=== PATIENT | male | born 1950 | race Caucasian/White ===

== ENCOUNTER 2017-08-17 08:00 | Outpatient (RCR) | payer MEDICARE, MEDICAID, SELFPAY ==
--- NOTE | 2017-07-20 07:43 | HP.PTEVAL_ITS ---
Patient's Visit Information CAREN GARCIA is a 67 year old M referred to Physical Therapy by Tyrel Arce with a diagnosis of L arm pain. Date of Evaluation: 07/13/17 Physical Therapist: Serge Block - Visit Plan Frequency: 1-2x /Week Duration: 4-6 Weeks Plan: Start with endurance training, static and dynamic balance training. BLE strengthening progressing HEP as able. Stress importance of increased walking and HEP at home to incerase carry over. Carry executive candidate developer was planing on talking to physician as she believes script should have been for balance not his L humeral issue. - Subjective Subjective: Pt. is here today for his initial diagnosis of of L arm pain s/p fall. 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 Pt. lives in residential with 2 other people. He fell in january suffering a L hmeral fx, but reports that this is doing much better. PHM: type 2 diabetes, hypertension, hypercholesterolemia and seizure disorder. Xray- non recently. Pt. reports not being conserned with his arm any more, more concerned with his imbalance and limited walking. He works at the [employer] and is supposed to be walking but frequently refuses. Pt. reports I just get tired. Caregiver reports no recently falls, but has falls a few more times this year. She reports pt. sits and watches TV for 3-4 hours a time and only gets up to go to work shop and to use bathroom. Pt. uses quad cane with all ambulation in R hand. Pt. reports having low endurance, fatigues quickly especially with walking. He is able to transer SBA/CGA and bed mobility independently, He does ambulate with a gait belt at home and community. He and lawn care technician are hopeful to increase BLE strength, endurance and improve gait to improved stability and reduce risk for future falls. - Pain L shoulder Pain Intensity (Out of 10): 0 Pain Intensity Range: 0 - Objective POSTURE: Pt. has FH posture, rounded shoulders, fwrd flexed posture, increased thoracic kyphosis. Pt. stands with quad cane and wide MORENO. PALPATION: Pt. had no pain with palpation of L shoulder. Pt. has no pain in BLEs. SLight edema in BLEs, non pitting. NEUROLOGICAL: Pt. has normal sensation to light and sharp touch of bilateral LEs. Pt. has 2+ achilles and patellar DTR bilaterally. Pt. is able to rise on heels and toes without LOB. Pt. does require balance aide to complete. ROM: Pt. has normal hip/knee ROM. Pt. has decreased over head shoulder ROM, but no pain noted. Pt. has tightnes in bilateral HS and bilatearl hip flexors. Decreased lumbar ext and flexion as well. No pain noted with all testing. MMT: RLE- ankle- DF 4/5, PF 4/5; knee- ext 4+/5, flexion 4/5 ; hip- flexion 4/5, abd 4-/5, ext 4-/5. LLE- ankle 4/5 throughout; knee- ext 4/5 , flexino 4/5; hip- flexion 4/5, abd 4-/5, ext 4/5. Core strength- poor. GAIT: Pt. ambulates with quad cane with SBA without LOB, but has decreased step length bilaterally, increased lateral sway with hips and slight knee flexion on L side. Pt. ambulated 150ft. but became very fatigued, no dyspnea noted. Pt. has increased lateral postural sway with gait if AD is removed. - Balance Scores Functional Gait Assessment Score: 7 % Disability: 76.6700 - Goals Goal 1:: Pt. to be I with HEP. Goal Time Frame: 4-6 Weeks Goal 2:: Pt. to have increased BLE strength by 1/2 grade of all effected musculature to increase stability with gait and stance. Goal Time Frame: 4-6 Weeks Goal 3:: Pt. to ambulate 300ft. with quad cane with ABDULKADIR allowing for increased ability to ambulate in community. Goal Time Frame: 4-6 Weeks Goal 4:: Pt. to ambulate 75' with quad cane SHIRA to allow for increased independence in home. Goal Time Frame: 4-6 Weeks Goal 5:: Pt. to have increased FGA to 15/30 indicating reduce risk for future falls. Goal Time Frame: 4-6 Weeks - Rehabilitation Potential Physical Therapy Diagnosis: Pt. has a history of left arm pain, but is not longer having symptoms. He does have a history of falls and his lawn care technician is concerned that he will have another one due to his general decline in BLE strength and stability with gait. He does have marked weakness in BLE, especially his hips. Pt. would benefit from PT to icnrease BLE strength, balance and endurance with walking to increase independence in home and community. Rehabilitation Potential: Fair - Anticipated Interventions Patient/Client Instruction: Educate patient on: Condition, Plan of Care, Risk Factors, Benefits of Fitness Program For the Purpose of:: To improve safety, To improve health and function, To foster healthy habits, To improve decision making, To facilitate caregiver knowledge, To improve self management, To prevent re-injury Therapeutic Exercise to Include: Strength training, Power training, Endurance training, Balance training, Body mechanics, Postural training, Flexibilty training, Gait and locomotor training, Passive ROM, Active ROM For the Purpose of:: To decrease pain, To increase ROM, To improve nutrient delivery to tissue, To increase oxygenation perfusion, To improve muscle performance and motor function, To improve ability to perform ADL's, To increase tolerance to activity/condition/position, To improve performance and independence with ADL's, To decrease level of supervision to perform tasks, To improve ability of physical actions for home/community/work/leisure, To improve gait and locomotor functions, To improve health of tissue, To increase flexibility/ROM, To improve endurance, To improve balance Thank you for the opportunity to evaluate your patient. For Medicare and Medicare HMO plans, please review the plan of care and approve it. It will need to be FAXED BACK to us at [phone] for Medicare purposes. Please let me know if there are questions or concerns regarding this plan of care. Physician Signature: Date:
--- NOTE | 2017-08-28 07:27 | HP.PTDCSUM ---
HP - PT D/C Summary It has been my pleasure to treat CAREN GARCIA under orders from Tyrel Arce, for the diagnosis of L arm pain for a total of 10 visit(s). Discharge Date: 08/17/17 Please see the following information for a summary of their discharge status. - Subjective Subjective: Pt. reports 'I am doing prett well. Pt. reports no recent fall. Pt. pleased with PT. Pt. continues to ambulate a little while at work. Pt. arrives using is quad cane. - Pain L shoulder Pain Intensity (Out of 10): 0 - Overall Improvement % Improvement: 85 - Objective Objective/Function: ROM: Pt. has normal ROM of L UE- no pain. PT. had tightness noted in B HS, but normal kne and hip ROM. MMT- Pt. had decerased strength in bilateral ankles 4-/5 throughout; R knee- ext 4+/5, flexion 4+/5; L knee ext 4/5, flexion 4/5; R hip flexion 4/5, and 4-/5, ext 4/5. L hip- flexion 4-/5, abd 3+/5, ext 4-/5. Core strength- poor. GAIT: Pt. ambulates with quad cane with ABDULKADIR upto 250ft. without LOB. Pt. continues decreased strength/stability in his left leg. Pt. has improved tempo this date. STAIRS: Pt. is able to compete with heavy use of RUE with reciprocal pattern, but has increased R lateral lean CGA to complete. - Goals Goal 1:: Pt. to be I with HEP. Goal Progress: Goal Met Goal 2:: Pt. to have increased BLE strength by 1/2 grade of all effected musculature to increase stability with gait and stance. Goal Progress: Goal Met Goal 3:: Pt. to ambulate 300ft. with quad cane with ABDULKADIR allowing for increased ability to ambulate in community. Goal Progress: Progressing Goal 4:: Pt. to ambulate 75' with quad cane SHIRA to allow for increased independence in home. Goal Progress: Progressing Goal 5:: Pt. to have increased FGA to 15/30 indicating reduce risk for future falls. Goal Progress: Progressing - Plan Plan: Pt. to will be DC to HEP at this point in time. Pt. has proper exercises and has been instructed to increase ambulation at home and work to increase/maintain mobility. Pt. consents. - D/C Information Discharge Comments: Pt. was treated for his arm pain which is gone. He was concerned about his balance as was his caregiver. Pt. did have balance issues and was addressed with strengthening, and balance activities. His balance and gait stability improved now to a point where he can continue with caregiver supervision. Pt. will be Dc to [facility] at this point in time. If there are questions or concerns regarding this patient's physical therapy, please feel free to call me at [phone]. Thank you for the referral of this patient. Sincerely, Serge Block
== END 2017-08-17 19:00 | disposition home or self-care (01) ==
LOC: PT 08:00
PROVIDERS: Family Provider Family Medicine; PCP Family Medicine; Visit Provider Orthopaedic Surgery
DX: S42.202D Unspecified fracture of upper end of left humerus, subsequent encounter for fracture with routine healing (principal)
CPT/HCPCS: 97110; 97162; 97530

== ENCOUNTER 2017-08-28 03:42 | Inpatient (IN) | payer MEDICARE, MEDICAID, SELFPAY ==
[2017-08-28] VITALS (8 sets, daily range): BP systolic 152–217; BP diastolic 82–121; PULSE 87–105; RESP 16–18; TEMP 36.6–37.5; O2SAT 94–97; BMI 32.9; BMI 31.6; BMI 31.7
--- NOTE | 2017-08-28 04:05 | RAD_ITS ---
STUDY: X-RAY - RIGHT FEMUR REASON FOR STUDY: Male, 67 years old. Status post fall. Right hip pain. TECHNIQUE: Radiological exam, femur, 5 views COMPARISON: None. FINDINGS: Normal visualized femur. There are arteriovascular calcifications. RAD/Femur Min 2 Views IMPRESSION: No demonstrated fracture, dislocation, or destructive osseous lesion. Electronically Signed: Garrett Phillips MD at 4:44 EDT , Service support ,
--- NOTE | 2017-08-28 04:05 | RAD_ITS ---
STUDY: X-RAY - PELVIS REASON FOR EXAM: Male, 67 years old. Status post fall. Right hip pain. TECHNIQUE: One view of the pelvis was obtained. COMPARISON: X-ray right femur. FINDINGS: There is a non-specific bowel gas pattern. Normal visualized soft tissue structures. There is deformity of the left iliac wing, which may be the result of remote trauma. Otherwise normal bilateral iliac wings, sacroiliac joints and visualized sacrum. Normal visualized bilateral superior and inferior pubic rami. Normal pubic symphysis. Normal ischial tuberosities. Normal visualized right femoral head. Normal right acetabulum. Normal right hip joint. Normal visualized left femoral head. Normal left acetabulum. Normal left hip joint. RAD/Pelvis 1 or 2 Views IMPRESSION: No demonstrated acute fracture, dislocation, or destructive osseous lesion. Electronically Signed: Garrett Phillips MD at 4:41 EDT , Service support ,
--- NOTE | 2017-08-28 04:08 | ED.VISSUMM ---
- ER Visit Summary Date of Service: 08/28/17 Chief Complaint: Fall with right hip pain History of Present Illness: The patient is a 67 M history of left sided cerebral palsy, [id number] diabetes, hypertension and prior left humerus fracture. Today was at home lost his balance and fell complaining of right hip pain. No LOC. He is on no blood thinners. He is a superficial abrasion the right lateral nose but denies any facial or head pain. No neck pain. He tried to ambulate at home and was unable to bear weight on his right hip. Denies other injuries. States prior to the fall he felt fine. Patient does have 2 roommates and has 24 hour a day care. 1 of his caregivers is with him. Physical Examination: Older male no acute distress. His initial blood pressure 217/121. Pulse ox 97% on room air no signs of hypoxia. He is afebrile. H EENT exam is a very superficial minor abrasion on the right side of his nose. There is no bony deformity. No bleeding. Otherwise there is no trauma to his face or scalp. C-spine nontender. Trachea midline. Lungs clear to auscultation bilaterally. Chest wall nontender. Heart regular rhythm no murmur. Abdomen soft nontender. Pelvic girdle intact. He does have mild tenderness to his right hip. There is no external rotation or shortening of the lower extremities. Dorsi and plantar flexion is intact both lower extremities. He has atrophy and decreasing strength on the left upper and lower extremity from prior cerebral palsy. His right upper extremity is nontender with normal range of motion. Neurologically is awake and alert. Answering questions and following commands. Test Results: Pelvis x-ray no acute abnormality. No fracture. X-ray multiple views no acute fracture seen. No dislocation. Read by myself. Emergency Department Course and Treatment: Patient doing well on repeat exam at 04 40. The nurses did attempt to ambulate the patient and he cannot bear weight on his right hip. In light that he has significant difficulty ambulating normally due to his left-sided cerebral palsy. He will need to be admitted and have further evaluation to rule out an occult fracture and possibly physical therapy. Treatment Plan: I will speak to the hospitalist about admission. Disposition: Admission Impression: Acute fall Acute right hip contusion Unable to bear weight rule out non-radiographic hip fracture History of left-sided cerebral palsy This note was generated with Dragon dictation software. It may contain incorrect words, spelling, and punctuation that were not noted in review of the chart prior to signing ED Disposition - Plan for ED Patient: Chief Complaint: Fall Referrals: Brayan Brown MD [Primary Care Provider] -
--- NOTE | 2017-08-28 05:16 | HP.PCM_ITS ---
Problem List (1) Fall with injury Status: Acute (2) Cerebral palsy Status: Chronic (3) Hypertension Status: Chronic History of Present Illness Date of Admission: 08/28/17 Chief Complaint: right hip pain, unable to bear weight The patient is a 67 year old male patient with a history of cerebral palsy and hypertension who has left side weakness at baseline from his CP presents to the ER after falling at home. His chief complaint is pain in the right hip area 5/ 10. He has an abnormal gait and as of late he has been weaker when he turned to go into the bathroom he fell. Xrays are negative for fracture. When they tried to get him up he was unable to bear weight on his right leg due to pain. He will be admitted for pain control and physical therapy further imaging may be warranted should he fail to progress. Past Medical History Past Medical History (Chronic Problems): Chronic Problems Cerebral palsy (Chronic) Hypertension (Chronic) Allergies mold Allergy (Verified 08/28/17 03:44) Other Home Medications: Ambulatory Orders Medication Instructions Recorded Atorvastatin Calcium [Lipitor] 10 mg PO DAILY 03/18/15 Hydrochlorothiazide [Hctz] 25 mg PO DAILY 03/18/15 Losartan Potassium [Cozaar] 100 mg PO DAILY 03/18/15 Metformin HCl [Glucophage] 1,000 mg PO BIDCM 03/18/15 Multivitamins,Therapeutic 1 tablet PO DAILY 03/18/15 [Multivitamin] Phenobarbital 64.8 mg PO BID 03/18/15 Propranolol HCl [Inderal (Beta 40 mg PO BID 03/18/15 Ahsan)] Amlodipine Besylate [Norvasc] 2.5 mg PO DAILY 08/28/17 Benzonatate [Tessalon Perle] 100 mg PO TID PRN PRN 08/28/17 Smoking Status: Never smoker - *Family History Maternal History Items: No pertinent history Review of Systems Constitutional: Denies: Chills, Fever, Weight Change HEENT: Denies: Head Aches, Sinus Congestion, Sinus Drainage Cardiovascular: Denies: Chest Pain, Palpitations Respiratory: Denies: Cough, Shortness of breath at rest, Sputum production Gastrointestinal: Denies: Abdominal Pain, Nausea, Vomiting Genitourinary: Denies: Dysuria Musculoskeletal: Reports: Joint Pain, Joint Tenderness Skin: Denies: Rash, Wounds Neurological: Denies: Numbness, Tingling, Focal weakness Psychiatric: Denies: Anxiety, Depression, Homicidal Ideations, Suicidal Ideations Hematologic/ Lymphatic: Denies: Easy Bruising, Easy Bleeding VTE Information - Inpt Only VTE Present on Admission: No VTE Mechan Device Prophylaxis: None VTE Pharm Prophylaxis ordered?: Yes Patient Problems: Active and Suspected Problems Fall with injury (Acute) - Physical Exam General: Alert, Oriented x3, Cooperative HEENT: Atraumatic, Normocephalic Neck: Supple Lungs: Clear to auscultation, Normal air movement, No rhonchi, No wheeze, No rales Cardiovascular: Regular rate, Regular Rhythm, Normal S1, Normal S2, No murmurs Abdomen: Bowel Sounds Present, Soft, Non Tender Extremities: Edema - right leg 1+, left leg trace Skin: No rashes Musculoskeletal: Tenderness - right hip Neurological: Neuro grossly intact Psych/Mental Status: Normal Affect, Appropriate Vital Signs Temp Pulse Resp BP Pulse Ox 98.1 F 87 18 217/121 H 97 08/28/17 03:44 08/28/17 03:44 08/28/17 03:44 08/28/17 03:44 08/28/17 03:44 Oxygen Delivery Method Room Air Weight: 204 lb 2.369 oz Body Mass Index (BMI) 32.9 Assessment/Plan All Active Problems Fall with injury (Acute) Chronic conditions - hypertension - cerebral palsy Plan - admit to general medical floor - consult physical therapy to evaluate and treat for right hip pain and inability to bear weight - continue routine home medications - cbc, bmp - toradol 30mg IV q 6hrs prn pain - LMWH for DVT prophylaxis consider MRI if fails to progress in PT Code Visit Inpatient E&M: 81116 Init Hosp L2
--- NOTE | 2017-08-28 05:28 | NURSING ---
Called ED math interventionist, Erica at this time to let the ED staff know that PCU is ready for the patient.
[2017-08-28 06:48] LABS: Absolute Lymphocyte Count 0.99 X10^3/ul (0.83-4.51); Basophil# 0.05 X10^3/uL; Basophil% 0.3 % (0-1); Eosinophil# 0.46 X10^3/uL; Hematocrit 32.3 % (40-54); Hemoglobin 10.7 g/dl (13.0-16.5); Lymphocyte # 0.99 X10^3/ul (4.0); Lymphocyte % 6.4 % (19-41); Mean Corp Hgb Conc 33.1 g/gl (32-36); Mean Corpuscular Hgb 29.2 pg (27.0-32.0); Mean Platelet Vol. 8.8 fl (6.2-12.0); Monocyte# 0.93 X10^3/uL; Neutrophil # 12.96 X10^3/uL (2.7-7.7); Neutrophil % 83.6 % (47-70); Platelet Count 247 K/mm3 (150-450); RBC Distribution Width CV 13.6 % (11.6-14.6); RBC Distribution Width SD 43.9 fl (35.1-43.9); Red Blood Count 3.67 M/mm3 (4.6-6.2); White Blood Count 15.5 K/mm3 (4.4-11.0)
[2017-08-28 06:52] LABS: POSITIVE COUNT NO; POSITIVE DIFFERENTIAL NO; POSITIVE MORPHOLOGY NO
[2017-08-28 07:13] LABS: Anion Gap 9 (5-15); BUN 19 mg/dL (7-18); BUN/Creat Ratio 17.6 RATIO (10-20); Calcium,Total 8.8 mg/dL (8.5-10.1); Chloride 100 mmol/L (98-107); Creatinine, Serum 1.08 mg/dL (0.70-1.30); EST Glomerular Filtration Rate 72 mL/min (>60); Est Glom Filt Rate - Afr Amer 87 mL/min (>60); Estimated Creatinine Clearance 58.25 ml/min; Glucose 221 mg/dL (74-106); Potassium 4.2 mmol/L (3.5-5.1); Sodium Level 135 mmol/L (136-145)
[2017-08-28] MEDS: Losartan Potassium 100 MG Tablet PO (08:16)
[2017-08-28] MEDS: metFORMIN HCl 1,000 MG Tablet 1000 MG PO ×2 (08:16→17:34)
[2017-08-28] MEDS: Propranolol 40 MG Tablet PO ×2 (08:16→21:48)
[2017-08-28] MEDS: hydroCHLOROthiazide 25 MG Tablet PO (08:16)
[2017-08-28] MEDS: amLODIPine 2.5 MG Tablet PO (08:16)
[2017-08-28] MEDS: Multivitamins,Therapeutic Tablet 1 TABLET PO (08:16)
[2017-08-28 08:26] LABS: Bedside Glucose 223 mg/dL (70-110)
[2017-08-28] MEDS: Phenobarbital 32.4 MG Tablet 64.8 MG PO ×2 (09:28→21:52)
[2017-08-28] MEDS: Enoxaparin 40 MG/0.4 ML Syringe SC (09:29)
--- NOTE | 2017-08-28 10:01 | PCM.PN.HOSP ---
Patient Problems: Active and Suspected Problems Fall with injury (Acute) Subjective: Patient is a 67-year-old male with a history of cerebral palsy and hypertension. He has residual left sided weakness at baseline. He was admitted via the ED on 08/28/2017 after he fell at home. Patient had gone to the bathroom and could not get up and subsequently fell. He was admitted with a complaint of 5/10 pain in the right hip. According to his caregiver he had progressively been getting weaker recently at home. X-rays were negative for fracture of the right hip. He was unable to weight-bear and so was admitted for physical therapy and pain control. Seen and examined this morning. His caregiver was present by his side. He had no complaints. However worried about the fact that he still could not weight-bear and felt weak. He denied any fever or chills, and shortness of breath, and abdominal pain, any diarrhea vomiting. According to his caregiver, patient has been progressively getting weaker at home and she thinks that he would benefit from more intense physical therapy. He had been having [facility]. Vitals/I&O's: Vital Signs Temp Pulse Resp BP Pulse Ox 97.8 F 90 16 171/106 H 97 08/28/17 06:00 08/28/17 06:00 08/28/17 06:00 08/28/17 06:00 08/28/17 06:00 Oxygen Delivery Method Room Air Weight: 196 lb 6.91 oz Body Mass Index (BMI) 31.6 General: Alert, Oriented x3, Cooperative, No apparent distress HEENT: Atraumatic, PERRLA, EOMI, Normocephalic Oral: Moist Mucosa Neck: Supple, No JVD, Negative Carotid Bruits Lungs: Clear to auscultation, Normal air movement, No rhonchi, No wheeze, No rales Cardiovascular: Regular rate, Regular Rhythm, Normal S1, Normal S2, No murmurs Abdomen: Bowel Sounds Present, Soft, Non Tender, Non-Distended, No Hepato-splenomegaly Extremities: No clubbing, No cyanosis, No edema, Capillary Refill Less than 3 Seconds Skin: No rashes, No breakdown Musculoskeletal: No Tenderness to Palpation of Joints or Extremities, - - has some contracture of RUE Lymphatic: No Cervical, Supraclavicular, or Inguinal Adenopathy Neurological: Cranial nerves II-XII grossly intact, - - has decreased power (4/5) in RUE and RLE. Cannot dorsiflex right foot. Psych/Mental Status: Normal Affect, Alert and oriented to time, place, person, mood and affect Laboratory Results 08/28/17 06:20: WBC 15.5 H, RBC 3.67 L, Hgb 10.7 L, Hct 32.3 L, MCV 88.0, MCH 29.2, MCHC 33.1, RDW 13.6, RDW Differential 43.9, Plt Count 247, MPV 8.8, Immature Gran % (Auto) 0.700, Neut % (Auto) 83.6 H, Lymph % (Auto) 6.4 L, Bay % (Auto) 6.0, Eos % (Auto) 3.0, Baso % (Auto) 0.3, Absolute Neuts (auto) 13.0 H, Absolute Lymphs (auto) 0.99, Total Counted Not Reportable 08/28/17 06:20: Sodium 135 L, Potassium 4.2, Chloride 100, Carbon Dioxide 26.0, Anion Gap 9, BUN 19 H, Creatinine 1.08, Estim Creat Clear Calc 58.25, Est GFR (MDRD) Af Amer 87, Est GFR (MDRD) Non-Af 72, BUN/Creatinine Ratio 17.6, Glucose 221 H, Calcium 8.8 08/28/17 08:08: POC Glucose 223 H Current Medications Amlodipine Besylate (Norvasc) 2.5 mg PO DAILY [facility] Last Admin: 08/28/17 08:16 Dose: 2.5 mg Atorvastatin Calcium (Lipitor) 10 mg PO DAILY@2200 [facility] Benzonatate (Tessalon Perle) 100 mg PO TID PRN PRN PRN Reason: COUGH Enoxaparin Sodium (Lovenox) 40 mg SC DAILY@1000 [facility] Last Admin: 08/28/17 09:29 Dose: 40 mg Hydrochlorothiazide (Hctz) 25 mg PO DAILY [facility] Last Admin: 08/28/17 08:16 Dose: 25 mg Ketorolac Tromethamine (Toradol) 30 mg IV Q6H PRN PRN PRN Reason: PAIN Stop: 09/02/17 05:50 Losartan Potassium (Cozaar) 100 mg PO DAILY [facility] Last Admin: 08/28/17 08:16 Dose: 100 mg Magnesium Hydroxide (Milk Of Magnesia) 30 ml PO DAILY PRN PRN PRN Reason: Constipation [facility] Last Admin: 08/28/17 08:16 Dose: 1,000 mg Multivitamins (Multivitamin) 1 tablet PO DAILYCM [facility] Last Admin: 08/28/17 08:16 Dose: 1 tablet Phenobarbital (Phenobarbital) 64.8 mg PO BID [facility] Last Admin: 08/28/17 09:28 Dose: 64.8 mg Propranolol HCl (Inderal) 40 mg PO BID [facility] Last Admin: 08/28/17 08:16 Dose: 40 mg Sodium Chloride () 5 - 30 ml IV UD PRN PRN Reason: SALINE FLUSH Medical Necessity - Tobacco Use Smoking Status: Never smoker Assessment/Plan All Active Problems Fall with injury (Acute) 67-year-old male with a history of cerebral palsy with residual right-sided weakness and hypertension admitted after he sustained a fall at home. He also has had generalized weakness present and progressively getting worse and is unable to weight-bear. 1. Acute fall due to general debility Fell at home after he got up to going to the bathroom. Has been feeling weaker. Recently had physical [facility]. Vitals are stable except blood pressure that remains elevated. PT/OT on board; will benefit from intensive physical therapy fall precautions toradol for pain 2. Hypertension poorly controlled This may also be due to pain. On losartan and propranolol as well as hydrochlorthiazide. Will monitor, and adjust as needed IV hydralazine prn 3. 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 DVT prophylaxis: lovenox This note was generated with Clipboard dictation software. It may contain incorrect words, spelling, and punctuation that were not noted in checking the note before signing. Code Visit Inpatient E&M: 07514 Subs Hosp L2
--- NOTE | 2017-08-28 10:08 | CASEMGMT ---
LEEANN spoke with patient, his sister, brother in law, and one of his caregivers. Patient lives in a 1 story home with 2 other roommates. Ashtyn Valdes is his main caregiver. Patient normally uses a cane and gait belt to get around. He gets assist with bathing and they set up his meds. SW inquired if they knew of a d/c plan. They said they do not know yet as they have not spoken to any medical appliance maker to even know what is going on and he just came in today. LEEANN told them that is fine and that LEEANN as well as GAYATRI BOOKER will be following to assist with any d/c needs. Patient's brother in law said he is patient's guardian. They said the papers should be on file. LEEANN looked in chart and there is only a copy of a healthcare power of assistant district attorney from awhile ago listing patient's mom and dad as his agents. Both of whom have likely . LEEANN will ask patient's sister to bring in papers. Plan: Undetermined Tess LAYTON MSW
--- NOTE | 2017-08-28 10:10 | PN_ITS ---
Patient Problems: Active and Suspected Problems Fall with injury (Acute) Subjective: Patient is a 67-year-old male with a history of cerebral palsy and hypertension. He has residual left sided weakness at baseline. He was admitted via the ED on 08/28/2017 after he fell at home. Patient had gone to the bathroom and could not get up and subsequently fell. He was admitted with a complaint of 5/10 pain in the right hip. According to his caregiver he had progressively been getting weaker recently at home. X-rays were negative for fracture of the right hip. He was unable to weight-bear and so was admitted for physical therapy and pain control. Seen and examined this morning. His caregiver was present by his side. He had no complaints. However worried about the fact that he still could not weight- bear and felt weak. He denied any fever or chills, and shortness of breath, and abdominal pain, any diarrhea vomiting. According to his caregiver, patient has been progressively getting weaker at home and she thinks that he would benefit from more intense physical therapy. [facility] had [facility] having [facility]. Vitals/I&O's: Vital Signs Temp Pulse Resp BP Pulse Ox 97.8 F 90 16 171/106 H 97 08/28/17 06:00 08/28/17 06:00 08/28/17 06:00 08/28/17 06:00 08/28/17 06:00 Oxygen Delivery Method Room Air Weight: 196 lb 6.91 oz Body Mass Index (BMI) 31.6 General: Alert, Oriented x3, Cooperative, No apparent distress HEENT: Atraumatic, PERRLA, EOMI, Normocephalic Oral: Moist Mucosa Neck: Supple, No JVD, Negative Carotid Bruits Lungs: Clear to auscultation, Normal air movement, No rhonchi, No wheeze, No rales Cardiovascular: Regular rate, Regular Rhythm, Normal S1, Normal S2, No murmurs Abdomen: Bowel Sounds Present, Soft, Non Tender, Non-Distended, No Hepato- splenomegaly Extremities: No clubbing, No cyanosis, No edema, Capillary Refill Less than 3 Seconds Skin: No rashes, No breakdown Musculoskeletal: No Tenderness to Palpation of Joints or Extremities, - - has some contracture of RUE Lymphatic: No Cervical, Supraclavicular, or Inguinal Adenopathy Neurological: Cranial nerves II-XII grossly intact, - - has decreased power (4/5 ) in RUE and RLE. Cannot dorsiflex right foot. Psych/Mental Status: Normal Affect, Alert and oriented to time, place, person, mood and affect Laboratory Results 08/28/17 06:20: WBC 15.5 H, RBC 3.67 L, Hgb 10.7 L, Hct 32.3 L, MCV 88.0, MCH 29.2, MCHC 33.1, RDW 13.6, RDW Differential 43.9, Plt Count 247, MPV 8.8, Immature Gran % (Auto) 0.700, Neut % (Auto) 83.6 H, Lymph % (Auto) 6.4 L, [place] % (Auto) 6.0, Eos % (Auto) 3.0, Baso % (Auto) 0.3, Absolute Neuts (auto) 13.0 H , Absolute Lymphs (auto) 0.99, Total Counted Not Reportable 08/28/17 06:20: Sodium 135 L, Potassium 4.2, Chloride 100, Carbon Dioxide 26.0, Anion Gap 9, BUN 19 H, Creatinine 1.08, Estim Creat Clear Calc 58.25, Est GFR ( MDRD) Af Amer 87, Est GFR (MDRD) Non-Af 72, BUN/Creatinine Ratio 17.6, Glucose 221 H, Calcium 8.8 08/28/17 08:08: POC Glucose 223 H Current Medications Amlodipine Besylate (Norvasc) 2.5 mg PO DAILY [facility] Last Admin: 08/28/17 08:16 Dose: 2.5 mg Atorvastatin Calcium (Lipitor) 10 mg PO DAILY@2200 [facility] Benzonatate (Tessalon Perle) 100 mg PO TID PRN PRN PRN Reason: COUGH Enoxaparin Sodium (Lovenox) 40 mg SC DAILY@1000 [facility] Last Admin: 08/28/17 09:29 Dose: 40 mg Hydrochlorothiazide (Hctz) 25 mg PO DAILY [facility] Last Admin: 08/28/17 08:16 Dose: 25 mg Ketorolac Tromethamine (Toradol) 30 mg IV Q6H PRN PRN PRN Reason: PAIN Stop: 09/02/17 05:50 Losartan Potassium (Cozaar) 100 mg PO DAILY [facility] Last Admin: 08/28/17 08:16 Dose: 100 mg Magnesium Hydroxide (Milk Of Magnesia) 30 ml PO DAILY PRN PRN PRN Reason: Constipation [facility] Last Admin: 08/28/17 08:16 Dose: 1,000 mg Multivitamins (Multivitamin) 1 tablet PO DAILYCM [facility] Last Admin: 08/28/17 08:16 Dose: 1 tablet Phenobarbital (Phenobarbital) 64.8 mg PO BID [facility] Last Admin: 08/28/17 09:28 Dose: 64.8 mg Propranolol HCl (Inderal) 40 mg PO BID [facility] Last Admin: 08/28/17 08:16 Dose: 40 mg Sodium Chloride () 5 - 30 ml IV UD PRN PRN Reason: SALINE FLUSH Medical Necessity - Tobacco Use Smoking Status: Never smoker Assessment/Plan All Active Problems Fall with injury (Acute) 67-year-old male with a history of cerebral palsy with residual right-sided weakness and hypertension admitted after he sustained a fall at home. He also has had generalized weakness present and progressively getting worse and is unable to weight-bear. 1. Acute fall due to general debility * Fell at home after he got up to going to the bathroom. Has been feeling weaker. Recently had physical [facility]. * Vitals are stable except blood pressure that remains elevated. * PT/OT on board; will benefit from intensive physical therapy * fall precautions * toradol for pain * 2. Hypertension * poorly controlled * This may also be due to pain. * On losartan and propranolol as well as hydrochlorthiazide. Will monitor, and adjust as needed * IV hydralazine prn * 3. History of cerebral palsy * on phenobarbital for seizure prophyalxis 4. DVT prophylaxis: lovenox This note was generated with [employer] dictation software. It may contain incorrect words, spelling, and punctuation that were not noted in checking the note before signing. Code Visit Inpatient E&M: 91108 Subs Hosp L2
[2017-08-28] MEDS: hydrALAZINE 20 MG/ML Vial 10 MG IV (13:00)
[2017-08-28] MEDS: 0.9% NaCl Peripheral Flush Adult/Peds IV (13:01)
--- NOTE | 2017-08-28 14:45 | CASEMGMT ---
SW spoke with patient regarding d/c plan as therapy is recommending he go somewhere. He told SW to call his sister as she is his guardian. He said he would like [facility], but he is okay with wherever she says. SW called patient's sister, Nicole and could not leave a message as her voice mailbox is full. SW to talk with patient's sister regarding placement and to request a copy of the guardianship papers. Plan: Patient will need SNF. SW to talk with family about which facility. Tess LAYTON [employer]RILL SHARPENER OPERATOR
--- NOTE | 2017-08-28 17:30 | CT_ITS ---
STUDY: CT PELVIS WITH CONTRAST REASON FOR EXAM: Male, 67 years old. Right pelvis and hip pain RADIATION DOSAGE (If Supplied By Facility): CTDIvol = ( 28.12 ) mGy, DLP = ( 995.51 ) mGycm TECHNIQUE: Transaxial imaging of the pelvis was performed without oral contrast. 100 ml of Isovue 300 contrast was administered intravenously. Individualized dose optimization techniques were used for this CT. COMPARISON: None. FINDINGS: Normal urinary bladder. The prostate is 4.0 x 5.8 cm. Left inguinal hernia containing part of the sigmoid colon. Normal visualized small intestine. Normal visualized colon. There is no pelvic fluid. There is no pelvic lymphadenopathy or mass lesion. Normal visualized pelvic arteries. Normal abdominal wall. Degenerative lower lumbar changes. There is a fracture noted through the anterior portion of the right acetabulum. Questionable fracture through the right inferior pubic ramus. CT/Pelvis WITH IV Contrast IMPRESSION: There is a fracture noted through the anterior portion of the right acetabulum. Questionable fracture through the right inferior pubic ramus. Left inguinal hernia containing part of the sigmoid colon. Electronically Signed: Sukhi Vasquez DO at 18:26 EDT Tel [phone], Service support ,
[2017-08-28] MEDS: Atorvastatin Calcium 10 MG Tablet PO (21:49)
[2017-08-28 22:01] LABS: Bedside Glucose 235 mg/dL (70-110)
[2017-08-28] MEDS: Insulin Lispro 100 UNIT/ML INSULN.PEN SC (23:11)
[2017-08-29 03:45] VITALS: BP 142/73; PULSE 84; RESP 16; TEMP 37.2; O2SAT 97
[2017-08-29 07:01] LABS: Bedside Glucose 214 mg/dL (70-110)
--- NOTE | 2017-08-29 07:22 | PCM.PN.HOSP ---
Patient Problems: Active and Suspected Problems Fall with injury (Acute) Subjective: Patient is a 67-year-old male with a history of cerebral palsy and hypertension. He has residual left sided weakness at baseline. He was admitted via the ED on 08/28/2017 after he fell at home. Patient had gone to the bathroom and could not get up and subsequently fell. He was admitted with a complaint of 5/10 pain in the right hip. According to his caregiver he had progressively been getting weaker recently at home. X-rays were negative for fracture of the right hip. He was unable to weight-bear and so was admitted for physical therapy and pain control. Due to patient's inability to tolerate physical therapy, CT with contrast of the right hip and pelvis was obtained which showed an acetabular fracture. Orthopedics consulted. Examined this morning. He feels much better and his pain is much better controlled. He denies any fever or chills, any shortness of breath, any cough or chest pain, any abdominal pain, any diarrhea vomiting. His intake has been good and patient was actually hungry at time of review. Review of systems otherwise negative. Vitals/I&O's: Vital Signs Temp Pulse Resp BP Pulse Ox 99.0 F 84 16 142/73 H 97 08/29/17 03:45 08/29/17 03:45 08/29/17 03:45 08/29/17 03:45 08/29/17 03:45 Oxygen Delivery Method Room Air Weight: 196 lb 6.91 oz Body Mass Index (BMI) 31.6 Intake and Output for Last 24 Hours 08/27/17 08/28/17 08/29/17 23:59 23:59 23:59 Intake Total 660 / 660 Output Total 825 / 825 125 / 125 Balance -165 / -165 -125 / -125 General: Alert, Oriented x3, Cooperative, No apparent distress HEENT: Atraumatic, PERRLA, EOMI, Normocephalic Oral: Moist Mucosa Neck: Supple, No JVD, Negative Carotid Bruits Lungs: Clear to auscultation, Normal air movement, No rhonchi, No wheeze, No rales Cardiovascular: Regular rate, Regular Rhythm, Normal S1, Normal S2, No murmurs Abdomen: Bowel Sounds Present, Soft, Non Tender, Non-Distended, No Hepato-splenomegaly Extremities: No cyanosis, No edema, Capillary Refill Less than 3 Seconds Skin: No rashes, No breakdown Musculoskeletal: - - Right upper extremity contractured. RLE is shortened and externally rotated. Mild tenderness on flexion of hip joint. Lymphatic: No Cervical, Supraclavicular, or Inguinal Adenopathy Neurological: Cranial nerves II-XII grossly intact Psych/Mental Status: Normal Affect, Appropriate, Alert and oriented to time, place, person, mood and affect Laboratory Results 08/28/17 08:08: POC Glucose 223 H 08/28/17 21:41: POC Glucose 235 H Impressions Femur X-Ray 08/28/17 04:05 IMPRESSION: No demonstrated fracture, dislocation, or destructive osseous lesion. Electronically Signed: Garrett Phillips MD at 4:44 EDT , Service support , Pelvis X-Ray 08/28/17 04:05 IMPRESSION: No demonstrated acute fracture, dislocation, or destructive osseous lesion. Electronically Signed: Garrett hPillips MD at 4:41 EDT , Service support , Pelvis CT 08/28/17 17:30 IMPRESSION: There is a fracture noted through the anterior portion of the right acetabulum. Questionable fracture through the right inferior pubic ramus. Left inguinal hernia containing part of the sigmoid colon. Electronically Signed: Sukhi Vasquez DO at 18:26 EDT Tel [phone], Service support , 08/28/17 17:30 CT Hip [Pelvis WITH IV Contrast] [CT] Urgent Laboratory Results 08/28/17 08/29/17 08/29/17 Range/Units 21:41 06:55 08:08 WBC 8.8 (4.4-11.0) K/mm3 RBC 3.34 L (4.6-6.2) M/mm3 Hgb 9.8 L (13.0-16.5) g/dl Hct 29.1 L (40-54) % MCV 87.1 (80-94) fL MCH 29.3 (27.0-32.0) pg MCHC 33.7 (32-36) g/gl RDW 13.5 (11.6-14.6) % RDW Differential 43.3 (35.1-43.9) fl Plt Count 228 (150-450) K/mm3 MPV 8.7 (6.2-12.0) fl Immature Gran % (Auto) 0.500 (0.0-0.9) % Neut % (Auto) 71.1 H (47-70) % Lymph % (Auto) 15.9 L (19-41) % Morrison % (Auto) 7.9 (0-10) % Eos % (Auto) 4.0 (0-5) % Baso % (Auto) 0.6 (0-1) % Absolute Neuts (auto) 6.2 (2.0-7.7) X10^3/uL Absolute Lymphs (auto) 1.39 (0.83-4.51) X10^3/ul Total Counted Not Reportable Sodium (136-145) mmol/L Potassium (3.5-5.1) mmol/L Chloride (98-107) mmol/L Carbon Dioxide (21.0-32.0) mmol/L Anion Gap (5-15) BUN (7-18) mg/dL Creatinine (0.70-1.30) mg/dL Estim Creat Clear Calc ml/min Est GFR (MDRD) Af Amer (>60) mL/min Est GFR (MDRD) Non-Af (>60) mL/min BUN/Creatinine Ratio (10-20) RATIO Glucose (74-106) mg/dL Calcium (8.5-10.1) mg/dL POC Glucose 235 H 214 H (70-110) mg/dL 08/29/17 08/29/17 Range/Units 08:08 11:13 WBC (4.4-11.0) K/mm3 RBC (4.6-6.2) M/mm3 Hgb (13.0-16.5) g/dl Hct (40-54) % MCV (80-94) fL MCH (27.0-32.0) pg MCHC (32-36) g/gl RDW (11.6-14.6) % RDW Differential (35.1-43.9) fl Plt Count (150-450) K/mm3 MPV (6.2-12.0) fl Immature Gran % (Auto) (0.0-0.9) % Neut % (Auto) (47-70) % Lymph % (Auto) (19-41) % Morrison % (Auto) (0-10) % Eos % (Auto) (0-5) % Baso % (Auto) (0-1) % Absolute Neuts (auto) (2.0-7.7) X10^3/uL Absolute Lymphs (auto) (0.83-4.51) X10^3/ul Total Counted Sodium 136 (136-145) mmol/L Potassium 4.1 (3.5-5.1) mmol/L Chloride 100 (98-107) mmol/L Carbon Dioxide 26.0 (21.0-32.0) mmol/L Anion Gap 10 (5-15) BUN 24 H (7-18) mg/dL Creatinine 1.37 H (0.70-1.30) mg/dL Estim Creat Clear Calc 45.92 ml/min Est GFR (MDRD) Af Amer 66 (>60) mL/min Est GFR (MDRD) Non-Af 55 L (>60) mL/min BUN/Creatinine Ratio 17.5 (10-20) RATIO Glucose 197 H (74-106) mg/dL Calcium 7.9 L (8.5-10.1) mg/dL POC Glucose 274 H (70-110) mg/dL 08/29/17 06:55: POC Glucose 214 H Current Medications Amlodipine Besylate (Norvasc) 2.5 mg PO DAILY [facility] Last Admin: 08/28/17 08:16 Dose: 2.5 mg Atorvastatin Calcium (Lipitor) 10 mg PO DAILY@2200 [facility] Last Admin: 08/28/17 21:49 Dose: 10 mg Benzonatate (Tessalon Perle) 100 mg PO TID PRN PRN PRN Reason: COUGH Enoxaparin Sodium (Lovenox) 40 mg SC DAILY@1000 [facility] Last Admin: 08/28/17 09:29 Dose: 40 mg Hydralazine HCl (Apresoline Iv) 10 mg IV Q6H PRN PRN PRN Reason: BLOOD PRESSURE ELEVATION Last Admin: 08/28/17 13:00 Dose: 10 mg Hydrochlorothiazide (Hctz) 25 mg PO DAILY [facility] Last Admin: 08/28/17 08:16 Dose: 25 mg Insulin Human Lispro (Humalog Kwikpen (Bkc)) 0 unit SC ACHS [facility] PRN Reason: Protocol Last Admin: 08/28/17 23:11 Dose: 3 units Ketorolac Tromethamine (Toradol) 30 mg IV Q6H PRN PRN PRN Reason: PAIN Stop: 09/02/17 05:50 Losartan Potassium (Cozaar) 100 mg PO DAILY [facility] Last Admin: 08/28/17 08:16 Dose: 100 mg Magnesium Hydroxide (Milk Of Magnesia) 30 ml PO DAILY PRN PRN PRN Reason: Constipation [facility] ([facility] Last Admin: 08/28/17 17:34 Dose: 1,000 mg Multivitamins (Multivitamin) [facility] Last Admin: 08/28/17 08:16 Dose: 1 tablet Phenobarbital (Phenobarbital) 64.8 mg PO BID [facility] Last Admin: 08/28/17 21:52 Dose: 64.8 mg Propranolol HCl (Inderal) 40 mg PO BID [facility] Last Admin: 08/28/17 21:48 Dose: 40 mg Sodium Chloride () 5 - 30 ml IV UD PRN PRN Reason: SALINE FLUSH Last Admin: 08/28/17 13:01 Dose: 10 ml Medical Necessity - Tobacco Use Smoking Status: Never smoker Assessment/Plan All Active Problems Fall with injury (Acute) 67-year-old male with a history of cerebral palsy with residual right-sided weakness and hypertension admitted after he sustained a fall at home. He also has had generalized weakness present and progressively getting worse and is unable to weight-bear. 1. Right acetabular fracture Fell at home after he got up to use the bathroom. Initial x-ray was negative for any fractures. However had persistent pain. Unable to do MRI as patient had a history of metal implants in his right lower extremity. CT of the right hip and pelvis with contrast showed acetabular fracture. Orthopedic surgeon consulted. Recommend intense physical therapy. To follow-up on outpatient basis. To likely take about 8-12 weeks to heal per orthopedic surgeon. PT/OT on board. Fall precautions. On toradol for pain 2. Hypertension control improving. Bp this morning is 147/80 On losartan and propranolol as well as hydrochlorthiazide. IV hydralazine prn 3. 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 DVT prophylaxis: lovenox This note was generated with [employer] dictation software. It may contain incorrect words, spelling, and punctuation that were not noted in checking the note before signing. Code Visit Inpatient E&M: 00295 Subs Hosp L2
[2017-08-29] MEDS: Insulin Lispro 100 UNIT/ML INSULN.PEN SC ×4 (08:14→22:18)
[2017-08-29] MEDS: Multivitamins,Therapeutic Tablet 1 TABLET PO (08:14)
[2017-08-29 08:20] VITALS: BP 150/81; PULSE 80
[2017-08-29] MEDS: amLODIPine 2.5 MG Tablet PO (08:23)
[2017-08-29] MEDS: Losartan Potassium 100 MG Tablet PO (08:23)
[2017-08-29] MEDS: hydroCHLOROthiazide 25 MG Tablet PO (08:24)
[2017-08-29] MEDS: Propranolol 40 MG Tablet PO ×2 (08:24→22:18)
[2017-08-29 08:27] LABS: Absolute Lymphocyte Count 1.39 X10^3/ul (0.83-4.51); Absolute Neutrophil Count 6.2 X10^3/uL (2.0-7.7); Basophil# 0.05 X10^3/uL; Basophil% 0.6 % (0-1); Eosinophil# 0.35 X10^3/uL; Hematocrit 29.1 % (40-54); Hemoglobin 9.8 g/dl (13.0-16.5); Lymphocyte # 1.39 X10^3/ul (4.0); Lymphocyte % 15.9 % (19-41); Mean Corp Hgb Conc 33.7 g/gl (32-36); Mean Corpuscular Hgb 29.3 pg (27.0-32.0); Mean Corpuscular Volume 87.1 fL (80-94); Mean Platelet Vol. 8.7 fl (6.2-12.0); Monocyte# 0.69 X10^3/uL; Monocyte% 7.9 % (0-10); Neutrophil # 6.24 X10^3/uL (2.7-7.7); Neutrophil % 71.1 % (47-70); Platelet Count 228 K/mm3 (150-450); RBC Distribution Width CV 13.5 % (11.6-14.6); RBC Distribution Width SD 43.3 fl (35.1-43.9); Red Blood Count 3.34 M/mm3 (4.6-6.2); White Blood Count 8.8 K/mm3 (4.4-11.0)
[2017-08-29] MEDS: Phenobarbital 32.4 MG Tablet 64.8 MG PO ×2 (08:27→22:22)
[2017-08-29 08:28] LABS: POSITIVE COUNT NO; POSITIVE DIFFERENTIAL NO; POSITIVE MORPHOLOGY NO
[2017-08-29 08:54] LABS: Anion Gap 10 (5-15); BUN 24 mg/dL (7-18); BUN/Creat Ratio 17.5 RATIO (10-20); Calcium,Total 7.9 mg/dL (8.5-10.1); Chloride 100 mmol/L (98-107); Creatinine, Serum 1.37 mg/dL (0.70-1.30); EST Glomerular Filtration Rate 55 mL/min (>60); Est Glom Filt Rate - Afr Amer 66 mL/min (>60); Estimated Creatinine Clearance 45.92 ml/min; Glucose 197 mg/dL (74-106); Potassium 4.1 mmol/L (3.5-5.1); Sodium Level 136 mmol/L (136-145)
[2017-08-29 09:45] VITALS: BP 147/80; PULSE 79; RESP 18; TEMP 37.2; O2SAT 96
[2017-08-29] MEDS: Enoxaparin 40 MG/0.4 ML Syringe SC (10:00)
--- NOTE | 2017-08-29 10:59 | PCM.PN.ORT ---
Patient Problems: Active and Suspected Problems Fall with injury (Acute) - Physical Exam Vital Signs Temp Pulse Resp BP Pulse Ox 99.0 F 84 16 142/73 H 97 08/29/17 03:45 08/29/17 03:45 08/29/17 03:45 08/29/17 03:45 08/29/17 03:45 Oxygen Delivery Method Room Air Weight: 196 lb 6.91 oz Body Mass Index (BMI) 31.6 Intake and Output for Last 24 Hours 08/27/17 08/28/17 08/29/17 23:59 23:59 23:59 Intake Total 660 / 660 Output Total 825 / 825 125 / 125 Balance -165 / -165 -125 / -125 Laboratory Tests Past 24 Hrs 08/29/17 08/29/17 08:08 08:08 WBC 8.8 RBC 3.34 L Hgb 9.8 L Hct 29.1 L MCV 87.1 MCH 29.3 MCHC 33.7 RDW 13.5 RDW Differential 43.3 Plt Count 228 MPV 8.7 Immature Gran % (Auto) 0.500 Neut % (Auto) 71.1 H Lymph % (Auto) 15.9 L [place] % (Auto) 7.9 Eos % (Auto) 4.0 Baso % (Auto) 0.6 Absolute Neuts (auto) 6.2 Absolute Lymphs (auto) 1.39 Total Counted Not Reportable Sodium 136 Potassium 4.1 Chloride 100 Carbon Dioxide 26.0 Anion Gap 10 BUN 24 H Creatinine 1.37 H Estim Creat Clear Calc 45.92 Est GFR (MDRD) Af Amer 66 Est GFR (MDRD) Non-Af 55 L BUN/Creatinine Ratio 17.5 Glucose 197 H Calcium 7.9 L POC Glucose 08/29/17 08/28/17 06:55 21:41 POC Glucose 214 H 235 H Medical Necessity - Tobacco Use Smoking Status: Never smoker Assessment/Plan All Active Problems Fall with injury (Acute)
--- NOTE | 2017-08-29 11:00 | PCM.PN.ORT ---
Patient Problems: Active and Suspected Problems Fall with injury (Acute) Subjective: ORTHOPEDIC CONSULT Patient c/o right hip pain since fall at home on Sunday. Denies N/T or P but has a hx of CP which has primarily affected his left side. PMHx, PSHx Family HX, ROS, medications and allergies reviewed per intake H&P. - Physical Exam General: Alert, Oriented x3, Cooperative, No apparent distress Musculoskeletal: Tenderness - RIGHT groin, but no pain with log roll either hip. No other areas of pain of the axial or appendicular skeleton Neurological: Cranial nerves II-XII grossly intact - Patient is baseline according to his normal neurologic fnxn with cerebral palsy Comment: All imaging studies reviewed Vital Signs Temp Pulse Resp BP Pulse Ox 99.0 F 84 16 142/73 H 97 08/29/17 03:45 08/29/17 03:45 08/29/17 03:45 08/29/17 03:45 08/29/17 03:45 Oxygen Delivery Method Room Air Weight: 196 lb 6.91 oz Body Mass Index (BMI) 31.6 Intake and Output for Last 24 Hours 08/27/17 08/28/17 08/29/17 23:59 23:59 23:59 Intake Total 660 / 660 Output Total 825 / 825 125 / 125 Balance -165 / -165 -125 / -125 Laboratory Tests Past 24 Hrs 08/29/17 08/29/17 08:08 08:08 WBC 8.8 RBC 3.34 L Hgb 9.8 L Hct 29.1 L MCV 87.1 MCH 29.3 MCHC 33.7 RDW 13.5 RDW Differential 43.3 Plt Count 228 MPV 8.7 Immature Gran % (Auto) 0.500 Neut % (Auto) 71.1 H Lymph % (Auto) 15.9 L [place] % (Auto) 7.9 Eos % (Auto) 4.0 Baso % (Auto) 0.6 Absolute Neuts (auto) 6.2 Absolute Lymphs (auto) 1.39 Total Counted Not Reportable Sodium 136 Potassium 4.1 Chloride 100 Carbon Dioxide 26.0 Anion Gap 10 BUN 24 H Creatinine 1.37 H Estim Creat Clear Calc 45.92 Est GFR (MDRD) Af Amer 66 Est GFR (MDRD) Non-Af 55 L BUN/Creatinine Ratio 17.5 Glucose 197 H Calcium 7.9 L POC Glucose 07/04/18 07/03/18 06:55 21:41 POC Glucose 214 H 235 H Medical Necessity - Tobacco Use Smoking Status: Never smoker Assessment/Plan All Active Problems Fall with injury (Acute) Right pubic ramus fracture I reccomend PT with a walker. WBAT since paient will have difficulty protecting WB on Right LE secondary to underlying CP. Will follow up in office. Will likely take 8-12 weeks to heal.
[2017-08-29 11:20] LABS: Bedside Glucose 274 mg/dL (70-110)
[2017-08-29 15:45] VITALS: BP 141/77; PULSE 82; RESP 16; TEMP 36.9; O2SAT 95
[2017-08-29 16:51] LABS: Bedside Glucose 271 mg/dL (70-110)
[2017-08-29 21:45] VITALS: BP 156/72; PULSE 98; RESP 16; TEMP 36.6; O2SAT 95
[2017-08-29] MEDS: Atorvastatin Calcium 10 MG Tablet PO (22:18)
[2017-08-29 23:31] LABS: Bedside Glucose 326 mg/dL (70-110)
[2017-08-30 03:45] VITALS: BP 146/75; PULSE 77; RESP 16; TEMP 36.7; O2SAT 95
[2017-08-30 07:00] LABS: Bedside Glucose 239 mg/dL (70-110)
[2017-08-30] MEDS: Multivitamins,Therapeutic Tablet 1 TABLET PO (07:57)
[2017-08-30] MEDS: Insulin Lispro 100 UNIT/ML INSULN.PEN SC ×4 (07:57→22:12)
[2017-08-30] MEDS: Losartan Potassium 100 MG Tablet PO (07:58)
[2017-08-30] MEDS: hydroCHLOROthiazide 25 MG Tablet PO (07:59)
[2017-08-30] MEDS: amLODIPine 2.5 MG Tablet PO ×2 (07:59→16:03)
[2017-08-30] MEDS: Propranolol 40 MG Tablet PO ×2 (07:59→20:41)
[2017-08-30 08:00] VITALS: BP 165/96; PULSE 83; RESP 16; TEMP 36.9; O2SAT 93
[2017-08-30 08:06] LABS: Absolute Lymphocyte Count 1.42 X10^3/ul (0.83-4.51); Absolute Neutrophil Count 6.7 X10^3/uL (2.0-7.7); Basophil# 0.05 X10^3/uL; Basophil% 0.5 % (0-1); Eosinophil# 0.44 X10^3/uL; Eosinophils% 4.6 % (0-5); Hematocrit 30.4 % (40-54); Hemoglobin 10.5 g/dl (13.0-16.5); Lymphocyte # 1.42 X10^3/ul (4.0); Lymphocyte % 14.9 % (19-41); Mean Corp Hgb Conc 34.5 g/gl (32-36); Mean Corpuscular Volume 86.9 fL (80-94); Mean Platelet Vol. 9.1 fl (6.2-12.0); Monocyte# 0.84 X10^3/uL; Monocyte% 8.8 % (0-10); Neutrophil # 6.68 X10^3/uL (2.7-7.7); Neutrophil % 70.3 % (47-70); Platelet Count 263 K/mm3 (150-450); RBC Distribution Width SD 40.1 fl (35.1-43.9); White Blood Count 9.5 K/mm3 (4.4-11.0)
[2017-08-30 08:08] LABS: POSITIVE COUNT NO; POSITIVE DIFFERENTIAL NO; POSITIVE MORPHOLOGY NO
[2017-08-30 08:25] LABS: Anion Gap 11 (5-15); BUN 23 mg/dL (7-18); BUN/Creat Ratio 18.1 RATIO (10-20); Calcium,Total 8.4 mg/dL (8.5-10.1); Chloride 100 mmol/L (98-107); Creatinine, Serum 1.27 mg/dL (0.70-1.30); EST Glomerular Filtration Rate 60 mL/min (>60); Est Glom Filt Rate - Afr Amer 72 mL/min (>60); Estimated Creatinine Clearance 49.54 ml/min; Glucose 221 mg/dL (74-106); Potassium 3.9 mmol/L (3.5-5.1); Sodium Level 137 mmol/L (136-145)
--- NOTE | 2017-08-30 10:12 | CASEMGMT ---
Social Work: TC to patient's sister Nicole who is patient's legal guardian. Discussed discharge disposition. Patient's sister is aware and agreeable to recommendation for retirement facility for continued therapy. Patient's sister asking referral to be faxed to [facility]. TC to Avani in [place] to fax referral to [facility]. PLAN: Patient to be discharged to SNF when medically ready. DONN Hall
[2017-08-30] MEDS: Phenobarbital 32.4 MG Tablet 64.8 MG PO ×2 (10:22→20:46)
--- NOTE | 2017-08-30 10:22 | CASEMGMT ---
Call placed to [facility], spoke with Francia. Informed Francia a referral would be faxed on pt.
[2017-08-30] MEDS: Enoxaparin 40 MG/0.4 ML Syringe SC (10:25)
[2017-08-30 10:33] VITALS: BP 163/88
[2017-08-30 12:07] LABS: Bedside Glucose 378 mg/dL (70-110)
--- NOTE | 2017-08-30 13:33 | CASEMGMT ---
Rec'd call from Francia at [facility]. Can accept patient whenever he discharges - likely tomorrow.
--- NOTE | 2017-08-30 13:51 | PCM.PN.HOSP ---
Patient Problems: Active and Suspected Problems Fall with injury (Acute) Subjective: Patient is a 67-year-old male with a history of cerebral palsy and hypertension was admitted after he fell at home. Initial imaging was negative for any fracture but due to persistent pain CT of his right hip was done which was positive for an acetabular fracture. Orthopedics is on board and currently advocates medical management with retrospective healing 8-12 weeks. He has remained stable. He is awaiting placement in acute rehab facility. Seen and examined this morning. He has no complaints and feels better. Pain is much better controlled. Denies any fever or chills, any shortness of breath, any chest pain, any belly pain, any diarrhea or vomiting. Review of systems otherwise negative. Vitals/I&O's: Vital Signs Temp Pulse Resp BP Pulse Ox 98.4 F 83 16 163/88 H 93 08/30/17 08:00 08/30/17 08:00 08/30/17 08:00 08/30/17 10:33 08/30/17 08:00 Oxygen Delivery Method Room Air Weight: 196 lb 6.91 oz Body Mass Index (BMI) 31.6 Intake and Output for Last 24 Hours 08/28/17 08/29/17 08/30/17 23:59 23:59 23:59 Intake Total 660 / 660 440 / 440 590 / 590 Output Total 825 / 825 700 / 700 825 / 825 Balance -165 / -165 -260 / -260 -235 / -235 General: Alert, Oriented x3, Cooperative, No apparent distress HEENT: Atraumatic, PERRLA, EOMI, Normocephalic Oral: Moist Mucosa Neck: Supple, No JVD, Negative Carotid Bruits Lungs: Clear to auscultation, Normal air movement, No rhonchi, No wheeze, No rales Cardiovascular: Regular rate, Regular Rhythm, Normal S1, Normal S2, No murmurs Abdomen: Bowel Sounds Present, Soft, Non Tender, Non-Distended, No Hepato-splenomegaly Extremities: No clubbing, No cyanosis, No edema, Capillary Refill Less than 3 Seconds, - - Lower extremity still mildly shortened and externally rotated. Skin: No rashes, No breakdown Musculoskeletal: No Tenderness to Palpation of Joints or Extremities Lymphatic: No Cervical, Supraclavicular, or Inguinal Adenopathy Neurological: Cranial nerves II-XII grossly intact, - - Contracture of right upper extremity Psych/Mental Status: Normal Affect, Appropriate, Alert and oriented to time, place, person, mood and affect Laboratory Results 08/29/17 16:35: POC Glucose 271 H 08/29/17 22:17: POC Glucose 326 H 08/30/17 06:48: POC Glucose 239 H 08/30/17 07:45: WBC 9.5, RBC 3.50 L, Hgb 10.5 L, Hct 30.4 L, MCV 86.9, MCH 30.0, MCHC 34.5, RDW 13.0, RDW Differential 40.1, Plt Count 263, MPV 9.1, Immature Gran % (Auto) 0.900, Neut % (Auto) 70.3 H, Lymph % (Auto) 14.9 L, [place] % (Auto) 8.8, Eos % (Auto) 4.6, Baso % (Auto) 0.5, Absolute Neuts (auto) 6.7, Absolute Lymphs (auto) 1.42, Total Counted Not Reportable 08/30/17 07:45: Sodium 137, Potassium 3.9, Chloride 100, Carbon Dioxide 26.0, Anion Gap 11, BUN 23 H, Creatinine 1.27, Estim Creat Clear Calc 49.54, Est GFR (MDRD) Af Amer 72, Est GFR (MDRD) Non-Af 60, BUN/Creatinine Ratio 18.1, Glucose 221 H, Calcium 8.4 L 08/30/17 11:55: POC Glucose 378 H Current Medications Acetaminophen (Tylenol) 650 mg PO Q6H PRN PRN PRN Reason: PAIN Amlodipine Besylate (Norvasc) 2.5 mg PO DAILY [facility] Last Admin: 08/30/17 07:59 Dose: 2.5 mg Atorvastatin Calcium (Lipitor) 10 mg PO DAILY@2200 [facility] Last Admin: 08/29/17 22:18 Dose: 10 mg Benzonatate (Tessalon Perle) 100 mg PO TID PRN PRN PRN Reason: COUGH Enoxaparin Sodium (Lovenox) 40 mg SC DAILY@1000 YEN Last Admin: 08/30/17 10:25 Dose: 40 mg Hydralazine HCl (Apresoline Iv) 10 mg IV Q6H PRN PRN PRN Reason: BLOOD PRESSURE ELEVATION Last Admin: 08/28/17 13:00 Dose: 10 mg Hydrochlorothiazide (Hctz) 25 mg PO DAILY [facility] Last Admin: 08/30/17 07:59 Dose: 25 mg Insulin Human Lispro (Humalog Kwikpen (Bkc)) 0 unit SC ACHS [facility] PRN Reason: Protocol Last Admin: 08/30/17 11:57 Dose: 6 units Ketorolac Tromethamine (Toradol) 30 mg IV Q6H PRN PRN PRN Reason: PAIN Stop: 09/02/17 05:50 Losartan Potassium (Cozaar) 100 mg PO DAILY [facility] Last Admin: 08/30/17 07:58 Dose: 100 mg Magnesium Hydroxide (Milk Of Magnesia) 30 ml PO DAILY PRN PRN PRN Reason: Constipation Metformin [facility] (Gluc[facility]) [facility] Last Admin: 08/29/17 07:49 Dose: Not Given Multivitamins (Multivitamin) 1 tablet [facility] Last Admin: 08/30/17 07:57 Dose: 1 tablet Phenobarbital (Phenobarbital) 64.8 mg PO BID [facility] Last Admin: 08/30/17 10:22 Dose: 64.8 mg Propranolol HCl (Inderal) 40 mg PO BID [facility] Last Admin: 08/30/17 07:59 Dose: 40 mg Sodium Chloride () 5 - 30 ml IV UD PRN PRN Reason: SALINE FLUSH Last Admin: 08/28/17 13:01 Dose: 10 ml Medical Necessity - Tobacco Use Smoking Status: Never smoker Assessment/Plan All Active Problems Fall with injury (Acute) 67-year-old male with a history of cerebral palsy with residual right-sided weakness and hypertension admitted after he sustained a fall at home. 1. Right acetabular fracture . Pain control is improved significantly. Undergoing intense physical therapy. PT/OT on board. Fall precautions. Toradol for pain. Will transition to an oral pain medication. Placement in acute rehab facility. 2. Hypertension control improving. Bp this morning is 147/80 On amlodipine, losartan and propranolol as well as hydrochlorthiazide. IV hydralazine prn 3. 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 Diabetes: sugars poorly controlled. On metformin and ISS. WIll adjust ISS to high dose. 5. DVT prophylaxis: lovenox This note was generated with Dragon dictation software. It may contain incorrect words, spelling, and punctuation that were not noted in checking the note before signing. Code Visit Inpatient E&M: 00643 Subs Hosp L2
--- NOTE | 2017-08-30 13:55 | PN_ITS ---
Patient Problems: Active and Suspected Problems Fall with injury (Acute) Subjective: Patient is a 67-year-old male with a history of cerebral palsy and hypertension was admitted after he fell at home. Initial imaging was negative for any fracture but due to persistent pain CT of his right hip was done which was positive for an acetabular fracture. Orthopedics is on board and currently advocates medical management with retrospective healing 8-12 weeks. He has remained stable. He is awaiting placement in acute rehab facility. Seen and examined this morning. He has no complaints and feels better. Pain is much better controlled. Denies any fever or chills, any shortness of breath , any chest pain, any belly pain, any diarrhea or vomiting. Review of systems otherwise negative. Vitals/I&O's: Vital Signs Temp Pulse Resp BP Pulse Ox 98.4 F 83 16 163/88 H 93 08/30/17 08:00 08/30/17 08:00 08/30/17 08:00 08/30/17 10:33 08/30/17 08:00 Oxygen Delivery Method Room Air Weight: 196 lb 6.91 oz Body Mass Index (BMI) 31.6 Intake and Output for Last 24 Hours 08/28/17 08/29/17 08/30/17 23:59 23:59 23:59 Intake Total 660 / 660 440 / 440 590 / 590 Output Total 825 / 825 700 / 700 825 / 825 Balance -165 / -165 -260 / -260 -235 / -235 General: Alert, Oriented x3, Cooperative, No apparent distress HEENT: Atraumatic, PERRLA, EOMI, Normocephalic Oral: Moist Mucosa Neck: Supple, No JVD, Negative Carotid Bruits Lungs: Clear to auscultation, Normal air movement, No rhonchi, No wheeze, No rales Cardiovascular: Regular rate, Regular Rhythm, Normal S1, Normal S2, No murmurs Abdomen: Bowel Sounds Present, Soft, Non Tender, Non-Distended, No Hepato- splenomegaly Extremities: No clubbing, No cyanosis, No edema, Capillary Refill Less than 3 Seconds, - - Lower extremity still mildly shortened and externally rotated. Skin: No rashes, No breakdown Musculoskeletal: No Tenderness to Palpation of Joints or Extremities Lymphatic: No Cervical, Supraclavicular, or Inguinal Adenopathy Neurological: Cranial nerves II-XII grossly intact, - - Contracture of right upper extremity Psych/Mental Status: Normal Affect, Appropriate, Alert and oriented to time, place, person, mood and affect Laboratory Results 08/29/17 16:35: POC Glucose 271 H 08/29/17 22:17: POC Glucose 326 H 08/30/17 06:48: POC Glucose 239 H 08/30/17 07:45: WBC 9.5, RBC 3.50 L, Hgb 10.5 L, Hct 30.4 L, MCV 86.9, MCH 30.0 , MCHC 34.5, RDW 13.0, RDW Differential 40.1, Plt Count 263, MPV 9.1, Immature Gran % (Auto) 0.900, Neut % (Auto) 70.3 H, Lymph % (Auto) 14.9 L, [place] % (Auto) 8.8, Eos % (Auto) 4.6, Baso % (Auto) 0.5, Absolute Neuts (auto) 6.7, Absolute Lymphs (auto) 1.42, Total Counted Not Reportable 08/30/17 07:45: Sodium 137, Potassium 3.9, Chloride 100, Carbon Dioxide 26.0, Anion Gap 11, BUN 23 H, Creatinine 1.27, Estim Creat Clear Calc 49.54, Est GFR ( MDRD) Af Amer 72, Est GFR (MDRD) Non-Af 60, BUN/Creatinine Ratio 18.1, Glucose 221 H, Calcium 8.4 L 08/30/17 11:55: POC Glucose 378 H Current Medications Acetaminophen (Tylenol) 650 mg PO Q6H PRN PRN PRN Reason: PAIN Amlodipine Besylate (Norvasc) 2.5 mg PO DAILY [facility] Last Admin: 08/30/17 07:59 Dose: 2.5 mg Atorvastatin Calcium (Lipitor) 10 mg PO DAILY@2200 [facility] Last Admin: 08/29/17 22:18 Dose: 10 mg Benzonatate (Tessalon Perle) 100 mg PO TID PRN PRN PRN Reason: COUGH Enoxaparin Sodium (Lovenox) 40 mg SC DAILY@1000 YEN Last Admin: 08/30/17 10:25 Dose: 40 mg Hydralazine HCl (Apresoline Iv) 10 mg IV Q6H PRN PRN PRN Reason: BLOOD PRESSURE ELEVATION Last Admin: 08/28/17 13:00 Dose: 10 mg Hydrochlorothiazide (Hctz) 25 mg PO DAILY [facility] Last Admin: 08/30/17 07:59 Dose: 25 mg Insulin Human Lispro (Humalog Kwikpen (Bkc)) 0 unit SC ACHS [facility] PRN Reason: Protocol Last Admin: 08/30/17 11:57 Dose: 6 units Ketorolac Tromethamine (Toradol) 30 mg IV Q6H PRN PRN PRN Reason: PAIN Stop: 09/02/17 05:50 Losartan Potassium (Cozaar) 100 mg PO DAILY [facility] Last Admin: 08/30/17 07:58 Dose: 100 mg Magnesium Hydroxide (Milk Of Magnesia) 30 ml PO DAILY PRN PRN PRN Reason: Constipation [facility] Last Admin: 08/29/17 07:49 Dose: Not Given Multivit[facility] ([facility]amin) [facility] Last Admin: 08/30/17 07:57 Dose: 1 tablet Phenobarbital (Phenobarbital) 64.8 mg PO BID [facility] Last Admin: 08/30/17 10:22 Dose: 64.8 mg Propranolol HCl (Inderal) 40 mg PO BID [facility] Last Admin: 08/30/17 07:59 Dose: 40 mg Sodium Chloride () 5 - 30 ml IV UD PRN PRN Reason: SALINE FLUSH Last Admin: 08/28/17 13:01 Dose: 10 ml Medical Necessity - Tobacco Use Smoking Status: Never smoker Assessment/Plan All Active Problems Fall with injury (Acute) 67-year-old male with a history of cerebral palsy with residual right-sided weakness and hypertension admitted after he sustained a fall at home. 1. Right acetabular fracture * . Pain control is improved significantly. * Undergoing intense physical therapy. PT/OT on board. Fall precautions. * Toradol for pain. Will transition to an oral pain medication. * Placement in acute rehab facility. * 2. Hypertension * control improving. Bp this morning is 147/80 * On amlodipine, losartan and propranolol as well as hydrochlorthiazide. * IV hydralazine prn * 3. History of cerebral palsy * on phenobarbital for seizure prophyalxis 4. Diabetes: sugars poorly controlled. On metformin and ISS. WIll adjust ISS to high dose. 5. DVT prophylaxis: lovenox This note was generated with Zazzy dictation software. It may contain incorrect words, spelling, and punctuation that were not noted in checking the note before signing. Code Visit Inpatient E&M: 67267 Subs Hosp L2
[2017-08-30 14:35] VITALS: BP 164/92; PULSE 81; RESP 16; TEMP 36.8; O2SAT 99
[2017-08-30] MEDS: HYDROcodone Bitartrate/Apap 5/325 Tablet PO (14:41)
--- NOTE | 2017-08-30 15:15 | CASEMGMT ---
Social Work: Received TC from [facility]. Avani states [facility] [place] is able to accept patient for skilled care. TC to patient's brother in law Edy who is patient's guardian along with patient's sister. Edy aware that [facility] is able to accept patient tomorrow. Edy states he will call Francia at [facility] to set up time to do paperwork. Will continue to follow to assist as needed with D/C planning. PLAN: Patient to be discharged to [facility] for skilled care. DONN Hlal
[2017-08-30 16:10] LABS: Bedside Glucose 303 mg/dL (70-110)
[2017-08-30 20:35] VITALS: BP 184/81; PULSE 100; RESP 16; TEMP 36.8; O2SAT 96
[2017-08-30] MEDS: Atorvastatin Calcium 10 MG Tablet PO (20:41)
[2017-08-30 22:20] LABS: Bedside Glucose 435 mg/dL (70-110)
[2017-08-30 23:32] VITALS: BP 155/74; PULSE 77; RESP 16; TEMP 37; O2SAT 93
[2017-08-31 05:30] VITALS: BP 169/88; PULSE 80; RESP 16; TEMP 36.6; O2SAT 96
[2017-08-31 07:01] LABS: Bedside Glucose 241 mg/dL (70-110)
[2017-08-31] MEDS: Multivitamins,Therapeutic Tablet 1 TABLET PO (07:47)
[2017-08-31] MEDS: Insulin Lispro 100 UNIT/ML INSULN.PEN SC ×2 (07:47→11:18)
[2017-08-31] MEDS: metFORMIN HCl 1,000 MG Tablet 1000 MG PO (08:04)
[2017-08-31 08:23] LABS: Absolute Lymphocyte Count 1.33 X10^3/ul (0.83-4.51); Absolute Neutrophil Count 6.9 X10^3/uL (2.0-7.7); Basophil# 0.05 X10^3/uL; Basophil% 0.5 % (0-1); Eosinophil# 0.36 X10^3/uL; Eosinophils% 3.8 % (0-5); Hematocrit 29.8 % (40-54); Hemoglobin 10.1 g/dl (13.0-16.5); Lymphocyte # 1.33 X10^3/ul (4.0); Lymphocyte % 13.9 % (19-41); Mean Corp Hgb Conc 33.9 g/gl (32-36); Mean Corpuscular Hgb 29.8 pg (27.0-32.0); Mean Corpuscular Volume 87.9 fL (80-94); Mean Platelet Vol. 9.3 fl (6.2-12.0); Monocyte# 0.86 X10^3/uL; Neutrophil # 6.91 X10^3/uL (2.7-7.7); Neutrophil % 71.9 % (47-70); Platelet Count 266 K/mm3 (150-450); RBC Distribution Width CV 13.1 % (11.6-14.6); RBC Distribution Width SD 40.1 fl (35.1-43.9); Red Blood Count 3.39 M/mm3 (4.6-6.2); White Blood Count 9.6 K/mm3 (4.4-11.0)
[2017-08-31 08:26] LABS: POSITIVE COUNT NO; POSITIVE DIFFERENTIAL NO; POSITIVE MORPHOLOGY NO
[2017-08-31 08:56] LABS: Anion Gap 11 (5-15); BUN 23 mg/dL (7-18); BUN/Creat Ratio 18.1 RATIO (10-20); Calcium,Total 8.2 mg/dL (8.5-10.1); Chloride 101 mmol/L (98-107); Creatinine, Serum 1.27 mg/dL (0.70-1.30); EST Glomerular Filtration Rate 60 mL/min (>60); Est Glom Filt Rate - Afr Amer 72 mL/min (>60); Estimated Creatinine Clearance 49.54 ml/min; Glucose 239 mg/dL (74-106); Potassium 4.2 mmol/L (3.5-5.1); Sodium Level 137 mmol/L (136-145)
--- NOTE | 2017-08-31 10:13 | PCM.EXTCARCO ---
<Avani Rodriguez - Last Filed: 08/31/17 10:19> - Diet 08/28/17 05:17 Diet: Regular Diet Food consistency:: Regular Liquid Consistency:: Regular/Thin - Routine Orders/Code Status Enema Type: Fleetz Enema Frequency: Daily PRN Suppository Type: Dulcolax 10mg Suppository Frequency: Daily PRN Routine Lab Work: CBC, BMP, - - Q Week Code Status: Full Code - Wound(s) Nose Wound Type: Abrasion - Suggestions for Active Care Change Position every (hours): 2 Times a day to sit in chair: 3 - Therapies Weight Bearing: Non weight bearing Physical Therapy: Eval and Treat Occupational Therapy: Eval and Treat - Problem/Diagnosis (1) Fall with injury Status: Acute Current Visit: Yes (2) Cerebral palsy Status: Chronic Current Visit: Yes (3) Hypertension Status: Chronic Current Visit: Yes (4) Type 2 diabetes mellitus Status: Chronic Current Visit: Yes (5) Right acetabular fracture Status: Acute Current Visit: Yes - Allergies/Procedures Done in Hospital Allergies/Adverse Reactions: Allergies mold Allergy (Verified 08/28/17 03:44) Other Procedures: None - Type of Care/Length of Stay Estimated LOS: Convalescent Care Less Than 30 days Type of Care Needed: Skilled Rehab Potential: Good Prognosis: Good - Additional Orders/Day of Discharge H&P will serve as current which was dated: 08/28/17 Day of Discharge: 08/31/17 - Dietary and Speech Recommendations Dietitian Recommendations/Changes: Rec diet change to 2000 calorie controlled, cardiac, low sodium. - Follow Up Care Primary Care Physician: Brayan Brown MD [Primary Care Provider] - Please follow up with your Primary Care Physician in: 1 Week Please Follow Up With: Lencho Toure DO When: 4-6 Weeks <Ely Sanchez - Last Filed: 08/31/17 10:52> - Diet 08/28/17 05:17 Diet: Regular Diet Food consistency:: Regular Liquid Consistency:: Regular/Thin
--- NOTE | 2017-08-31 10:19 | PCM.DC.SUM ---
<Avani Rodriguez - Last Filed: 08/31/17 10:46> Discharge Date and Diagnosis Date of Admission: 08/28/17 Date of Discharge: 08/31/17 - Primary Discharge Diagnosis Active and Suspected Problems 1. Mechanical fall prior to admission resulting in right acetabular fracture 2. Intractable pain/physical debility secondary to #1 3. Uncontrolled hypertension 4. Poorly controlled glucose with underlying type 2 diabetes mellitus - Secondary Discharge Diagnosis Chronic Problems Cerebral palsy (Chronic) Hypertension (Chronic) Type 2 diabetes mellitus (Chronic) Hyperlipidemia History of seizure disorder Hospital Course and Treatment Imaging Results: Diagnostic Data Femur X-Ray 08/28/17 04:05 IMPRESSION: No demonstrated fracture, dislocation, or destructive osseous lesion. Electronically Signed: Garrett Phillips MD at 4:44 EDT , Service support , Pelvis X-Ray 08/28/17 04:05 IMPRESSION: No demonstrated acute fracture, dislocation, or destructive osseous lesion. Electronically Signed: Garrett Phillips MD at 4:41 EDT , Service support , Pelvis CT 08/28/17 17:30 IMPRESSION: There is a fracture noted through the anterior portion of the right acetabulum. Questionable fracture through the right inferior pubic ramus. Left inguinal hernia containing part of the sigmoid colon. Electronically Signed: Sukhi Vasquez DO at 18:26 EDT Tel [phone], Service support , Dr. Toure- Orthopedic Operations: None Procedures: None Summary of Care Provided: The patient is a 67 year old M admitted 08/28/2017 due to right hip pain, unable to bear weight. He has a past medical history of cerebral palsy, hypertension, type 2 diabetes mellitus, history of seizures, hyperlipidemia. Patient has chronic left-sided weakness secondary to cerebral palsy. He presented with mechanical fall at home, prior to admission. Right femur fracture demonstrated no fracture or dislocation. Pelvis x-ray showed no acute fracture or dislocation as well. CT of pelvis showed fracture in the anterior portion of the right acetabulum. Questionable fracture through the right inferior pubic ramus. Left inguinal hernia containing part of the sigmoid colon. Dr. Toure, orthopedic surgery consulted. Recommend continued PT with walker. Weightbearing as tolerated on right lower extremity. Patient will follow up with orthopedic medicine as outpatient in 4-6 week. Will likely take 8-12 weeks to heal. Patient will be discharged to SNF for further PT/OT. Patient denies significant pain. Does have increased pain with rest. Has needed very little pain medication. Can continue as needed [place] for pain. Blood pressure elevated during admission. Home amlodipine regimen increased to 5 mg daily. Continue hydrochlorothiazide, losartan, propanolol. Patient will need [facility] of blood [facility]. Recommend increasing current regimen of amlodipine and/or hydrochlorothiazide to meet blood pressure goal of less than 120/80. Amlodipine regimen increased morning of discharge and blood pressure 146/88 at discharge. Blood glucose poorly controlled during admission. Continue home metformin regimen with the addition of Humalog before meals at bedtime. Sliding scale increased to medium high at discharge. If blood glucose remains elevated at SNF, recommend adding long-acting insulin at bedtime. Patient is stable for discharge to SNF with further follow-up with primary care physician and orthopedics. Patient seen exam prior to discharge. Alert, oriented, no acute distress. Moist mucosa. Lungs clear to auscultation, normal air movement. Heart rate regular rate and rhythm, no murmur. Abdomen soft, nontender. No edema. No skin rashes or breakdown. No tenderness to palpation of joints or extremities. Neuro grossly intact. Contracture of right upper extremity, chronic. Normal affect. Vital signs stable. This patient was seen by AMANUEL Corea under the supervision of Dr. Sanchez. Home Medications: Medications to take at Discharge Atorvastatin Calcium [Lipitor] 10 mg PO DAILY 03/18/15 Hydrochlorothiazide [Hctz] 25 mg PO DAILY 03/18/15 Losartan Potassium [Cozaar] 100 mg PO DAILY 03/18/15 Metformin HCl [Glucophage] 1,000 mg PO BIDCM 03/18/15 Multivitamins,Therapeutic [Multivitamin] 1 tablet PO DAILY 03/18/15 Propranolol HCl [Inderal (Beta Ahsan)] 40 mg PO BID 03/18/15 Benzonatate [Tessalon Perle] 200 mg PO TID PRN PRN 07/03/18 Amlodipine [Norvasc] 5 mg PO DAILY tablet 08/31/17 Hydrocodone Bitart/Apap 5-325 [[place] 5/325] 1 tab PO Q6H PRN PRN 3 Days #10 tab 08/31/17 Insulin Lispro [Humalog KwikPen] See Protocol SC ACHS insuln.pen 08/31/17 Phenobarbital 64.8 mg PO BID 10 Days #40 tab 08/31/17 Following Prescrptions Were Given to Patient: Hydrocodone Bitart/Apap 5-325 [[place] 5/325] 1 tab PO Q6H PRN PRN 3 Days #10 tab PRN Reason: Severe Pain (-12/05) Phenobarbital 64.8 mg PO BID 10 Days #40 tab Primary Care Physician: Brayan Brown MD [Primary Care Provider] - Please follow up with your Primary Care Physician in: 1 Week Please Follow Up With: Lencho Toure DO When: 4-6 Weeks [facility]position: [facility] Minutes spent on discharge:: 35 Patient Condition:: Stable Medical Necessity - Tobacco Use Smoking Status: Never smoker Meaningful Use Info Meaningful Use Diagnoses (Choose all that apply): None applicable <Ely Sanchez - Last Filed: 08/31/17 14:54> Discharge Date and Diagnosis - Secondary Discharge Diagnosis Chronic Problems Cerebral palsy (Chronic) Hypertension (Chronic) Type 2 diabetes mellitus (Chronic) Hospital Course and Treatment Summary of Care Provided: Agree with the above summary of stay. On 08/28/2017 with a complaint of right hip pain after he sustained a fall. Initial imaging done of the right femur fracture showed no dislocation and pelvis x-ray showed no dislocation as well. On account of having persistent pain in the right hip a CT of the right hip and pelvis was done which showed a fracture in the anterior portion of the acetabulum and questionable fracture through the right inferior pubic ramus. Orthopedic surgeon was consulted and recommended intensive physical therapy. No surgical intervention was recommended. Per orthopedic surgery, for which was supposed to heal in about 8-12 weeks. Patient remained stable and was [facility] on 08/31/2017. Home medications reviewed and reconciled and amlodipine was increased from 2.5 mg to 5 mg daily because of elevated blood pressure. He is to follow-up with his primary care doctor and orthopedic surgeon. REst as per AMANUEL Corea's note. [] Discharge Diet: 2000 mg Sodium Diet Weight Bearing Status: Weight bearing as tolerated Code Visit Inpatient E&M: 57612 Disch Hosp
[2017-08-31 10:20] VITALS: BP 146/88; PULSE 93; RESP 20; TEMP 36.9; O2SAT 94
[2017-08-31] MEDS: Losartan Potassium 100 MG Tablet PO (10:22)
[2017-08-31] MEDS: hydroCHLOROthiazide 25 MG Tablet PO (10:22)
[2017-08-31] MEDS: Propranolol 40 MG Tablet PO (10:22)
[2017-08-31] MEDS: amLODIPine 5 MG Tablet PO (10:23)
[2017-08-31] MEDS: Phenobarbital 32.4 MG Tablet 64.8 MG PO (10:29)
[2017-08-31] MEDS: Enoxaparin 40 MG/0.4 ML Syringe SC (10:29)
--- NOTE | 2017-08-31 10:30 | DS.PCM_ITS ---
<Avani Rodriguez - Last Filed: 08/31/17 10:46> Discharge Date and Diagnosis Date of Admission: 08/28/17 Date of Discharge: 08/31/17 - Primary Discharge Diagnosis Active and Suspected Problems 1. Mechanical fall prior to admission resulting in right acetabular fracture 2. Intractable pain/physical debility secondary to #1 3. Uncontrolled hypertension 4. Poorly controlled glucose with underlying type 2 diabetes mellitus - Secondary Discharge Diagnosis Chronic Problems Cerebral palsy (Chronic) Hypertension (Chronic) Type 2 diabetes mellitus (Chronic) Hyperlipidemia History of seizure disorder Hospital Course and Treatment Imaging Results: Diagnostic Data Femur X-Ray 08/28/17 04:05 IMPRESSION: No demonstrated fracture, dislocation, or destructive osseous lesion. Electronically Signed: Garrett Phillips MD at 4:44 EDT , Service support , Pelvis X-Ray 08/28/17 04:05 IMPRESSION: No demonstrated acute fracture, dislocation, or destructive osseous lesion. Electronically Signed: Garrett Phillips MD at 4:41 EDT , Service support , Pelvis CT 08/28/17 17:30 IMPRESSION: There is a fracture noted through the anterior portion of the right acetabulum. Questionable fracture through the right inferior pubic ramus. Left inguinal hernia containing part of the sigmoid colon. Electronically Signed: Sukhi Vasquez DO at 18:26 EDT Tel [phone], Service support , Dr. Toure- Orthopedic Operations: None Procedures: None Summary of Care Provided: The patient is a 67 year old M admitted 08/28/2017 due to right hip pain, unable to bear weight. He has a past medical history of cerebral palsy, hypertension, type 2 diabetes mellitus, history of seizures, hyperlipidemia. Patient has chronic left-sided weakness secondary to cerebral palsy. He presented with mechanical fall at home, prior to admission. Right femur fracture demonstrated no fracture or dislocation. Pelvis x-ray showed no acute fracture or dislocation as well. CT of pelvis showed fracture in the anterior portion of the right acetabulum. Questionable fracture through the right inferior pubic ramus. Left inguinal hernia containing part of the sigmoid colon. Dr. Toure, orthopedic surgery consulted. Recommend continued PT with walker. Weightbearing as tolerated on right lower extremity. Patient will follow up with orthopedic medicine as outpatient in 4-6 week. Will likely take 8-12 weeks to heal. Patient will be discharged to SNF for further PT/OT. Patient denies significant pain. Does have increased pain with rest. Has needed very little pain medication. Can continue as needed [place] for pain. Blood pressure elevated during admission. Home amlodipine regimen increased to 5 mg daily. Continue hydrochlorothiazide, losartan, propanolol. Patient will need further monitoring of blood pressure at [facility] facility. Recommend increasing current regimen of amlodipine and/or hydrochlorothiazide to meet blood pressure goal of less than 120/80. Amlodipine regimen increased morning of discharge and blood pressure 146/88 at discharge. Blood glucose poorly controlled during admission. Continue home metformin regimen with the addition of Humalog before meals at bedtime. Sliding scale increased to medium high at discharge. If blood glucose remains elevated at SNF, recommend adding long-acting insulin at bedtime. Patient is stable for discharge to SNF with further follow-up with primary care physician and orthopedics. Patient seen exam prior to discharge. Alert, oriented, no acute distress. Moist mucosa. Lungs clear to auscultation, normal air movement. Heart rate regular rate and rhythm, no murmur. Abdomen soft, nontender. No edema. No skin rashes or breakdown. No tenderness to palpation of joints or extremities. Neuro grossly intact. Contracture of right upper extremity, chronic. Normal affect. Vital signs stable. This patient was seen by AMANUEL Corea under the supervision of Dr. Sanchez. Home Medications: Medications to take at Discharge Atorvastatin Calcium [Lipitor] 10 mg PO DAILY 03/18/15 Hydrochlorothiazide [Hctz] 25 mg PO DAILY 03/18/15 Losartan Potassium [Cozaar] 100 mg PO DAILY 03/18/15 Metformin HCl [Glucophage] 1,000 mg PO BIDCM 03/18/15 Multivitamins,Therapeutic [Multivitamin] 1 tablet PO DAILY 03/18/15 Propranolol HCl [Inderal (Beta Ahsan)] 40 mg PO BID 03/18/15 Benzonatate [Tessalon Perle] 200 mg PO TID PRN PRN 07/03/18 Amlodipine [Norvasc] 5 mg PO DAILY tablet 08/31/17 Hydrocodone Bitart/Apap 5-325 [[place] 5/325] 1 tab PO Q6H PRN PRN 3 Days #10 tab 08/31/17 Insulin Lispro [Humalog KwikPen] See Protocol SC ACHS insuln.pen 08/31/17 Phenobarbital 64.8 mg PO BID 10 Days #40 tab 08/31/17 Following Prescrptions Were Given to Patient: Hydrocodone Bitart/Apap 5-325 [[place] 5/325] 1 tab PO Q6H PRN PRN 3 Days #10 tab PRN Reason: Severe Pain (-12/05) Phenobarbital 64.8 mg PO BID 10 Days #40 tab Primary Care Physician: Brayan Brown MD [Primary Care Provider] - Please follow up with your Primary Care Physician in: 1 Week Please Follow Up With: Lencho Toure DO When: 4-6 Weeks Disposition: [facility] facility Minutes spent on discharge:: 35 Patient Condition:: Stable Medical Necessity - Tobacco Use Smoking Status: Never smoker Meaningful Use Info Meaningful Use Diagnoses (Choose all that apply): None applicable <Ely Sanchez - Last Filed: 08/31/17 14:54> Discharge Date and Diagnosis - Secondary Discharge Diagnosis Chronic Problems Cerebral palsy (Chronic) Hypertension (Chronic) Type 2 diabetes mellitus (Chronic) Hospital Course and Treatment Summary of Care Provided: Agree with the above summary of stay. On 08/28/2017 with a complaint of right hip pain after he sustained a fall. Initial imaging done of the right femur fracture showed no dislocation and pelvis x-ray showed no dislocation as well. On account of having persistent pain in the right hip a CT of the right hip and pelvis was done which showed a fracture in the anterior portion of the acetabulum and questionable fracture through the right inferior pubic ramus. Orthopedic surgeon was consulted and recommended intensive physical therapy. No surgical intervention was recommended. Per orthopedic surgery, for which was supposed to heal in about 8- 12 weeks. Patient remained stable and was discharged to snf to continue physical therapy on 08/31/2017. Home medications reviewed and reconciled and amlodipine was increased from 2.5 mg to 5 mg daily because of elevated blood pressure. He is to follow-up with his primary care doctor and orthopedic surgeon. REst as per AMANUEL Corea's note. [] Discharge Diet: 2000 mg Sodium Diet Weight Bearing Status: Weight bearing as tolerated Code Visit Inpatient E&M: 49797 Disch Hosp
--- NOTE | 2017-08-31 10:43 | CASEMGMT ---
Social work: Spoke with Avani Rodriguez CNP. Avani states patient will be discharged today. Will follow to assist with D/C planning. SHELBY completed and faxed to [facility] with transfer orders. TC to [facility]. Transport scheduled by cot for 1:00pm. TC to [facility] at [place]. Message left with Yuly that patient will be picked up at 1:00pm by [facility]. TC to patient's sister, Nicole. Nicole aware that patient has been discharged and [facility] will be picking patient up at 1:00PM by cot. PLAN: Patient to be discharged to [facility] at [place] today with transport scheduled for 1:00pm. DONN Hall
[2017-08-31 11:40] LABS: Bedside Glucose 322 mg/dL (70-110)
== END 2017-08-31 12:56 | disposition skilled nursing facility (03) | DRG 536 ==
LOC: ED 05:14 → PCU 05:28
PROVIDERS: Admitting Provider Family Medicine; Emergency Provider Emergency Medicine; Family Provider Family Medicine; PCP Family Medicine; Visit Provider Student in an Organized Health Care Education/Training Program
DX: S32.401A Unspecified fracture of right acetabulum, initial encounter for closed fracture (principal); S32.591A Other specified fracture of right pubis, initial encounter for closed fracture; G80.8 Other cerebral palsy; I10 Essential (primary) hypertension; W19.XXXA Unspecified fall, initial encounter; Y92.019 Unspecified place in single-family (private) house as the place of occurrence of the external cause; R53.81 Other malaise; E11.65 Type 2 diabetes mellitus with hyperglycemia; E78.5 Hyperlipidemia, unspecified; Z79.84 Long term (current) use of oral hypoglycemic drugs
CPT/HCPCS: 36415; 72170; 72193; 73552; 80048; 82962; 85025; 97110; 97162; 97166; 97530; 97802; 99284; Q9967; A4216

== ENCOUNTER → 2017-09-25 12:58 | Outpatient (CLI) | payer MEDICARE, MEDICAID, SELFPAY ==
--- NOTE | 2017-09-25 13:03 | BD_ITS ---
STUDY: DUAL ENERGY X-RAY ABSORPTIOMETRY / DXA REASON FOR EXAM: Male, 67 years old. Right hip fracture. TECHNIQUE: Bone Mineral Density (BMD) measurements of both forearms were obtained. COMPARISON: None. FINDINGS: Right Forearm: g/cm2 (0.903) / T-score (-1.0) / Z-score (-0.2) Left Forearm: g/cm2 (0.662) / T-score (-3.4) / Z-score (-2.6) BD/Dexa Bone Density/Append Skel IMPRESSION: The patient is considered osteoporotic as outlined below according to World Fox Organization (WHO) criteria with a high fracture risk. Reference Information: The T-score is the number of standard deviations above or below the standard which is normal for young adults at their peak bone mineral density. The World Health Organization (WHO) interprets the T-scores as follows: Above -1 Normal bone density Between -1 and -2.5 Osteopenia Equal to / or below -2.5 Osteoporosis As a practical clinical guideline, osteopenia may be graded as follows: Mild -1 through -1.5 Moderate -1.6 through -2.0 Severe -2.1 through -2.4 The Z-score is the number of standard deviations above or below age-matched controls. A Z-score of less than -1.5 would be considered abnormal. References: 1. NIH Osteoporosis and Related Bone Diseases http://www.osteo.org 2. International Society for Clinical Densitometry http://www.iscd.org 3. National Osteoporosis Foundation http://www.nof.org Electronically Signed: Liam Whatley MD at 12:57 EDT Tel [phone], Service support ,
== END ==
PROVIDERS: Family Provider Family Medicine; PCP Family Medicine; Visit Provider Orthopaedic Surgery
DX: M85.89 Other specified disorders of bone density and structure, multiple sites (principal); S32.414A Nondisplaced fracture of anterior wall of right acetabulum, initial encounter for closed fracture
CPT/HCPCS: 77081

== ENCOUNTER → 2017-10-30 04:00 | Outpatient (REF) | payer MEDICARE, MEDICAID, SELFPAY ==
[2017-10-30 09:22] LABS: Hematocrit 27.8 % (40-54); Hemoglobin 9.1 g/dl (13.0-16.5); Mean Corp Hgb Conc 32.7 g/gl (32-36); Mean Corpuscular Hgb 29.7 pg (27.0-32.0); Mean Corpuscular Volume 90.8 fL (80-94); Mean Platelet Vol. 9.6 fl (6.2-12.0); Platelet Count 339 K/mm3 (150-450); RBC Distribution Width CV 13.5 % (11.6-14.6); RBC Distribution Width SD 43.6 fl (35.1-43.9); Red Blood Count 3.06 M/mm3 (4.6-6.2); White Blood Count 9.7 K/mm3 (4.4-11.0)
[2017-10-30 09:42] LABS: Scan Indicated on CBC? Y/N NO
[2017-10-30 09:43] LABS: Anion Gap 12 (5-15); BUN 28 mg/dL (7-18); BUN/Creat Ratio 16.1 RATIO (10-20); Calcium,Total 8.5 mg/dL (8.5-10.1); Chloride 97 mmol/L (98-107); Creatinine, Serum 1.74 mg/dL (0.70-1.30); EST Glomerular Filtration Rate 42 mL/min (>60); Est Glom Filt Rate - Afr Amer 50 mL/min (>60); Glucose 87 mg/dL (74-106); Potassium 4.3 mmol/L (3.5-5.1); Sodium Level 135 mmol/L (136-145)
== END ==
LOC: OLS.AVED 04:00
PROVIDERS: Visit Provider Family Medicine
DX: E11.9 Type 2 diabetes mellitus without complications (principal); I10 Essential (primary) hypertension; E78.5 Hyperlipidemia, unspecified
CPT/HCPCS: 36415; 80048; 85027

== ENCOUNTER → 2017-11-21 05:00 | Outpatient (REF) | payer MEDICARE, MEDICAID, SELFPAY ==
[2017-11-21 09:08] LABS: Hematocrit 28.4 % (40-54); Hemoglobin 9.3 g/dl (13.0-16.5); Mean Corp Hgb Conc 32.7 g/gl (32-36); Mean Corpuscular Hgb 29.3 pg (27.0-32.0); Mean Corpuscular Volume 89.6 fL (80-94); Mean Platelet Vol. 10.1 fl (6.2-12.0); Platelet Count 270 K/mm3 (150-450); RBC Distribution Width CV 13.9 % (11.6-14.6); RBC Distribution Width SD 44.4 fl (35.1-43.9); Red Blood Count 3.17 M/mm3 (4.6-6.2); White Blood Count 10.9 K/mm3 (4.4-11.0)
[2017-11-21 09:11] LABS: Scan Indicated on CBC? Y/N NO
[2017-11-21 09:24] LABS: Anion Gap 12 (5-15); BUN 19 mg/dL (7-18); BUN/Creat Ratio 15.2 RATIO (10-20); Calcium,Total 8.6 mg/dL (8.5-10.1); Chloride 102 mmol/L (98-107); Cholesterol 145 mg/dL (200); Creatinine, Serum 1.25 mg/dL (0.70-1.30); EST Glomerular Filtration Rate 61 mL/min (>60); Est Glom Filt Rate - Afr Amer 74 mL/min (>60); Glucose 144 mg/dL (74-106); High Density Lipoprotein 31 mg/dL; Potassium 4.1 mmol/L (3.5-5.1); Sodium Level 138 mmol/L (136-145); Triglycerides 182 mg/dL; Very Low Density Lipoprotein 36 mg/dL (5-40)
== END ==
LOC: OLS.AVED 05:00
PROVIDERS: Visit Provider Family Medicine
DX: E78.5 Hyperlipidemia, unspecified (principal); R53.83 Other fatigue; I10 Essential (primary) hypertension; E11.9 Type 2 diabetes mellitus without complications
CPT/HCPCS: 36415; 80048; 80061; 85027

== ENCOUNTER → 2017-11-26 04:00 | Outpatient (REF) | payer MEDICARE, MEDICAID, SELFPAY ==
[2017-11-26 07:11] LABS: Hematocrit 27.6 % (40-54); Mean Corp Hgb Conc 32.6 g/gl (32-36); Mean Corpuscular Hgb 29.2 pg (27.0-32.0); Mean Corpuscular Volume 89.6 fL (80-94); Mean Platelet Vol. 9.3 fl (6.2-12.0); Platelet Count 287 K/mm3 (150-450); RBC Distribution Width CV 14.2 % (11.6-14.6); RBC Distribution Width SD 44.9 fl (35.1-43.9); Red Blood Count 3.08 M/mm3 (4.6-6.2); White Blood Count 8.7 K/mm3 (4.4-11.0)
[2017-11-26 07:15] LABS: Scan Indicated on CBC? Y/N NO
[2017-11-26 07:24] LABS: Anion Gap 10 (5-15); BUN 19 mg/dL (7-18); BUN/Creat Ratio 14.3 RATIO (10-20); Calcium,Total 8.5 mg/dL (8.5-10.1); Chloride 103 mmol/L (98-107); Creatinine, Serum 1.33 mg/dL (0.70-1.30); EST Glomerular Filtration Rate 57 mL/min (>60); Est Glom Filt Rate - Afr Amer 68 mL/min (>60); Glucose 146 mg/dL (74-106); Potassium 4.3 mmol/L (3.5-5.1); Sodium Level 139 mmol/L (136-145)
== END ==
LOC: OLS.AVED 04:00
PROVIDERS: Visit Provider Family Medicine
DX: I10 Essential (primary) hypertension (principal); E11.9 Type 2 diabetes mellitus without complications
CPT/HCPCS: 36415; 80048; 85027

== ENCOUNTER → 2017-12-17 05:00 | Outpatient (REF) | payer MEDICARE, MEDICAID, SELFPAY ==
[2017-12-17 07:47] LABS: Hematocrit 28.4 % (40-54); Hemoglobin 9.1 g/dl (13.0-16.5); Mean Corpuscular Hgb 28.8 pg (27.0-32.0); Mean Corpuscular Volume 89.9 fL (80-94); Mean Platelet Vol. 9.7 fl (6.2-12.0); Platelet Count 332 K/mm3 (150-450); RBC Distribution Width CV 14.2 % (11.6-14.6); RBC Distribution Width SD 45.6 fl (35.1-43.9); Red Blood Count 3.16 M/mm3 (4.6-6.2); White Blood Count 9.9 K/mm3 (4.4-11.0)
[2017-12-17 07:56] LABS: Anion Gap 11 (5-15); BUN 21 mg/dL (7-18); BUN/Creat Ratio 15.6 RATIO (10-20); Calcium,Total 8.6 mg/dL (8.5-10.1); Chloride 101 mmol/L (98-107); Creatinine, Serum 1.35 mg/dL (0.70-1.30); EST Glomerular Filtration Rate 56 mL/min (>60); Est Glom Filt Rate - Afr Amer 67 mL/min (>60); Glucose 183 mg/dL (74-106); Potassium 4.4 mmol/L (3.5-5.1); Sodium Level 135 mmol/L (136-145)
[2017-12-17 08:06] LABS: Scan Indicated on CBC? Y/N NO
== END ==
LOC: OLS.AVED 05:00
PROVIDERS: Visit Provider Family Medicine
DX: E11.9 Type 2 diabetes mellitus without complications (principal); I10 Essential (primary) hypertension
CPT/HCPCS: 36415; 80048; 85027

== ENCOUNTER → 2018-01-07 04:00 | Outpatient (REF) | payer MEDICARE, MEDICAID, SELFPAY ==
[2018-01-07 08:37] LABS: Hematocrit 28.4 % (40-54); Mean Corp Hgb Conc 31.7 g/gl (32-36); Mean Corpuscular Hgb 28.4 pg (27.0-32.0); Mean Corpuscular Volume 89.6 fL (80-94); Mean Platelet Vol. 9.6 fl (6.2-12.0); Platelet Count 313 K/mm3 (150-450); RBC Distribution Width CV 14.6 % (11.6-14.6); RBC Distribution Width SD 46.3 fl (35.1-43.9); Red Blood Count 3.17 M/mm3 (4.6-6.2); White Blood Count 9.9 K/mm3 (4.4-11.0)
[2018-01-07 08:38] LABS: Scan Indicated on CBC? Y/N NO
[2018-01-07 09:01] LABS: Anion Gap 11 (5-15); BUN 28 mg/dL (7-18); BUN/Creat Ratio 18.3 RATIO (10-20); Calcium,Total 8.4 mg/dL (8.5-10.1); Chloride 101 mmol/L (98-107); Creatinine, Serum 1.53 mg/dL (0.70-1.30); EST Glomerular Filtration Rate 48 mL/min (>60); Est Glom Filt Rate - Afr Amer 58 mL/min (>60); Glucose 169 mg/dL (74-106); Potassium 4.4 mmol/L (3.5-5.1); Sodium Level 136 mmol/L (136-145)
== END ==
LOC: OLS.AVED 04:00
PROVIDERS: Visit Provider Family Medicine
DX: E11.9 Type 2 diabetes mellitus without complications (principal); I10 Essential (primary) hypertension; G80.9 Cerebral palsy, unspecified
CPT/HCPCS: 36415; 80048; 85027

== ENCOUNTER → 2018-01-28 05:00 | Outpatient (REF) | payer MEDICARE, MEDICAID, SELFPAY ==
[2018-01-28 09:13] LABS: Anion Gap 10 (5-15); BUN 27 mg/dL (7-18); BUN/Creat Ratio 18.9 RATIO (10-20); Calcium,Total 8.9 mg/dL (8.5-10.1); Chloride 102 mmol/L (98-107); Creatinine, Serum 1.43 mg/dL (0.70-1.30); EST Glomerular Filtration Rate 52 mL/min (>60); Est Glom Filt Rate - Afr Amer 63 mL/min (>60); Glucose 152 mg/dL (74-106); Potassium 4.3 mmol/L (3.5-5.1); Sodium Level 136 mmol/L (136-145)
[2018-01-28 09:14] LABS: Absolute Lymphocyte Count 1.68 X10^3/ul (0.83-4.51); Absolute Neutrophil Count 7.1 X10^3/uL (2.0-7.7); Basophil# 0.06 X10^3/uL; Basophil% 0.6 % (0-1); Eosinophil# 0.71 X10^3/uL; Eosinophils% 6.9 % (0-5); Hematocrit 28.5 % (40-54); Hemoglobin 9.3 g/dl (13.0-16.5); Lymphocyte # 1.68 X10^3/ul (4.0); Lymphocyte % 16.2 % (19-41); Mean Corp Hgb Conc 32.6 g/gl (32-36); Mean Corpuscular Hgb 28.7 pg (27.0-32.0); Monocyte# 0.76 X10^3/uL; Monocyte% 7.4 % (0-10); Neutrophil # 7.06 X10^3/uL (2.7-7.7); Neutrophil % 68.2 % (47-70); Platelet Count 299 K/mm3 (150-450); RBC Distribution Width CV 14.6 % (11.6-14.6); Red Blood Count 3.24 M/mm3 (4.6-6.2); White Blood Count 10.3 K/mm3 (4.4-11.0)
[2018-01-28 09:18] LABS: POSITIVE COUNT NO; POSITIVE DIFFERENTIAL NO; POSITIVE MORPHOLOGY NO
== END ==
LOC: OLS.AVED 05:00
PROVIDERS: Visit Provider Family Medicine
DX: R53.83 Other fatigue (principal)
CPT/HCPCS: 36415; 80048; 85025

== ENCOUNTER → 2018-02-18 04:00 | Outpatient (REF) | payer MEDICARE, MEDICAID, SELFPAY ==
[2018-02-18 07:44] LABS: Hematocrit 28.5 % (40-54); Hemoglobin 9.2 g/dl (13.0-16.5); Mean Corp Hgb Conc 32.3 g/gl (32-36); Mean Corpuscular Hgb 28.9 pg (27.0-32.0); Mean Corpuscular Volume 89.6 fL (80-94); Mean Platelet Vol. 9.5 fl (6.2-12.0); Platelet Count 305 K/mm3 (150-450); RBC Distribution Width SD 44.5 fl (35.1-43.9); Red Blood Count 3.18 M/mm3 (4.6-6.2); White Blood Count 9.3 K/mm3 (4.4-11.0)
[2018-02-18 07:49] LABS: Anion Gap 8 (5-15); BUN 26 mg/dL (7-18); BUN/Creat Ratio 17.8 RATIO (10-20); Calcium,Total 8.5 mg/dL (8.5-10.1); Chloride 102 mmol/L (98-107); Creatinine, Serum 1.46 mg/dL (0.70-1.30); EST Glomerular Filtration Rate 51 mL/min (>60); Est Glom Filt Rate - Afr Amer 61 mL/min (>60); Glucose 135 mg/dL (74-106); Potassium 4.2 mmol/L (3.5-5.1); Sodium Level 135 mmol/L (136-145)
[2018-02-18 07:59] LABS: Scan Indicated on CBC? Y/N NO
== END ==
LOC: OLS.AVED 04:00
PROVIDERS: Visit Provider Family Medicine
DX: I10 Essential (primary) hypertension (principal); E78.5 Hyperlipidemia, unspecified
CPT/HCPCS: 36415; 80048; 85027

== ENCOUNTER → 2018-03-11 04:00 | Outpatient (REF) | payer MEDICARE, MEDICAID, SELFPAY ==
[2018-03-11 07:22] LABS: Hematocrit 30.9 % (40-54); Hemoglobin 10.2 g/dl (13.0-16.5); Mean Corpuscular Hgb 29.3 pg (27.0-32.0); Mean Corpuscular Volume 88.8 fL (80-94); Mean Platelet Vol. 9.6 fl (6.2-12.0); Platelet Count 304 K/mm3 (150-450); RBC Distribution Width CV 13.7 % (11.6-14.6); Red Blood Count 3.48 M/mm3 (4.6-6.2)
[2018-03-11 07:24] LABS: Scan Indicated on CBC? Y/N NO
[2018-03-11 07:27] LABS: Anion Gap 10 (5-15); BUN 24 mg/dL (7-18); BUN/Creat Ratio 17.1 RATIO (10-20); Calcium,Total 8.9 mg/dL (8.5-10.1); Chloride 102 mmol/L (98-107); EST Glomerular Filtration Rate 53 mL/min (>60); Est Glom Filt Rate - Afr Amer 64 mL/min (>60); Glucose 143 mg/dL (74-106); Potassium 4.1 mmol/L (3.5-5.1); Sodium Level 136 mmol/L (136-145)
== END ==
LOC: OLS.AVED 04:00
PROVIDERS: Visit Provider Family Medicine
DX: I10 Essential (primary) hypertension (principal); E78.5 Hyperlipidemia, unspecified; E11.9 Type 2 diabetes mellitus without complications; G40.909 Epilepsy, unspecified, not intractable, without status epilepticus; G80.9 Cerebral palsy, unspecified
CPT/HCPCS: 36415; 80048; 85027

== ENCOUNTER → 2018-04-01 04:00 | Outpatient (REF) | payer MEDICARE, SELFPAY ==
[2018-04-01 06:55] LABS: Hematocrit 28.9 % (40-54); Hemoglobin 9.6 g/dl (13.0-16.5); Mean Corp Hgb Conc 33.2 g/gl (32-36); Mean Corpuscular Hgb 29.3 pg (27.0-32.0); Mean Corpuscular Volume 88.1 fL (80-94); Mean Platelet Vol. 9.4 fl (6.2-12.0); Platelet Count 310 K/mm3 (150-450); RBC Distribution Width CV 13.7 % (11.6-14.6); Red Blood Count 3.28 M/mm3 (4.6-6.2); Scan Indicated on CBC? Y/N NO; White Blood Count 10.4 K/mm3 (4.4-11.0)
[2018-04-01 07:02] LABS: Anion Gap 12 (5-15); BUN 24 mg/dL (7-18); Calcium,Total 8.7 mg/dL (8.5-10.1); Chloride 104 mmol/L (98-107); Creatinine, Serum 1.41 mg/dL (0.70-1.30); EST Glomerular Filtration Rate 53 mL/min (>60); Est Glom Filt Rate - Afr Amer 64 mL/min (>60); Glucose 156 mg/dL (74-106); Potassium 4.2 mmol/L (3.5-5.1); Sodium Level 138 mmol/L (136-145)
== END ==
LOC: OLS.AVED 04:00
PROVIDERS: Visit Provider Family Medicine
DX: I10 Essential (primary) hypertension (principal); E11.9 Type 2 diabetes mellitus without complications; E78.5 Hyperlipidemia, unspecified; G80.9 Cerebral palsy, unspecified; G40.909 Epilepsy, unspecified, not intractable, without status epilepticus
CPT/HCPCS: 36415; 80048; 85027

== ENCOUNTER → 2018-04-22 04:00 | Outpatient (REF) | payer MEDICARE, SELFPAY ==
[2018-04-22 09:16] LABS: Hematocrit 28.6 % (40-54); Hemoglobin 9.7 g/dl (13.0-16.5); Mean Corp Hgb Conc 33.9 g/gl (32-36); Mean Corpuscular Hgb 30.2 pg (27.0-32.0); Mean Corpuscular Volume 89.1 fL (80-94); Mean Platelet Vol. 9.8 fl (6.2-12.0); Platelet Count 257 K/mm3 (150-450); RBC Distribution Width CV 13.7 % (11.6-14.6); Red Blood Count 3.21 M/mm3 (4.6-6.2); White Blood Count 11.9 K/mm3 (4.4-11.0)
[2018-04-22 09:21] LABS: Scan Indicated on CBC? Y/N NO
[2018-04-22 09:25] LABS: Anion Gap 9 (5-15); BUN 24 mg/dL (7-18); Calcium,Total 8.2 mg/dL (8.5-10.1); Chloride 102 mmol/L (98-107); Creatinine, Serum 1.41 mg/dL (0.70-1.30); EST Glomerular Filtration Rate 53 mL/min (>60); Est Glom Filt Rate - Afr Amer 64 mL/min (>60); Glucose 165 mg/dL (74-106); Potassium 4.3 mmol/L (3.5-5.1); Sodium Level 133 mmol/L (136-145)
== END ==
LOC: OLS.AVED 04:00
PROVIDERS: Visit Provider Family Medicine
DX: S79.919A Unspecified injury of unspecified hip, initial encounter (principal)
CPT/HCPCS: 36415; 80048; 85027

== ENCOUNTER → 2018-04-25 05:00 | Outpatient (REF) | payer MEDICARE, SELFPAY ==
[2018-04-25 08:19] LABS: Hemoglobin 9.8 g/dl (13.0-16.5); Mean Corp Hgb Conc 32.7 g/gl (32-36); Mean Corpuscular Volume 88.8 fL (80-94); Mean Platelet Vol. 9.3 fl (6.2-12.0); Platelet Count 311 K/mm3 (150-450); RBC Distribution Width CV 13.7 % (11.6-14.6); Red Blood Count 3.38 M/mm3 (4.6-6.2); White Blood Count 13.8 K/mm3 (4.4-11.0)
[2018-04-25 08:22] LABS: Scan Indicated on CBC? Y/N NO
== END ==
LOC: OLS.AVED 05:00
PROVIDERS: Visit Provider Family Medicine
DX: R09.89 Other specified symptoms and signs involving the circulatory and respiratory systems (principal); R52 Pain, unspecified
CPT/HCPCS: 36415; 85027

== ENCOUNTER → 2018-05-25 07:05 | Outpatient (REF) | payer MEDICARE, MEDICAID, SELFPAY ==
[2018-05-25 07:51] LABS: Hemoglobin A1c 8.6 % (4.2-6.3)
== END ==
LOC: OLS.AVED 07:05
PROVIDERS: Visit Provider Family Medicine
DX: E11.9 Type 2 diabetes mellitus without complications (principal)
CPT/HCPCS: 36415; 83036

== ENCOUNTER 2018-09-28 01:43 | Inpatient (IN) | payer MEDICARE, SELFPAY ==
[2018-09-28] VITALS (25 sets, daily range): BP systolic 103–168; BP diastolic 54–87; PULSE 81–109; RESP 20–30; TEMP 36.3–37.7; O2SAT 92–98; BMI 34.2; BMI 34.6
--- NOTE | 2018-09-28 01:54 | ED.RN ---
ATTEMPTED TO CONTACT [facility] - [facility]
--- NOTE | 2018-09-28 02:03 | EKG12_ITS ---
Test Reason : Blood Pressure : / mmHG Vent. Rate : 089 BPM Atrial Rate : 089 BPM P-R Int : 142 ms QRS Dur : 090 ms QT Int : 372 ms P-R-T Axes : 039 007 042 degrees QTc Int : 452 ms Normal sinus rhythm Normal ECG Confirmed by ELIA MAYES, CHERI ([id number]), newspaper editor RICCI MOREL ([id number]) on 09/30/2018 11:49:33 AM Referred By: Gus Urias Confirmed By:CHERI RODRIGEZ MD
[2018-09-28 02:12] LABS: Absolute Lymphocyte Count 1.02 X10^3/uL (0.83-4.51); Absolute Neutrophil Count 32.2 X10^3/uL (2.0-7.7); Basophil# 0.07 X10^3/uL; Basophil% 0.2 % (0-1); Eosinophil# 0.05 X10^3/uL; Eosinophils% 0.1 % (0-5); Hematocrit 26.8 % (40-54); Hemoglobin 9.3 g/dL (13.0-16.5); Lymphocyte # 1.02 X10^3/ul (4.0); Lymphocyte % 2.8 % (19-41); Mean Corp Hgb Conc 34.7 g/dL (32-36); Mean Corpuscular Hgb 29.9 pg (27.0-32.0); Mean Corpuscular Volume 86.2 fL (80-94); Mean Platelet Vol. 9.3 fl (6.2-12.0); Monocyte# 1.31 X10^3/uL; Monocyte% 3.6 % (0-10); NRBC Flagged by Analyzer 0 % (0-5); Neutrophil % 89.8 % (47-70); POSITIVE COUNT YES; POSITIVE DIFFERENTIAL YES; POSITIVE MORPHOLOGY YES; Platelet Count 501 K/mm3 (150-450); RBC Distribution Width CV 14.3 % (11.6-14.6); RBC Distribution Width SD 44.9 fl (35.1-43.9); Red Blood Count 3.11 M/mm3 (4.6-6.2)
--- NOTE | 2018-09-28 02:15 | RAD_ITS ---
HISTORY: shortness of breath ADDITIONAL HISTORY: None provided. COMPARISON: No previous chest radiograph. Left shoulder 01/31/2017 TECHNIQUE: Frontal chest radiograph. Number of images including paperwork: 2 FINDINGS: LUNGS AND PLEURA: Right perihilar and basilar airspace opacities. Bibasilar linear opacities. Low lung volumes. CARDIAC SILHOUETTE: Unremarkable. MEDIASTINUM AND OMARI: Unremarkable. UPPER ABDOMEN: Unremarkable. SKELETON AND SOFT TISSUES: Calcified lesion in the left proximal humerus appears grossly similar. Partially visualized deformity of the left proximal humerus compatible with a remote fracture seen on previous shoulder radiographs. Degenerative changes. OTHER DEVICES AND HARDWARE: None. RAD/Chest 1 View (Portable) IMPRESSION: Right perihilar and basilar opacities concerning for pneumonia. Bibasilar linear subsegmental atelectasis versus scarring. at 0254 Reported and signed by: Chanelle Ladd MD Electronically Signed: Chanelle Ladd MD at 2:53 EDT Tel , Service support ,
[2018-09-28 02:17] LABS: International Normalized Ratio 1.3; Prothrombin Time (Protime)PT. 16.1 SECONDS (11.7-14.9)
[2018-09-28 02:18] LABS: Partial Thromboplast Time 33.1 Seconds (24.1-36.2)
[2018-09-28 02:20] LABS: Differential Indicated SCAN CRITERIA MET
[2018-09-28 02:21] LABS: White Blood Count 35.9 K/mm3 (4.4-11.0)
[2018-09-28] MEDS: 0.9% Normal Saline 1,000 ML 150 ML IV (02:22)
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
--- NOTE | 2018-09-28 02:30 | ED.RN ---
DR KNAPP NOTIFIED OF WBC RESULTS
[2018-09-28] MEDS: Ipratropium/Albuterol Sulfate 3 ML AMPUL.NEB INHALATION ×2 (02:31→06:46)
--- NOTE | 2018-09-28 02:35 | ED.DCSUM_ITS ---
History of Present Illness Chief Complaint: Shortness of Breath Informant: Patient, EMS Activity at onset: Unknown Current Severity: Moderate Maximum Severity: Moderate Worsened by: Coughing Associated Symptoms: Cough Narrative: Patient resides in a intermediate, DNR Comfort Care arrest. Apparently they diagnosed him with pneumonia clinically and tried to give him a Levaquin tonight but he choked on it. It is unknown if he swallowed it or aspirated it, the patient states he does not know. He does not think he vomited it out. He does not recall vomiting, although he smells like vomit and appears to have it on his face around his mouth. He states he is short of breath. He denies having any chest pain or pain elsewhere right now. Was 88% on room air per EMS, in 90's on 2L NC. - Past Medical History (1) Cerebral palsy Status: Chronic (2) Hypertension Status: Chronic (3) Type 2 diabetes mellitus Status: Chronic Past Medical History - Allergies and Home Meds Allergies/Adverse Reactions: Allergies mold Allergy (Verified 09/28/18 01:49) Other Primary Care Physician: Brayan Brown MD [Primary Care Provider] - Lives: [facility] Smoking Status: Never smoker - Family History Maternal Family History: Reports: No pertinent history Review of Systems ROS: Unable to Obtain - Very limited, patient poor historian General: Reports: Malaise. Denies: Sweats ENT: Denies: Bilateral ear pain, Sore throat Cardiovascular: Denies: Chest pain Respiratory: Reports: Dyspnea, Cough. Denies: Sputum - I cannot get anything up Gastrointestinal: Denies: Abdominal pain, Nausea Musculoskeletal: Reports: Swelling - Chronic bilateral lower extremities. Denies: Neck pain, Back pain, Extremity Pain Neurological: Reports: Weakness - Left hand chronic. Denies: Headache Physical Exam Vital Signs/Narrative: Vital Signs Temp Pulse Resp BP Pulse Ox 09/28/18 02:32 91 24 H 09/28/18 02:06 96 09/28/18 01:51 93 09/28/18 01:44 98.7 F 88 28 H 107/71 92 Inital Vital Signs reviewed: Yes General: Well nourished, Well developed, Obese, Acute Distress - Mild respiratory distress Head: Normocephalic, Atraumatic Eyes: Perrl, EOMI ENT: No rhinorrhea, Dry mucous membranes. Negative for: Nasal congestion Neck: Supple, Nontender, No lymphadenopathy, No JVD Cardiovascular: Regular rate, Regular rhythm, No murmurs. Negative for: Tachycardia Respiratory: Chest nontender, Rales - Right, Wheezing - Right Abdomen: Soft, Nondistended, Normal bowel sounds, Tender - Left lower quadrant mild. Negative for: Guarding, Pulsatile mass : - - Several sacral decubitus ulcerations, 2 of them are quite friable and appeared to have recently been oozing blood, no active bleeding, no abscesses. Back: Nontender. Negative for: CVA tenderness Extremities: Nontender, Edema - 3+ bilateral lower extremity symmetric edema to the knees Skin: Normal color, No rash, No Trauma, - - Sacral decubitus ulcerations as above Neurological: Alert, Oriented x3, Cranial nerves II-XII grossly intact, Weakness - Left upper extremity. Very weak throughout, is unable to sit himself up without 2 people to assist. Can move both feet equally, but cannot resist gravity with his legs. Psychological: Normal affect, Normal Mood Diagnostic/Tx/Re-eval Laboratory Results 09/28/18 09/28/18 09/28/18 01:50 01:50 01:50 WBC 35.9 H* RBC 3.11 L Hgb 9.3 L Hct 26.8 L MCV 86.2 MCH 29.9 MCHC 34.7 RDW Std Deviation 44.9 H RDW Coeff of Willam 14.3 Plt Count 501 H MPV 9.3 Immature Gran % (Auto) 3.500 H Neut % (Auto) 89.8 H Lymph % (Auto) 2.8 L [place] % (Auto) 3.6 Eos % (Auto) 0.1 Baso % (Auto) 0.2 Absolute Neuts (auto) 32.2 H Absolute Lymphs (auto) 1.02 Nucleated RBC % 0 PT 16.1 H INR 1.3 APTT 33.1 Sodium 132 L Potassium 4.0 Chloride 100 Carbon Dioxide 18.0 L Anion Gap 14 BUN 77 H Creatinine 4.40 H Estim Creat Clear Calc 14.10 Est GFR (MDRD) Af Amer 17 L Est GFR (MDRD) Non-Af 14 L BUN/Creatinine Ratio 17.5 Glucose 123 H Lactic Acid Calcium 8.2 L Total Bilirubin 0.50 AST 70 H ALT 74 H Alkaline Phosphatase 132 H Troponin I 0.100 H Total Protein 7.0 Albumin 1.8 L Globulin 5.2 H Albumin/Globulin Ratio 0.3 L 09/28/18 02:03 WBC RBC Hgb Hct MCV MCH MCHC RDW Std Deviation RDW Coeff of Willam Plt Count MPV Immature Gran % (Auto) Neut % (Auto) Lymph % (Auto) [place] % (Auto) Eos % (Auto) Baso % (Auto) Absolute Neuts (auto) Absolute Lymphs (auto) Nucleated RBC % PT INR APTT Sodium Potassium Chloride Carbon Dioxide Anion Gap BUN Creatinine Estim Creat Clear Calc Est GFR (MDRD) Af Amer Est GFR (MDRD) Non-Af BUN/Creatinine Ratio Glucose Lactic Acid 3.6 H Calcium Total Bilirubin AST ALT Alkaline Phosphatase Troponin I Total Protein Albumin Globulin Albumin/Globulin Ratio - Rhythm Strip Rhythm Strip: Sinus Rhythm Rate: 90 Ectopy: None - EKG Initial EKG Interpretation: Sinus Rhythm, No Acute Injury Pattern - normal EKG Treatment - Dyspnea: Oxygen, Albuterol, Atrovent, Antibiotics Repeat Evaluation: Improved - Medical Decision Making Patient's white blood count returned over 35. That with his respiratory rate qualifies him for sepsis in context of having right-sided pneumonia on chest x- ray and clinically. Furthermore, his lactate returned at 3.6, which qualifies him for severe sepsis so fluid boluses were ordered in addition to dual antibiotic therapy. After a nebulizer treatment his respiratory rate is improved and he is clinically more stable although ill-appearing. We will admit to the hospital for continued therapy. Critical care time (excluding procedures): 30-74 minutes - 35 minutes, including time spent discussing with patient, consultants, performing direct patient care at bedside, and arranging admission ED Disposition - Plan for ED Patient: Disposition: Acute Care Hospital [facility] Diagnosis: Severe sepsis, HCAP (healthcare-associated pneumonia), Acute renal failure, Dehydration, Sacral decubitus ulcer, Hypoxemia Referrals: Brayan Brown MD [Primary Care Provider] -
[2018-09-28 02:39] LABS: ALB/GLOB Ratio 0.3 RATIO (0.9-2.4); AST(SGOT) 70 U/L (15-37); Alanine Aminotransfer ALT/SGPT 74 U/L (16-61); Albumin, Serum 1.8 g/dL (3.2-5.0); Alkaline Phosphatase 132 U/L (45-117); Anion Gap 14 (5-15); BUN 77 mg/dL (7-18); BUN/Creat Ratio 17.5 RATIO (10-20); Calcium,Total 8.2 mg/dL (8.5-10.1); Chloride 100 mmol/L (98-107); EST Glomerular Filtration Rate 14 mL/min (>60); Est Glom Filt Rate - Afr Amer 17 mL/min (>60); Globulin 5.2 g/dL (2.2-4.2); Glucose 123 mg/dL (74-106); Sodium Level 132 mmol/L (136-145)
[2018-09-28 02:40] LABS: Lactic Acid 3.6 mmol/L (0.4-2.0)
--- NOTE | 2018-09-28 02:40 | ED.RN ---
DR KNAPP NOTIFIED OF LACTIC RESULTS. DR KNAPP TO THE BEDSIDE TO SEE WOUND ON PT BACKSIDE AND URINE
[2018-09-28 02:49] LABS: Anisocytosis 1+; Differential Comment SCANNED; Hypochromasia 1+; Platelet Estimate SLT INC (ADEQ); Platelet Morphology LARGE; Polychromasia 1+
[2018-09-28 02:50] LABS: Microcytosis 1+
[2018-09-28 02:53] LABS: Mucous, Urine 0 SEEN /hpf (<or=2+); Squamous Epithelial Cells - UA 0 SEEN /hpf (0-5)
[2018-09-28] MEDS: 0.9% Normal Saline 1,000 ML 999 ML IV ×3 (02:56→03:38)
[2018-09-28 03:04] LABS: Color, Urine Yellow (Yellow); Glucose, Dipstick 50 mg/dl (Normal); Ketone-Dipstick Negative (Negative); Leukocyte Esterase-Dipstick 500 /ul (Negative); Nitrite-Dipstick Negative (Negative); Occult Blood-Urine 250 /ul (Negative); Protein-Dipstick 100 mg/dl (Negative); Specific Gravity, Urine 1.015 (1.002-1.030); Urine Bilirubin Dipstick Negative (Negative); Urine Clarity Turbid (Clear); Urine Urobilinogen Normal (Normal)
[2018-09-28 03:13] LABS: Bacteria 3+ /hpf (None Seen); White Blood Cells >100 SEEN /hpf (0-5)
[2018-09-28 03:14] LABS: Red Blood Cells-Urine 10-25 SEEN /hpf (0-5)
--- NOTE | 2018-09-28 03:41 | PCM.HP.STD ---
Problem List (1) Severe sepsis Status: Acute (2) HCAP (healthcare-associated pneumonia) Status: Acute (3) Acute renal failure Status: Acute (4) Dehydration Status: Acute (5) Sacral decubitus ulcer Status: Chronic Qualifiers: Pressure injury stage: unstageable Qualified Code(s): L89.150 - Pressure ulcer of sacral region, unstageable (6) Hypoxemia Status: Acute (7) Fall with injury Status: Acute (8) Cerebral palsy Status: Chronic (9) Hypertension Status: Chronic (10) Type 2 diabetes mellitus Status: Chronic (11) Right acetabular fracture Status: Acute History of Present Illness Date of Admission: 09/28/18 Chief Complaint: Increased respiratory distress The patient is a 68 year old M who is [facility] resident was sent to ER from [facility] for progressive worsening of shortness of breath, respiratory distress and hypoxia. Patient also has difficulty in swallowing and has noted change in his voice recently. EMS found 88% on room air and 92% on 4 L of oxygen. Patient was found tachypneic, RR 28-30/min with labored breathing. No fever noted in ED. Patient has a history of epilepsy, cerebral palsy, diabetes, hypertension and dyslipidemia and change in his speech and hard of hearing therefore history is very difficult. Basic labs in ED shows leukocytosis 36,000 with neutrophils 90%, thrombocytosis, platelet count 500,000, BUN/creatinine 77/1.4, sodium 132. Troponin also elevated 0.1. Patient also has elevated transaminases in 70s but it was in 120s in September 2017. Albumin 1.8. As per ER physician, his urine was very cloudy. 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 UA shows WBC more than 100 cells, RBC 10-25, LE 500 but nitrite negative. Chest x-ray done in the ER shows right perihilar and basilar opacities concerning for pneumonia with bibasilar subsegmental atelectasis/scarring. Past Medical History Past Medical History (Chronic Problems): Chronic Problems (This Medical Record has been edited. Action required.) Sacral decubitus ulcer (Chronic) Cerebral palsy (Chronic) Hypertension (Chronic) Type 2 diabetes mellitus (Chronic) Allergies mold Allergy (Verified 09/28/18 01:49) Other Home Medications: Ambulatory Orders Medication Instructions Recorded Atorvastatin Calcium [Lipitor] 10 mg PO DAILY 03/18/15 Hydrochlorothiazide [Hctz] 25 mg PO DAILY 03/18/15 Losartan Potassium [Cozaar] 100 mg PO DAILY 03/18/15 Multivitamins,Therapeutic 1 tablet PO DAILY 03/18/15 [Multivitamin] Propranolol HCl [Inderal (Beta 40 mg PO BID 03/18/15 Ahsan)] metFORMIN HCl [Glucophage] 1,000 mg PO BIDCM 03/18/15 Benzonatate [Tessalon Perle] 200 mg PO TID PRN PRN 08/28/17 Amlodipine [Norvasc] 5 mg PO DAILY tablet 08/31/17 Hydrocodone Bitart/Apap 5-325 1 tab PO Q6H PRN PRN 3 Days #10 tab 08/31/17 [Freeland 5/325] Insulin Lispro [Humalog KwikPen] See Protocol SC ACHS insuln.pen 08/31/17 Phenobarbital 64.8 mg PO BID 10 Days #40 tab 08/31/17 Cephalexin [Keflex] 500 mg PO Q12 09/28/18 Insulin Detemir [Levemir (BKC)] 20 units SUBCUT QHS 09/28/18 Loratadine [Claritin] 10 mg PO DAILY 09/28/18 levoFLOXacin tablet [Levaquin 750 mg PO BID 09/28/18 tablet] Lives: Long Term Smoking Status: Never smoker - *Family History Maternal History Items: No pertinent history Review of Systems Constitutional: Reports: Weakness, Fatigue HEENT: Reports: Difficulty Swallowing, Dysphasia Cardiovascular: Denies: Chest Pain Respiratory: Reports: Cough, Shortness of Breath, Shortness of breath at rest, Shortness of breath upon exertion Gastrointestinal: Reports: Constipation. Denies: Abdominal Pain, Nausea, Vomiting Genitourinary: Reports: - - Urinary incontinent. Penis is buried. Denies: Dysuria Musculoskeletal: Reports: Joint Pain Skin: Reports: Dryness Neurological: Reports: Balance problems Psychiatric: Reports: Anxiety, Depression Unable to obtain accurate/complete ROS d/t: History of CP, change in voice with hoarseness, respiratory distress andHOH VTE Information - Inpt Only VTE Present on Admission: No VTE Mechan Device Prophylaxis: None VTE Pharm Prophylaxis ordered?: Yes Patient Problems: Active and Suspected Problems (This Medical Record has been edited. Action required.) Severe sepsis (Acute) HCAP (healthcare-associated pneumonia) (Acute) Acute renal failure (Acute) Dehydration (Acute) Hypoxemia (Acute) - Physical Exam General: Cooperative, Disoriented - Disoriented to time, Lethargic, - - Awake. HEENT: Atraumatic, PERRLA, EOMI, Normocephalic Oral: - - Deep pharyngeal structures not visualized Neck: Supple, No JVD, Negative Carotid Bruits Lungs: Diminished - Air entry is diminished., Rhonchi, Short of Breath, Tachypneic, Using Accessory Muscles, Wheezes Cardiovascular: Regular rate, Regular Rhythm, Normal S1, Normal S2, No murmurs Abdomen: Bowel Sounds Present, Soft, Non Tender, Non-Distended Extremities: Capillary Refill Less than 3 Seconds, Edema - Bilateral lower extremity lymphedema Skin: Ulcer/ Wound - Skin breakdown ulcer at the carol cleft and deep gluteal region. Unstageable Musculoskeletal: Arthritic Changes, Muscle Wasting, - - Contracture of lower extremities Neurological: Cranial nerves II-XII grossly intact, Deep Tendon Reflexes 2+/4 and Symmetrical Psych/Mental Status: Normal Affect, Appropriate Vital Signs Temp Pulse Resp BP Pulse Ox 97.4 F L 81 30 H 103/57 L 93 09/28/18 03:19 09/28/18 03:19 09/28/18 03:19 09/28/18 02:03 09/28/18 03:19 Oxygen Flow Rate (L/min) 4 Oxygen Delivery Method Nasal Cannula Weight: 211 lb 13.828 oz Body Mass Index (BMI) 34.2 Laboratory Tests Past 24 Hrs 09/28/18 09/28/18 09/28/18 01:50 01:50 01:50 WBC 35.9 H* RBC 3.11 L Hgb 9.3 L Hct 26.8 L MCV 86.2 MCH 29.9 MCHC 34.7 RDW Std Deviation 44.9 H RDW Coeff of Willam 14.3 Plt Count 501 H MPV 9.3 Immature Gran % (Auto) 3.500 H Neut % (Auto) 89.8 H Lymph % (Auto) 2.8 L Ulster % (Auto) 3.6 Eos % (Auto) 0.1 Baso % (Auto) 0.2 Absolute Neuts (auto) 32.2 H Absolute Lymphs (auto) 1.02 Nucleated RBC % 0 Differential Comment SCANNED Diff Path Review May foll Platelet Estimate SLT INC Plt Morphology Comment LARGE Polychromasia 1+ Hypochromasia 1+ Anisocytosis 1+ Microcytosis 1+ PT 16.1 H INR 1.3 APTT 33.1 Sodium 132 L Potassium 4.0 Chloride 100 Carbon Dioxide 18.0 L Anion Gap 14 BUN 77 H Creatinine 4.40 H Estim Creat Clear Calc 14.10 Est GFR (MDRD) Af Amer 17 L Est GFR (MDRD) Non-Af 14 L BUN/Creatinine Ratio 17.5 Glucose 123 H Lactic Acid Calcium 8.2 L Total Bilirubin 0.50 AST 70 H ALT 74 H Alkaline Phosphatase 132 H Troponin I 0.100 H Total Protein 7.0 Albumin 1.8 L Globulin 5.2 H Albumin/Globulin Ratio 0.3 L Urine Color Urine Clarity Urine pH Ur Specific [place] Urine Protein Urine Glucose (UA) Urine Ketones Urine Occult Blood Urine Nitrite Urine Bilirubin Urine Urobilinogen Ur Leukocyte Esterase Urine RBC Urine WBC Ur Squamous Epith Cells Urine Bacteria Urine Mucus 09/28/18 09/28/18 02:03 02:40 WBC RBC Hgb Hct MCV MCH MCHC RDW Std Deviation RDW Coeff of Willam Plt Count MPV Immature Gran % (Auto) Neut % (Auto) Lymph % (Auto) Ulster % (Auto) Eos % (Auto) Baso % (Auto) Absolute Neuts (auto) Absolute Lymphs (auto) Nucleated RBC % Differential Comment Diff Path Review Platelet Estimate Plt Morphology Comment Polychromasia Hypochromasia Anisocytosis Microcytosis PT INR APTT Sodium Potassium Chloride Carbon Dioxide Anion Gap BUN Creatinine Estim Creat Clear Calc Est GFR (MDRD) Af Amer Est GFR (MDRD) Non-Af BUN/Creatinine Ratio Glucose Lactic Acid 3.6 H Calcium Total Bilirubin AST ALT Alkaline Phosphatase Troponin I Total Protein Albumin Globulin Albumin/Globulin Ratio Urine Color Yellow Urine Clarity Turbid Urine pH 6.0 Ur Specific [place] 1.015 Urine Protein 100 H Urine Glucose (UA) 50 H Urine Ketones Negative Urine Occult Blood 250 H Urine Nitrite Negative Urine Bilirubin Negative Urine Urobilinogen Normal Ur Leukocyte Esterase 500 H Urine RBC 10-25 SEEN Urine WBC >100 SEEN Ur Squamous Epith Cells 0 SEEN Urine Bacteria 3+ Urine Mucus 0 SEEN Assessment/Plan All Active Problems (This Medical Record has been edited. Action required.) Severe sepsis (Acute) HCAP (healthcare-associated pneumonia) (Acute) Acute renal failure (Acute) Dehydration (Acute) Hypoxemia (Acute) Fall with injury (Acute) Right acetabular fracture (Acute) The patient is a 68 year old M who is [facility] resident was sent [facility] for progressive worsening of shortness of breath, respiratory distress and hypoxia. Patient also has difficulty in swallowing and has noted change in his voice recently. EMS found 88% on room air and 92% on 4 L of oxygen. Patient was found tachypneic, RR 28-30/min with labored breathing. No fever noted in ED. Patient has a history of epilepsy, cerebral palsy, diabetes, hypertension and dyslipidemia and change in his speech and hard of hearing therefore history is very difficult. Basic labs in ED shows leukocytosis 36,000 with neutrophils 90%, thrombocytosis, platelet count 500,000, BUN/creatinine 77/1.4, sodium 132. Troponin also elevated 0.1. Patient also has elevated transaminases in 70s but it was in 120s in September 2017. Albumin 1.8. As per ER physician, his urine was very cloudy. 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 UA shows WBC more than 100 cells, RBC 10-25, LE 500 but nitrite negative. Chest x-ray done in the ER shows right perihilar and basilar opacities concerning for pneumonia with bibasilar subsegmental atelectasis/scarring. 1. Sepsis (tachypnea, hypoxia, leukocytosis and lactic acidosis 3.6) with acute hypoxic respiratory distress most likely secondary to right perihilar pneumonia probably aspiration/healthcare acid pneumonia: Patient is being admitted in PCU. Started on broad-spectrum antibiotic vancomycin and Zosyn. Pneumonia work-up ordered including urinary antigens, blood cultures x2, respiratory panel and MRSA nasal screen. Oxygen therapy, chest physiotherapy, incentive spirometry ordered. Patient does not want to be intubated if he goes into cardiac or respiratory arrest. Patient needs pulmonary hygiene with deep suctioning. WEAK cough reflex. Currently we will keep patient n.p.o. till cleared by speech therapist. Request pulmonary consult. Speech therapy evaluation for possible aspiration 2. Dysuria possible UTI: UA shows more than 100 WBC cells. Urine culture is ordered. Patient on broad-spectrum antibiotic. 3. Acute kidney injury on CKD stage III with hyponatremia possible related to prerenal/diuretic and/or sepsis/ATN: Patient baseline creatinine runs around 1.4. In ED 77/4.4. Sodium 132 but in March 3002/2018 was also 133. On IV fluid normal saline resuscitation. Monitor kidney function and electrolytes. Monitor intake and output. 4. Decubitus ulcer and sacral coccygeal region, unstageable: Wound care consult. This does not looks like to be a source of severe sepsis but patient on broad-spectrum antibiotic. 5. Diabetes mellitus type 2: Accu-Chek every 6 hourly and cover with Humalog sliding scale. Patient is currently n.p.o. Other comorbidities include cerebral palsy, hypertension, epilepsy, history of recurrent fall and decreased functional capacity with failure to thrive: Multiple comorbidities complicates the present care and expect difficult and delay recovery. Home medication reconciliation done. DVT prophylaxis: Heparin 5000 units subcutaneous twice daily Living will/advanced directive/MOLST: Patient has resuscitation order from the [facility] stating DNR CC arrest. Discussed with the patient and he understands. In case of respiratory arrest or cardiac arrest, patient does not want to be intubated, CPR, artificial tube feed, vasopressor or central line insertion. Patient is DNR CC Arrest. Total time spent in [id number] encounter in discussion of advanced directive 18 minutes. Clinical Impression(s) from Imaging Studies Chest X-Ray 09/28/18 02:15 IMPRESSION: Right perihilar and basilar opacities concerning for pneumonia. Bibasilar linear subsegmental atelectasis versus scarring. Laboratory Results 09/28/18 01:50: WBC 35.9 H*, RBC 3.11 L, Hgb 9.3 L, Hct 26.8 L, MCV 86.2, MCH 29.9, MCHC 34.7, RDW Std Deviation 44.9 H, RDW Coeff of Willam 14.3, Plt Count 501 H, MPV 9.3, Immature Gran % (Auto) 3.500 H, Neut % (Auto) 89.8 H, Lymph % (Auto) 2.8 L, Ulster % (Auto) 3.6, Eos % (Auto) 0.1, Baso % (Auto) 0.2, Absolute Neuts (auto) 32.2 H, Absolute Lymphs (auto) 1.02, Nucleated RBC % 0, Differential Comment SCANNED, Diff Path Review May laquita, Platelet Estimate SLT INC, Plt Morphology Comment LARGE, Polychromasia 1+, Hypochromasia 1+, Anisocytosis 1+, Microcytosis 1+ 09/28/18 01:50: PT 16.1 H, INR 1.3, APTT 33.1 09/28/18 01:50: Sodium 132 L, Potassium 4.0, Chloride 100, Carbon Dioxide 18.0 L, Anion Gap 14, BUN 77 H, Creatinine 4.40 H, Estim Creat Clear Calc 14.10, Est GFR (MDRD) Af Amer 17 L, Est GFR (MDRD) Non-Af 14 L, BUN/Creatinine Ratio 17.5, Glucose 123 H, Calcium 8.2 L, Total Bilirubin 0.50, AST 70 H, ALT 74 H, Alkaline Phosphatase 132 H, Troponin I 0.100 H, Total Protein 7.0, Albumin 1.8 L, Globulin 5.2 H, Albumin/Globulin Ratio 0.3 L 09/28/18 02:03: Lactic Acid 3.6 H 09/28/18 02:40: Urine Color Yellow, Urine Clarity Turbid, Urine pH 6.0, Ur Specific Lacarne 1.015, Urine Protein 100 H, Urine Glucose (UA) 50 H, Urine Ketones Negative, Urine Occult Blood 250 H, Urine Nitrite Negative, Urine Bilirubin Negative, Urine Urobilinogen Normal, Ur Leukocyte Esterase 500 H, Urine RBC 10-25 SEEN, Urine WBC >100 SEEN, Ur Squamous Epith Cells 0 SEEN, Urine Bacteria 3+, Urine Mucus 0 SEEN [] Code Visit Inpatient E&M: 57895 Init Hosp L3 Procedures: 39378 Advncd Care Plan 30 Min
[2018-09-28 05:11] LABS: Bedside Glucose 122 mg/dL (70-110)
[2018-09-28 06:09] LABS: Reflex Lactate? Y
[2018-09-28] MEDS: Menthol/Lanolin/Calamine/Znox 113 GM Tube 1 APPLIC TOPICAL ×5 (06:41→20:59)
[2018-09-28] MEDS: Nystatin Powder 15gm Bottle 1 APPLIC TOPICAL ×4 (06:41→20:58)
--- NOTE | 2018-09-28 06:55 | PCM.CONS.PUL ---
Reason for Consult Date of Consultation: 09/28/18 Reason for Consultation: Acute respiratory insufficiency History of Present Illness: The patient is a 68-year-old male, with a history as outlined below, who presented to the emergency department from his nursing facility on September 28 with shortness of breath and hypoxemia following a potential aspiration event. The patient has underlying cerebral palsy and epilepsy. History pertinent to his hospitalization was difficult to elicit from the patient directly. However, he was able to confirm the presence of shortness of breath and productive cough. He also reported the presence of diarrhea of unclear chronicity. On presentation to the emergency department, the patient was initially noted to be afebrile hemodynamically stable. He was tachypneic and requiring 4 L/min of supplemental oxygen to maintain appropriate saturations. Initial laboratory evaluation revealed an elevated white blood cell count to 36,000. There was also evidence of normocytic anemia and thrombocytosis with a platelet count of 501,000. Chemistry profile was notable for acute kidney injury with a creatinine of 4.40. Lactate was elevated at 3.6. AST and ALT were increased to 70 and 74, respectively, with an alkaline phosphatase level of 132. Initial troponin was elevated to 0.100. Urinalysis revealed positive leukocyte esterase, greater than 100 white blood cells and 3+ urine bacteria. Plain film chest x-ray revealed right mid and lower lung field infiltrates. The patient received supplemental IV fluid hydration was started on broad-spectrum antimicrobials. He was subsequently admitted to the progressive care unit for treatment of underlying severe sepsis. Past Medical History Past Medical History (Chronic Problems): Chronic Problems (This Medical Record has been edited. Action required.) Sacral decubitus ulcer (Chronic) Cerebral palsy (Chronic) Hypertension (Chronic) Type 2 diabetes mellitus (Chronic) Allergies mold Allergy (Verified 09/28/18 01:49) Other Home Medications: Ambulatory Orders Medication Instructions Recorded Atorvastatin Calcium [Lipitor] 10 mg PO DAILY 03/18/15 Hydrochlorothiazide [Hctz] 25 mg PO DAILY 03/18/15 Losartan Potassium [Cozaar] 100 mg PO DAILY 03/18/15 Multivitamins,Therapeutic 1 tablet PO DAILY 03/18/15 [Multivitamin] Propranolol HCl [Inderal (Beta 40 mg PO BID 03/18/15 Ahsan)] metFORMIN HCl [Glucophage] 1,000 mg PO BIDCM 03/18/15 Amlodipine [Norvasc] 5 mg PO DAILY tablet 08/31/17 Insulin Lispro [Humalog KwikPen] See Protocol SC ACHS insuln.pen 08/31/17 Phenobarbital 64.8 mg PO BID 10 Days #40 tab 08/31/17 Cephalexin [Keflex] 500 mg PO Q12 09/28/18 Insulin Detemir [Levemir (BKC)] 20 units SUBCUT QHS 09/28/18 Loratadine [Claritin] 10 mg PO DAILY 09/28/18 levoFLOXacin tablet [Levaquin 750 mg PO BID 09/28/18 tablet] Lives: Detention Smoking Status: Never smoker - *Family History Maternal History Items: No pertinent history Review of Systems Constitutional: Denies: Chills, Fever Eyes: Denies: Blurred vision, Double vision HEENT: Reports: Difficulty Swallowing, Hard of Hearing Cardiovascular: Reports: Edema. Denies: Chest Pain Respiratory: Reports: Cough, Shortness of Breath, Sputum production Gastrointestinal: Reports: Diarrhea Genitourinary: Denies: Dysuria Musculoskeletal: Denies: Joint Pain, Joint Tenderness Skin: Denies: Rash Neurological: Reports: Difficulty swallowing, Seizures Psychiatric: Denies: Anxiety, Depression, Homicidal Ideations, Suicidal Ideations Hematologic/ Lymphatic: Reports: Anemia Patient Problems: Active and Suspected Problems (This Medical Record has been edited. Action required.) Severe sepsis (Acute) HCAP (healthcare-associated pneumonia) (Acute) Acute renal failure (Acute) Dehydration (Acute) Hypoxemia (Acute) Objective: The patient's most recent lab work, culture data and imaging studies have all been personally reviewed. Strep and urine Legionella antigens were both negative. Blood and urine cultures are pending. - Physical Exam General: Alert, Cooperative HEENT: Atraumatic, PERRLA, Normocephalic Oral: Dry Mucosa Neck: Supple, No Nodes, Trachea Midline Lungs: Diminished, Rhonchi, Tachypneic Cardiovascular: Regular rate, Regular Rhythm, Normal S1, Normal S2 Abdomen: Bowel Sounds Present, Soft, Non Tender, Obese Extremities: No clubbing, No cyanosis, - - Significant bilateral lower externally pitting edema Skin: Ulcer/ Wound - Present on Admission Musculoskeletal: No Tenderness to Palpation of Joints or Extremities Lymphatic: No Cervical, Supraclavicular, or Inguinal Adenopathy Neurological: - - No focal neurological deficits. Vital Signs Temp Pulse Resp BP Pulse Ox 97.5 F L 81 28 H 114/65 94 09/28/18 06:13 09/28/18 06:13 09/28/18 06:13 09/28/18 06:13 09/28/18 06:13 Oxygen Flow Rate (L/min) 4 Oxygen Delivery Method Nasal Cannula Weight: 214 lb 8.156 oz Body Mass Index (BMI) 34.6 Intake and Output for Last 24 Hours 09/26/18 09/27/18 09/28/18 23:59 23:59 23:59 Intake Total 3350 / 3350 Balance 3350 / 3350 Microbiology Past 72 Hours 09/28/18 02:40 Legionella Antigen - Final Urine Catheter - Catheter 09/28/18 02:40 Streptococcus pneumoniae Antigen (M - Final Urine Catheter - Catheter Laboratory Tests Past 24 Hrs 09/28/18 09/28/18 09/28/18 01:50 01:50 01:50 WBC 35.9 H* RBC 3.11 L Hgb 9.3 L Hct 26.8 L MCV 86.2 MCH 29.9 MCHC 34.7 RDW Std Deviation 44.9 H RDW Coeff of Willam 14.3 Plt Count 501 H MPV 9.3 Immature Gran % (Auto) 3.500 H Neut % (Auto) 89.8 H Lymph % (Auto) 2.[address] [place] % (Auto) 3.6 Eos % (Auto) 0.1 Baso % (Auto) 0.2 Absolute Neuts (auto) 32.2 H Absolute Lymphs (auto) 1.02 Nucleated RBC % 0 Differential Comment SCANNED Diff Path Review May foll Platelet Estimate SLT INC Plt Morphology Comment LARGE Polychromasia 1+ Hypochromasia 1+ Anisocytosis 1+ Microcytosis 1+ PT 16.1 H INR 1.3 APTT 33.1 Sodium 132 L Potassium 4.0 Chloride 100 Carbon Dioxide 18.0 L Anion Gap 14 BUN 77 H Creatinine 4.40 H Estim Creat Clear Calc 14.10 Est GFR (MDRD) Af Amer 17 L Est GFR (MDRD) Non-Af 14 L BUN/Creatinine Ratio 17.5 Glucose 123 H Lactic Acid Calcium 8.2 L Phosphorus Magnesium Total Bilirubin 0.50 AST 70 H ALT 74 H Alkaline Phosphatase 132 H Troponin I 0.100 H Total Protein 7.0 Albumin 1.8 L Globulin 5.2 H Albumin/Globulin Ratio 0.3 L TSH Urine Color Urine Clarity Urine pH Ur Specific Imbler Urine Protein Urine Glucose (UA) Urine Ketones Urine Occult Blood Urine Nitrite Urine Bilirubin Urine Urobilinogen Ur Leukocyte Esterase Urine RBC Urine WBC Ur Squamous Epith Cells Urine Bacteria Urine Mucus MRSA (PCR) 09/28/18 09/28/18 09/28/18 02:03 02:40 05:30 WBC RBC Hgb Hct MCV MCH MCHC RDW Std Deviation RDW Coeff of Willam Plt Count MPV Immature Gran % (Auto) Neut % (Auto) Lymph % (Auto) [facility] [place] % (Auto) Eos % (Auto) Baso % (Auto) Absolute Neuts (auto) Absolute Lymphs (auto) Nucleated RBC % Differential Comment Diff Path Review Platelet Estimate Plt Morphology Comment Polychromasia Hypochromasia Anisocytosis Microcytosis PT INR APTT Sodium Potassium Chloride Carbon Dioxide Anion Gap BUN Creatinine Estim Creat Clear Calc Est GFR (MDRD) Af Amer Est GFR (MDRD) Non-Af BUN/Creatinine Ratio Glucose Lactic Acid 3.6 H Calcium Phosphorus Magnesium Total Bilirubin AST ALT Alkaline Phosphatase Troponin I Total Protein Albumin Globulin Albumin/Globulin Ratio TSH Urine Color Yellow Urine Clarity Turbid Urine pH 6.0 Ur Specific Imbler 1.015 Urine Protein 100 H Urine Glucose (UA) 50 H Urine Ketones Negative Urine Occult Blood 250 H Urine Nitrite Negative Urine Bilirubin Negative Urine Urobilinogen Normal Ur Leukocyte Esterase 500 H Urine RBC 10-25 SEEN Urine WBC >100 SEEN Ur Squamous Epith Cells 0 SEEN Urine Bacteria 3+ Urine Mucus 0 SEEN MRSA (PCR) Pending 09/28/18 09/28/18 09/28/18 06:42 06:42 06:42 WBC Pending RBC Pending Hgb Pending Hct Pending MCV Pending MCH Pending MCHC Pending RDW Std Deviation Pending RDW Coeff of Willam Pending Plt Count Pending MPV Immature Gran % (Auto) Neut % (Auto) Pending Lymph % (Auto) [facility] [place] % (Auto) Eos % (Auto) Baso % (Auto) Absolute Neuts (auto) Pending Absolute Lymphs (auto) Nucleated RBC % Differential Comment Diff Path Review Platelet Estimate Plt Morphology Comment Polychromasia Hypochromasia Anisocytosis Microcytosis PT Pending INR Pending APTT Sodium Potassium Chloride Carbon Dioxide Anion Gap BUN Creatinine Estim Creat Clear Calc Est GFR (MDRD) Af Amer Est GFR (MDRD) Non-Af BUN/Creatinine Ratio Glucose Lactic Acid Calcium Phosphorus Pending Magnesium Pending Total Bilirubin AST ALT Alkaline Phosphatase Troponin I Total Protein Albumin Globulin Albumin/Globulin Ratio TSH Pending Urine Color Urine Clarity Urine pH Ur Specific Imbler Urine Protein Urine Glucose (UA) Urine Ketones Urine Occult Blood Urine Nitrite Urine Bilirubin Urine Urobilinogen Ur Leukocyte Esterase Urine RBC Urine WBC Ur Squamous Epith Cells Urine Bacteria Urine Mucus MRSA (PCR) 09/28/18 06:42 WBC RBC Hgb Hct MCV MCH MCHC RDW Std Deviation RDW Coeff of Willam Plt Count MPV Immature Gran % (Auto) Neut % (Auto) Lymph % (Auto) [facility] [place] [facility] % (Auto) Eos % (Auto) Baso % (Auto) Absolute Neuts (auto) Absolute Lymphs (auto) Nucleated RBC % Differential Comment Diff Path Review Platelet Estimate Plt Morphology Comment Polychromasia Hypochromasia Anisocytosis Microcytosis PT INR APTT Sodium Potassium Chloride Carbon Dioxide Anion Gap BUN Creatinine Estim Creat Clear Calc Est GFR (MDRD) Af Amer Est GFR (MDRD) Non-Af BUN/Creatinine Ratio Glucose Lactic Acid Pending Calcium Phosphorus Magnesium Total Bilirubin AST ALT Alkaline Phosphatase Troponin I Total Protein Albumin Globulin Albumin/Globulin Ratio TSH Urine Color Urine Clarity Urine pH Ur Specific Imbler Urine Protein Urine Glucose (UA) Urine Ketones Urine Occult Blood Urine Nitrite Urine Bilirubin Urine Urobilinogen Ur Leukocyte Esterase Urine RBC Urine WBC Ur Squamous Epith Cells Urine Bacteria Urine Mucus MRSA (PCR) POC Glucose 09/28/18 05:04 POC Glucose 122 H Clinical Impression(s) from Imaging Studies Chest X-Ray 09/28/18 02:15 IMPRESSION: Right perihilar and basilar opacities concerning for pneumonia. Bibasilar linear subsegmental atelectasis versus scarring. at 0254 Reported and signed by: Chanelle Ladd MD Electronically Signed: Chanelle Ladd MD at 2:53 EDT Tel , Service support , Assessment/Plan All Active Problems (This Medical Record has been edited. Action required.) Severe sepsis (Acute) HCAP (healthcare-associated pneumonia) (Acute) Acute renal failure (Acute) Dehydration (Acute) Hypoxemia (Acute) Fall with injury (Acute) Right acetabular fracture (Acute) RECOMMENDATIONS: 1. Continue broad-spectrum antimicrobials, pending infectious work-up. 2. Maintain patient n.p.o., pending evaluation by speech therapy. 3. Start gentle IV fluid hydration with lactated Ringer's given n.p.o. status. 4. Discontinue scheduled aerosol treatments. 5. Discontinue IV morphine, given renal insufficiency. 6. Start appropriate DVT prophylaxis. IMPRESSIONS: 1. Severe sepsis There appears to be both pulmonary and urinary potential sources of infection. Clinical concern for potential aspiration event leading to the development of pneumonia. In addition, the patient noted the presence of diarrhea, for which C. difficile is currently being considered. I would recommend continuing broad-spectrum antimicrobial coverage at this time, pending infectious work-up. The patient is currently hemodynamically stable. Given concerns for potential aspiration, agree with continuing n.p.o. status, pending evaluation by speech therapy. In the interim, recommend starting gentle IV fluid hydration with lactated Ringer's. 2. Acute hypoxemic respiratory insufficiency Likely secondary to underlying pulmonary infectious process, which may have been precipitated by an acute aspiration event. Wean supplemental oxygen to maintain saturations at or above 90%. Encourage incentive spirometer use. Continue treatment of underlying infectious process, as noted above. 3. Acute kidney injury Likely prerenal in etiology and related to #1. Continue gentle IV fluid hydration. Continue to monitor urine output. No current indication for renal replacement therapy at this time. Avoid nephrotoxic medications. 4. Hypomagnesemia Electrolyte repletion as ordered. Recheck levels in the morning. 5. Anemia/hypertension/hyperlipidemia/diabetes mellitus/cerebral palsy/epilepsy Complicates care, management, recovery and prognosis. Continue home medications as indicated. The patient will require physical therapy evaluation. This note was generated with [employer] dictation software. It may contain incorrect words, spelling, and punctuation that were not noted in checking the note before signing. Code Visit Inpatient E&M: 67719 Init Hosp L3
[2018-09-28 07:02] LABS: Absolute Lymphocyte Count 0.93 X10^3/uL (0.83-4.51); Basophil# 0.06 X10^3/uL; Basophil% 0.2 % (0-1); Eosinophil# 0.07 X10^3/uL; Eosinophils% 0.2 % (0-5); Hematocrit 25.6 % (40-54); Hemoglobin 8.5 g/dL (13.0-16.5); Lymphocyte # 0.93 X10^3/ul (4.0); Mean Corp Hgb Conc 33.2 g/dL (32-36); Mean Corpuscular Hgb 29.2 pg (27.0-32.0); Mean Platelet Vol. 9.2 fl (6.2-12.0); Monocyte# 1.08 X10^3/uL; Monocyte% 3.5 % (0-10); NRBC Flagged by Analyzer 0 % (0-5); Neutrophil # 27.96 X10^3/uL (2.7-7.7); Neutrophil % 89.7 % (47-70); POSITIVE COUNT YES; POSITIVE DIFFERENTIAL YES; Platelet Count 434 K/mm3 (150-450); RBC Distribution Width CV 14.3 % (11.6-14.6); RBC Distribution Width SD 45.8 fl (35.1-43.9); Red Blood Count 2.91 M/mm3 (4.6-6.2)
--- NOTE | 2018-09-28 07:04 | NURSING ---
PT HAS HAD 3 LIQUID STOOL. STOOL SENT FOR CDIFF. PT PUT INTO PRECAUTION
--- NOTE | 2018-09-28 07:04 | PCM.RX.CS ---
Consult Pharmacy has been consulted to manage selected antiobiotic: Vancomycin Type of Consult: New start Suspected Infection: Pneumonia Prior Doses of Antibiotics Received/Current Regimen: Medications Discontinued Medications Vancomycin HCl 1,250 mg/ (Sodium Chloride) 275 mls @ 167 mls/hr IV X1 ONE Stop: 09/28/18 04:10 Last Admin: 09/28/18 03:14 Dose: 167 mls/hr Documented by: Labs: Sodium 132 mmol/L (136-145) L 09/28/18 01:50 Potassium 4.0 mmol/L (3.5-5.1) 09/28/18 01:50 Chloride 100 mmol/L (98-107) 09/28/18 01:50 Carbon Dioxide 18.0 mmol/L (21.0-32.0) L 09/28/18 01:50 14 (5-15) 09/28/18 01:50 BUN 77 mg/dL (7-18) H 09/28/18 01:50 4.40 mg/dL (0.70-1.30) H 09/28/18 01:50 Est GFR (MDRD) Af Amer 17 mL/min (>60) L 09/28/18 01:50 Est GFR (MDRD) Non-Af 14 mL/min (>60) L 09/28/18 01:50 17.5 RATIO (10-20) 09/28/18 01:50 Glucose 123 mg/dL (74-106) H 09/28/18 01:50 Microbiology: Microbiology 09/28/18 02:40 Urine Catheter - Catheter Legionella Antigen - Final 09/28/18 02:40 Urine Catheter - Catheter Streptococcus pneumoniae Antigen (M - Final Weight used for dosin.3 kg Estimated Creatinine Clearance: 14.10 Goal Trough: 10-15 mcg/mL Pharmacy Plan for Drug Dosing: A random vancomycin level will be drawn 09/29/18 0600. An order will be entered after this level is evaluated. (per policy dosing patients with CrCl < 20 ml/min) Pharmacy Service will continue to monitor and adjust dosing as required. Labs to be done on [date and time ordered]: 09/29/18 0600 random level
[2018-09-28 07:11] LABS: International Normalized Ratio 1.3; Prothrombin Time (Protime)PT. 15.8 SECONDS (11.7-14.9)
[2018-09-28 07:17] LABS: Differential Indicated SCAN CRITERIA MET; White Blood Count 31.2 K/mm3 (4.4-11.0)
[2018-09-28] MEDS: Lactated Ringers 1,000 ML 125 ML IV ×2 (07:19→16:35)
[2018-09-28 07:20] LABS: Lactic Acid 2.6 mmol/L (0.4-2.0)
[2018-09-28 07:24] LABS: Magnesium 1.3 mg/dL (1.6-2.6); Phosphorus 5.4 mg/dL (2.5-4.9); Thyroid Stim Hormone (TSH) 2.85 uIU/mL (0.358-3.74)
[2018-09-28 07:54] LABS: M R Staph aureus DNA By PCR POSITIVE (Negative); Probe Check PASS
[2018-09-28 08:01] LABS: Differential Comment SCANNED; Hypochromasia 2+; Platelet Estimate ADEQUATE (ADEQ)
--- NOTE | 2018-09-28 08:03 | PN_ITS ---
Patient Problems: Active and Suspected Problems (This Medical Record has been edited. Action required.) Severe sepsis (Acute) HCAP (healthcare-associated pneumonia) (Acute) Acute renal failure (Acute) Dehydration (Acute) Hypoxemia (Acute) Subjective: The patient was seen independently and in conjunction with Avani Rodriguez NP. Mr. Walls is a 68-year-old male with a past medical history of cerebral palsy, hypertension, osteoporosis, hyperlipidemia, chronic anemia, diabetes mellitus type 2, morbid obesity and a sacral decubitus ulcer who was sent to the emergency department at [facility] 09/28/2018 for increasing shortness of breath with respiratory distress and hypoxemia. Pulse ox in the ambulance was 88% on room air and 92% on 4 L of oxygen. Vital signs at presentation to the emergency room were temperature 98.7, pulse rate 88, blood pressure 107/71, respiratory rate 28 and he was 92 to 95% saturated on a 4 L nasal cannula. CBC was remarkable for an elevated white blood cell count at 35.9 with 90% neutrophils. Hemoglobin was 8.5 with normochromic normocytic indices. Platelets were 501,000. Sodium was low at 132 and the chloride was 100. Serum bicarb was low at 18 and the BUN was 77 with a creatinine of 4.4. Creatinine in March 2018 was 1.41. Lactic acid was increased at 3.6 and the follow-up lactic acid had improved but was still elevated at 2.6. AST, ALT and alkaline phosphatase were mildly elevated and the total bilirubin was normal. Urine had greater than 100 WBCs per high-power field. Chest x-ray showed a poor inspiratory effort with possible right perihilar and basilar infiltrates. Legionella and streptococcal antigens in the urine were negative. Blood cultures, urine culture and sputum culture were ordered in the emergency department. Respiratory panel was ordered. Zosyn and vancomycin were administered in the emergency department. He was admitted to a monitored bed on PCU with a diagnosis of severe sepsis, acute respiratory insufficiency, urinary tract infection, acute renal failure and healthcare acquired pneumonia. Zosyn and vancomycin were continued. All events of the past 24 hours have been reviewed. All lab and imaging have been reviewed. MRSA nasal screen is positive. T-max is 99.2 and the current temp is 97.5. Blood pressure is stable and is currently 114/65. Respirations are still labored and the respiratory rate is currently 28 and he is 94% saturated on a 4 L nasal cannula. He has been seen in consultation by Dr. Shaggy Castillo from pulmonary medicine. He recommended continuing Zosyn and vancomycin pending infectious work-up, gentle IV hydration with lactated Ringer's, scheduled aerosol treatments. - Physical Exam General: Alert, Cooperative, - - Appropriate. Having a lot of oral secretions and requiring frequent suctioning HEENT: Atraumatic, Normocephalic Oral: No Gingival or Mucosal Lesions/ Ulcerations Neck: Supple, Trachea Midline Lungs: Diminished, Rhonchi, - - Not tachypneic, no accessory muscle use Cardiovascular: Regular rate, Regular Rhythm, Normal S1, Normal S2, No Gallop, - - Telemetry shows normal sinus rhythm with no significant ventricular ectopy Abdomen: Bowel Sounds Present, Soft, Non Tender, Non-Distended, Obese Extremities: No clubbing, No cyanosis, Edema Skin: No rashes, Ulcer/ Wound - He has a decubitus ulcer on the sacrococcygeal region that was present at admission Neurological: Cranial nerves II-XII grossly intact Psych/Mental Status: Appropriate Vital Signs Temp Pulse Resp BP Pulse Ox 97.5 F L 81 28 H 114/65 94 09/28/18 06:13 09/28/18 07:30 09/28/18 06:13 09/28/18 06:13 09/28/18 06:13 Oxygen Flow Rate (L/min) 4 Oxygen Delivery Method Nasal Cannula Weight: 214 lb 8.156 oz Body Mass Index (BMI) 34.6 Intake and Output for Last 24 Hours 09/26/18 09/27/18 09/28/18 23:59 23:59 23:59 Intake Total 3350 / 3350 Balance 3350 / 3350 Microbiology Past 72 Hours 09/28/18 02:40 Legionella Antigen - Final Urine Catheter - Catheter 09/28/18 02:40 Streptococcus pneumoniae Antigen (M - Final Urine Catheter - Catheter Laboratory Tests Past 24 Hrs 09/28/18 09/28/18 09/28/18 01:50 01:50 01:50 WBC 35.9 H* RBC 3.11 L Hgb 9.3 L Hct 26.8 L MCV 86.2 MCH 29.9 MCHC 34.7 RDW Std Deviation 44.9 H RDW Coeff of Willam 14.3 Plt Count 501 H MPV 9.3 Immature Gran % (Auto) 3.500 H Neut % (Auto) 89.8 H Lymph % (Auto) 2.8 L Caroline % (Auto) 3.6 Eos % (Auto) 0.1 Baso % (Auto) 0.2 Absolute Neuts (auto) 32.2 H Absolute Lymphs (auto) 1.02 Nucleated RBC % 0 Differential Comment SCANNED Diff Path Review May foll Platelet Estimate SLT INC Plt Morphology Comment LARGE Polychromasia 1+ Hypochromasia 1+ Anisocytosis 1+ Microcytosis 1+ PT 16.1 H INR 1.3 APTT 33.1 Sodium 132 L Potassium 4.0 Chloride 100 Carbon Dioxide 18.0 L Anion Gap 14 BUN 77 H Creatinine 4.40 H Estim Creat Clear Calc 14.10 Est GFR (MDRD) Af Amer 17 L Est GFR (MDRD) Non-Af 14 L BUN/Creatinine Ratio 17.5 Glucose 123 H Lactic Acid Calcium 8.2 L Phosphorus Magnesium Total Bilirubin 0.50 AST 70 H ALT 74 H Alkaline Phosphatase 132 H Troponin I 0.100 H Total Protein 7.0 Albumin 1.8 L Globulin 5.2 H Albumin/Globulin Ratio 0.3 L TSH Urine Color Urine Clarity Urine pH Ur Specific [place] Urine Protein Urine Glucose (UA) Urine Ketones Urine Occult Blood Urine Nitrite Urine Bilirubin Urine Urobilinogen Ur Leukocyte Esterase Urine RBC Urine WBC Ur Squamous Epith Cells Urine Bacteria Urine Mucus MRSA (PCR) 09/28/18 09/28/18 09/28/18 02:03 02:40 05:30 WBC RBC Hgb Hct MCV MCH MCHC RDW Std Deviation RDW Coeff of Willam Plt Count MPV Immature Gran % (Auto) Neut % (Auto) Lymph % (Auto) Caroline % (Auto) Eos % (Auto) Baso % (Auto) Absolute Neuts (auto) Absolute Lymphs (auto) Nucleated RBC % Differential Comment Diff Path Review Platelet Estimate Plt Morphology Comment Polychromasia Hypochromasia Anisocytosis Microcytosis PT INR APTT Sodium Potassium Chloride Carbon Dioxide Anion Gap BUN Creatinine Estim Creat Clear Calc Est GFR (MDRD) Af Amer Est GFR (MDRD) Non-Af BUN/Creatinine Ratio Glucose Lactic Acid 3.6 H Calcium Phosphorus Magnesium Total Bilirubin AST ALT Alkaline Phosphatase Troponin I Total Protein Albumin Globulin Albumin/Globulin Ratio TSH Urine Color Yellow Urine Clarity Turbid Urine pH 6.0 Ur Specific [place] 1.015 Urine Protein 100 H Urine Glucose (UA) 50 H Urine Ketones Negative Urine Occult Blood 250 H Urine Nitrite Negative Urine Bilirubin Negative Urine Urobilinogen Normal Ur Leukocyte Esterase 500 H Urine RBC 10-25 SEEN Urine WBC >100 SEEN Ur Squamous Epith Cells 0 SEEN Urine Bacteria 3+ Urine Mucus 0 SEEN MRSA (PCR) POSITIVE H 09/28/18 09/28/18 09/28/18 06:42 06:42 06:42 WBC 31.2 H* RBC 2.91 L Hgb 8.5 L Hct 25.6 L MCV 88.0 MCH 29.2 MCHC 33.2 RDW Std Deviation 45.8 H RDW Coeff of Willam 14.3 Plt Count 434 MPV 9.2 Immature Gran % (Auto) 3.400 H Neut % (Auto) 89.7 H Lymph % (Auto) 3.0 L Caroline % (Auto) 3.5 Eos % (Auto) 0.2 Baso % (Auto) 0.2 Absolute Neuts (auto) 28.0 H Absolute Lymphs (auto) 0.93 Nucleated RBC % 0 Differential Comment SCANNED Diff Path Review May foll Platelet Estimate ADEQUATE Plt Morphology Comment Polychromasia Hypochromasia 2+ Anisocytosis Microcytosis PT 15.8 H INR 1.3 APTT Sodium Potassium Chloride Carbon Dioxide Anion Gap BUN Creatinine Estim Creat Clear Calc Est GFR (MDRD) Af Amer Est GFR (MDRD) Non-Af BUN/Creatinine Ratio Glucose Lactic Acid Calcium Phosphorus 5.4 H Magnesium 1.3 L Total Bilirubin AST ALT Alkaline Phosphatase Troponin I Total Protein Albumin Globulin Albumin/Globulin Ratio TSH 2.85 Urine Color Urine Clarity Urine pH Ur Specific [place] Urine Protein Urine Glucose (UA) Urine Ketones Urine Occult Blood Urine Nitrite Urine Bilirubin Urine Urobilinogen Ur Leukocyte Esterase Urine RBC Urine WBC Ur Squamous Epith Cells Urine Bacteria Urine Mucus MRSA (PCR) 09/28/18 06:42 WBC RBC Hgb Hct MCV MCH MCHC RDW Std Deviation RDW Coeff of Willam Plt Count MPV Immature Gran % (Auto) Neut % (Auto) Lymph % (Auto) Caroline % (Auto) Eos % (Auto) Baso % (Auto) Absolute Neuts (auto) Absolute Lymphs (auto) Nucleated RBC % Differential Comment Diff Path Review Platelet Estimate Plt Morphology Comment Polychromasia Hypochromasia Anisocytosis Microcytosis PT INR APTT Sodium Potassium Chloride Carbon Dioxide Anion Gap BUN Creatinine Estim Creat Clear Calc Est GFR (MDRD) Af Amer Est GFR (MDRD) Non-Af BUN/Creatinine Ratio Glucose Lactic Acid 2.6 H Calcium Phosphorus Magnesium Total Bilirubin AST ALT Alkaline Phosphatase Troponin I Total Protein Albumin Globulin Albumin/Globulin Ratio TSH Urine Color Urine Clarity Urine pH Ur Specific [place] Urine Protein Urine Glucose (UA) Urine Ketones Urine Occult Blood Urine Nitrite Urine Bilirubin Urine Urobilinogen Ur Leukocyte Esterase Urine RBC Urine WBC Ur Squamous Epith Cells Urine Bacteria Urine Mucus MRSA (PCR) POC Glucose 09/28/18 05:04 POC Glucose 122 H Medical Necessity - Tobacco Use Smoking Status: Never smoker Assessment/Plan All Active Problems (This Medical Record has been edited. Action required.) Severe sepsis (Acute) HCAP (healthcare-associated pneumonia) (Acute) Acute renal failure (Acute) Dehydration (Acute) Hypoxemia (Acute) Fall with injury (Acute) Right acetabular fracture (Acute) Impressions * Severe sepsis secondary to healthcare associated pneumonia with a positive nasal MRSA swab * Acute hypoxic respiratory insufficiency * Acute urinary tract infection present at admission * Acute renal failure on stage III chronic kidney disease * Decubitus ulcer on the sacrococcygeal area * Hypertension * Hyperlipidemia * Diabetes mellitus type 2-transition to insulin since she has acute renal failure * Cerebral palsy * History of epilepsy Case was discussed with Avani Rodriguez and I have reviewed her note. Orders have been written. Code Visit Inpatient E&M: 25202 Subs Hosp L3
[2018-09-28] MEDS: Heparin Injection (Vial) 5,000 UNIT/ML VIAL 5000 UNIT SC ×2 (08:24→21:09)
[2018-09-28 12:25] LABS: Bedside Glucose 150 mg/dL (70-110)
--- NOTE | 2018-09-28 14:35 | PN_ITS ---
Patient Problems: Active and Suspected Problems (This Medical Record has been edited. Action required.) Severe sepsis (Acute) HCAP (healthcare-associated pneumonia) (Acute) Acute renal failure (Acute) Dehydration (Acute) Hypoxemia (Acute) Subjective: Patient seen and examined. Denies significant shortness of breath. Continues to have productive cough. Denies fever, chills. Complains of generalized weakness. - Physical Exam General: Alert, Oriented x3, Cooperative HEENT: Atraumatic, PERRLA, EOMI, Normocephalic Oral: Dry Mucosa Neck: Supple, No JVD, Negative Carotid Bruits Lungs: Diminished, Rhonchi Cardiovascular: Regular rate, Regular Rhythm, Normal S1, Normal S2, No murmurs Abdomen: Bowel Sounds Present, Soft, Non Tender, Non-Distended Extremities: No clubbing, No cyanosis, Capillary Refill Less than 3 Seconds, Edema - +1 bilateral lower extremities Skin: No rashes, - - Decubitus ulcer, sacral/coccyx region-present on admission Musculoskeletal: No Tenderness to Palpation of Joints or Extremities Neurological: Cranial nerves II-XII grossly intact, Neuro grossly intact Psych/Mental Status: Normal Affect, Appropriate Vital Signs Temp Pulse Resp BP Pulse Ox 99.0 F 89 26 H 118/62 95 09/28/18 13:41 09/28/18 13:41 09/28/18 13:41 09/28/18 13:41 09/28/18 13:41 Oxygen Flow Rate (L/min) 3 Oxygen Delivery Method Nasal Cannula Weight: 214 lb 8.156 oz Body Mass Index (BMI) 34.6 Intake and Output for Last 24 Hours 09/26/18 09/27/18 09/28/18 23:59 23:59 23:59 Intake Total 3907 / 3907 Balance 3907 / 3907 Microbiology Past 72 Hours 09/28/18 07:05 Gram Stain - Final Sputum, Induced/Lukens 09/28/18 05:30 Respiratory Panel (PCR) - Final Mucosa - Nasopharyngeal 09/28/18 06:55 C. difficile DNA Amplification - Final Stool 09/28/18 02:40 Legionella Antigen - Final Urine Catheter - Catheter 09/28/18 02:40 Streptococcus pneumoniae Antigen (M - Final Urine Catheter - Catheter Laboratory Tests Past 24 Hrs 09/28/18 09/28/18 09/28/18 01:50 01:50 01:50 WBC 35.9 H* RBC 3.11 L Hgb 9.3 L Hct 26.8 L MCV 86.2 MCH 29.9 MCHC 34.7 RDW Std Deviation 44.9 H RDW Coeff of Willam 14.3 Plt Count 501 H MPV 9.3 Immature Gran % (Auto) 3.500 H Neut % (Auto) 89.8 H Lymph % (Auto) 2.8 L [place] % (Auto) 3.6 Eos % (Auto) 0.1 Baso % (Auto) 0.2 Absolute Neuts (auto) 32.2 H Absolute Lymphs (auto) 1.02 Nucleated RBC % 0 Differential Comment SCANNED Diff Path Review May foll Platelet Estimate SLT INC Plt Morphology Comment LARGE Polychromasia 1+ Hypochromasia 1+ Anisocytosis 1+ Microcytosis 1+ PT 16.1 H INR 1.3 APTT 33.1 Sodium 132 L Potassium 4.0 Chloride 100 Carbon Dioxide 18.0 L Anion Gap 14 BUN 77 H Creatinine 4.40 H Estim Creat Clear Calc 14.10 Est GFR (MDRD) Af Amer 17 L Est GFR (MDRD) Non-Af 14 L BUN/Creatinine Ratio 17.5 Glucose 123 H Lactic Acid Calcium 8.2 L Phosphorus Magnesium Total Bilirubin 0.50 AST 70 H ALT 74 H Alkaline Phosphatase 132 H Troponin I 0.100 H Total Protein 7.0 Albumin 1.8 L Globulin 5.2 H Albumin/Globulin Ratio 0.3 L TSH Urine Color Urine Clarity Urine pH Ur Specific [place] Urine Protein Urine Glucose (UA) Urine Ketones Urine Occult Blood Urine Nitrite Urine Bilirubin Urine Urobilinogen Ur Leukocyte Esterase Urine RBC Urine WBC Ur Squamous Epith Cells Urine Bacteria Urine Mucus MRSA (PCR) 09/28/18 09/28/18 09/28/18 02:03 02:40 05:30 WBC RBC Hgb Hct MCV MCH MCHC RDW Std Deviation RDW Coeff of Willam Plt Count MPV Immature Gran % (Auto) Neut % (Auto) Lymph % (Auto) [place] % (Auto) Eos % (Auto) Baso % (Auto) Absolute Neuts (auto) Absolute Lymphs (auto) Nucleated RBC % Differential Comment Diff Path Review Platelet Estimate Plt Morphology Comment Polychromasia Hypochromasia Anisocytosis Microcytosis PT INR APTT Sodium Potassium Chloride Carbon Dioxide Anion Gap BUN Creatinine Estim Creat Clear Calc Est GFR (MDRD) Af Amer Est GFR (MDRD) Non-Af BUN/Creatinine Ratio Glucose Lactic Acid 3.6 H Calcium Phosphorus Magnesium Total Bilirubin AST ALT Alkaline Phosphatase Troponin I Total Protein Albumin Globulin Albumin/Globulin Ratio TSH Urine Color Yellow Urine Clarity Turbid Urine pH 6.0 Ur Specific [place] 1.015 Urine Protein 100 H Urine Glucose (UA) 50 H Urine Ketones Negative Urine Occult Blood 250 H Urine Nitrite Negative Urine Bilirubin Negative Urine Urobilinogen Normal Ur Leukocyte Esterase 500 H Urine RBC 10-25 SEEN Urine WBC >100 SEEN Ur Squamous Epith Cells 0 SEEN Urine Bacteria 3+ Urine Mucus 0 SEEN MRSA (PCR) POSITIVE H 09/28/18 09/28/18 09/28/18 06:42 06:42 06:42 WBC 31.2 H* RBC 2.91 L Hgb 8.5 L Hct 25.6 L MCV 88.0 MCH 29.2 MCHC 33.2 RDW Std Deviation 45.8 H RDW Coeff of Willam 14.3 Plt Count 434 MPV 9.2 Immature Gran % (Auto) 3.400 H Neut % (Auto) 89.7 H Lymph % (Auto) 3.0 L [place] % (Auto) 3.5 Eos % (Auto) 0.2 Baso % (Auto) 0.2 Absolute Neuts (auto) 28.0 H Absolute Lymphs (auto) 0.93 Nucleated RBC % 0 Differential Comment SCANNED Diff Path Review May foll Platelet Estimate ADEQUATE Plt Morphology Comment Polychromasia Hypochromasia 2+ Anisocytosis Microcytosis PT 15.8 H INR 1.3 APTT Sodium Potassium Chloride Carbon Dioxide Anion Gap BUN Creatinine Estim Creat Clear Calc Est GFR (MDRD) Af Amer Est GFR (MDRD) Non-Af BUN/Creatinine Ratio Glucose Lactic Acid Calcium Phosphorus 5.4 H Magnesium 1.3 L Total Bilirubin AST ALT Alkaline Phosphatase Troponin I Total Protein Albumin Globulin Albumin/Globulin Ratio TSH 2.85 Urine Color Urine Clarity Urine pH Ur Specific [place] Urine Protein Urine Glucose (UA) Urine Ketones Urine Occult Blood Urine Nitrite Urine Bilirubin Urine Urobilinogen Ur Leukocyte Esterase Urine RBC Urine WBC Ur Squamous Epith Cells Urine Bacteria Urine Mucus MRSA (PCR) 09/28/18 06:42 WBC RBC Hgb Hct MCV MCH MCHC RDW Std Deviation RDW Coeff of Willam Plt Count MPV Immature Gran % (Auto) Neut % (Auto) Lymph % (Auto) [place] % (Auto) Eos % (Auto) Baso % (Auto) Absolute Neuts (auto) Absolute Lymphs (auto) Nucleated RBC % Differential Comment Diff Path Review Platelet Estimate Plt Morphology Comment Polychromasia Hypochromasia Anisocytosis Microcytosis PT INR APTT Sodium Potassium Chloride Carbon Dioxide Anion Gap BUN Creatinine Estim Creat Clear Calc Est GFR (MDRD) Af Amer Est GFR (MDRD) Non-Af BUN/Creatinine Ratio Glucose Lactic Acid 2.6 H Calcium Phosphorus Magnesium Total Bilirubin AST ALT Alkaline Phosphatase Troponin I Total Protein Albumin Globulin Albumin/Globulin Ratio TSH Urine Color Urine Clarity Urine pH Ur Specific [place] Urine Protein Urine Glucose (UA) Urine Ketones Urine Occult Blood Urine Nitrite Urine Bilirubin Urine Urobilinogen Ur Leukocyte Esterase Urine RBC Urine WBC Ur Squamous Epith Cells Urine Bacteria Urine Mucus MRSA (PCR) POC Glucose 09/28/18 09/28/18 12:15 05:04 POC Glucose 150 H 122 H Medical Necessity - Tobacco Use Smoking Status: Never smoker Assessment/Plan All Active Problems (This Medical Record has been edited. Action required.) Severe sepsis (Acute) HCAP (healthcare-associated pneumonia) (Acute) Acute renal failure (Acute) Dehydration (Acute) Hypoxemia (Acute) Fall with injury (Acute) Right acetabular fracture (Acute) 1. Severe sepsis secondary to healthcare associated pneumonia and acute UTI, concern for aspiration as well-chest x-ray on admission with right perihilar and basilar opacities concerning for pneumonia. Urinalysis with greater than 100 WBC, 3+ bacteria. MRSA PCR positive. Continue broad-spectrum antibiotic with IV Zosyn and IV vancomycin. Blood and urine cultures pending. Sputum culture pending. Speech therapy evaluation. 2. Acute hypoxic respiratory insufficiency secondary to healthcare associated pneumonia-continue supplement oxygen to maintain O2 at or above 90%. Pulmonary medicine following. Albuterol and DuoNeb aerosols. 3. Acute kidney injury on chronic kidney disease stage III-IV fluids, trend BMP. 4. Chronic coccyx decubitus ulcer-present on admission. Without evidence of infection. Every 2 hours turns. Wound RN consult. 5. Hypertension-Home regimen on hold given hypotension and acute kidney injury on admission. Continue to monitor. 6. Hyperlipidemia-continue statin regimen. 7. Type 2 diabetes mellitus-hold oral regimen. Accu-Cheks every 6 hours with sliding scale insulin. Continue home long-acting regimen. 8. Cerebral palsy- PT/OT. Resides at [facility]. 9. History of epilepsy-seizure precautions. Continue home phenobarbital regimen. 10. Chronic normocytic anemia-at baseline, trend CBC. DVT prophylaxis-heparin subcu CODE STATUS: DNR CCA This patient was seen by [facility] under the supervision of Dr. Garcia.
[2018-09-28 16:25] LABS: Bedside Glucose 150 mg/dL (70-110)
[2018-09-28] MEDS: Insulin Lispro 100 UNIT/ML INSULN.PEN SC (16:34)
[2018-09-28] MEDS: 0.9% NaCl Peripheral Flush Adult/Peds IV (21:14)
[2018-09-29] VITALS (19 sets, daily range): BP systolic 105–165; BP diastolic 58–119; PULSE 28–111; RESP 20–105; TEMP 36.6–37.6; O2SAT 92–98
[2018-09-29] MEDS: Insulin Lispro 100 UNIT/ML INSULN.PEN SC ×4 (00:35→18:10)
[2018-09-29] MEDS: Lactated Ringers 1,000 ML 125 ML IV ×2 (00:39→08:55)
[2018-09-29 00:45] LABS: Bedside Glucose 183 mg/dL (70-110)
[2018-09-29] MEDS: 0.9% NaCl Peripheral Flush Adult/Peds IV ×3 (05:44→19:50)
[2018-09-29] MEDS: Nystatin Powder 15gm Bottle 1 APPLIC TOPICAL ×3 (05:46→22:15)
[2018-09-29 06:30] LABS: Hematocrit 23.6 % (40-54); Hemoglobin 7.8 g/dL (13.0-16.5); Mean Corp Hgb Conc 33.1 g/dL (32-36); Mean Corpuscular Hgb 28.8 pg (27.0-32.0); Mean Corpuscular Volume 87.1 fL (80-94); POSITIVE COUNT YES; Platelet Count 513 K/mm3 (150-450); RBC Distribution Width CV 14.8 % (11.6-14.6); RBC Distribution Width SD 47.1 fl (35.1-43.9); Red Blood Count 2.71 M/mm3 (4.6-6.2)
[2018-09-29 06:38] LABS: Scan Indicated on CBC? Y/N YES- FLAGS NOTED; White Blood Count 30.5 K/mm3 (4.4-11.0)
[2018-09-29 06:44] LABS: Vancomycin, Random Level 10.5 ug/mL (0.0-15.0)
[2018-09-29 06:48] LABS: ALB/GLOB Ratio 0.4 RATIO (0.9-2.4); AST(SGOT) 44 U/L (15-37); Alanine Aminotransfer ALT/SGPT 50 U/L (16-61); Albumin, Serum 1.6 g/dL (3.2-5.0); Alkaline Phosphatase 106 U/L (45-117); Anion Gap 17 (5-15); BUN 87 mg/dL (7-18); BUN/Creat Ratio 18.6 RATIO (10-20); Calcium,Total 7.9 mg/dL (8.5-10.1); Chloride 107 mmol/L (98-107); Creatinine, Serum 4.68 mg/dL (0.70-1.30); EST Glomerular Filtration Rate 13 mL/min (>60); Est Glom Filt Rate - Afr Amer 16 mL/min (>60); Estimated Creatinine Clearance 13.25 ml/min; Globulin 4.5 g/dL (2.2-4.2); Glucose 207 mg/dL (74-106); Magnesium 1.9 mg/dL (1.6-2.6); Potassium 4.4 mmol/L (3.5-5.1); Protein, Total 6.1 g/dL (6.4-8.2); Sodium Level 139 mmol/L (136-145)
[2018-09-29 07:06] LABS: Differential Comment SCANNED
[2018-09-29 07:15] LABS: Bedside Glucose 203 mg/dL (70-110)
--- NOTE | 2018-09-29 08:11 | PN_ITS ---
Patient Problems: Active and Suspected Problems (This Medical Record has been edited. Action required.) Severe sepsis (Acute) HCAP (healthcare-associated pneumonia) (Acute) Acute renal failure (Acute) Dehydration (Acute) Hypoxemia (Acute) Subjective: The patient was seen and examined at the bedside this morning. Events from the last 24 hours have been reviewed. The patient is currently afebrile, hemodynamically stable and maintaining appropriate oxygen saturations on 3 L/min via nasal cannula. No overnight events were noted. Cough persists. White blood cell count remains significantly elevated at 30,000. Hemoglobin is down to 7.8 g/dL. Creatinine is worsened to 4.68. The patient was evaluated by speech therapy yesterday who recommended that the patient remain n.p.o. for now. Objective: The patient's most recent lab work, culture data and imaging studies have all been personally reviewed. Initial blood cultures dated September 28 were positive for MRSA. Urine and sputum cultures are pending. C. difficile was negative. Respiratory viral panel was negative. Strep and urine Legionella antigens were negative. - Physical Exam General: Alert, No apparent distress HEENT: Atraumatic, Normocephalic Oral: No Gingival or Mucosal Lesions/ Ulcerations Neck: Supple, No Nodes, Trachea Midline Lungs: Diminished, Rhonchi, Tachypneic Cardiovascular: Regular rate, Regular Rhythm, Normal S1, Normal S2 Abdomen: Bowel Sounds Present, Soft, Non Tender, Obese Extremities: No clubbing, No cyanosis, Edema Skin: - - Decubitus ulcer, present on admission Musculoskeletal: No Tenderness to Palpation of Joints or Extremities Lymphatic: No Cervical, Supraclavicular, or Inguinal Adenopathy Neurological: - - No focal neurological deficits. Vital Signs Temp Pulse Resp BP Pulse Ox 98.6 F 103 H 24 H 152/79 H 96 09/29/18 06:30 09/29/18 06:30 09/29/18 06:30 09/29/18 06:30 09/29/18 06:30 Oxygen Flow Rate (L/min) 3 Oxygen Delivery Method Nasal Cannula Weight: 222 lb 0.088 oz Body Mass Index (BMI) 34.6 Intake and Output for Last 24 Hours 09/27/18 09/28/18 09/29/18 23:59 23:59 23:59 Intake Total 5502 / 5502 0 / 0 Balance 5502 / 5502 0 / 0 Microbiology Past 72 Hours 09/28/18 01:50 Blood Culture - Preliminary Blood Culture (Wb) - Right Wrist Staphylococcus aureus 09/28/18 02:03 Bacteria Detection (PCR) - Final Blood Culture (Wb) - Right Forearm Staphylococcus aureus mecA Resistance Marker Blood Culture - Preliminary Staphylococcus aureus 09/28/18 07:05 Gram Stain - Final Sputum, Induced/Lukens 09/28/18 05:30 Respiratory Panel (PCR) - Final Mucosa - Nasopharyngeal 09/28/18 06:55 C. difficile DNA Amplification - Final Stool 09/28/18 02:40 Legionella Antigen - Final Urine Catheter - Catheter 09/28/18 02:40 Streptococcus pneumoniae Antigen (M - Final Urine Catheter - Catheter Laboratory Tests Past 24 Hrs 09/29/18 09/29/18 09/29/18 06:10 06:10 06:10 WBC 30.5 H* RBC 2.71 L Hgb 7.8 L Hct 23.6 L MCV 87.1 MCH 28.8 MCHC 33.1 RDW Std Deviation 47.1 H RDW Coeff of Willam 14.8 H Plt Count 513 H MPV 9.0 Differential Comment SCANNED Diff Path Review May foll Sodium 139 Potassium 4.4 Chloride 107 Carbon Dioxide 15.0 L Anion Gap 17 H BUN 87 H Creatinine 4.68 H Estim Creat Clear Calc 13.25 Est GFR (MDRD) Af Amer 16 L Est GFR (MDRD) Non-Af 13 L BUN/Creatinine Ratio 18.6 Glucose 207 H Calcium 7.9 L Magnesium 1.9 Total Bilirubin 0.50 AST 44 H ALT 50 Alkaline Phosphatase 106 Total Protein 6.1 L Albumin 1.6 L Globulin 4.5 H Albumin/Globulin Ratio 0.4 L Random Vancomycin 10.5 POC Glucose 09/29/18 09/29/18 09/28/18 07:10 00:19 16:23 POC Glucose 203 H 183 H 150 H 09/28/18 12:15 POC Glucose 150 H Clinical Impression(s) from Imaging Studies Chest X-Ray 09/28/18 02:15 IMPRESSION: Right perihilar and basilar opacities concerning for pneumonia. Bibasilar linear subsegmental atelectasis versus scarring. at 0254 Reported and signed by: hCanelle Ladd MD Electronically Signed: Chanelle Ladd MD at 2:53 EDT Tel , Service support , Medical Necessity - Tobacco Use Smoking Status: Never smoker Assessment/Plan All Active Problems (This Medical Record has been edited. Action required.) Severe sepsis (Acute) HCAP (healthcare-associated pneumonia) (Acute) Acute renal failure (Acute) Dehydration (Acute) Hypoxemia (Acute) Fall with injury (Acute) Right acetabular fracture (Acute) RECOMMENDATIONS: 1. Continue broad-spectrum antimicrobials, pending infectious work-up. 2. Consider ID and nephrology consultations. 3. Maintain patient n.p.o., pending further work-up/recommendations by speech therapy. 4. Continue gentle IV fluid hydration. 5. Start appropriate DVT prophylaxis. 6. Resend blood cultures today. IMPRESSIONS: 1. Severe sepsis Secondary to MRSA bacteremia with concerns for potential pulmonary and urinary sources of infection as well. Clinical concern for potential aspiration event leading to the development of pneumonia. Continue broad-spectrum antimicrobials for now, pending finalized infectious work-up. Given MRSA bacteremia, consider ID consultation. Obtain and send blood cultures today. The patient to remain n.p.o. pending further work-up/evaluation by speech therapy. Continue gentle IV fluid hydration in the interim. The patient remains hemodynamically stable. 2. Acute hypoxemic respiratory insufficiency Likely secondary to underlying pulmonary infectious process, which may have been precipitated by an acute aspiration event. Wean supplemental oxygen to maintain saturations at or above 90%. Encourage incentive spirometer use. Continue treatment of underlying infectious process, as noted above. 3. Acute kidney injury Likely prerenal in etiology and related to #1. Continue gentle IV fluid hydration. Continue to monitor urine output. Consider consultation to nephrology given worsening renal insufficiency. 4. Anemia/hypertension/hyperlipidemia/diabetes mellitus/cerebral palsy/epilepsy Complicates care, management, recovery and prognosis. While the patient does have baseline anemia, it appears to be worse at this time. Recommend sending type and screen. Continue to monitor blood counts daily. Transfuse if hem oglobin drops below 7 g/dL. Continue PPI therapy as ordered. This note was generated with [employer] software. It may contain incorrect words, spelling, and punctuation that were not noted in checking the note before signing. Code Visit Inpatient E&M: 71942 Subs Hosp L2
--- NOTE | 2018-09-29 08:54 | CPS ---
Suctioned back of throat ralph huber for large amount of thick rodriguez secretions.
[2018-09-29] MEDS: Heparin Injection (Vial) 5,000 UNIT/ML VIAL 5000 UNIT SC ×2 (08:55→22:10)
[2018-09-29] MEDS: Menthol/Lanolin/Calamine/Znox 113 GM Tube 1 APPLIC TOPICAL ×4 (08:56→22:15)
[2018-09-29 12:56] LABS: Bedside Glucose 208 mg/dL (70-110)
--- NOTE | 2018-09-29 14:51 | PCM.PROGNOTE ---
Patient Problems: Active and Suspected Problems (This Medical Record has been edited. Action required.) Severe sepsis (Acute) HCAP (healthcare-associated pneumonia) (Acute) Acute renal failure (Acute) Dehydration (Acute) Hypoxemia (Acute) Subjective: Patient seen and examined. States he would like to eat and complains of dry mouth. Overall he reports breathing is improved. Continues to have productive cough although he states he has difficulty bringing up sputum. - Physical Exam General: Alert, Oriented x3, Cooperative HEENT: Atraumatic, PERRLA, EOMI, Normocephalic Oral: Dry Mucosa Neck: Supple, No JVD, Negative Carotid Bruits Lungs: Diminished, Wheezes Cardiovascular: Regular rate, Regular Rhythm, Normal S1, Normal S2, No murmurs Abdomen: Bowel Sounds Present, Soft, Non Tender, Non-Distended Extremities: No clubbing, No cyanosis, Capillary Refill Less than 3 Seconds, Edema - Bilateral lower extremities Skin: No rashes, - - Decubitus ulcer, sacral/coccyx region-present on admission Musculoskeletal: No Tenderness to Palpation of Joints or Extremities Neurological: Cranial nerves II-XII grossly intact, Neuro grossly intact Psych/Mental Status: Normal Affect, Appropriate Vital Signs Temp Pulse Resp BP Pulse Ox 98.7 F 101 H 20 H 135/77 H 98 09/29/18 14:00 09/29/18 14:00 09/29/18 14:00 09/29/18 14:00 09/29/18 14:00 Oxygen Flow Rate (L/min) 3 Oxygen Delivery Method Nasal Cannula Weight: 222 lb 0.088 oz Body Mass Index (BMI) 34.6 Intake and Output for Last 24 Hours 09/27/18 09/28/18 09/29/18 23:59 23:59 23:59 Intake Total 5502 / 5502 1868 / 1868 Balance 5502 / 5502 1868 / 1868 Microbiology Past 72 Hours 09/28/18 07:05 Gram Stain - Final Sputum, Induced/Lukens Respiratory Culture - Preliminary Presumptive C albicans Staphylococcus species 09/28/18 02:40 Urine Culture - Preliminary Urine, Clean Catch Staphylococcus aureus 09/28/18 01:50 Blood Culture - Preliminary Blood Culture (Wb) - Right Wrist Staphylococcus aureus 09/28/18 02:03 Bacteria Detection (PCR) - Final Blood Culture (Wb) - Right Forearm Staphylococcus aureus mecA Resistance Marker Blood Culture - Preliminary Staphylococcus aureus 09/28/18 05:30 Respiratory Panel (PCR) - Final Mucosa - Nasopharyngeal 09/28/18 06:55 C. difficile DNA Amplification - Final Stool 09/28/18 02:40 Legionella Antigen - Final Urine Catheter - Catheter 09/28/18 02:40 Streptococcus pneumoniae Antigen (M - Final Urine Catheter - Catheter Laboratory Tests Past 24 Hrs 09/29/18 09/29/18 09/29/18 06:10 06:10 06:10 WBC 30.5 H* RBC 2.71 L Hgb 7.8 L Hct 23.6 L MCV 87.1 MCH 28.8 MCHC 33.1 RDW Std Deviation 47.1 H RDW Coeff of Willam 14.8 H Plt Count 513 H MPV 9.0 Differential Comment SCANNED Diff Path Review May foll Sodium 139 Potassium 4.4 Chloride 107 Carbon Dioxide 15.0 L Anion Gap 17 H BUN 87 H Creatinine 4.68 H Estim Creat Clear Calc 13.25 Est GFR (MDRD) Af Amer 16 L Est GFR (MDRD) Non-Af 13 L BUN/Creatinine Ratio 18.6 Glucose 207 H Calcium 7.9 L Magnesium 1.9 Total Bilirubin 0.50 AST 44 H ALT 50 Alkaline Phosphatase 106 Total Protein 6.1 L Albumin 1.6 L Globulin 4.5 H Albumin/Globulin Ratio 0.4 L Random Vancomycin 10.5 POC Glucose 09/29/18 09/29/18 09/29/18 12:33 07:10 00:19 POC Glucose 208 H 203 H 183 H 09/28/18 16:23 POC Glucose 150 H Medical Necessity - Tobacco Use Smoking Status: Never smoker Assessment/Plan All Active Problems (This Medical Record has been edited. Action required.) Severe sepsis (Acute) HCAP (healthcare-associated pneumonia) (Acute) Acute renal failure (Acute) Dehydration (Acute) Hypoxemia (Acute) Fall with injury (Acute) Right acetabular fracture (Acute) 1. Severe sepsis secondary to MRSA bacteremia, healthcare associated pneumonia and acute UTI, concern for aspiration as well-chest x-ray on admission with right perihilar and basilar opacities concerning for pneumonia. Urinalysis with greater than 100 WBC, 3+ bacteria. MRSA PCR positive. Continue broad-spectrum antibiotic with IV Zosyn and IV vancomycin. Speech therapy following. Speech therapy does not feel patient is safe to take oral intake. N.p.o. Blood cultures positive for MRSA. Urine culture positive for Staphylococcus aureus. Sputum culture with Staphylococcus species. Repeat blood cultures pending. ID consult placed. 2. Acute hypoxic respiratory insufficiency secondary to healthcare associated pneumonia-continue supplement oxygen to maintain O2 at or above 90%. Pulmonary medicine following. Albuterol and DuoNeb aerosols. 3. Acute kidney injury on chronic kidney disease stage III-IV fluids, trend BMP. Nephrology consult placed. Placed on bicarb drip. 4. Chronic coccyx decubitus ulcer-present on admission. Without evidence of infection. Every 2 hours turns. Wound RN consult. 5. Hypertension-Home regimen on hold given hypotension and acute kidney injury on admission. Continue to monitor. 6. Hyperlipidemia-continue statin regimen. 7. Type 2 diabetes mellitus-hold oral regimen. Accu-Cheks every 6 hours with sliding scale insulin. Continue home long-acting regimen. 8. Cerebral palsy- PT/OT. Resides at SNF. 9. History of epilepsy-seizure precautions. Continue home phenobarbital regimen. 10. Chronic normocytic anemia-at baseline, trend CBC. DVT prophylaxis-heparin subcu CODE STATUS: DNR CCA This patient was seen by AMANUEL Corea under the supervision of Dr. Garcia.
--- NOTE | 2018-09-29 16:37 | ECHOCS_ITS ---
Reason For Study: Staph Bacteremia Procedure This was a 2D Doppler, Color Flow transthoracic echocardiogram. The study was technically difficult. Contrast injection was performed. Exam performed portable in patient room. Left Ventricle Based upon the 2D echocardiographic and contrast enhanced images obtained there appears to be grossly normal left ventricular size, wall motion, and systolic function. The estimated ejection fraction is 70 %. No evidence for diastolic dysfunction. Right Ventricle Based upon the 2D echocardiographic and contrast enhanced images obtained there appears to be grossly normal right ventricular size and systolic function. Atria Normal left atrium. Normal right atrium. No doppler evidence for ASD. Mitral Valve The mitral papillary muscle appears thickened and/or calcified. Normal mitral valve. Trivial mitral valve insufficiency. Tricuspid Valve The tricuspid valve is not well visualized. Trivial tricuspid valve insufficiency. Unable to estimate RV systolic pressure/pulmonary artery pressure due to technically difficult study. Aortic Valve Trisinus/trileaflet aortic valve. Mild focal aortic valve calcification. Pulmonic Valve The pulmonic valve is not well visualized. Trivial pulmonic valve insufficiency. Great Vessels The aortic root is not well visualized. Pericardium/Pleural No pericardial effusion. Medication Diluted definity 4ml given slow IV push to enhance endocardial definition. MMode/2D Measurements & Calculations LVIDd: 3.5 cm IVSd: 1.3 cm LAV(MOD-bp): 50.0 ml LVIDs: 2.3 cm LVPWd: 1.1 cm FS: 36.3 % LAV(MOD-bp) Indexed: 23.9 ml/m2 LAV(MOD-sp2): 48.1 ml LAV(MOD-sp4): 49.9 ml LA A4 area: 17.6 cm2 Time Measurements MV dec time: 0.25 sec Doppler Measurements & Calculations MV E max jose alejandro: 65.4 cm/sec Lat Peak E' Jose Alejandro: 11.3 cm/sec MV V2 max: 112.7 cm/sec MV A max jose alejandro: 86.2 cm/sec E/E' lat: 5.8 MV max P.1 mmHg MV E/A: 0.76 MV V2 mean: 68.5 cm/sec MV mean P.1 mmHg MV V2 VTI: 17.8 cm Ao V2 max: 131.9 cm/sec LV V1 max: 105.6 cm/sec PA V2 max: 101.1 cm/sec Ao max P.0 mmHg LV V1 max P.5 mmHg Interpretation Summary The study was technically difficult. Contrast injection was performed. Based upon the 2D echocardiographic and contrast enhanced images obtained there appears to be grossly normal left ventricular size, wall motion, and systolic function. The estimated ejection fraction is 70 %. Trivial mitral valve insufficiency. Trivial tricuspid valve insufficiency. Mild focal aortic valve calcification. Trivial pulmonic valve insufficiency. Unable to estimate RV systolic pressure/pulmonary artery pressure due to technically difficult study. No evidence for diastolic dysfunction. Ordering Physician: Haylie Garcia Referring Physician: Brayan Brown Performed By: Viktor Coronado RCS
[2018-09-29 16:56] LABS: Anion Gap 16 (5-15); BUN 94 mg/dL (7-18); Calcium,Total 7.6 mg/dL (8.5-10.1); Chloride 112 mmol/L (98-107); Creatinine, Serum 4.48 mg/dL (0.70-1.30); EST Glomerular Filtration Rate 14 mL/min (>60); Est Glom Filt Rate - Afr Amer 17 mL/min (>60); Estimated Creatinine Clearance 13.85 ml/min; Glucose 219 mg/dL (74-106); Potassium 5.7 mmol/L (3.5-5.1); Sodium Level 140 mmol/L (136-145)
--- NOTE | 2018-09-29 17:45 | PCM.RX.CS ---
Consult Pharmacy has been consulted to manage selected antiobiotic: Vancomycin Type of Consult: Follow-up Suspected Infection: Pneumonia Prior Doses of Antibiotics Received/Current Regimen: Vancomycin 1250mg IV x1 dose on 09/28/18 Labs: Sodium 140 mmol/L (136-145) 09/29/18 16:35 Potassium 5.7 mmol/L (3.5-5.1) H 09/29/18 16:35 Chloride 112 mmol/L (98-107) H 09/29/18 16:35 Carbon Dioxide 12.0 mmol/L (21.0-32.0) L 09/29/18 16:35 16 (5-15) H 09/29/18 16:35 BUN 94 mg/dL (7-18) H 09/29/18 16:35 4.48 mg/dL (0.70-1.30) H 09/29/18 16:35 Est GFR (MDRD) Af Amer 17 mL/min (>60) L 09/29/18 16:35 Est GFR (MDRD) Non-Af 14 mL/min (>60) L 09/29/18 16:35 21.0 RATIO (10-20) H 09/29/18 16:35 Glucose 219 mg/dL (74-106) H 09/29/18 16:35 Random Vancomycin 10.5 ug/mL (0.0-15.0) 09/29/18 06:10 Microbiology: Microbiology 09/28/18 07:05 Sputum, Induced/Lukens Gram Stain - Final 09/28/18 07:05 Sputum, Induced/Lukens Respiratory Culture - Preliminary Presumptive C albicans Staphylococcus species 09/28/18 02:40 Urine, Clean Catch Urine Culture - Preliminary Staphylococcus aureus 09/28/18 01:50 Blood Culture (Wb) - Right Wrist Blood Culture - Preliminary Staphylococcus aureus 09/28/18 02:03 Blood Culture (Wb) - Right Forearm Bacteria Detection (PCR) - Final Staphylococcus aureus mecA Resistance Marker 09/28/18 02:03 Blood Culture (Wb) - Right Forearm Blood Culture - Preliminary Staphylococcus aureus 09/28/18 05:30 Mucosa - Nasopharyngeal Respiratory Panel (PCR) - Final 09/28/18 06:55 Stool C. difficile DNA Amplification - Final 09/28/18 02:40 Urine Catheter - Catheter Legionella Antigen - Final 08/03/19 02:40 Urine Catheter - Catheter Streptococcus pneumoniae Antigen (M - Final Weight used for dosin kg Estimated Creatinine Clearance: 13ml/min Goal Trough: 15-20 mcg/mL Pharmacy Plan for Drug Dosing: Pt is in acute renal failure with a SrCr of 4.68 and CrCl of 13. He has received Vancomycin 1250mg IV x1 dose on 09/28/18 at 0314. A random level was taken on the second morning of routine lab work (09/29/18). The random level was 10.5. Recommend Vancomycin 1500mg IV x1 today (09/29/18) and will repeat a random level on 10/01/18 at 0600. Will adjust if pt needs dialysis. Pharmacy Service will continue to monitor and adjust dosing as required. Follow-Up Labs: Trough Vancomycin - 10/01/18 at 0600 random
[2018-09-29 18:21] LABS: Bedside Glucose 236 mg/dL (70-110)
--- NOTE | 2018-09-29 18:27 | PCM.CONS.R ---
Consultation - Renal 09/29/18 PCP/ Referring MD: Requesting physician: Avani Rodriguez Primary care physician: Brayan Brown MD Reason for Consultation:: Acute kdiney injury - History of Present Illness History of Present Illness: The patient is a 68 year old M with past history of cerebral palsy, seizure disorder, T2DM, HTN and hyperlipidemia who presented from [facility] with dyspnea. He was subsequently diagnosed with HCAP and was found to have Staphylococcus aureus blood stream infection. The pt still reports dyspnea at rest although he was sleeping comfortably when I entered his room. He denies CP or current nausea. He reports diarrhea at [facility]. He may have been vomiting at [facility] prior to admit on chart review. Nephrology is asked to see the pt for NAYAN. He presented with SCr of 4.40 mg/dL (09/28/18 01:50). SCr has been around 1.4-1.5 mg/dL at baseline. Most recent SCr is 4.48 mg/dL (09/29/18 16:35). The pt is incontinent of urine at baseline and wears adult diaper. Apparently, there was about 1 L of urine in the bladder when Christopher was inserted (per my discussion with Avani Rodriguez). He was not on NSAID on review of medication list. There is no recent exposure to IV contrast. - Allergies Allergies: Allergies mold Allergy (Verified 09/28/18 01:49) Other - Current Medications Current Medications: Current Medications Acetaminophen (Tylenol) 650 mg PO Q6H PRN PRN PRN Reason: Mild pain 1-3/Temp > 100.7 F Albuterol Sulfate (Ventolin Aerosols) 2.5 mg INHALATION Q2H PRN PRN PRN Reason: SOB/Wheezing Calamine/Phenol (Calmoseptine Ointment) 1 applic TOPICAL 4X/DAY [facility]; Protocol Last Admin: 09/29/18 18:09 Dose: 1 applicatio Documented by: Dextrose (D50w Syringe) 0 gm IV X1 PRN; Protocol PRN Reason: Hypoglycemia Glucagon () 1 mg IM .X1 PRN PRN Reason: Hypoglycemia Guaifenesin (Mucinex) 1,200 mg PO BID [facility] Last Admin: 09/29/18 08:40 Dose: Not Given Documented by: Heparin Sodium (Porcine) (Heparin Na) 5,000 unit SC BID [facility] Last Admin: 09/29/18 08:55 Dose: 5,000 unit Documented by: Piperacillin Sod/Tazobactam (Sod 3.375 gm/ Sodium Chloride) 50 mls @ 12.5 mls/hr IV Q12 [facility] Last Admin: 09/29/18 13:29 Dose: 12.5 mls/hr Documented by: Pantoprazole Sodium 40 mg/ (Sodium Chloride) 110 mls @ 330 mls/hr IV Q24 [facility] Last Admin: 09/29/18 08:55 Dose: 330 mls/hr Documented by: Vancomycin IV Pharmacy to Dose (1 ea/ Sodium Chloride) 500 mls @ 250 mls/hr IV DAILY PRN; Protocol Sodium Bicarbonate 100 meq/ (Dextrose) 1,100 mls @ 100 mls/hr IV .Q11H [facility] Last Admin: 09/29/18 16:38 Dose: 100 mls/hr Documented by: Insulin Human Lispro (Humalog Kwikpen (Bkc)) 0 unit SC Q6 [facility]; Protocol Last Admin: 09/29/18 18:10 Dose: 3 u Documented by: Lorazepam (Ativan) 2 mg IV Q4H PRN PRN PRN Reason: SEIZURE BREAKTHROUGH Nitroglycerin (Nitrostat) 0.4 mg SUBLINGUAL Q5M PRN PRN Reason: CARDIAC/CHEST PAIN Nystatin (Mycostatin Powder) 1 applic TOPICAL TID [facility]; Protocol Last Admin: 09/29/18 13:28 Dose: 1 applicatio Documented by: Ondansetron HCl (Zofran) 4 mg IV Q8H PRN PRN PRN Reason: NAUSEA/VOMITING Oxycodone HCl (Oxyir) 5 mg PO Q4H PRN PRN PRN Reason: Moderate Pain (4-6/10) Polyethylene Glycol (Miralax) 17 gm PO DAILY [facility] Last Admin: 09/29/18 08:40 Dose: Not Given Documented by: Senna/Docusate Sodium (Senokot-S, Michelle-Colace) 2 tablet PO BID PRN PRN PRN Reason: Constipation Sodium Chloride () 10 - 40 ml IV UD PRN PRN Reason: SALINE FLUSH Last Admin: 09/29/18 12:49 Dose: 10 ml Documented by: Sodium Chloride () 10 - 40 ml IV UD PRN PRN Reason: Midline Flush - Past Medical History Past Medical History (Chronic Problems): Chronic Problems (This Medical Record has been edited. Action required.) Sacral decubitus ulcer (Chronic) Cerebral palsy (Chronic) Hypertension (Chronic) Type 2 diabetes mellitus (Chronic) - Social History Smoking Status: Never smoker - Family History Maternal History Items: No pertinent history Review of Systems Constitutional: Reports: Anorexia, Malaise, Weakness, Fatigue. Denies: Chills, Fever Eyes: Denies: Blurred vision, Pain, Redness HEENT: Denies: Head Aches, Sinus Congestion, Sinus Drainage Cardiovascular: Reports: Edema. Denies: Chest Pain, Palpitations Respiratory: Reports: Shortness of Breath, Shortness of breath at rest, Shortness of breath upon exertion. Denies: Cough, Sputum production Gastrointestinal: Reports: Diarrhea, Nausea, Vomiting. Denies: Abdominal Pain Genitourinary: Reports: Incontinence Musculoskeletal: Denies: Joint Pain, Joint Tenderness Skin: Denies: Rash, Wounds Psychiatric: Denies: Anxiety, Depression, Homicidal Ideations, Suicidal Ideations Hematologic/ Lymphatic: Denies: Easy Bruising, Easy Bleeding Patient Problems: Active and Suspected Problems (This Medical Record has been edited. Action required.) Severe sepsis (Acute) HCAP (healthcare-associated pneumonia) (Acute) Acute renal failure (Acute) Dehydration (Acute) Hypoxemia (Acute) - Physical Exam General: Alert, Cooperative HEENT: Atraumatic, PERRLA, EOMI, Normocephalic Oral: Dry Mucosa Neck: Supple Lungs: Rhonchi - bilaterally Cardiovascular: Normal S1, Normal S2, Murmur - 2/6, Tachycardic Abdomen: Bowel Sounds Present, Soft, Non Tender Extremities: Edema - LEs are in JOSE ARMANDO wrap BL Skin: No rashes Musculoskeletal: No Tenderness to Palpation of Joints or Extremities Vital Signs Temp Pulse Resp BP Pulse Ox 98.7 F 101 H 20 H 135/77 H 98 09/29/18 14:00 09/29/18 14:00 09/29/18 14:00 09/29/18 14:00 09/29/18 14:00 Oxygen Flow Rate (L/min) 3 Oxygen Delivery Method Nasal Cannula Weight: 100.7 kg Body Mass Index (BMI) 34.6 Intake and Output for Last 24 Hours 09/27/18 09/28/18 09/29/18 23:59 23:59 23:59 Intake Total 5502 / 5502 2066 / 2066 Output Total 1200 / 1200 Balance 5502 / 5502 866 / 866 Microbiology Past 72 Hours 09/28/18 07:05 Gram Stain - Final Sputum, Induced/Lukens Respiratory Culture - Preliminary Presumptive C albicans Staphylococcus species 09/28/18 02:40 Urine Culture - Preliminary Urine, Clean Catch Staphylococcus aureus 09/28/18 01:50 Blood Culture - Preliminary Blood Culture (Wb) - Right Wrist Staphylococcus aureus 09/28/18 02:03 Bacteria Detection (PCR) - Final Blood Culture (Wb) - Right Forearm Staphylococcus aureus mecA Resistance Marker Blood Culture - Preliminary Staphylococcus aureus 09/28/18 05:30 Respiratory Panel (PCR) - Final Mucosa - Nasopharyngeal 09/28/18 06:55 C. difficile DNA Amplification - Final Stool 09/28/18 02:40 Legionella Antigen - Final Urine Catheter - Catheter 09/28/18 02:40 Streptococcus pneumoniae Antigen (M - Final Urine Catheter - Catheter Laboratory Tests Past 24 Hrs 09/29/18 09/29/18 09/29/18 06:10 06:10 06:10 WBC 30.5 H* RBC 2.71 L Hgb 7.8 L Hct 23.6 L MCV 87.1 MCH 28.8 MCHC 33.1 RDW Std Deviation 47.1 H RDW Coeff of Willam 14.8 H Plt Count 513 H MPV 9.0 Differential Comment SCANNED Diff Path Review May foll Sodium 139 Potassium 4.4 Chloride 107 Carbon Dioxide 15.0 L Anion Gap 17 H BUN 87 H Creatinine 4.68 H Estim Creat Clear Calc 13.25 Est GFR (MDRD) Af Amer 16 L Est GFR (MDRD) Non-Af 13 L BUN/Creatinine Ratio 18.6 Glucose 207 H Calcium 7.9 L Magnesium 1.9 Total Bilirubin 0.50 AST 44 H ALT 50 Alkaline Phosphatase 106 Total Protein 6.1 L Albumin 1.6 L Globulin 4.5 H Albumin/Globulin Ratio 0.4 L Random Vancomycin 10.5 09/29/18 16:35 WBC RBC Hgb Hct MCV MCH MCHC RDW Std Deviation RDW Coeff of Willam Plt Count MPV Differential Comment Diff Path Review Sodium 140 Potassium 5.7 H Chloride 112 H Carbon Dioxide 12.0 L Anion Gap 16 H BUN 94 H Creatinine 4.48 H Estim Creat Clear Calc 13.85 Est GFR (MDRD) Af Amer 17 L Est GFR (MDRD) Non-Af 14 L BUN/Creatinine Ratio 21.0 H Glucose 219 H Calcium 7.6 L Magnesium Total Bilirubin AST ALT Alkaline Phosphatase Total Protein Albumin Globulin Albumin/Globulin Ratio Random Vancomycin POC Glucose 09/29/18 09/29/18 09/29/18 18:05 12:33 07:10 POC Glucose 236 H 208 H 203 H 09/29/18 00:19 POC Glucose 183 H Assessment/Plan All Active Problems (This Medical Record has been edited. Action required.) Severe sepsis (Acute) HCAP (healthcare-associated pneumonia) (Acute) Acute renal failure (Acute) Dehydration (Acute) Hypoxemia (Acute) Fall with injury (Acute) Right acetabular fracture (Acute) 1. Acute kidney injury on chronic kidney disease stage 3. Baseline SCr is 1.4-1.5 mg/dL. Cause of CKD is unknown, has not previously been worked up as far as I can tell. NAYAN is most likely prerenal or from ischemic ATN related to sepsis and volume depletion. Pt has also been on ARB and diuretic prior to admit. Another possible cause would be obstructive uropathy from urinary retention. Low suspicion for other causes of NAYAN at this point. Agree with hydration with bicarbonate drip. Check renal US to assess kidney size and to look for hydronephrosis. Will check urine indices. No urgent need for dialysis. Follow renal function and electrolytes. 2. Metabolic acidosis. Likely due to NAYAN and diarrhea. Pt was also on metformin prior to admit. Agree with rehydration with bicarbonate drip. Follow serum HCO3. 3. Hyperkalemia. Mild. SHould improve with HCO3 gtt and rehydration. No need for Kayexalate or dialysis. Hold ARB. 4. Staphylococcus aureus bacteremia. HCAP. On Zosyn and vancomycin. Dose appropriate for current CrCl.
--- NOTE | 2018-09-29 18:51 | US_ITS ---
STUDY: RENAL ULTRASOUND - COMPLETE REASON FOR EXAM: Male, 68 years old. History of acute renal failure. TECHNIQUE: Ultrasound evaluation of the kidneys was performed with real-time and static betts-scale imaging. Extremely limited examination due to the patient's medical condition. COMPARISON: None. FINDINGS: RIGHT KIDNEY: with mild renal atrophy. The right kidney measures 7.3 cm. Mild hydronephrosis. DISTAL RIGHT URETER: There is non-visualization of the distal right ureter. There is no demonstrated right ureterovesical junction calculus. There is no demonstrated right ureteral jet. LEFT KIDNEY: Normal location of the left kidney, which is normal in size. The left kidney measures 10.1 cm x 5.6 x 5.1 cm. There is a normal cortex of the left kidney. The renal cortex measures 1.4 cm. There is no left renal mass or cyst. There are no left renal calculi. There is no left hydronephrosis. DISTAL LEFT URETER: There is non-visualization of the distal left ureter. There is no demonstrated left ureterovesical junction calculus. There is no demonstrated left ureteral jet. BLADDER: The urinary bladder is empty. US/Kidney and Bladder IMPRESSION: Limited visualization of the right kidney. I suspect a mild degree of right hydronephrosis. Electronically Signed: Liam Whatley, at 12:55 EDT , Service support ,
--- NOTE | 2018-09-29 18:52 | PCM.PN.HOSP ---
Patient Problems: Active and Suspected Problems (This Medical Record has been edited. Action required.) Severe sepsis (Acute) HCAP (healthcare-associated pneumonia) (Acute) Acute renal failure (Acute) Dehydration (Acute) Hypoxemia (Acute) Vitals/I&O's: Vital Signs Temp Pulse Resp BP Pulse Ox 98.9 F 93 21 H 125/64 H 95 09/29/18 18:00 09/29/18 18:00 09/29/18 18:00 09/29/18 18:00 09/29/18 18:00 Oxygen Flow Rate (L/min) 3 Oxygen Delivery Method Nasal Cannula Weight: 100.7 kg Body Mass Index (BMI) 34.6 Intake and Output for Last 24 Hours 09/27/18 09/28/18 09/29/18 23:59 23:59 23:59 Intake Total 5502 / 5502 2066 / 2066 Output Total 1200 / 1200 Balance 5502 / 5502 866 / 866 Microbiology Past 72 Hours 09/28/18 07:05 Sputum, Induced/Lukens Gram Stain - Final 09/28/18 07:05 Sputum, Induced/Lukens Respiratory Culture - Preliminary Presumptive C albicans Staphylococcus species 09/28/18 02:40 Urine, Clean Catch Urine Culture - Preliminary Staphylococcus aureus 09/28/18 01:50 Blood Culture (Wb) - Right Wrist Blood Culture - Preliminary Staphylococcus aureus 09/28/18 02:03 Blood Culture (Wb) - Right Forearm Bacteria Detection (PCR) - Final Staphylococcus aureus mecA Resistance Marker 09/28/18 02:03 Blood Culture (Wb) - Right Forearm Blood Culture - Preliminary Staphylococcus aureus 09/28/18 05:30 Mucosa - Nasopharyngeal Respiratory Panel (PCR) - Final 09/28/18 06:55 Stool C. difficile DNA Amplification - Final 09/28/18 02:40 Urine Catheter - Catheter Legionella Antigen - Final 09/28/18 02:40 Urine Catheter - Catheter Streptococcus pneumoniae Antigen (M - Final Laboratory Results 09/29/18 00:19: POC Glucose 183 H 09/29/18 06:10: Random Vancomycin 10.5 09/29/18 06:10: WBC 30.5 H*, RBC 2.71 L, Hgb 7.8 L, Hct 23.6 L, MCV 87.1, MCH 28.8, MCHC 33.1, RDW Std Deviation 47.1 H, RDW Coeff of Willam 14.8 H, Plt Count 513 H, MPV 9.0, Differential Comment SCANNED, Diff Path Review June foll 09/29/18 06:10: Sodium 139, Potassium 4.4, Chloride 107, Carbon Dioxide 15.0 L, Anion Gap 17 H, BUN 87 H, Creatinine 4.68 H, Estim Creat Clear Calc 13.25, Est GFR (MDRD) Af Amer 16 L, Est GFR (MDRD) Non-Af 13 L, BUN/Creatinine Ratio 18.6, Glucose 207 H, Calcium 7.9 L, Magnesium 1.9, Total Bilirubin 0.50, AST 44 H, ALT 50, Alkaline Phosphatase 106, Total Protein 6.1 L, Albumin 1.6 L, Globulin 4.5 H, Albumin/Globulin Ratio 0.4 L 09/29/18 07:10: POC Glucose 203 H 09/29/18 12:33: POC Glucose 208 H 09/29/18 16:35: Sodium 140, Potassium 5.7 H, Chloride 112 H, Carbon Dioxide 12.0 L, Anion Gap 16 H, BUN 94 H, Creatinine 4.48 H, Estim Creat Clear Calc 13.85, Est GFR (MDRD) Af Amer 17 L, Est GFR (MDRD) Non-Af 14 L, BUN/Creatinine Ratio 21.0 H, Glucose 219 H, Calcium 7.6 L 09/29/18 18:05: POC Glucose 236 H Current Medications Acetaminophen (Tylenol) 650 mg PO Q6H PRN PRN PRN Reason: Mild pain 1-3/Temp > 100.7 F Albuterol Sulfate (Ventolin Aerosols) 2.5 mg INHALATION Q2H PRN PRN PRN Reason: SOB/Wheezing Calamine/Phenol (Calmoseptine Ointment) 1 applic TOPICAL 4X/DAY [facility]; Protocol Last Admin: 09/29/18 18:09 Dose: 1 applicatio Documented by: Dextrose (D50w Syringe) 0 gm IV X1 PRN; Protocol PRN Reason: Hypoglycemia Glucagon () 1 mg IM .X1 PRN PRN Reason: Hypoglycemia Guaifenesin (Mucinex) 1,200 mg PO BID [facility] Last Admin: 09/29/18 08:40 Dose: Not Given Documented by: Heparin Sodium (Porcine) (Heparin Na) 5,000 unit SC BID [facility] Last Admin: 09/29/18 08:55 Dose: 5,000 unit Documented by: Piperacillin Sod/Tazobactam (Sod 3.375 gm/ Sodium Chloride) 50 mls @ 12.5 mls/hr IV Q12 [facility] Last Admin: 09/29/18 13:29 Dose: 12.5 mls/hr Documented by: Pantoprazole Sodium 40 mg/ (Sodium Chloride) 110 mls @ 330 mls/hr IV Q24 [facility] Last Admin: 09/29/18 08:55 Dose: 330 mls/hr Documented by: Vancomycin IV Pharmacy to Dose (1 ea/ Sodium Chloride) 500 mls @ 250 mls/hr IV DAILY PRN; Protocol Insulin Human Lispro (Humalog Kwikpen (Bkc)) 0 unit SC Q6 [facility]; Protocol Last Admin: 09/29/18 18:10 Dose: 3 u Documented by: Lorazepam (Ativan) 2 mg IV Q4H PRN PRN PRN Reason: SEIZURE BREAKTHROUGH Nitroglycerin (Nitrostat) 0.4 mg SUBLINGUAL Q5M PRN PRN Reason: CARDIAC/CHEST PAIN Nystatin (Mycostatin Powder) 1 applic TOPICAL TID [facility]; Protocol Last Admin: 09/29/18 13:28 Dose: 1 applicatio Documented by: Ondansetron HCl (Zofran) 4 mg IV Q8H PRN PRN PRN Reason: NAUSEA/VOMITING Oxycodone HCl (Oxyir) 5 mg PO Q4H PRN PRN PRN Reason: Moderate Pain (4-6/10) Polyethylene Glycol (Miralax) 17 gm PO DAILY [facility] Last Admin: 09/29/18 08:40 Dose: Not Given Documented by: Senna/Docusate Sodium (Senokot-S, Michelle-Colace) 2 tablet PO BID PRN PRN PRN Reason: Constipation Sodium Chloride () 10 - 40 ml IV UD PRN PRN Reason: SALINE FLUSH Last Admin: 09/29/18 12:49 Dose: 10 ml Documented by: Sodium Chloride () 10 - 40 ml IV UD PRN PRN Reason: Midline Flush Medical Necessity - Tobacco Use Smoking Status: Never smoker Assessment/Plan All Active Problems (This Medical Record has been edited. Action required.) Severe sepsis (Acute) HCAP (healthcare-associated pneumonia) (Acute) Acute renal failure (Acute) Dehydration (Acute) Hypoxemia (Acute) Fall with injury (Acute) Right acetabular fracture (Acute) Page by nurse about patient having short runs of V. tach. Also serum potassium elevated at 5.7. Patient having worsening acute kidney injury with hyperkalemia and metabolic acidosis. Continue bicarbonate drip. Treat hyperkalemia medically. Give Kayexalate as well. Will give calcium gluconate for membrane stabilization. Check renal ultrasound to rule out obstruction. Likely the patient will need hemodialysis.
[2018-09-29] MEDS: Dextrose 50%-Water 25 GM/50 ML DISP.SYRIN IV (19:48)
[2018-09-29] MEDS: Sodium Bicarbonate 8.4% 50 ML Syringe 50 MEQ IV (20:15)
[2018-09-29] MEDS: Sodium Polystyrene Sulfonate 15 GM/60 ML UDC 30 GM PO (22:15)
[2018-09-29 23:09] LABS: Urine Sodium 79 mmol/L (Not Establ.)
[2018-09-29 23:17] LABS: Protein, Urine (Random) 67.3 mg/dL (<11.9)
[2018-09-30] VITALS (18 sets, daily range): BP systolic 111–166; BP diastolic 61–71; PULSE 88–129; RESP 17–24; TEMP 36.6–37.1; O2SAT 94–97
[2018-09-30] MEDS: Insulin Lispro 100 UNIT/ML INSULN.PEN SC ×5 (00:26→23:44)
[2018-09-30 00:40] LABS: Bedside Glucose 281 mg/dL (70-110)
[2018-09-30] MEDS: Morphine 2 MG/ML Syringe IV ×2 (01:09→16:27)
[2018-09-30] MEDS: 0.9% NaCl Peripheral Flush Adult/Peds IV (05:32)
[2018-09-30] MEDS: Nystatin Powder 15gm Bottle 1 APPLIC TOPICAL ×3 (06:23→22:35)
[2018-09-30 07:10] LABS: Hemoglobin 7.5 g/dL (13.0-16.5); Mean Corp Hgb Conc 34.1 g/dL (32-36); Mean Corpuscular Hgb 29.1 pg (27.0-32.0); Mean Corpuscular Volume 85.3 fL (80-94); Mean Platelet Vol. 8.7 fl (6.2-12.0); Platelet Count 460 K/mm3 (150-450); RBC Distribution Width CV 14.5 % (11.6-14.6); RBC Distribution Width SD 44.8 fl (35.1-43.9); Red Blood Count 2.58 M/mm3 (4.6-6.2); White Blood Count 21.9 K/mm3 (4.4-11.0)
[2018-09-30 07:15] LABS: Bedside Glucose 360 mg/dL (70-110)
[2018-09-30 08:19] LABS: Anion Gap 10 (5-15); BUN 78 mg/dL (7-18); BUN/Creat Ratio 21.5 RATIO (10-20); Calcium,Total 8.1 mg/dL (8.5-10.1); Chloride 106 mmol/L (98-107); Creatinine, Serum 3.62 mg/dL (0.70-1.30); EST Glomerular Filtration Rate 18 mL/min (>60); Est Glom Filt Rate - Afr Amer 22 mL/min (>60); Estimated Creatinine Clearance 17.13 ml/min; Glucose 369 mg/dL (74-106); Magnesium 1.6 mg/dL (1.6-2.6); Potassium 3.3 mmol/L (3.5-5.1); Sodium Level 141 mmol/L (136-145)
[2018-09-30 08:24] LABS: Phosphorus 4.2 mg/dL (2.5-4.9)
--- NOTE | 2018-09-30 09:14 | PCM.PN.PUL ---
Patient Problems: Active and Suspected Problems (This Medical Record has been edited. Action required.) Severe sepsis (Acute) HCAP (healthcare-associated pneumonia) (Acute) Acute renal failure (Acute) Dehydration (Acute) Hypoxemia (Acute) Subjective: Patient did well overnight. No acute issues were reported. Patient denied any abdominal pain. Patient did report some mild shortness of breath at rest. Patient denied any nausea or vomiting. Nursing did report some short runs of V. tach, but patient was found to be hyperkalemic. Patient was treated with medical therapy. - Physical Exam General: Alert, Cooperative, No apparent distress, - - Macrocephaly. No conversational dyspnea. HEENT: Atraumatic, PERRLA, EOMI, - - No scleral icterus or injection noted. Oral: Moist Mucosa, No Gingival or Mucosal Lesions/ Ulcerations Neck: Supple, No JVD, No Nodes, Trachea Midline Lungs: No rhonchi, No wheeze, No rales, Diminished Cardiovascular: Regular rate, Regular Rhythm, Normal S1, Normal S2, No murmurs, No rub noted, No Gallop Abdomen: Bowel Sounds Present, Soft, Non Tender, Non-Distended, Obese Extremities: No clubbing, No cyanosis, Edema Skin: Ulcer/ Wound - Decubitus ulcer noted. Reportedly present on admission Musculoskeletal: No Tenderness to Palpation of Joints or Extremities, - - Some foot clubbing noted Lymphatic: No Cervical, Supraclavicular, or Inguinal Adenopathy Neurological: Neuro grossly intact - No reportedly new focal neurologic deficits appreciated Psych/Mental Status: Flat Affect Vital Signs Temp Pulse Resp BP Pulse Ox 37.1 C 106 H 22 H 145/69 H 97 09/30/18 06:00 09/30/18 06:00 09/30/18 06:00 09/30/18 06:00 09/30/18 07:00 Oxygen Flow Rate (L/min) 2 Oxygen Delivery Method Nasal Cannula Weight: 99 kg Body Mass Index (BMI) 34.6 Intake and Output for Last 24 Hours 09/28/18 09/29/18 09/30/18 23:59 23:59 23:59 Intake Total 5502 / 5502 2066 / 2066 1802.1 / 1802.1 Output Total 1200 / 1200 1600 / 1600 Balance 5502 / 5502 866 / 866 202.1 / 202.1 Microbiology Past 72 Hours 09/28/18 07:05 Gram Stain - Final Sputum, Induced/Lukens Respiratory Culture - Final Presumptive C albicans Meth. resistant Staph. aureus 09/28/18 02:40 Urine Culture - Final Urine, Clean Catch Meth. resistant Staph. aureus 09/28/18 01:50 Blood Culture - Final Blood Culture (Wb) - Right Wrist Meth. resistant Staph. aureus 09/28/18 02:03 Bacteria Detection (PCR) - Final Blood Culture (Wb) - Right Forearm Staphylococcus aureus mecA Resistance Marker Blood Culture - Final Meth. resistant Staph. aureus 09/28/18 05:30 Respiratory Panel (PCR) - Final Mucosa - Nasopharyngeal 09/28/18 06:55 C. difficile DNA Amplification - Final Stool 09/28/18 02:40 Legionella Antigen - Final Urine Catheter - Catheter 09/28/18 02:40 Streptococcus pneumoniae Antigen (M - Final Urine Catheter - Catheter Laboratory Tests Past 24 Hrs 09/29/18 09/29/18 09/29/18 16:35 22:05 22:05 WBC RBC Hgb Hct MCV MCH MCHC RDW Std Deviation RDW Coeff of Willam Plt Count MPV Sodium 140 Potassium 5.7 H Chloride 112 H Carbon Dioxide 12.0 L Anion Gap 16 H BUN 94 H Creatinine 4.48 H Estim Creat Clear Calc 13.85 Est GFR (MDRD) Af Amer 17 L Est GFR (MDRD) Non-Af 14 L BUN/Creatinine Ratio 21.0 H Glucose 219 H Calcium 7.6 L Phosphorus Magnesium U Random Total Protein 67.3 H Ur Random Sodium Urine Creatinine 32.10 Blood Type Antibody Screen 09/29/18 09/30/18 09/30/18 22:05 06:55 06:55 WBC 21.9 H RBC 2.58 L Hgb 7.5 L Hct 22.0 L MCV 85.3 MCH 29.1 MCHC 34.1 RDW Std Deviation 44.8 H RDW Coeff of Willam 14.5 Plt Count 460 H MPV 8.7 Sodium 141 Potassium 3.3 L Chloride 106 Carbon Dioxide 25.0 Anion Gap 10 BUN 78 H Creatinine 3.62 H Estim Creat Clear Calc 17.13 Est GFR (MDRD) Af Amer 22 L Est GFR (MDRD) Non-Af 18 L BUN/Creatinine Ratio 21.5 H Glucose 369 H Calcium 8.1 L Phosphorus Magnesium 1.6 U Random Total Protein Ur Random Sodium 79 Urine Creatinine Blood Type Antibody Screen 09/30/18 09/30/18 06:55 08:08 WBC RBC Hgb Hct MCV MCH MCHC RDW Std Deviation RDW Coeff of Willam Plt Count MPV Sodium Potassium Chloride Carbon Dioxide Anion Gap BUN Creatinine Estim Creat Clear Calc Est GFR (MDRD) Af Amer Est GFR (MDRD) Non-Af BUN/Creatinine Ratio Glucose Calcium Phosphorus 4.2 Magnesium U Random Total Protein Ur Random Sodium Urine Creatinine Blood Type O POSITIVE Antibody Screen NEGATIVE POC Glucose 09/30/18 09/30/18 09/29/18 06:21 00:19 18:05 POC Glucose 360 H 281 H 236 H 09/29/18 12:33 POC Glucose 208 H Medical Necessity - Tobacco Use Smoking Status: Never smoker Assessment/Plan All Active Problems (This Medical Record has been edited. Action required.) Severe sepsis (Acute) HCAP (healthcare-associated pneumonia) (Acute) Acute renal failure (Acute) Dehydration (Acute) Hypoxemia (Acute) Fall with injury (Acute) Right acetabular fracture (Acute) RECOMMENDATIONS: 1. Continue current therapy 2. Consider ID and nephrology consultations. 3. Maintain patient n.p.o., pending further work-up/recommendations by speech therapy. 4. Continue gentle IV fluid hydration. 5. Consider possible echocardiogram if repeat blood cultures are positive 6. Await repeat blood cultures IMPRESSIONS: 1. Severe sepsis Secondary to MRSA bacteremia with concerns for potential pulmonary and urinary sources of infection as well. Clinical concern for potential aspiration event leading to the development of pneumonia. Would consider an infectious disease consultation. Patient has had significant improvement in leukocytosis overnight. However, patient persists in being positive with blood cultures, echocardiogram for endocarditis would be appropriate. 2. Acute hypoxemic respiratory insufficiency Likely secondary to underlying pulmonary infectious process, which may have been precipitated by an acute aspiration event. Wean supplemental oxygen to maintain saturations at or above 90%. Encourage incentive spirometer use. Patient is on minimal nasal cannula oxygen at this time. Likely has an element of atelectasis contributing to current status. 3. Acute kidney injury Likely prerenal in etiology and related to #1. Patient appears to be responding well to bicarbonate drip. Continue to monitor urine output. Defer to hospitalist if renal consultation is appropriate. 4. Anemia/hypertension/hyperlipidemia/diabetes mellitus/cerebral palsy/epilepsy Complicates care, management, recovery and prognosis. While the patient does have baseline anemia, it appears to be worse at this time. Continue to monitor blood counts daily. Transfuse if hemoglobin drops below 7 g/dL. Continue PPI therapy as ordered. Code Visit Inpatient E&M: 60781 Subs Hosp L2
[2018-09-30] MEDS: Menthol/Lanolin/Calamine/Znox 113 GM Tube 1 APPLIC TOPICAL ×4 (09:59→22:36)
[2018-09-30] MEDS: Heparin Injection (Vial) 5,000 UNIT/ML VIAL 5000 UNIT SC ×2 (10:00→22:35)
[2018-09-30] MEDS: Potassium Chloride 10mEq/100mL 10 MEQ/100 ML IV.SOLN. 100 MEQ IV BOLUS ×4 (10:06→19:51)
[2018-09-30 11:01] LABS: Bedside Glucose 346 mg/dL (70-110)
[2018-09-30 11:11] LABS: Pathologist Review Reviewed
[2018-09-30 11:11] LABS: Pathologist Review Reviewed
[2018-09-30 11:23] LABS: Pathologist Review Reviewed
--- NOTE | 2018-09-30 11:37 | CASEMGMT ---
LEEANN faxed updates to [place]. Tess LAYTON [employer]
--- NOTE | 2018-09-30 12:59 | PCM.PROGNOTE ---
Patient Problems: Active and Suspected Problems (This Medical Record has been edited. Action required.) Severe sepsis (Acute) HCAP (healthcare-associated pneumonia) (Acute) Acute renal failure (Acute) Dehydration (Acute) Hypoxemia (Acute) Subjective: Patient seen and examined. Complains of back pain and dry mouth. Continues to request oral intake. Denies other complaints. - Physical Exam General: Alert, Oriented x3, Cooperative HEENT: Atraumatic, PERRLA, EOMI, Normocephalic Oral: Dry Mucosa, - - Coating of tongue, poor dentition. Neck: Supple, No JVD, Negative Carotid Bruits Lungs: Clear to auscultation, Diminished Cardiovascular: Regular rate, Regular Rhythm, Normal S1, Normal S2, No murmurs Abdomen: Bowel Sounds Present, Soft, Non Tender, Non-Distended Extremities: No clubbing, No cyanosis, Edema - Bilateral lower extremities, Jeronimo wraps in place. Skin: No rashes, No breakdown, - - Decubitus ulcer, sacral/coccyx region-present on admission Musculoskeletal: No Tenderness to Palpation of Joints or Extremities Neurological: Cranial nerves II-XII grossly intact, Neuro grossly intact Psych/Mental Status: Normal Affect, Appropriate Vital Signs Temp Pulse Resp BP Pulse Ox 98.3 F 111 H 20 H 116/66 96 09/30/18 11:00 09/30/18 11:00 09/30/18 11:00 09/30/18 11:00 09/30/18 11:00 Oxygen Flow Rate (L/min) 1 Oxygen Delivery Method Nasal Cannula Weight: 218 lb 4.122 oz Body Mass Index (BMI) 34.6 Intake and Output for Last 24 Hours 09/28/18 09/29/18 09/30/18 23:59 23:59 23:59 Intake Total 5502 / 5502 2066 / 2066 2415.1 / 2415.1 Output Total 1200 / 1200 2100 / 2100 Balance 5502 / 5502 866 / 866 315.1 / 315.1 Microbiology Past 72 Hours 09/28/18 07:05 Gram Stain - Final Sputum, Induced/Lukens Respiratory Culture - Final Presumptive C albicans Meth. resistant Staph. aureus 09/28/18 02:40 Urine Culture - Final Urine, Clean Catch Meth. resistant Staph. aureus 09/28/18 01:50 Blood Culture - Final Blood Culture (Wb) - Right Wrist Meth. resistant Staph. aureus 09/28/18 02:03 Bacteria Detection (PCR) - Final Blood Culture (Wb) - Right Forearm Staphylococcus aureus mecA Resistance Marker Blood Culture - Final Meth. resistant Staph. aureus 09/28/18 05:30 Respiratory Panel (PCR) - Final Mucosa - Nasopharyngeal 09/28/18 06:55 C. difficile DNA Amplification - Final Stool 09/28/18 02:40 Legionella Antigen - Final Urine Catheter - Catheter 09/28/18 02:40 Streptococcus pneumoniae Antigen (M - Final Urine Catheter - Catheter Laboratory Tests Past 24 Hrs 09/28/18 09/28/18 09/29/18 01:50 06:42 06:10 WBC RBC Hgb Hct MCV MCH MCHC RDW Std Deviation RDW Coeff of Willam Plt Count MPV Diff Path Review Reviewed Reviewed Reviewed Sodium Potassium Chloride Carbon Dioxide Anion Gap BUN Creatinine Estim Creat Clear Calc Est GFR (MDRD) Af Amer Est GFR (MDRD) Non-Af BUN/Creatinine Ratio Glucose Calcium Phosphorus Magnesium U Random Total Protein Ur Random Sodium Urine Creatinine Blood Type Antibody Screen 09/29/18 09/29/18 09/29/18 16:35 22:05 22:05 WBC RBC Hgb Hct MCV MCH MCHC RDW Std Deviation RDW Coeff of Willam Plt Count MPV Diff Path Review Sodium 140 Potassium 5.7 H Chloride 112 H Carbon Dioxide 12.0 L Anion Gap 16 H BUN 94 H Creatinine 4.48 H Estim Creat Clear Calc 13.85 Est GFR (MDRD) Af Amer 17 L Est GFR (MDRD) Non-Af 14 L BUN/Creatinine Ratio 21.0 H Glucose 219 H Calcium 7.6 L Phosphorus Magnesium U Random Total Protein 67.3 H Ur Random Sodium Urine Creatinine 32.10 Blood Type Antibody Screen 09/29/18 09/30/18 09/30/18 22:05 06:55 06:55 WBC 21.9 H RBC 2.58 L Hgb 7.5 L Hct 22.0 L MCV 85.3 MCH 29.1 MCHC 34.1 RDW Std Deviation 44.8 H RDW Coeff of Willam 14.5 Plt Count 460 H MPV 8.7 Diff Path Review Sodium 141 Potassium 3.3 L Chloride 106 Carbon Dioxide 25.0 Anion Gap 10 BUN 78 H Creatinine 3.62 H Estim Creat Clear Calc 17.13 Est GFR (MDRD) Af Amer 22 L Est GFR (MDRD) Non-Af 18 L BUN/Creatinine Ratio 21.5 H Glucose 369 H Calcium 8.1 L Phosphorus Magnesium 1.6 U Random Total Protein Ur Random Sodium 79 Urine Creatinine Blood Type Antibody Screen 09/30/18 09/30/18 06:55 08:08 WBC RBC Hgb Hct MCV MCH MCHC RDW Std Deviation RDW Coeff of Willam Plt Count MPV Diff Path Review Sodium Potassium Chloride Carbon Dioxide Anion Gap BUN Creatinine Estim Creat Clear Calc Est GFR (MDRD) Af Amer Est GFR (MDRD) Non-Af BUN/Creatinine Ratio Glucose Calcium Phosphorus 4.2 Magnesium U Random Total Protein Ur Random Sodium Urine Creatinine Blood Type O POSITIVE Antibody Screen NEGATIVE POC Glucose 09/30/18 09/30/18 09/30/18 10:51 06:21 00:19 POC Glucose 346 H 360 H 281 H 09/29/18 18:05 POC Glucose 236 H Medical Necessity - Tobacco Use Smoking Status: Never smoker Assessment/Plan All Active Problems (This Medical Record has been edited. Action required.) Severe sepsis (Acute) HCAP (healthcare-associated pneumonia) (Acute) Acute renal failure (Acute) Dehydration (Acute) Hypoxemia (Acute) Fall with injury (Acute) Right acetabular fracture (Acute) 1. Severe sepsis secondary to MRSA bacteremia, healthcare associated pneumonia and acute UTI, concern for aspiration as well-chest x-ray on admission with right perihilar and basilar opacities concerning for pneumonia. Urinalysis with greater than 100 WBC, 3+ bacteria. MRSA PCR positive. Continue broad-spectrum antibiotic with IV Zosyn and IV vancomycin. Speech therapy following. Speech therapy does not feel patient is safe to take oral intake. N.p.o. Blood cultures positive for MRSA. Urine culture positive for Staphylococcus aureus. Sputum culture with Staphylococcus species. Repeat blood cultures pending. ID consult placed. Echocardiogram completed given bacteremia which is an EF of 70%. 2. Acute hypoxic respiratory insufficiency secondary to healthcare associated pneumonia-continue supplement oxygen to maintain O2 at or above 90%. Pulmonary medicine following. Albuterol and DuoNeb aerosols. 3. Acute kidney injury with hyperkalemia on chronic kidney disease stage III-IV fluids, trend BMP. Nephrology consult placed. Renal ultrasound demonstrates limited visualization of the right kidney, mild degree of right hydronephrosis suspected. Christopher placed yesterday due to suspected retention and kidney function improved today. Initiate Flomax 0.4mg daily. 4. Metabolic acidosis-placed on bicarb drip. Improved. 5. Chronic coccyx decubitus ulcer-present on admission. Without evidence of infection. Every 2 hours turns. Wound RN consult. 6. Hypertension-Home regimen on hold given hypotension and acute kidney injury on admission. Continue to monitor. 7. Hyperlipidemia-continue statin regimen. 8. Type 2 diabetes mellitus-hold oral regimen. Accu-Cheks every 6 hours with sliding scale insulin. Continue home long-acting regimen. 9. Cerebral palsy- PT/OT. Resides at SNF. 10. History of epilepsy-seizure precautions. Continue home phenobarbital regimen. 11. Chronic normocytic anemia-mildly reduced from baseline, suspect secondary to hemodilution. Trend CBC. DVT prophylaxis-heparin subcu CODE STATUS: DNR CCA This patient was seen by AMANUEL Corea under the supervision of Dr. Garcia.
--- NOTE | 2018-09-30 13:00 | CASEMGMT ---
Patient has a Healthcare LW and Healthcare POA on file in e-chart. SW printed documents and placed them in his chart. Patient also has legal guardian papers which were also placed in his chart. Tess MCGINNIS
--- NOTE | 2018-09-30 14:32 | NURSING ---
this RN called alma SWENSON to get eta for bedside swallow study. demetrius will follow up soon.
--- NOTE | 2018-09-30 14:44 | PN.RENAL_ITS ---
Patient Problems: Active and Suspected Problems (This Medical Record has been edited. Action required.) Severe sepsis (Acute) HCAP (healthcare-associated pneumonia) (Acute) Acute renal failure (Acute) Dehydration (Acute) Hypoxemia (Acute) Subjective: no new events - Physical Exam General: Alert, No apparent distress HEENT: Atraumatic, PERRLA, EOMI, Normocephalic Neck: Supple, No JVD, Negative Carotid Bruits Lungs: Clear to auscultation, Normal air movement Cardiovascular: Regular rate, No murmurs Abdomen: Bowel Sounds Present, Soft, Non Tender Extremities: No edema, Capillary Refill Less than 3 Seconds Skin: No rashes, No breakdown Musculoskeletal: No Tenderness to Palpation of Joints or Extremities Neurological: Cranial nerves II-XII grossly intact Psych/Mental Status: Normal Affect, Appropriate Vital Signs Temp Pulse Resp BP Pulse Ox 98.3 F 111 H 20 H 116/66 96 09/30/18 11:00 09/30/18 11:00 09/30/18 11:00 09/30/18 11:00 09/30/18 11:00 Oxygen Flow Rate (L/min) 2 Oxygen Delivery Method Nasal Cannula Weight: 99 kg Body Mass Index (BMI) 34.6 Intake and Output for Last 24 Hours 09/28/18 09/29/18 09/30/18 23:59 23:59 23:59 Intake Total 5502 / 5502 2066 / 2066 2415.1 / 2415.1 Output Total 1200 / 1200 2100 / 2100 Balance 5502 / 5502 866 / 866 315.1 / 315.1 Microbiology Past 72 Hours 09/29/18 08:45 Blood Culture - Preliminary Blood Culture (Wb) - Other 09/28/18 07:05 Gram Stain - Final Sputum, Induced/Lukens Respiratory Culture - Final Presumptive C albicans Meth. resistant Staph. aureus 09/28/18 02:40 Urine Culture - Final Urine, Clean Catch Meth. resistant Staph. aureus 09/28/18 01:50 Blood Culture - Final Blood Culture (Wb) - Right Wrist Meth. resistant Staph. aureus 09/28/18 02:03 Bacteria Detection (PCR) - Final Blood Culture (Wb) - Right Forearm Staphylococcus aureus mecA Resistance Marker Blood Culture - Final Meth. resistant Staph. aureus 09/28/18 05:30 Respiratory Panel (PCR) - Final Mucosa - Nasopharyngeal 09/28/18 06:55 C. difficile DNA Amplification - Final Stool 09/28/18 02:40 Legionella Antigen - Final Urine Catheter - Catheter 09/28/18 02:40 Streptococcus pneumoniae Antigen (M - Final Urine Catheter - Catheter Laboratory Tests Past 24 Hrs 09/28/18 09/28/18 09/29/18 01:50 06:42 06:10 WBC RBC Hgb Hct MCV MCH MCHC RDW Std Deviation RDW Coeff of Willam Plt Count MPV Diff Path Review Reviewed Reviewed Reviewed Sodium Potassium Chloride Carbon Dioxide Anion Gap BUN Creatinine Estim Creat Clear Calc Est GFR (MDRD) Af Amer Est GFR (MDRD) Non-Af BUN/Creatinine Ratio Glucose Calcium Phosphorus Magnesium Iron TIBC Iron Saturation Ferritin Vitamin B12 Folate U Random Total Protein Ur Random Sodium Urine Creatinine Blood Type Antibody Screen 09/29/18 09/29/18 09/29/18 16:35 22:05 22:05 WBC RBC Hgb Hct MCV MCH MCHC RDW Std Deviation RDW Coeff of Willam Plt Count MPV Diff Path Review Sodium 140 Potassium 5.7 H Chloride 112 H Carbon Dioxide 12.0 L Anion Gap 16 H BUN 94 H Creatinine 4.48 H Estim Creat Clear Calc 13.85 Est GFR (MDRD) Af Amer 17 L Est GFR (MDRD) Non-Af 14 L BUN/Creatinine Ratio 21.0 H Glucose 219 H Calcium 7.6 L Phosphorus Magnesium Iron TIBC Iron Saturation Ferritin Vitamin B12 Folate U Random Total Protein 67.3 H Ur Random Sodium Urine Creatinine 32.10 Blood Type Antibody Screen 09/29/18 09/30/18 09/30/18 22:05 06:55 06:55 WBC 21.9 H RBC 2.58 L Hgb 7.5 L Hct 22.0 L MCV 85.3 MCH 29.1 MCHC 34.1 RDW Std Deviation 44.8 H RDW Coeff of Willam 14.5 Plt Count 460 H MPV 8.7 Diff Path Review Sodium 141 Potassium 3.3 L Chloride 106 Carbon Dioxide 25.0 Anion Gap 10 BUN 78 H Creatinine 3.62 H Estim Creat Clear Calc 17.13 Est GFR (MDRD) Af Amer 22 L Est GFR (MDRD) Non-Af 18 L BUN/Creatinine Ratio 21.5 H Glucose 369 H Calcium 8.1 L Phosphorus Magnesium 1.6 Iron TIBC Iron Saturation Ferritin Vitamin B12 Folate U Random Total Protein Ur Random Sodium 79 Urine Creatinine Blood Type Antibody Screen 09/30/18 09/30/18 09/30/18 06:55 06:55 06:55 WBC RBC Hgb Hct MCV MCH MCHC RDW Std Deviation RDW Coeff of Willam Plt Count MPV Diff Path Review Sodium Potassium Chloride Carbon Dioxide Anion Gap BUN Creatinine Estim Creat Clear Calc Est GFR (MDRD) Af Amer Est GFR (MDRD) Non-Af BUN/Creatinine Ratio Glucose Calcium Phosphorus 4.2 Magnesium Iron Pending TIBC Pending Iron Saturation Pending Ferritin Pending Vitamin B12 Pending Folate Pending U Random Total Protein Ur Random Sodium Urine Creatinine Blood Type Antibody Screen 09/30/18 08:08 WBC RBC Hgb Hct MCV MCH MCHC RDW Std Deviation RDW Coeff of Willam Plt Count MPV Diff Path Review Sodium Potassium Chloride Carbon Dioxide Anion Gap BUN Creatinine Estim Creat Clear Calc Est GFR (MDRD) Af Amer Est GFR (MDRD) Non-Af BUN/Creatinine Ratio Glucose Calcium Phosphorus Magnesium Iron TIBC Iron Saturation Ferritin Vitamin B12 Folate U Random Total Protein Ur Random Sodium Urine Creatinine Blood Type O POSITIVE Antibody Screen NEGATIVE POC Glucose 09/30/18 09/30/18 09/30/18 10:51 06:21 00:19 POC Glucose 346 H 360 H 281 H 09/29/18 18:05 POC Glucose 236 H Medical Necessity - Tobacco Use Smoking Status: Never smoker Assessment/Plan All Active Problems (This Medical Record has been edited. Action required.) Severe sepsis (Acute) HCAP (healthcare-associated pneumonia) (Acute) Acute renal failure (Acute) Dehydration (Acute) Hypoxemia (Acute) Fall with injury (Acute) Right acetabular fracture (Acute) 1. Acute kidney injury on chronic kidney disease stage 3. Baseline SCr is 1.4- 1.5 mg/dL. Cause of CKD is unknown. NAYAN is most likely prerenal or from ischemic ATN related to sepsis and volume depletion. Pt has also been on ARB and diuretic prior to admit. Another possible cause would be obstructive uropathy from urinary retention. Low suspicion for other causes of NAYAN at this point. cr better. 2. Metabolic acidosis. Likely due to NAYAN and diarrhea. Pt was also on metformin prior to admit. Agree with rehydration with bicarbonate drip. better 3. Hyperkalemia. better 4. Staphylococcus aureus bacteremia. HCAP. On Zosyn and vancomycin. Dose appropriate for current CrCl
[2018-09-30 14:58] LABS: Ferritin 652 ng/mL (26-388); Iron 27 ug/dL (65-175); Iron Binding Capacity,Total 87 ug/dL (250-450); Vitamin B12 1214 pg/mL (211-911)
[2018-09-30] MEDS: Metoprolol Tartrate 5 MG/5 ML Vial IV ×2 (14:58→22:35)
--- NOTE | 2018-09-30 14:58 | CON.PCM_ITS ---
Problem List (1) Severe sepsis Status: Acute Reason for Consult: bacteremia Consulted by: Dr. Garcia History of Present Illness: The patient is a 68 year old M with cerebral palsy, [facility] resident, presented with acute onset fever, confusion, SOB, cough. Reports dark/rodriguez sputum. Some dysuria. Taken to ED, found to be in NAYAN, admitted on vanc/zosyn. Bcx, ucx, and sputum cx now with mrsa. Feeling better, still sob and cough. Full ROS performed and neg except as noted above. C/o new back pain. - Medical History Past Medical History (Chronic Problems): Chronic Problems (This Medical Record has been edited. Action required.) Sacral decubitus ulcer (Chronic) Cerebral palsy (Chronic) Hypertension (Chronic) Type 2 diabetes mellitus (Chronic) Allergies/Adverse Reactions: Allergies mold Allergy (Verified 09/28/18 01:49) Other Home Medications: Ambulatory Orders Medication Instructions Recorded Atorvastatin Calcium [Lipitor] 10 mg PO DAILY 03/18/15 Hydrochlorothiazide [Hctz] 25 mg PO DAILY 03/18/15 Losartan Potassium [Cozaar] 100 mg PO DAILY 03/18/15 Multivitamins,Therapeutic 1 tablet PO DAILY 03/18/15 [Multivitamin] Propranolol HCl [Inderal (Beta 40 mg PO BID 03/18/15 Ahsan)] metFORMIN HCl [Glucophage] 1,000 mg PO BIDCM 03/18/15 Amlodipine [Norvasc] 5 mg PO DAILY tablet 08/31/17 Insulin Lispro [Humalog KwikPen] See Protocol SC ACHS insuln.pen 08/31/17 Phenobarbital 64.8 mg PO BID 10 Days #40 tab 08/31/17 Cephalexin [Keflex] 500 mg PO Q12 09/28/18 Insulin Detemir [Levemir (BKC)] 20 units SUBCUT QHS 09/28/18 Loratadine [Claritin] 10 mg PO DAILY 09/28/18 levoFLOXacin tablet [Levaquin 750 mg PO BID 09/28/18 tablet] - Social History Tobacco Use: non-smoker Vital Signs Temp Pulse Resp BP Pulse Ox 98.3 F 111 H 20 H 116/66 96 09/30/18 11:00 09/30/18 11:00 09/30/18 11:00 09/30/18 11:00 09/30/18 11:00 Oxygen Flow Rate (L/min) 2 Oxygen Delivery Method Nasal Cannula Weight: 99 kg Body Mass Index (BMI) 34.6 Microbiology Past 72 Hours 09/29/18 08:45 Blood Culture - Preliminary Blood Culture (Wb) - Other 09/28/18 07:05 Gram Stain - Final Sputum, Induced/Lukens Respiratory Culture - Final Presumptive C albicans Meth. resistant Staph. aureus 09/28/18 02:40 Urine Culture - Final Urine, Clean Catch Meth. resistant Staph. aureus 09/28/18 01:50 Blood Culture - Final Blood Culture (Wb) - Right Wrist Meth. resistant Staph. aureus 09/28/18 02:03 Bacteria Detection (PCR) - Final Blood Culture (Wb) - Right Forearm Staphylococcus aureus mecA Resistance Marker Blood Culture - Final Meth. resistant Staph. aureus 09/28/18 05:30 Respiratory Panel (PCR) - Final Mucosa - Nasopharyngeal 09/28/18 06:55 C. difficile DNA Amplification - Final Stool 09/28/18 02:40 Legionella Antigen - Final Urine Catheter - Catheter 09/28/18 02:40 Streptococcus pneumoniae Antigen (M - Final Urine Catheter - Catheter Laboratory Tests Past 24 Hrs 09/28/18 09/28/18 09/29/18 01:50 06:42 06:10 WBC RBC Hgb Hct MCV MCH MCHC RDW Std Deviation RDW Coeff of Willam Plt Count MPV Diff Path Review Reviewed Reviewed Reviewed Sodium Potassium Chloride Carbon Dioxide Anion Gap BUN Creatinine Estim Creat Clear Calc Est GFR (MDRD) Af Amer Est GFR (MDRD) Non-Af BUN/Creatinine Ratio Glucose Calcium Phosphorus Magnesium Iron TIBC Iron Saturation Ferritin Vitamin B12 Folate U Random Total Protein Ur Random Sodium Urine Creatinine Blood Type Antibody Screen 09/29/18 09/29/18 09/29/18 16:35 22:05 22:05 WBC RBC Hgb Hct MCV MCH MCHC RDW Std Deviation RDW Coeff of Willam Plt Count MPV Diff Path Review Sodium 140 Potassium 5.7 H Chloride 112 H Carbon Dioxide 12.0 L Anion Gap 16 H BUN 94 H Creatinine 4.48 H Estim Creat Clear Calc 13.85 Est GFR (MDRD) Af Amer 17 L Est GFR (MDRD) Non-Af 14 L BUN/Creatinine Ratio 21.0 H Glucose 219 H Calcium 7.6 L Phosphorus Magnesium Iron TIBC Iron Saturation Ferritin Vitamin B12 Folate U Random Total Protein 67.3 H Ur Random Sodium Urine Creatinine 32.10 Blood Type Antibody Screen 09/29/18 09/30/18 09/30/18 22:05 06:55 06:55 WBC 21.9 H RBC 2.58 L Hgb 7.5 L Hct 22.0 L MCV 85.3 MCH 29.1 MCHC 34.1 RDW Std Deviation 44.8 H RDW Coeff of Willam 14.5 Plt Count 460 H MPV 8.7 Diff Path Review Sodium 141 Potassium 3.3 L Chloride 106 Carbon Dioxide 25.0 Anion Gap 10 BUN 78 H Creatinine 3.62 H Estim Creat Clear Calc 17.13 Est GFR (MDRD) Af Amer 22 L Est GFR (MDRD) Non-Af 18 L BUN/Creatinine Ratio 21.5 H Glucose 369 H Calcium 8.1 L Phosphorus Magnesium 1.6 Iron TIBC Iron Saturation Ferritin Vitamin B12 Folate U Random Total Protein Ur Random Sodium 79 Urine Creatinine Blood Type Antibody Screen 09/30/18 09/30/18 09/30/18 06:55 06:55 06:55 WBC RBC Hgb Hct MCV MCH MCHC RDW Std Deviation RDW Coeff of Willam Plt Count MPV Diff Path Review Sodium Potassium Chloride Carbon Dioxide Anion Gap BUN Creatinine Estim Creat Clear Calc Est GFR (MDRD) Af Amer Est GFR (MDRD) Non-Af BUN/Creatinine Ratio Glucose Calcium Phosphorus 4.2 Magnesium Iron Pending TIBC Pending Iron Saturation Pending Ferritin Pending Vitamin B12 Pending Folate Pending U Random Total Protein Ur Random Sodium Urine Creatinine Blood Type Antibody Screen 09/30/18 08:08 WBC RBC Hgb Hct MCV MCH MCHC RDW Std Deviation RDW Coeff of Willam Plt Count MPV Diff Path Review Sodium Potassium Chloride Carbon Dioxide Anion Gap BUN Creatinine Estim Creat Clear Calc Est GFR (MDRD) Af Amer Est GFR (MDRD) Non-Af BUN/Creatinine Ratio Glucose Calcium Phosphorus Magnesium Iron TIBC Iron Saturation Ferritin Vitamin B12 Folate U Random Total Protein Ur Random Sodium Urine Creatinine Blood Type O POSITIVE Antibody Screen NEGATIVE - Other Studies Radiology: [] reviewed Other Studies: [] Route of nutrition/ use of supplements: [] Nutritional Intake: [] IV Site: [] Christopher Catheter: [] - Physical Exam General: Alert, Oriented x3, Cooperative, No apparent distress, - - ill appearing HEENT: Atraumatic, PERRLA, EOMI Neck: Supple, No Nodes Lungs: Rhonchi Cardiovascular: Tachycardic Abdomen: Soft, Non Tender, Non-Distended Extremities: Edema Skin: - - no splinter hemorrhages on hands or feet IV Site: PICC, without redness Musculoskeletal: - - mid-spine tenderness to palpation Neurological: Cranial nerves II-XII grossly intact - Assessment/Plan Antibiotics: [] Assessment/Plan: [] Active and Suspected Problems (This Medical Record has been edited. Action required.) Severe sepsis (Acute) HCAP (healthcare-associated pneumonia) (Acute) Acute renal failure (Acute) Dehydration (Acute) Hypoxemia (Acute) MRSA bacteremia with NAYAN, severe sepsis. Seems likely respiratory source with hematogenous spread to the urine. TTE showed no veg. Will stop zosyn. Continue vanc. Repeat bcx today. May need picc removed to help clear bcx. With spine pain on palpation, will order MRI of T and L spine. Will follow, thank you.
--- NOTE | 2018-09-30 15:02 | MRI_ITS ---
HISTORY:[facility] Back Pain fever, confusion MR Spine Lumbar W/O Contrast Technique:Sagittal T1-T2 and STIR and axial T1 and T2-weighted images # of images including paperwork:140 Comparison:none Findings: The conus ends at the T12-L1 disc space and appears within normal limits. There is anterior wedging involving the L1 and L2 vertebral bodies. This does not appear acute. Grade 1 retrolisthesis of L2 on L3 that appears degenerative T12-L1:Decreased disc space with diffuse annular bulge and posterior osteophytes. No canal stenosis. Mild right neuroforaminal narrowing but no significant nerve impingement L1-2:Decreased disc height and hydration. Posterior osteophytes most marked centrally. Trefoil appearance of the canal. The canal may possibly 9 mm. Mild bilateral neural foraminal narrowing. No significant nerve root impingement L2-3:Grade 1 retrolisthesis of L2 on L3. There are posterior osteophytes with a diffuse annular bulge and broad-based disc protrusion. There is a trefoil appearance a canal. The thecal sac is decreased to proximally 7.7 mm at this level. There is mild subarticular recess narrowing. Moderate left and moderate to marked right neural foraminal narrowing. Minimal effacement of the bilateral L2 nerve roots as the exit the foramen greater on the right L3-4:Posterior osteophytes and diffuse annular bulge. No canal stenosis. There is moderate left and right neural foraminal narrowing. No significant nerve root impingement L4-5:Diffuse annular bulge. Mild to moderate bilateral neural foraminal narrowing. Minimal effacement left L4 nerve root as it exits the foramen L5-S1:Mild subarticular recess narrowing. There is a prominent amount of fat surrounding the thecal sac at this level compatible with lipomatosis. Mild bilateral neural foraminal narrowing slightly greater on the right than the left. Minimal effacement of the right L5 nerve root as it exits the foramen Fatty atrophy of the paraspinous musculature. Right renal cyst No evidence of an abscess visualized on the study MRI/Spine Lumbar (Routine) IMPRESSION: No evidence of an abscess visualized on the study L1-2 mild canal stenosis posterior osteophytes most marked centrally L2-3 grade 1 retrolisthesis. The canal is mildly to moderately narrowed with flattening of the thecal sac measures 7.7 mm. Minimal effacement of bilateral L2 nerve roots as they exit the foramen greater on the right L4-5 minimal effacement of the left L4 nerve root is exits the foramen L5-S1 mild subarticular recess narrowing. Thecal sac is diminished at this level with prominent surrounding fat compatible with lipomatosis. Minimal effacement of the right L5 nerve root as it exits the foramen at 2255 Reported and signed by: Alea Denise DO Electronically Signed: Alea Denise DO at 22:54 EDT Tel , Service support ,
--- NOTE | 2018-09-30 15:03 | MRI_ITS ---
HISTORY:ABAbcessBack Pain fever, confusion ABAbcessBack Pain fever, confusion EXAMINATION: MR Spine Thoracic W/O Contrast TECHNIQUE: Multiplanar and multisequence MR images of the thoracic spine. IV Contrast dosage and agent: None. COMPARISON: None FINDINGS: Study limited by motion VERTEBRAE: No fracture. Normal vertebral bodies and posterior elements. VERTEBRAL ALIGNMENT: Dextroscoliosis There is preservation of the normal thoracic kyphosis. DISCS: There is decreased disc space greatest at the level of T10-11 and T11-12 right central disc protrusion at the level of T11-12 with posterior osteophytes. No canal stenosis. No significant neuroforaminal narrowing CORD: Unremarkable in signal and morphology. Normal conus medularis. The conus ends at the level of T12-L1 Posterior osteophytes are also seen at T12-L1 with decreased disc space. Diffuse annular bulge at this level SOFT TISSUES: There is area of increased signal seen at the posterior right lung that may represent consolidation right renal cysts MRI/Spine Thoracic (Routine) IMPRESSION: Dextroscoliosis No evidence of abscess Right posterior lung consolidation Right renal cyst Posterior osteophytes at T12-L1 Right central disc protrusion at T11-12 with posterior osteophytes but no evidence of canal stenosis at 2152 Reported and signed by: Alea Denise DO Electronically Signed: Alea Denise DO at 21:51 EDT Tel , Service support ,
--- NOTE | 2018-09-30 15:05 | NURSING ---
wound photo: buttocks
[2018-09-30] MEDS: Tamsulosin HCl 0.4 MG Capsule PO (16:27)
[2018-09-30] MEDS: 0.9% NaCl Midline IV Flush IV (16:28)
--- NOTE | 2018-09-30 17:25 | NURSING ---
per dr. quesada, sunil to hold IV fluids while pt is down for MRI
--- NOTE | 2018-09-30 19:40 | NURSING ---
Updated patient's primary nurse that lab called with blood culture results of Gram positive cocci.
[2018-09-30] MEDS: guaiFENesin 1,200 MG Tablet 1200 MG PO (22:35)
[2018-10-01] VITALS (20 sets, daily range): BP systolic 110–156; BP diastolic 48–87; PULSE 83–118; RESP 20–26; TEMP 36.4–37.8; O2SAT 92–99
[2018-10-01] MEDS: Insulin Lispro 100 UNIT/ML INSULN.PEN SC ×5 (03:58→22:38)
[2018-10-01 04:15] LABS: Bedside Glucose 402 mg/dL (70-110)
[2018-10-01 05:52] LABS: Hematocrit 21.4 % (40-54); Mean Corp Hgb Conc 32.7 g/dL (32-36); Mean Corpuscular Volume 85.6 fL (80-94); Mean Platelet Vol. 9.1 fl (6.2-12.0); Platelet Count 417 K/mm3 (150-450); RBC Distribution Width CV 14.6 % (11.6-14.6); RBC Distribution Width SD 45.5 fl (35.1-43.9); White Blood Count 14.8 K/mm3 (4.4-11.0)
[2018-10-01 06:16] LABS: Anion Gap 10 (5-15); BUN 58 mg/dL (7-18); Calcium,Total 7.7 mg/dL (8.5-10.1); Chloride 108 mmol/L (98-107); EST Glomerular Filtration Rate 23 mL/min (>60); Est Glom Filt Rate - Afr Amer 28 mL/min (>60); Estimated Creatinine Clearance 21.39 ml/min; Glucose 391 mg/dL (74-106); Potassium 3.3 mmol/L (3.5-5.1); Sodium Level 148 mmol/L (136-145)
[2018-10-01 06:17] LABS: Vancomycin, Random Level 12.7 ug/mL (0.0-15.0)
--- NOTE | 2018-10-01 06:55 | PCM.RX.CS ---
Consult Pharmacy has been consulted to manage selected antiobiotic: Vancomycin Type of Consult: Follow-up Suspected Infection: Pneumonia Prior Doses of Antibiotics Received/Current Regimen: Vancomycin 1250mg IV x1 on 09/28/18, Vancomycin 1500mg IV x1 on 09/30/18. Labs: Sodium 148 mmol/L (136-145) H 10/01/18 05:36 Potassium 3.3 mmol/L (3.5-5.1) L 10/01/18 05:36 Chloride 108 mmol/L (98-107) H 10/01/18 05:36 Carbon Dioxide 30.0 mmol/L (21.0-32.0) 10/01/18 05:36 10 (5-15) 10/01/18 05:36 BUN 58 mg/dL (7-18) H 10/01/18 05:36 2.90 mg/dL (0.70-1.30) H 10/01/18 05:36 Est GFR (MDRD) Af Amer 28 mL/min (>60) L 10/01/18 05:36 Est GFR (MDRD) Non-Af 23 mL/min (>60) L 10/01/18 05:36 20.0 RATIO (10-20) 10/01/18 05:36 Glucose 391 mg/dL (74-106) H 10/01/18 05:36 Random Vancomycin 12.7 ug/mL (0.0-15.0) 10/01/18 05:36 Microbiology: Microbiology 09/29/18 12:50 Blood Culture (Wb) - Line Draw Blood Culture - Preliminary 09/29/18 08:45 Blood Culture (Wb) - Other Blood Culture - Preliminary 09/28/18 07:05 Sputum, Induced/Lukens Gram Stain - Final 09/28/18 07:05 Sputum, Induced/Lukens Respiratory Culture - Final Presumptive C albicans Meth. resistant Staph. aureus 09/28/18 02:40 Urine, Clean Catch Urine Culture - Final Meth. resistant Staph. aureus 09/28/18 01:50 Blood Culture (Wb) - Right Wrist Blood Culture - Final Meth. resistant Staph. aureus 09/28/18 02:03 Blood Culture (Wb) - Right Forearm Bacteria Detection (PCR) - Final Staphylococcus aureus mecA Resistance Marker 09/28/18 02:03 Blood Culture (Wb) - Right Forearm Blood Culture - Final Meth. resistant Staph. aureus 09/28/18 05:30 Mucosa - Nasopharyngeal Respiratory Panel (PCR) - Final 09/28/18 06:55 Stool C. difficile DNA Amplification - Final 09/28/18 02:40 Urine Catheter - Catheter Legionella Antigen - Final 09/28/18 02:40 Urine Catheter - Catheter Streptococcus pneumoniae Antigen (M - Final Weight used for dosin kg Estimated Creatinine Clearance: 21ml/min Goal Trough: 15-20 mcg/mL Pharmacy Plan for Drug Dosing: Pt's renal function is improving. His initial SrCr was 4.40 on 09/28, and is 2.9 on 10/01. Vancomycin random level on 10/01 is 12.7. Will do a 1 time 15mg/kg of Vancomycin, or 1500mg IV x1, and check a random level on 10/02/18. Pt's renal function is improving and CrCl is about 20, but would like to SrCr to get closer to baseline before starting maintenance dosing. Pharmacy Service will continue to monitor and adjust dosing as required. Follow-Up Labs: Trough Vancomycin - 10/02/18 random
[2018-10-01] MEDS: Metoprolol Tartrate 5 MG/5 ML Vial IV (07:13)
[2018-10-01] MEDS: Nystatin Powder 15gm Bottle 1 APPLIC TOPICAL ×3 (07:13→22:51)
[2018-10-01 07:21] LABS: Bedside Glucose 490 mg/dL (70-110)
[2018-10-01 07:21] LABS: Bedside Glucose 386 mg/dL (70-110)
[2018-10-01 07:21] LABS: Bedside Glucose > 500 mg/dL (70-110)
--- NOTE | 2018-10-01 08:17 | PN_ITS ---
Patient Problems: Active and Suspected Problems (This Medical Record has been edited. Action required.) Severe sepsis (Acute) HCAP (healthcare-associated pneumonia) (Acute) Acute renal failure (Acute) Dehydration (Acute) Hypoxemia (Acute) Subjective: Patient did okay overnight. Patient reports subjective improvement in overall c ondition. Patient is asking to get out of bed today. Patient denies any chest pain, abdominal pain, but still has some shortness of breath at rest. - Physical Exam General: Alert, Cooperative, No apparent distress, - - No conversational dyspnea. HEENT: Atraumatic, PERRLA, EOMI, - - No scleral icterus or injection noted. Macrocephalic. Oral: Moist Mucosa, No Gingival or Mucosal Lesions/ Ulcerations Neck: Supple, No JVD, No Nodes, Trachea Midline Lungs: No rhonchi, No wheeze, No rales, Diminished Cardiovascular: Regular rate, Regular Rhythm, Normal S1, Normal S2, No murmurs, No rub noted, No Gallop Abdomen: Bowel Sounds Present, Soft, Non Tender, Non-Distended, Obese Extremities: No clubbing, No cyanosis, Edema, - - No other changes from baseline Skin: Ulcer/ Wound - Unchanged Musculoskeletal: No Tenderness to Palpation of Joints or Extremities Lymphatic: No Cervical, Supraclavicular, or Inguinal Adenopathy Neurological: - Psych/Mental Status: Flat Affect, Restless Vital Signs Temp Pulse Resp BP Pulse Ox 36.4 C L 86 24 H 135/72 H 95 10/01/18 06:00 10/01/18 07:19 10/01/18 06:00 10/01/18 06:00 10/01/18 07:43 Oxygen Flow Rate (L/min) 2 Oxygen Delivery Method Nasal Cannula Weight: 97.5 kg Body Mass Index (BMI) 34.6 Intake and Output for Last 24 Hours 09/29/18 09/30/18 10/01/18 23:59 23:59 23:59 Intake Total 2066 / 2066 3702.1 / 3702.1 850 / 850 Output Total 1200 / 1200 4200 / 4200 1050 / 1050 Balance 866 / 866 -497.9 / -497.9 -200 / -200 Microbiology Past 72 Hours 09/29/18 08:45 Blood Culture - Preliminary Blood Culture (Wb) - Other Staphylococcus aureus 09/29/18 12:50 Blood Culture - Preliminary Blood Culture (Wb) - Line Draw Staphylococcus aureus 09/28/18 07:05 Gram Stain - Final Sputum, Induced/Lukens Respiratory Culture - Final Presumptive C albicans Meth. resistant Staph. aureus 09/28/18 02:40 Urine Culture - Final Urine, Clean Catch Meth. resistant Staph. aureus 09/28/18 01:50 Blood Culture - Final Blood Culture (Wb) - Right Wrist Meth. resistant Staph. aureus 09/28/18 02:03 Bacteria Detection (PCR) - Final Blood Culture (Wb) - Right Forearm Staphylococcus aureus mecA Resistance Marker Blood Culture - Final Meth. resistant Staph. aureus 09/28/18 05:30 Respiratory Panel (PCR) - Final Mucosa - Nasopharyngeal 09/28/18 06:55 C. difficile DNA Amplification - Final Stool 09/28/18 02:40 Legionella Antigen - Final Urine Catheter - Catheter 09/28/18 02:40 Streptococcus pneumoniae Antigen (M - Final Urine Catheter - Catheter Laboratory Tests Past 24 Hrs 09/28/18 09/28/18 09/29/18 01:50 06:42 06:10 WBC RBC Hgb Hct MCV MCH MCHC RDW Std Deviation RDW Coeff of Willam Plt Count MPV Diff Path Review Reviewed Reviewed Reviewed Sodium Potassium Chloride Carbon Dioxide Anion Gap BUN Creatinine Estim Creat Clear Calc Est GFR (MDRD) Af Amer Est GFR (MDRD) Non-Af BUN/Creatinine Ratio Glucose Calcium Phosphorus Magnesium Iron TIBC Iron Saturation Ferritin Vitamin B12 Folate Random Vancomycin Blood Type Antibody Screen 09/30/18 09/30/18 09/30/18 06:55 06:55 06:55 WBC RBC Hgb Hct MCV MCH MCHC RDW Std Deviation RDW Coeff of Willam Plt Count MPV Diff Path Review Sodium 141 Potassium 3.3 L Chloride 106 Carbon Dioxide 25.0 Anion Gap 10 BUN 78 H Creatinine 3.62 H Estim Creat Clear Calc 17.13 Est GFR (MDRD) Af Amer 22 L Est GFR (MDRD) Non-Af 18 L BUN/Creatinine Ratio 21.5 H Glucose 369 H Calcium 8.1 L Phosphorus 4.2 Magnesium 1.6 Iron TIBC Iron Saturation Ferritin Vitamin B12 1214 H Folate Random Vancomycin Blood Type Antibody Screen 09/30/18 09/30/18 10/01/18 06:55 08:08 05:36 WBC RBC Hgb Hct MCV MCH MCHC RDW Std Deviation RDW Coeff of Willam Plt Count MPV Diff Path Review Sodium Potassium Chloride Carbon Dioxide Anion Gap BUN Creatinine Estim Creat Clear Calc Est GFR (MDRD) Af Amer Est GFR (MDRD) Non-Af BUN/Creatinine Ratio Glucose Calcium Phosphorus Magnesium Iron 27 L TIBC 87 L Iron Saturation 31.0 Ferritin 652 H Vitamin B12 Folate 6.30 Random Vancomycin 12.7 Blood Type O POSITIVE Antibody Screen NEGATIVE 10/01/18 10/01/18 05:36 05:36 WBC 14.8 H RBC 2.50 L Hgb 7.0 L Hct 21.4 L MCV 85.6 MCH 28.0 MCHC 32.7 RDW Std Deviation 45.5 H RDW Coeff of Willam 14.6 Plt Count 417 MPV 9.1 Diff Path Review Sodium 148 H Potassium 3.3 L Chloride 108 H Carbon Dioxide 30.0 Anion Gap 10 BUN 58 H Creatinine 2.90 H Estim Creat Clear Calc 21.39 Est GFR (MDRD) Af Amer 28 L Est GFR (MDRD) Non-Af 23 L BUN/Creatinine Ratio 20.0 Glucose 391 H Calcium 7.7 L Phosphorus Magnesium Iron TIBC Iron Saturation Ferritin Vitamin B12 Folate Random Vancomycin Blood Type Antibody Screen POC Glucose 10/01/18 10/01/18 09/30/18 07:08 03:56 22:26 POC Glucose 386 H 402 H > 500 H* 09/30/18 09/30/18 22:23 10:51 POC Glucose 490 H* 346 H Clinical Impression(s) from Imaging Studies Renal Ultrasound 09/29/18 18:51 IMPRESSION: Limited visualization of the right kidney. I suspect a mild degree of right hydronephrosis. Electronically Signed: Liam Whatley, at 12:55 EDT , Service support , Lumbar Spine MRI 09/30/18 15:02 IMPRESSION: No evidence of an abscess visualized on the study L1-2 mild canal stenosis posterior osteophytes most marked centrally L2-3 grade 1 retrolisthesis. The canal is mildly to moderately narrowed with flattening of the thecal sac measures 7.7 mm. Minimal effacement of bilateral L2 nerve roots as they exit the foramen greater on the right L4-5 minimal effacement of the left L4 nerve root is exits the foramen L5-S1 mild subarticular recess narrowing. Thecal sac is diminished at this level with prominent surrounding fat compatible with lipomatosis. Minimal effacement of the right L5 nerve root as it exits the foramen at 2255 Reported and signed by: Alea Denise DO Electronically Signed: Alea Denise DO at 22:54 EDT Tel , Service support , Thoracic Spine MRI 09/30/18 15:03 IMPRESSION: Dextroscoliosis No evidence of abscess Right posterior lung consolidation Right renal cyst Posterior osteophytes at T12-L1 Right central disc protrusion at T11-12 with posterior osteophytes but no evidence of canal stenosis at 2152 Reported and signed by: Alea Denise DO Electronically Signed: Alea Denise DO at 21:51 EDT Tel , Service support , Medical Necessity - Tobacco Use Smoking Status: Never smoker Assessment/Plan All Active Problems (This Medical Record has been edited. Action required.) Severe sepsis (Acute) HCAP (healthcare-associated pneumonia) (Acute) Acute renal failure (Acute) Dehydration (Acute) Hypoxemia (Acute) Fall with injury (Acute) Right acetabular fracture (Acute) RECOMMENDATIONS: 1. Discontinue bicarbonate drip 2. Consider ID and nephrology consultations. 3. Maintain patient n.p.o., pending further work-up/recommendations by speech therapy. 4. Continue gentle IV fluid hydration. 5. Await speech recommendations 6. Consider MINE IMPRESSIONS: 1. Severe sepsis Secondary to MRSA bacteremia with concerns for potential pulmonary and urinary sources of infection as well. Clinical concern for potential aspiration event leading to the development of pneumonia. Appreciate infectious disease evaluation. MRIs are not suggestive of source.. Patient has had significant improvement in leukocytosis overnight. Echocardiogram did not show vegetations. However giving him persistent blood cultures, evaluation with MINE is likely indicated. 2. Acute hypoxemic respiratory insufficiency Likely secondary to underlying pulmonary infectious process, which may have been precipitated by an acute aspiration event. Wean supplemental oxygen to maintain saturations at or above 90%. Encourage incentive spirometer use. Patient is on minimal nasal cannula oxygen at this time. Likely has an element of atelectasis contributing to current status. 3. Acute kidney injury Continues to improve. Likely prerenal in etiology and related to #1. Carbonate has normalized. Will discontinue bicarbonate drip. Continue to monitor urine output. 4. Anemia/hypertension/hyperlipidemia/diabetes mellitus/cerebral palsy/epilepsy Complicates care, management, recovery and prognosis. While the patient does have baseline anemia, it appears to be worse at this time. Continue to monitor blood counts daily. Transfuse if hemoglobin drops below 7 g/dL. Continue PPI therapy as ordered. Code Visit Inpatient E&M: 63739 [facility] Hosp L3
--- NOTE | 2018-10-01 10:30 | CASEMGMT ---
LEEANN called [facility] and spoke with Francia. LEEANN let her know patient will be ready in the next day or so. Patient is a nursing home resident so we do not need to wait on pre-cert for patient to return. Plan: d/c back to [facility]. Tess LAYTON MSW
[2018-10-01 12:10] LABS: Bedside Glucose 358 mg/dL (70-110)
[2018-10-01] MEDS: Heparin Injection (Vial) 5,000 UNIT/ML VIAL 5000 UNIT SC ×2 (12:11→22:37)
[2018-10-01] MEDS: Menthol/Lanolin/Calamine/Znox 113 GM Tube 1 APPLIC TOPICAL ×4 (12:12→22:37)
--- NOTE | 2018-10-01 12:40 | PN.RENAL_ITS ---
Patient Problems: Active and Suspected Problems (This Medical Record has been edited. Action required.) Severe sepsis (Acute) HCAP (healthcare-associated pneumonia) (Acute) Acute renal failure (Acute) Dehydration (Acute) Hypoxemia (Acute) Subjective: no new complaints - Physical Exam General: Alert, Oriented x3, Cooperative HEENT: Atraumatic, PERRLA, EOMI, Normocephalic Neck: Supple, No JVD, Negative Carotid Bruits Lungs: Clear to auscultation, Normal air movement Cardiovascular: Regular rate, No murmurs Abdomen: Bowel Sounds Present, Soft, Non Tender Extremities: No edema, Capillary Refill Less than 3 Seconds Skin: No rashes, No breakdown Musculoskeletal: No Tenderness to Palpation of Joints or Extremities Neurological: Cranial nerves II-XII grossly intact Psych/Mental Status: Normal Affect, Appropriate Vital Signs Temp Pulse Resp BP Pulse Ox 100 F H 112 H 26 H 156/87 H 95 10/01/18 11:57 10/01/18 11:57 10/01/18 11:57 10/01/18 11:57 10/01/18 11:57 Oxygen Flow Rate (L/min) 2 Oxygen Delivery Method Nasal Cannula Weight: 97.5 kg Body Mass Index (BMI) 34.6 Intake and Output for Last 24 Hours 09/29/18 09/30/18 10/01/18 23:59 23:59 23:59 Intake Total 2066 / 2066 3702.1 / 3702.1 1276 / 1276 Output Total 1200 / 1200 4200 / 4200 1150 / 1150 Balance 866 / 866 -497.9 / -497.9 126 / 126 Microbiology Past 72 Hours 09/29/18 08:45 Blood Culture - Preliminary Blood Culture (Wb) - Other Staphylococcus aureus 09/29/18 12:50 Blood Culture - Preliminary Blood Culture (Wb) - Line Draw Staphylococcus aureus 09/28/18 07:05 Gram Stain - Final Sputum, Induced/Lukens Respiratory Culture - Final Presumptive C albicans Meth. resistant Staph. aureus 09/28/18 02:40 Urine Culture - Final Urine, Clean Catch Meth. resistant Staph. aureus 09/28/18 01:50 Blood Culture - Final Blood Culture (Wb) - Right Wrist Meth. resistant Staph. aureus 09/28/18 02:03 Bacteria Detection (PCR) - Final Blood Culture (Wb) - Right Forearm Staphylococcus aureus mecA Resistance Marker Blood Culture - Final Meth. resistant Staph. aureus 09/28/18 05:30 Respiratory Panel (PCR) - Final Mucosa - Nasopharyngeal 09/28/18 06:55 C. difficile DNA Amplification - Final Stool Laboratory Tests Past 24 Hrs 09/30/18 09/30/18 09/30/18 06:55 06:55 08:08 WBC RBC Hgb Hct MCV MCH MCHC RDW Std Deviation RDW Coeff of Willam Plt Count MPV Sodium Potassium Chloride Carbon Dioxide Anion Gap BUN Creatinine Estim Creat Clear Calc Est GFR (MDRD) Af Amer Est GFR (MDRD) Non-Af BUN/Creatinine Ratio Glucose Calcium Iron 27 L TIBC 87 L Iron Saturation 31.0 Ferritin 652 H Vitamin B12 1214 H Folate 6.30 Random Vancomycin Crossmatch See Detail 10/01/18 10/01/18 10/01/18 05:36 05:36 05:36 WBC 14.8 H RBC 2.50 L Hgb 7.0 L Hct 21.4 L MCV 85.6 MCH 28.0 MCHC 32.7 RDW Std Deviation 45.5 H RDW Coeff of Willam 14.6 Plt Count 417 MPV 9.1 Sodium 148 H Potassium 3.3 L Chloride 108 H Carbon Dioxide 30.0 Anion Gap 10 BUN 58 H Creatinine 2.90 H Estim Creat Clear Calc 21.39 Est GFR (MDRD) Af Amer 28 L Est GFR (MDRD) Non-Af 23 L BUN/Creatinine Ratio 20.0 Glucose 391 H Calcium 7.7 L Iron TIBC Iron Saturation Ferritin Vitamin B12 Folate Random Vancomycin 12.7 Crossmatch POC Glucose 10/01/18 10/01/18 10/01/18 11:53 07:08 03:56 POC Glucose 358 H 386 H 402 H 09/30/18 09/30/18 22:26 22:23 POC Glucose > 500 H* 490 H* Medical Necessity - Tobacco Use Smoking Status: Never smoker Assessment/Plan All Active Problems (This Medical Record has been edited. Action required.) Severe sepsis (Acute) HCAP (healthcare-associated pneumonia) (Acute) Acute renal failure (Acute) Dehydration (Acute) Hypoxemia (Acute) Fall with injury (Acute) Right acetabular fracture (Acute) 1. Acute kidney injury on chronic kidney disease stage 3. Baseline SCr is 1.4- 1.5 mg/dL. Cause of CKD is unknown. NAYAN is most likely prerenal or from ischemic ATN related to sepsis and volume depletion. Pt has also been on ARB and diuretic prior to admit. Another possible cause would be obstructive uropathy from urinary retention. Low suspicion for other causes of NAYAN at this point. cr better. phillips draining clear yellow urine. 2. Metabolic acidosis. Likely due to NAYAN and diarrhea. Pt was also on metformin prior to admit.dc fluids. 3. Hyperkalemia. better 4. Staphylococcus aureus bacteremia. HCAP. on vancomycin now. ID following
[2018-10-01] MEDS: Propranolol 40 MG Tablet PO (13:02)
--- NOTE | 2018-10-01 13:44 | PN_ITS ---
Patient Problems: Active and Suspected Problems (This Medical Record has been edited. Action required.) Severe sepsis (Acute) HCAP (healthcare-associated pneumonia) (Acute) Acute renal failure (Acute) Dehydration (Acute) Hypoxemia (Acute) Subjective: Patient seen and examined. Feels improved today. Reports he is happy he is now able to eat/drink. Denies difficulty swallowing. - Physical Exam General: Alert, Oriented x3, Cooperative HEENT: Atraumatic, PERRLA, EOMI, Normocephalic Oral: Dry Mucosa, - - Poor dentition, coating of tongue improved. Neck: Supple, No JVD, Negative Carotid Bruits Lungs: Clear to auscultation, Diminished Cardiovascular: Regular rate, Regular Rhythm, Normal S1, Normal S2, No murmurs Abdomen: Bowel Sounds Present, Soft, Non Tender, Non-Distended, Obese Extremities: No clubbing, No cyanosis, Capillary Refill Less than 3 Seconds, Edema - Bilateral lower extremities, Jeronimo wraps in place Skin: No rashes, No breakdown, - - Decubitus ulcer, sacral/coccyx region-present on admission Musculoskeletal: No Tenderness to Palpation of Joints or Extremities Neurological: Cranial nerves II-XII grossly intact, Neuro grossly intact Psych/Mental Status: Normal Affect, Appropriate Vital Signs Temp Pulse Resp BP Pulse Ox 99.8 F H 102 H 24 H 139/62 H 99 10/01/18 12:57 10/01/18 12:57 10/01/18 12:57 10/01/18 12:57 10/01/18 12:57 Oxygen Flow Rate (L/min) 2 Oxygen Delivery Method Nasal Cannula Weight: 214 lb 15.211 oz Body Mass Index (BMI) 34.6 Intake and Output for Last 24 Hours 09/29/18 09/30/18 10/01/18 23:59 23:59 23:59 Intake Total 2066 / 2066 3702.1 / 3702.1 1276 / 1276 Output Total 1200 / 1200 4200 / 4200 1150 / 1150 Balance 866 / 866 -497.9 / -497.9 126 / 126 Microbiology Past 72 Hours 09/29/18 08:45 Blood Culture - Preliminary Blood Culture (Wb) - Other Staphylococcus aureus 09/29/18 12:50 Blood Culture - Preliminary Blood Culture (Wb) - Line Draw Staphylococcus aureus 09/28/18 07:05 Gram Stain - Final Sputum, Induced/Lukens Respiratory Culture - Final Presumptive C albicans Meth. resistant Staph. aureus 09/28/18 02:40 Urine Culture - Final Urine, Clean Catch Meth. resistant Staph. aureus 09/28/18 01:50 Blood Culture - Final Blood Culture (Wb) - Right Wrist Meth. resistant Staph. aureus 09/28/18 02:03 Bacteria Detection (PCR) - Final Blood Culture (Wb) - Right Forearm Staphylococcus aureus mecA Resistance Marker Blood Culture - Final Meth. resistant Staph. aureus 09/28/18 05:30 Respiratory Panel (PCR) - Final Mucosa - Nasopharyngeal Laboratory Tests Past 24 Hrs 09/30/18 09/30/18 09/30/18 06:55 06:55 08:08 WBC RBC Hgb Hct MCV MCH MCHC RDW Std Deviation RDW Coeff of Willam Plt Count MPV Sodium Potassium Chloride Carbon Dioxide Anion Gap BUN Creatinine Estim Creat Clear Calc Est GFR (MDRD) Af Amer Est GFR (MDRD) Non-Af BUN/Creatinine Ratio Glucose Calcium Iron 27 L TIBC 87 L Iron Saturation 31.0 Ferritin 652 H Vitamin B12 1214 H Folate 6.30 Random Vancomycin Crossmatch See Detail 10/01/18 10/01/18 10/01/18 05:36 05:36 05:36 WBC 14.8 H RBC 2.50 L Hgb 7.0 L Hct 21.4 L MCV 85.6 MCH 28.0 MCHC 32.7 RDW Std Deviation 45.5 H RDW Coeff of Willam 14.6 Plt Count 417 MPV 9.1 Sodium 148 H Potassium 3.3 L Chloride 108 H Carbon Dioxide 30.0 Anion Gap 10 BUN 58 H Creatinine 2.90 H Estim Creat Clear Calc 21.39 Est GFR (MDRD) Af Amer 28 L Est GFR (MDRD) Non-Af 23 L BUN/Creatinine Ratio 20.0 Glucose 391 H Calcium 7.7 L Iron TIBC Iron Saturation Ferritin Vitamin B12 Folate Random Vancomycin 12.7 Crossmatch POC Glucose 10/01/18 10/01/18 10/01/18 11:53 07:08 03:56 POC Glucose 358 H 386 H 402 H 09/30/18 09/30/18 22:26 22:23 POC Glucose > 500 H* 490 H* Medical Necessity - Tobacco Use Smoking Status: Never smoker Assessment/Plan All Active Problems (This Medical Record has been edited. Action required.) Severe sepsis (Acute) HCAP (healthcare-associated pneumonia) (Acute) Acute renal failure (Acute) Dehydration (Acute) Hypoxemia (Acute) Fall with injury (Acute) Right acetabular fracture (Acute) 1. Severe sepsis secondary to MRSA bacteremia, healthcare associated pneumonia and acute UTI, concern for aspiration as well-chest x-ray on admission with right perihilar and basilar opacities concerning for pneumonia. Urinalysis with greater than 100 WBC, 3+ bacteria. MRSA PCR positive. Continue IV vancomycin. Blood cultures positive for MRSA. Urine culture positive for Staphylococcus aureus. Sputum culture with Staphylococcus species. Repeat blood cultures +MRSA as well. 3rd blood cultures pending. ID following. Echocardiogram completed given bacteremia which is an EF of 70%. 2. Acute hypoxic respiratory insufficiency secondary to healthcare associated pneumonia-continue supplement oxygen to maintain O2 at or above 90%. Pulmonary medicine following. Albuterol and DuoNeb aerosols. 3. Acute kidney injury with hyperkalemia on chronic kidney disease stage III- Nephrology consult placed. Renal ultrasound demonstrates limited visualization of the right kidney, mild degree of right hydronephrosis suspected. Christopher placed due to suspected retention. Continue Flomax. Renal function improving. Patient now with hypokalemia. Replace per protocol. 4. Metabolic acidosis-resolved, bicarb drip discontinued. 5. Chronic coccyx decubitus ulcer-present on admission. Without evidence of infection. Every 2 hours turns. Wound RN consult. 6. Hypertension-Home regimen on hold given hypotension and acute kidney injury on admission. Continue to monitor. 7. Hyperlipidemia-continue statin regimen. 8. Type 2 diabetes mellitus-hold oral regimen. Accu-Cheks ACHS with sliding scale insulin. Continue home long-acting regimen. 9. Cerebral palsy- PT/OT. Resides at SNF. 10. History of epilepsy-seizure precautions. Continue home phenobarbital regimen. 11. Acute on Chronic normocytic anemia/iron deficiency anemia-hemoglobin has steadily decreased during admission. Hemoglobin this morning 7.0. 2 units PRBC ordered. Stool for occult blood pending. Trend CBC. 12. Dysphagia- ST following. To undergo swallow study tomorrow morning. Continue dietary modifications per speech therapy recommendations. DVT prophylaxis-heparin subcu CODE STATUS: DNR CCA This patient was seen by BARBARA CoreaC under the supervision of Dr. Garcia.
[2018-10-01 14:35] LABS: Magnesium 1.6 mg/dL (1.6-2.6)
[2018-10-01] MEDS: 0.9% NaCl Peripheral Flush Adult/Peds IV (14:59)
--- NOTE | 2018-10-01 15:00 | PCM.PN.ID ---
Patient Problems: Active and Suspected Problems (This Medical Record has been edited. Action required.) Severe sepsis (Acute) HCAP (healthcare-associated pneumonia) (Acute) Acute renal failure (Acute) Dehydration (Acute) Hypoxemia (Acute) Subjective: No fever, sister who is POA at bedside. Has chronic back pain. - Physical Exam General: Cooperative, No apparent distress Lungs: Rhonchi Cardiovascular: Tachycardic Abdomen: Soft, Non Tender, Non-Distended Skin: No rashes Vital Signs Temp Pulse Resp BP Pulse Ox 100.1 F H 86 24 H 131/69 H 96 10/01/18 13:57 10/01/18 13:57 10/01/18 13:57 10/01/18 13:57 10/01/18 13:57 Oxygen Flow Rate (L/min) 2 Oxygen Delivery Method Nasal Cannula Weight: 97.5 kg Body Mass Index (BMI) 34.6 Intake and Output for Last 24 Hours 09/29/18 09/30/18 10/01/18 23:59 23:59 23:59 Intake Total 2066 / 2066 3702.1 / 3702.1 1676 / 1676 Output Total 1200 / 1200 4200 / 4200 1150 / 1150 Balance 866 / 866 -497.9 / -497.9 526 / 526 Microbiology Past 72 Hours 09/29/18 08:45 Blood Culture - Preliminary Blood Culture (Wb) - Other Staphylococcus aureus 09/29/18 12:50 Blood Culture - Preliminary Blood Culture (Wb) - Line Draw Staphylococcus aureus 09/28/18 07:05 Gram Stain - Final Sputum, Induced/Lukens Respiratory Culture - Final Presumptive C albicans Meth. resistant Staph. aureus 09/28/18 02:40 Urine Culture - Final Urine, Clean Catch Meth. resistant Staph. aureus 09/28/18 01:50 Blood Culture - Final Blood Culture (Wb) - Right Wrist Meth. resistant Staph. aureus 09/28/18 02:03 Bacteria Detection (PCR) - Final Blood Culture (Wb) - Right Forearm Staphylococcus aureus mecA Resistance Marker Blood Culture - Final Meth. resistant Staph. aureus Laboratory Tests Past 24 Hrs 09/30/18 10/01/18 10/01/18 08:08 05:36 05:36 WBC 14.8 H RBC 2.50 L Hgb 7.0 L Hct 21.4 L MCV 85.6 MCH 28.0 MCHC 32.7 RDW Std Deviation 45.5 H RDW Coeff of Willam 14.6 Plt Count 417 MPV 9.1 Sodium Potassium Chloride Carbon Dioxide Anion Gap BUN Creatinine Estim Creat Clear Calc Est GFR (MDRD) Af Amer Est GFR (MDRD) Non-Af BUN/Creatinine Ratio Glucose Calcium Magnesium Random Vancomycin 12.7 Crossmatch See Detail 10/01/18 10/01/18 05:36 05:36 WBC RBC Hgb Hct MCV MCH MCHC RDW Std Deviation RDW Coeff of Willam Plt Count MPV Sodium 148 H Potassium 3.3 L Chloride 108 H Carbon Dioxide 30.0 Anion Gap 10 BUN 58 H Creatinine 2.90 H Estim Creat Clear Calc 21.39 Est GFR (MDRD) Af Amer 28 L Est GFR (MDRD) Non-Af 23 L BUN/Creatinine Ratio 20.0 Glucose 391 H Calcium 7.7 L Magnesium 1.6 Random Vancomycin Crossmatch POC Glucose 10/01/18 10/01/18 10/01/18 11:53 07:08 03:56 POC Glucose 358 H 386 H 402 H 09/30/18 09/30/18 22:26 22:23 POC Glucose > 500 H* 490 H* Medical Necessity - Tobacco Use Smoking Status: Never smoker Route of nutrition/ use of supplements: [] Nutritional Intake: [] IV Site: [] Christopher Catheter: [] - Assessment/Plan Antibiotics: [] Assessment/Plan: [] Active and Suspected Problems (This Medical Record has been edited. Action required.) Severe sepsis (Acute) HCAP (healthcare-associated pneumonia) (Acute) Acute renal failure (Acute) Dehydration (Acute) Hypoxemia (Acute) MRSA bacteremia with NAYAN, severe sepsis. Seems likely respiratory source with hematogenous spread to the urine. TTE showed no veg. Continue vanc. Repeat bcx today. Recommend picc be removed to help clear bcx. No infection seen on T and L spine mri. Will follow
[2018-10-01] MEDS: Potassium Chloride 10mEq/100mL 10 MEQ/100 ML IV.SOLN. 100 MEQ IV BOLUS ×4 (15:55→23:58)
[2018-10-01 16:36] LABS: Bedside Glucose 311 mg/dL (70-110)
--- NOTE | 2018-10-01 17:05 | VDUE_ITS ---
Reason For Study: SWELLING Right Proximal Left Proximal Right jugular vein is spontaneous, widely Left subclavian vein is spontaneous, widely patent, phasic, with no intraluminal patent, phasic, with no intraluminal echogenicity noted. echogenicity noted. Right subclavian vein is spontaneous, widely patent, phasic, with no intraluminal echogenicity noted. Right Lower Arm Right radial vein is compressible. Right ulnar vein is compressible. Right Arm Right axillary vein is spontaneous, patent, phasic, competent, compressible and demonstrates augmentation. Right brachial vein is compressible. Rt Cephalic V is dilated and NONCOMPRESSIBLE extending from proximal Cephalic V to IV site placed at antecubital area. Antecubital V area is not visualized due to IV . Right basilic vein is compressible. Interpretation Summary Deep veins of the right upper extremity are patent and compressible segmentally. There is no evidence of deep vein thrombosis. Acute superficial thrombophlebitis is noted in the proximal right cephalic vein, extending to the antecubital space. The median cubital vein was not visualized due to the presence of an IV. The right basilic vein is patent and compressible. Ordering Physician: Haylie Garcia Referring Physician: DEB CASIANO Performed By: Emiliana Dixon, JULISSA, RVT ?
[2018-10-01 22:51] LABS: Bedside Glucose 280 mg/dL (70-110)
[2018-10-02] VITALS (17 sets, daily range): BP systolic 118–160; BP diastolic 54–93; PULSE 49–97; RESP 20–24; TEMP 36.6–37.8; O2SAT 92–96
[2018-10-02] MEDS: Insulin Lispro 100 UNIT/ML INSULN.PEN SC ×4 (03:27→16:36)
[2018-10-02 03:31] LABS: Bedside Glucose 240 mg/dL (70-110)
--- NOTE | 2018-10-02 05:55 | RAD_ITS ---
STUDY: X-RAY CHEST REASON FOR EXAM: Male, 68 years old. Shortness of breath with coughing TECHNIQUE: PA and lateral views of the chest. COMPARISON: 09/28/2018 FINDINGS: Lungs are adequately inflated with patchy infiltrates seen within the right lung and left lung base. Findings are suspicious of infection. No focal consolidation or effusions. There is borderline cardiomegaly. Normal mediastinum and fredi. Normal visualized pulmonary arteries. Normal visualized aortic arch and descending thoracic aorta. There are diffuse degenerative changes of the visualized thoracic spine. Normal visualized ribs, clavicles, and shoulders. There is no demonstrated abnormality of the visualized soft tissue structures of the upper abdomen. RAD/Chest PA and Lateral IMPRESSION: Patchy infiltrate in the right lung and left lung base suggesting infection Electronically Signed: Yadiel Leblanc DO at 15:34 EDT Tel , Service support ,
[2018-10-02 06:21] LABS: Hematocrit 29.1 % (40-54); Hemoglobin 9.7 g/dL (13.0-16.5); Mean Corp Hgb Conc 33.3 g/dL (32-36); Mean Corpuscular Hgb 29.8 pg (27.0-32.0); Mean Corpuscular Volume 89.5 fL (80-94); Mean Platelet Vol. 9.1 fl (6.2-12.0); Platelet Count 373 K/mm3 (150-450); RBC Distribution Width CV 14.3 % (11.6-14.6); RBC Distribution Width SD 46.4 fl (35.1-43.9); Red Blood Count 3.25 M/mm3 (4.6-6.2); White Blood Count 15.6 K/mm3 (4.4-11.0)
[2018-10-02] MEDS: Nystatin Powder 15gm Bottle 1 APPLIC TOPICAL ×2 (06:35→15:39)
[2018-10-02 06:38] LABS: Anion Gap 6 (5-15); BUN 44 mg/dL (7-18); BUN/Creat Ratio 19.1 RATIO (10-20); Chloride 113 mmol/L (98-107); EST Glomerular Filtration Rate 30 mL/min (>60); Est Glom Filt Rate - Afr Amer 36 mL/min (>60); Estimated Creatinine Clearance 26.97 ml/min; Glucose 258 mg/dL (74-106); Potassium 3.4 mmol/L (3.5-5.1); Sodium Level 149 mmol/L (136-145)
[2018-10-02 06:43] LABS: Vancomycin, Random Level 19.4 ug/mL (0.0-15.0)
[2018-10-02 06:46] LABS: Bedside Glucose 241 mg/dL (70-110)
--- NOTE | 2018-10-02 08:48 | PCM.PN.PUL ---
Patient Problems: Active and Suspected Problems (This Medical Record has been edited. Action required.) Severe sepsis (Acute) HCAP (healthcare-associated pneumonia) (Acute) Acute renal failure (Acute) Dehydration (Acute) Hypoxemia (Acute) Subjective: Patient did okay overnight. Patient has remained hemodynamically stable on 3 L nasal cannula oxygen. Patient does report some nausea this morning, but is denying any pain. Patient does remain n.p.o. secondary to swallow concerns. - Physical Exam General: Alert, Cooperative, No apparent distress, - - No conversational dyspnea HEENT: Atraumatic, PERRLA, EOMI, - - Slight scleral injection without icterus Oral: No Gingival or Mucosal Lesions/ Ulcerations, Dry Mucosa, - - Fair dentition Neck: Supple, No JVD, No Nodes, Trachea Midline Lungs: No rhonchi, No wheeze, No rales, Diminished, - - Fair effort. Cardiovascular: Regular rate, Regular Rhythm, Normal S1, Normal S2, No murmurs, No rub noted, No Gallop Abdomen: Bowel Sounds Present, Soft, Non Tender, Non-Distended, Obese Extremities: No clubbing, No cyanosis, No edema Skin: - - No significant change compared to previous Musculoskeletal: No Tenderness to Palpation of Joints or Extremities Lymphatic: No Cervical, Supraclavicular, or Inguinal Adenopathy Neurological: - - Unchanged compared to previous Psych/Mental Status: Appropriate, Flat Affect Vital Signs Temp Pulse Resp BP Pulse Ox 37.8 C H 86 20 H 137/61 H 95 10/02/18 05:46 10/02/18 07:04 10/02/18 05:46 10/02/18 05:46 10/02/18 05:46 Oxygen Flow Rate (L/min) 3 Oxygen Delivery Method Nasal Cannula Weight: 96 kg Body Mass Index (BMI) 34.6 Intake and Output for Last 24 Hours 09/30/18 10/01/18 10/02/18 23:59 23:59 23:59 Intake Total 3702.1 / 3702.1 2076 / 2680 1454 / 1454 Output Total 4200 / 4200 2450 / 3100 1300 / 1300 Balance -497.9 / -497.9 -374 / -420 154 / 154 Microbiology Past 72 Hours 10/01/18 18:05 Stool Occult Blood (YARA) - Final Stool Occult Blood Positive 09/30/18 13:50 Blood Culture - Preliminary Blood Culture (Wb) - Right Wrist 09/29/18 08:45 Blood Culture - Preliminary Blood Culture (Wb) - Other Staphylococcus aureus 09/29/18 12:50 Blood Culture - Preliminary Blood Culture (Wb) - Line Draw Staphylococcus aureus 09/28/18 07:05 Gram Stain - Final Sputum, Induced/Lukens Respiratory Culture - Final Presumptive C albicans Meth. resistant Staph. aureus 09/28/18 02:40 Urine Culture - Final Urine, Clean Catch Meth. resistant Staph. aureus 09/28/18 01:50 Blood Culture - Final Blood Culture (Wb) - Right Wrist Meth. resistant Staph. aureus 09/28/18 02:03 Bacteria Detection (PCR) - Final Blood Culture (Wb) - Right Forearm Staphylococcus aureus mecA Resistance Marker Blood Culture - Final Meth. resistant Staph. aureus Laboratory Tests Past 24 Hrs 09/30/18 09/30/18 10/01/18 08:08 08:08 05:36 WBC RBC Hgb Hct MCV MCH MCHC RDW Std Deviation RDW Coeff of Willam Plt Count MPV Sodium Potassium Chloride Carbon Dioxide Anion Gap BUN Creatinine Estim Creat Clear Calc Est GFR (MDRD) Af Amer Est GFR (MDRD) Non-Af BUN/Creatinine Ratio Glucose Calcium Magnesium 1.6 Random Vancomycin Crossmatch See Detail See Detail 10/02/18 10/02/18 10/02/18 05:35 05:35 05:35 WBC 15.6 H RBC 3.25 L Hgb 9.7 L Hct 29.1 L MCV 89.5 MCH 29.8 MCHC 33.3 RDW Std Deviation 46.4 H RDW Coeff of Willam 14.3 Plt Count 373 MPV 9.1 Sodium 149 H Potassium 3.4 L Chloride 113 H Carbon Dioxide 30.0 Anion Gap 6 BUN 44 H Creatinine 2.30 H Estim Creat Clear Calc 26.97 Est GFR (MDRD) Af Amer 36 L Est GFR (MDRD) Non-Af 30 L BUN/Creatinine Ratio 19.1 Glucose 258 H Calcium 8.0 L Magnesium Random Vancomycin 19.4 H Crossmatch POC Glucose 10/02/18 10/02/18 10/01/18 06:33 03:25 22:29 POC Glucose 241 H 240 H 280 H 10/01/18 10/01/18 16:26 11:53 POC Glucose 311 H 358 H Medical Necessity - Tobacco Use Smoking Status: Never smoker Assessment/Plan All Active Problems (This Medical Record has been edited. Action required.) Severe sepsis (Acute) HCAP (healthcare-associated pneumonia) (Acute) Acute renal failure (Acute) Dehydration (Acute) Hypoxemia (Acute) Fall with injury (Acute) Right acetabular fracture (Acute) RECOMMENDATIONS: 1. Consider increase in basal insulin 2. Appreciate ID and nephrology consultations. 3. Maintain patient n.p.o., pending further work-up/recommendations by speech therapy. 4. Continue gentle IV fluid hydration. 5. Wean oxygen as tolerated 6. Consider MINE IMPRESSIONS: 1. Severe sepsis Secondary to MRSA bacteremia with concerns for potential pulmonary and urinary sources of infection as well. Clinical concern for potential aspiration event leading to the development of pneumonia. Appreciate infectious disease evaluation. MRIs are not suggestive of source. Patient's leukocytosis persists. Fever curve is slightly improved. Transthoracic echocardiogram did not show vegetations. However giving him persistent blood cultures, evaluation with MINE is likely indicated. 2. Acute hypoxemic respiratory insufficiency Likely secondary to underlying pulmonary infectious process, which may have been precipitated by an acute aspiration event. Wean supplemental oxygen to maintain saturations at or above 90%. Encourage incentive spirometer use. Patient is on minimal nasal cannula oxygen at this time. Likely has an element of atelectasis contributing to current status. Patient would benefit from being out of bed as tolerated, compliant with incentive spirometer and Acapella therapy 3. Acute kidney injury Continues to improve. Likely prerenal in etiology and related to #1. Patient is tolerating well off of bicarbonate drip. Continue to monitor urine output. 4. Anemia/hypertension/hyperlipidemia/diabetes mellitus/cerebral palsy/epilepsy Complicates care, management, recovery and prognosis. While the patient does have baseline anemia, it appears to be worse at this time. Continue to monitor blood counts daily. Transfuse if hemoglobin drops below 7 g/dL. Continue PPI therapy as ordered. Patient would benefit from increased basal insulin given persistent hyperglycemia. Code Visit Inpatient E&M: 22080 Subs Hosp L2
[2018-10-02] MEDS: Heparin Injection (Vial) 5,000 UNIT/ML VIAL 5000 UNIT SC (09:18)
[2018-10-02] MEDS: Menthol/Lanolin/Calamine/Znox 113 GM Tube 1 APPLIC TOPICAL ×3 (09:18→16:37)
--- NOTE | 2018-10-02 10:13 | PCM.RX.CS ---
Consult Pharmacy has been consulted to manage selected antiobiotic: Vancomycin Type of Consult: Follow-up Suspected Infection: Pneumonia Prior Doses of Antibiotics Received/Current Regimen: Last dose received was 1500mg iv x1 on 10.01.18 @1555. Labs: Sodium 149 mmol/L (136-145) H 10/02/18 05:35 Potassium 3.4 mmol/L (3.5-5.1) L 10/02/18 05:35 Chloride 113 mmol/L (98-107) H 10/02/18 05:35 Carbon Dioxide 30.0 mmol/L (21.0-32.0) 10/02/18 05:35 6 (5-15) 10/02/18 05:35 BUN 44 mg/dL (7-18) H 10/02/18 05:35 2.30 mg/dL (0.70-1.30) H 10/02/18 05:35 Est GFR (MDRD) Af Amer 36 mL/min (>60) L 10/02/18 05:35 Est GFR (MDRD) Non-Af 30 mL/min (>60) L 10/02/18 05:35 19.1 RATIO (10-20) 10/02/18 05:35 Glucose 258 mg/dL (74-106) H 10/02/18 05:35 Random Vancomycin 19.4 ug/mL (0.0-15.0) H 10/02/18 05:35 Microbiology: Microbiology 09/30/18 13:50 Blood Culture (Wb) - Right Wrist Blood Culture - Preliminary Staphylococcus aureus 09/29/18 12:50 Blood Culture (Wb) - Line Draw Blood Culture - Final Meth. resistant Staph. aureus 09/29/18 08:45 Blood Culture (Wb) - Other Blood Culture - Final Meth. resistant Staph. aureus 10/01/18 18:05 Stool Stool Occult Blood (YARA) - Final Occult Blood Positive 09/28/18 07:05 Sputum, Induced/Lukens Gram Stain - Final 09/28/18 07:05 Sputum, Induced/Lukens Respiratory Culture - Final Presumptive C albicans Meth. resistant Staph. aureus 09/28/18 02:40 Urine, Clean Catch Urine Culture - Final Meth. resistant Staph. aureus 09/28/18 01:50 Blood Culture (Wb) - Right Wrist Blood Culture - Final Meth. resistant Staph. aureus 09/28/18 02:03 Blood Culture (Wb) - Right Forearm Bacteria Detection (PCR) - Final Staphylococcus aureus mecA Resistance Marker 09/28/18 02:03 Blood Culture (Wb) - Right Forearm Blood Culture - Final Meth. resistant Staph. aureus 09/28/18 05:30 Mucosa - Nasopharyngeal Respiratory Panel (PCR) - Final 09/28/18 06:55 Stool C. difficile DNA Amplification - Final 09/28/18 02:40 Urine Catheter - Catheter Legionella Antigen - Final 09/28/18 02:40 Urine Catheter - Catheter Streptococcus pneumoniae Antigen (M - Final Weight used for dosin kg Estimated Creatinine Clearance: ~27 ml/min Goal Trough: 15-20 mcg/mL Pharmacy Plan for Drug Dosing: Will give 1500mg iv x 1 today and get another random level on 10.03.18. Renal status will continue to be monitored. Pharmacy Service will continue to monitor and adjust dosing as required. Follow-Up Labs: Trough Vancomycin - Random level 10.03.18 @3899
--- NOTE | 2018-10-02 11:01 | CASEMGMT ---
Updates faxed to [place] at [facility]. Tess LAYTON [employer] SHOW COORDINATOR
[2018-10-02] MEDS: 0.9% NaCl Peripheral Flush Adult/Peds IV (12:23)
[2018-10-02 12:46] LABS: Bedside Glucose 259 mg/dL (70-110)
--- NOTE | 2018-10-02 13:26 | PN_ITS ---
<Avani Rodriguez - Last Filed: 10/02/18 13:53> Patient Problems: Active and Suspected Problems (This Medical Record has been edited. Action required.) Severe sepsis (Acute) HCAP (healthcare-associated pneumonia) (Acute) Acute renal failure (Acute) Dehydration (Acute) Hypoxemia (Acute) Subjective: Patient seen and examined. Feels improved. Denies current complaints. - Physical Exam General: Alert, Oriented x3, Cooperative HEENT: Atraumatic, PERRLA, EOMI, Normocephalic Oral: - - Poor dentition, tongue and mouth appear improved following oral care. Neck: Supple, No JVD, Negative Carotid Bruits Lungs: Clear to auscultation, Diminished Cardiovascular: Regular rate, Regular Rhythm, Normal S1, Normal S2, No murmurs Abdomen: Bowel Sounds Present, Soft, Non Tender, Non-Distended, Obese Extremities: No clubbing, No cyanosis, Capillary Refill Less than 3 Seconds, Edema - Bilateral lower extremities Skin: No rashes, No breakdown, - - Decubitus ulcer, sacral/coccyx region-present on admission Musculoskeletal: No Tenderness to Palpation of Joints or Extremities Neurological: Cranial nerves II-XII grossly intact, Neuro grossly intact Psych/Mental Status: Normal Affect, Appropriate Vital Signs Temp Pulse Resp BP Pulse Ox 97.8 F 85 20 H 147/71 H 96 10/02/18 09:04 10/02/18 09:04 10/02/18 09:04 10/02/18 09:04 10/02/18 09:04 Oxygen Flow Rate (L/min) 2 Oxygen Delivery Method Nasal Cannula Weight: 211 lb 10.3 oz Body Mass Index (BMI) 34.6 Intake and Output for Last 24 Hours 09/30/18 10/01/18 10/02/18 23:59 23:59 23:59 Intake Total 3702.1 / 3702.1 2076 / 2680 1454 / 1454 Output Total 4200 / 4200 2450 / 3100 1900 / 1900 Balance -497.9 / -497.9 -374 / -420 -446 / -446 Microbiology Past 72 Hours 09/30/18 13:50 Blood Culture - Preliminary Blood Culture (Wb) - Right Wrist Staphylococcus aureus 09/29/18 12:50 Blood Culture - Final Blood Culture (Wb) - Line Draw Meth. resistant Staph. aureus 09/29/18 08:45 Blood Culture - Final Blood Culture (Wb) - Other Meth. resistant Staph. aureus 10/01/18 18:05 Stool Occult Blood (YARA) - Final Stool Occult Blood Positive 09/28/18 07:05 Gram Stain - Final Sputum, Induced/Lukens Respiratory Culture - Final Presumptive C albicans Meth. resistant Staph. aureus 09/28/18 02:40 Urine Culture - Final Urine, Clean Catch Meth. resistant Staph. aureus 09/28/18 01:50 Blood Culture - Final Blood Culture (Wb) - Right Wrist Meth. resistant Staph. aureus 09/28/18 02:03 Bacteria Detection (PCR) - Final Blood Culture (Wb) - Right Forearm Staphylococcus aureus mecA Resistance Marker Blood Culture - Final Meth. resistant Staph. aureus Laboratory Tests Past 24 Hrs 09/30/18 09/30/18 10/01/18 08:08 08:08 05:36 WBC RBC Hgb Hct MCV MCH MCHC RDW Std Deviation RDW Coeff of Willam Plt Count MPV Sodium Potassium Chloride Carbon Dioxide Anion Gap BUN Creatinine Estim Creat Clear Calc Est GFR (MDRD) Af Amer Est GFR (MDRD) Non-Af BUN/Creatinine Ratio Glucose Calcium Magnesium 1.6 Random Vancomycin Crossmatch See Detail See Detail 10/02/18 10/02/18 10/02/18 05:35 05:35 05:35 WBC 15.6 H RBC 3.25 L Hgb 9.7 L Hct 29.1 L MCV 89.5 MCH 29.8 MCHC 33.3 RDW Std Deviation 46.4 H RDW Coeff of Willam 14.3 Plt Count 373 MPV 9.1 Sodium 149 H Potassium 3.4 L Chloride 113 H Carbon Dioxide 30.0 Anion Gap 6 BUN 44 H Creatinine 2.30 H Estim Creat Clear Calc 26.97 Est GFR (MDRD) Af Amer 36 L Est GFR (MDRD) Non-Af 30 L BUN/Creatinine Ratio 19.1 Glucose 258 H Calcium 8.0 L Magnesium Random Vancomycin 19.4 H Crossmatch POC Glucose 10/02/18 10/02/18 10/02/18 12:33 06:33 03:25 POC Glucose 259 H 241 H 240 H 10/01/18 10/01/18 22:29 16:26 POC Glucose 280 H 311 H Medical Necessity - Tobacco Use Smoking Status: Never smoker Assessment/Plan All Active Problems (This Medical Record has been edited. Action required.) Severe sepsis (Acute) HCAP (healthcare-associated pneumonia) (Acute) Acute renal failure (Acute) Dehydration (Acute) Hypoxemia (Acute) Fall with injury (Acute) Right acetabular fracture (Acute) 1. Severe sepsis secondary to MRSA bacteremia, healthcare associated pneumonia and acute UTI, concern for aspiration as well-chest x-ray on admission with right perihilar and basilar opacities concerning for pneumonia. Continue IV vancomycin. Blood cultures positive for MRSA. Urine culture positive for Staphylococcus aureus. Sputum culture with Staphylococcus species. Repeat blood cultures +MRSA X3. ID following. Echocardiogram completed given bacteremia which is an EF of 70%. Midline removed. Difficult IV access. May need PICC line pending blood cultures clearing and recommended course of antibio tics per ID. 2. Acute hypoxic respiratory insufficiency secondary to healthcare associated pneumonia-continue supplement oxygen to maintain O2 at or above 90%. Pulmonary medicine following. Albuterol and DuoNeb aerosols. 3. Acute kidney injury with hyperkalemia on chronic kidney disease stage III- Nephrology consult placed. Renal ultrasound demonstrates limited visualization of the right kidney, mild degree of right hydronephrosis suspected. Christopher placed due to suspected retention. Continue Flomax. Renal function improving. Patient now with hypokalemia. Replace per protocol. 4. Metabolic acidosis-resolved, bicarb drip discontinued. 5. Chronic coccyx decubitus ulcer-present on admission. Without evidence of infection. Every 2 hours turns. Wound RN consult. 6. Hypertension-Home regimen on hold given hypotension and acute kidney injury on admission. Continue to monitor. 7. Hyperlipidemia-continue statin regimen. 8. Type 2 diabetes mellitus-hold oral regimen. Accu-Cheks ACHS with sliding scale insulin. Continue home long-acting regimen. 9. Cerebral palsy- PT/OT. Resides at SNF. 10. History of epilepsy-seizure precautions. Continue home phenobarbital regimen. 11. Acute on Chronic normocytic anemia/iron deficiency anemia-hemoglobin has steadily decreased during admission. S/P 2 units PRBC for hgb 7.0. Stool for occult blood +. Hemoglobin stable this morning. If he continues to have drop in hemoglobin, consult general surgery for scope. 12. Dysphagia- ST following. To undergo modified barium swallow 10/02/2017 at 1400. Continue dietary modifications per speech therapy recommendations. 13. Right upper extremity DVT-midline removed. Preliminary report positive for upper extremity DVT, final report pending. Suspect this is catheter induced. Manage conservatively given acute anemia/occult blood positive stool. DVT prophylaxis-heparin subcu CODE STATUS: DNR CCA Discharge planning: Return to SNF at discharge pending medically stable. This patient was seen by AMANUEL Corea under the supervision of Dr. Urias. <Gus Urias - Last Filed: 10/02/18 15:47> Subjective: Patient overall is lethargic. Shortness of breath has improved. Low-grade temperature 100.1 ?F at 4 AM. Patient still has leukocytosis. BUN/creatinine 44/2.3. Seen by weed cutter. - Physical Exam General: Oriented x3, Cooperative, Lethargic HEENT: Atraumatic, PERRLA, EOMI, Normocephalic Oral: - Neck: Supple, No JVD, Negative Carotid Bruits Lungs: Diminished - Air entry is diminished in both lungs., Right lung base more than left lung base., Rhonchi Cardiovascular: Regular rate, Normal S1, Normal S2, No murmurs, Irregular Rate Abdomen: Bowel Sounds Present, Soft, Non Tender, Non-Distended, Obese Extremities: Capillary Refill Less than 3 Seconds, Edema Skin: Ulcer/ Wound Musculoskeletal: Arthritic Changes Neurological: Cranial nerves II-XII grossly intact, Neuro grossly intact Vital Signs Temp Pulse Resp BP Pulse Ox 98 F 88 24 H 152/59 H 96 10/02/18 14:40 10/02/18 14:40 10/02/18 14:40 10/02/18 14:40 10/02/18 14:40 Oxygen Flow Rate (L/min) 2 Oxygen Delivery Method Nasal Cannula Weight: 211 lb 10.3 oz Body Mass Index (BMI) 34.6 Intake and Output for Last 24 Hours 09/30/18 10/01/18 10/02/18 23:59 23:59 23:59 Intake Total 3702.1 / 3702.1 2076 / 2680 1454 / 1454 Output Total 4200 / 4200 2450 / 3100 1900 / 1900 Balance -497.9 / -497.9 -374 / -420 -446 / -446 Microbiology Past 72 Hours 09/30/18 13:50 Blood Culture - Preliminary Blood Culture (Wb) - Right Wrist Staphylococcus aureus 09/29/18 12:50 Blood Culture - Final Blood Culture (Wb) - Line Draw Meth. resistant Staph. aureus 09/29/18 08:45 Blood Culture - Final Blood Culture (Wb) - Other Meth. resistant Staph. aureus 10/01/18 18:05 Stool Occult Blood (YARA) - Final Stool Occult Blood Positive 09/28/18 07:05 Gram Stain - Final Sputum, Induced/Lukens Respiratory Culture - Final Presumptive C albicans Meth. resistant Staph. aureus 09/28/18 02:40 Urine Culture - Final Urine, Clean Catch Meth. resistant Staph. aureus 09/28/18 01:50 Blood Culture - Final Blood Culture (Wb) - Right Wrist Meth. resistant Staph. aureus 09/28/18 02:03 Bacteria Detection (PCR) - Final Blood Culture (Wb) - Right Forearm Staphylococcus aureus mecA Resistance Marker Blood Culture - Final Meth. resistant Staph. aureus Laboratory Tests Past 24 Hrs 09/30/18 09/30/18 10/02/18 08:08 08:08 05:35 WBC RBC Hgb Hct MCV MCH MCHC RDW Std Deviation RDW Coeff of Willam Plt Count MPV Sodium Potassium Chloride Carbon Dioxide Anion Gap BUN Creatinine Estim Creat Clear Calc Est GFR (MDRD) Af Amer Est GFR (MDRD) Non-Af BUN/Creatinine Ratio Glucose Calcium Random Vancomycin 19.4 H Crossmatch See Detail See Detail 10/02/18 10/02/18 05:35 05:35 WBC 15.6 H RBC 3.25 L Hgb 9.7 L Hct 29.1 L MCV 89.5 MCH 29.8 MCHC 33.3 RDW Std Deviation 46.4 H RDW Coeff of Willam 14.3 Plt Count 373 MPV 9.1 Sodium 149 H Potassium 3.4 L Chloride 113 H Carbon Dioxide 30.0 Anion Gap 6 BUN 44 H Creatinine 2.30 H Estim Creat Clear Calc 26.97 Est GFR (MDRD) Af Amer 36 L Est GFR (MDRD) Non-Af 30 L BUN/Creatinine Ratio 19.1 Glucose 258 H Calcium 8.0 L Random Vancomycin Crossmatch POC Glucose 10/02/18 10/02/18 10/02/18 12:33 06:33 03:25 POC Glucose 259 H 241 H 240 H 10/01/18 10/01/18 22:29 16:26 POC Glucose 280 H 311 H Assessment/Plan This patient was seen in conjunction with OXYHYDROGEN WELDERAvani. I have independently interviewed and examined the patient and reviewed pertinent history, examination findings, laboratory and plan of management. I have reviewed the note and agree with the documented findings with the few additional points. In brief,the patient is a 68 year old M who is [facility] resident was sent to ER from [facility] for progressive worsening of shortness of breath, respiratory distress and hypoxia. Patient also has difficulty in swallowing and has noted change in his voice recently. EMS found 88% on room air and 92% on 4 L of oxygen. Patient was found tachypneic, RR 28-30/min with labored breathing. He was found to Severe sepsis secondary to MRSA bacteremia, healthcare associated pneumonia with acute hypoxic respiratory failure and acute UTI, concern for aspiration and chest x-ray on admission with right perihilar and basilar opacities concerning for pneumonia. Repeated blood culture, last [id number] reported as MRSA. Sputum culture and urine culture positive of MRSA. Patient has multiple active medical issues going on. Acute kidney injury on CKD stage III. Decontamination Technician is following. Patient has concern of right hydronephrosis and has Christopher catheter. Kidney function is improving. Patient also has chronic coccygeal decubitus ulcer. Had metabolic acidosis and was treated with bicarb drip. Metabolic acidosis resolved. Acute on chronic normocytic normochromic anemia/iron deficiency anemia: Had 2 units of PRBC transfusion. Stool for occult blood positive. Dysphagia. On modified barium swallow. I have discussed my assessment with Avani CLARK and orders have been reviewed. Code Visit Inpatient E&M: 34550 Subs Hosp L3
--- NOTE | 2018-10-02 14:00 | SP.MBSS_ITS ---
PRIMARY / SECONDARY DIAGNOSIS: dysphagia (R13.10) REFERRING PHYSICIAN: AMANUEL Corea CURRENT DIET: NPO MENTAL STATUS: sufficient for PO intake RESPIRATORY STATUS: O2 via room air REASON FOR REFERRAL: The Patient is a 68 year old male referred for a modified barium swallow (MBS) study to objectively assess the Patients oropharyngeal swallow function under fluoroscopy secondary to concerns for aspiration admission to [facility] due to sepsis secondary to MRSA bacteremia, with clinical concern for potential aspiration event leading to the development of pneumonia. MEDICAL HISTORY: Cerebral palsy, chronic sacral decubitus ulcer, hypertension, type II diabetes mellitus. PREVIOUS MODIFIED BARIUM SWALLOW STUDY: None. ADDITIONAL OBJECTIVE ASSESSMENT RESULTS: 09/28/2018 chest x-ray revealed right perihilar and basilar opacities concerning for pneumonia; bibasilar linear subsegmental atelectasis versus scarring. ASSESSMENT PARAMETERS: The Patient participated in a Modified Barium Swallow (MBS) study on 10/02/2018. Dr. Whatley was the radiologist present for this evaluation. This study was recorded in the lateral view. Scoring was completed through each trial using the 8-point Penetration-Aspiration Scale (PAS) and Videofluoroscopic Scale Score (VSS), and summarized via the Videofluoroscopic Dysphagia Scale (VDS), NIH Swallowing Safety Scale (NIH-SSS), and the Bolus Residue Scale (BRS), with severity scoring through the Dysphagia Severity Rating Scale (DSRS) and the Swallowing Performance Scale (PSP), and recommended diet textures through the International Dysphagia Diet Standardisation Initiative (IDDSI). RESULTS OF THE EVALUATION: The Patient presents with severe oropharyngeal dysphagia (DSRS: 5; SPS: 7) with grade III SILENT aspiration of thin and nectar thickened liquids, and grade IV overt aspiration of honey thickened liquids likely secondary to the diagnosis of cerebral palsy suspected to be exacerbated from his baseline level of functioning. OBJECTIVE ASSESSMENT OF SWALLOW FUNCTION (QUANTITATIVE ? PER TRIAL): PENETRATION / ASPIRATION SCALE (VALDIVIA): 1 = does not enter airway 2 = enters airway/above vocal folds/ejected 3 = enters airway/above vocal folds/not ejected 4 = enters airway/contacts vocal folds/ejected 5 = enters airway/contacts vocal folds/not ejected 6 = enters airway/below vocal folds/ejected 7 = enters airway/below vocal folds/not ejected despite effort 8 = enters airway/below vocal folds/no effort VIDEOFLOROSCOPIC SCALE SCORE (VALDIVIA): Grade I = aspiration of material that has penetrated into the laryngeal vestibule, intact cough reflex Grade II = aspiration < 10 % of the bolus, intact cough reflex Grade III = aspiration of < 10 % of the bolus, reduced cough reflex or aspiration of > 10 % of the bolus, intact cough reflex Grade IV = aspiration of > 10 % of the bolus, reduced cough reflex PENETRATION / ASPIRATION SCALE (SCORE) WITH VIDEOFLOROSCOPIC SCALE SCORE: Thin liquid - 5 mL tsp.: 1 Thin liquids via straw: 8 ? Grade III Montara thickened liquids via straw: 8 ? Grade III Honey thickened liquids via straw: 5 Honey thickened liquids via straw: 7 ? Grade IV OBJECTIVE ASSESSMENT OF SWALLOW FUNCTION (QUANTITATIVE ? AGGREGATE): VIDEOFLUOROSCOPIC DYSPHAGIA SCALE (VDS) LIP CLOSURE: 2 (of 4) Inadequate BOLUS FORMATION: 6 (of 6) None MASTICATION: 8 (of 8) None APRAXIA: 0 (of 4.5) None TONGUE TO PALATE CONTACT: 5 (of 10) Inadequate PREMATURE BOLUS LOSS: 1.5 (of 4.5) <10% ORAL TRANSIT TIME: 3 (of 3) >1.5s TRIGGERING OF PHARYNGEAL SWALLOW: 0 (of 4.5) Normal VALLECULAR RESIDUE: 4 (of 6) 10-50% LARYNGEAL ELEVATION: 9 (of 9) Impaired PYRIFORM SINUS RESIDUE: 4.5 (of 13.5) <10% COATING OF PHARYNGEAL WALL: 9 (of 9) Yes PHARYNGEAL TRANSIT TIME: 0 (of 6) <1.0s ASPIRATION: 12 (of 12) Subglottic aspiration TOTAL SCORE: 64/100 NIH SWALLOWING SAFETY SCALE (NIH-SSS) RESIDUE IN THE VALLECULA: 1 (present) PENETRATION INTO VESTIBULE FROM HYPOPHARYNX: 1 (present) RESIDUE IN THE PYRIFORM: 1 (present) BACKUP PENETRATION FROM PYRIFORM INTO LARYNGEAL VESTIBULE: 1 (present) ENTRY INTO THE UPPER ESOPHAGUS: 0 (100% entry) ASPIRATION: 1 (present) TOTAL SCORE: 5/6 BOLUS RESIDUE SCALE (BRS): 6 (of 6) residue in valleculae, posterior pharyngeal wall, and piriform sinus DYSPHAGIA SEVERITY RATING SCALE (DSRS): 5 (moderate-severe) SWALLOWING PERFORMANCE SCALE (SPS): 7 (severe) OBJECTIVE ASSESSMENT OF SWALLOW FUNCTION (QUALITATIVE): ORAL PREPARATORY PHASE: patient refused semisolid and solid textures, unable to assess mastication efficacy, though it would be reasonable to expect poor results; suboptimal anterior bolus containment during oral presentation / oral manipulation with anterior bolus loss extending to the labial commissure. ORAL TRANSITIONAL PHASE: incompetent bolus manipulation / transportation with fine albeit consistent discoordinated lingual movements (tremor / undulations); inconsistent oral phase swallow onset (may be behavioral; difficult to discern); impaired oral clearance without side specific consolidation; intermittent mild premature posterior bolus loss. PHARYNGEAL PHASE: mild pharyngeal phase dyssynchrony; reduced hyolaryngeal excursion and duration with insufficient laryngeal vestibule pressure generated to expel penetrated material; significant pharyngeal dysmotility attributed to reduced tongue based retraction / posterior pharyngeal stripping wave action, and reduced pharyngoesophageal segment opening with varied amounts of bolus passing to the esophagus (approximately 15-50%) with increased retention with thicker viscosities; no signs of velopharyngeal impairments; prandial and post prandial penetration and aspiration across all viscosities (~ 5-25%). ESOPHAGEAL PHASE: no obvious esophageal phase abnormalities observed. CONTRIBUTING / COMPLICATING FACTORS AND NOTABLE FINDINGS: insufficient sensory response to less viscous liquids (thin and nectar thickened liquids) of approximately 5-10% of the bolus volume (atussia); weak cued volitional cough intensity generated to expel laryngotracheal aspiration consisting of large volumes of honey thickened liquids (~25%); all images complicated by body habitus, pain with repositioning, and a baseline inability to maintain an upright position, with a strong tendency to lean to the Patients left side; the Patient was unable (vs. unwilling) to self-feed, necessitating trials via straw vs. cup; he further self-terminated the study following the second trial of honey thickened liquids that resulted in aspiration of larger volumes, though it is unlikely that continuation would have had any significant impact on the likelihood for PO advancement this date; the images associated with the assessment were unable to be saved and transferred to PACS as per our typical protocol due to hardware malfunctions this date, with interpretation completed in conjunction with Dr. Whatley in real time during study completion. RESPONSE TO STRATEGIES: unable to execute strategies or tolerate the procedure long enough to employ compensatory strategies. DYSPHAGIA ASSOCIATED MEDICAL CONSIDERATIONS / INTERVENTION CONSIDERATIONS: The Patient was noted to SILENTLY aspirate with thin and nectar thickened liquids, with clinical assessment at bedside relying on identification of classic overt signs and symptoms of aspiration considered unreliable. Varied albeit at times significant quantities of barium penetrated and eventually aspirated, without complete ejection of tracheal aspiration following cued and elicited cough response, raising concern with advancement to an altered viscosity diet due to his potential for tracheobronchial aspiration of more dense viscosities. Would strongly discourage advancement past honey thickened liquids without completion of a repeat modified barium swallow study due to the extent of aspirate identified that was SILENT in nature. Will likely need to consider advancement at bedside as clinically appropriate (likely pureed and honey thickened liquids), as one would anticipate an overt response when considering the above. Would consider the Patient to be at a higher risk of aspiration related medical complications / aspiration pneumonia / aspiration related pulmonary syndrome secondary to the diagnosis of cerebral palsy, at times depressed consciousness with suspected impaired cognition, presence of dysphagia and extensive pharyngeal phase impairment, presence and extent of SILENT aspiration of multiple viscosities under fluoroscopy, potential for tracheobronchial aspiration of more dense viscosities, suboptimal oral status, advancing age, lower functional status, and impaired ambulatory status. Would consider this Patient to be a high risk for malnutrition and dehydration due to his continued inability to advance to a PO diet, presence of neurogenic comorbidities, the Patients advancing age, and current severity of dysphagia. The Patient may require intervention to reduce the risk of malnutrition, with possible considerations for alternative means of nutrition following discussion of medical appropriateness. Would consider the Patients quality of life if the Patient and Patient?s family request advancement to less restrictive diet due to the persistent nature of the Patient?s neurogenic based disorders, ONLY if all parties comprehend the severity of the Patient?s swallow deficits and concomitant medical complications associated with persistent aspiration with silent aspiration. INTERVENTION RECOMMENDATIONS AND CONSIDERATIONS: The Patient requires intensive skilled speech-language intervention targeting diet texture management and training / implementation of recommended compensatory strategies (when appropriate); training and implementation of recommended oropharyngeal strengthening exercises to facilitate improved oropharyngeal strength and coordination and reduce the likelihood of disuse atrophy if he is unable to be advanced to a PO diet in a timely manner; training, implementation, and Patient / caregiver education regarding implementation of the [place] Free Water Protocol (FFWP) IF ALL EXCLUSION CRITERIA IS MET; Patient and caregiver education regarding dysphagia associated with cerebral palsy in advanced ages. POST ASSESSMENT EDUCATION: Results and recommendations were discussed with the Patient immediately following MBS completion, though will clearly require further education and likely extended caregiver education. DIET TEXTURE RECOMMENDATIONS: Unable to determine least restrictive means of nutrition based on the findings obtained under fluoroscopy. Recommend continued NPO status; may require considerations for alternative means of nutrition if unable to advance to a PO diet in a timely manner Kyle Gipson M.A., CCC-BATTERY VENT PLUG INSERTER MBSImP Certified, LSVT Certified [facility] Speech-Language Pathology Department [email or web address]
--- NOTE | 2018-10-02 14:00 | RAD_ITS ---
STUDY: SWALLOWING STUDY REASON FOR EXAM: Male, 68 years old. Dysphagia. TECHNIQUE: The examination was performed with Speech Pathology in attendance. Under fluoroscopic observation, the patient ingested thin barium, thick barium, barium pudding, and barium coated cracker. FLUOROSCOPY TIME: 2:19 minutes/seconds RADIOLOGIST INVOLVEMENT: Radiologist was present and providing direct supervision. COMPARISON: None. FINDINGS: The following was observed during swallowing of the various mixtures of barium: Thin Barium: Silent aspiration with ingestion of thin liquids. Thick Barium: Silent aspiration with ingestion of nectar thickened liquids and honey thickened liquids. The patient refused pudding and cracker. RAD/Swallowing Function w/Video IMPRESSION: Side aspiration with ingestion of thin liquids as well as nectar thickened and honey thickened liquids. The swallow study findings were discussed with the patient by the speech pathologist at the conclusion of the examination. Please see speech pathology report for more information and recommendations. Electronically Signed: Liam Whatley, at 15:17 EDT , Service support ,
--- NOTE | 2018-10-02 14:32 | PN.RENAL_ITS ---
Patient Problems: Active and Suspected Problems (This Medical Record has been edited. Action required.) Severe sepsis (Acute) HCAP (healthcare-associated pneumonia) (Acute) Acute renal failure (Acute) Dehydration (Acute) Hypoxemia (Acute) Subjective: no new events - Physical Exam General: Alert, Oriented x3, Cooperative HEENT: Atraumatic, PERRLA, EOMI, Normocephalic Neck: Supple, No JVD, Negative Carotid Bruits Lungs: Clear to auscultation, Normal air movement Cardiovascular: Regular rate, No murmurs Abdomen: Bowel Sounds Present, Soft, Non Tender Extremities: No edema, Capillary Refill Less than 3 Seconds Skin: No rashes, No breakdown Musculoskeletal: No Tenderness to Palpation of Joints or Extremities Neurological: Cranial nerves II-XII grossly intact Psych/Mental Status: Normal Affect, Appropriate Vital Signs Temp Pulse Resp BP Pulse Ox 97.8 F 85 20 H 147/71 H 96 10/02/18 09:04 10/02/18 09:04 10/02/18 09:04 10/02/18 09:04 10/02/18 09:04 Oxygen Flow Rate (L/min) 2 Oxygen Delivery Method Nasal Cannula Weight: 96 kg Body Mass Index (BMI) 34.6 Intake and Output for Last 24 Hours 09/30/18 10/01/18 10/02/18 23:59 23:59 23:59 Intake Total 3702.1 / 3702.1 2076 / 2680 1454 / 1454 Output Total 4200 / 4200 2450 / 3100 1900 / 1900 Balance -497.9 / -497.9 -374 / -420 -446 / -446 Microbiology Past 72 Hours 09/30/18 13:50 Blood Culture - Preliminary Blood Culture (Wb) - Right Wrist Staphylococcus aureus 09/29/18 12:50 Blood Culture - Final Blood Culture (Wb) - Line Draw Meth. resistant Staph. aureus 09/29/18 08:45 Blood Culture - Final Blood Culture (Wb) - Other Meth. resistant Staph. aureus 10/01/18 18:05 Stool Occult Blood (YARA) - Final Stool Occult Blood Positive 09/28/18 07:05 Gram Stain - Final Sputum, Induced/Lukens Respiratory Culture - Final Presumptive C albicans Meth. resistant Staph. aureus 09/28/18 02:40 Urine Culture - Final Urine, Clean Catch Meth. resistant Staph. aureus 09/28/18 01:50 Blood Culture - Final Blood Culture (Wb) - Right Wrist Meth. resistant Staph. aureus 09/28/18 02:03 Bacteria Detection (PCR) - Final Blood Culture (Wb) - Right Forearm Staphylococcus aureus mecA Resistance Marker Blood Culture - Final Meth. resistant Staph. aureus Laboratory Tests Past 24 Hrs 09/30/18 09/30/18 10/01/18 08:08 08:08 05:36 WBC RBC Hgb Hct MCV MCH MCHC RDW Std Deviation RDW Coeff of Willam Plt Count MPV Sodium Potassium Chloride Carbon Dioxide Anion Gap BUN Creatinine Estim Creat Clear Calc Est GFR (MDRD) Af Amer Est GFR (MDRD) Non-Af BUN/Creatinine Ratio Glucose Calcium Magnesium 1.6 Random Vancomycin Crossmatch See Detail See Detail 10/02/18 10/02/18 10/02/18 05:35 05:35 05:35 WBC 15.6 H RBC 3.25 L Hgb 9.7 L Hct 29.1 L MCV 89.5 MCH 29.8 MCHC 33.3 RDW Std Deviation 46.4 H RDW Coeff of Willam 14.3 Plt Count 373 MPV 9.1 Sodium 149 H Potassium 3.4 L Chloride 113 H Carbon Dioxide 30.0 Anion Gap 6 BUN 44 H Creatinine 2.30 H Estim Creat Clear Calc 26.97 Est GFR (MDRD) Af Amer 36 L Est GFR (MDRD) Non-Af 30 L BUN/Creatinine Ratio 19.1 Glucose 258 H Calcium 8.0 L Magnesium Random Vancomycin 19.4 H Crossmatch POC Glucose 10/02/18 10/02/18 10/02/18 12:33 06:33 03:25 POC Glucose 259 H 241 H 240 H 10/01/18 10/01/18 22:29 16:26 POC Glucose 280 H 311 H Medical Necessity - Tobacco Use Smoking Status: Never smoker Assessment/Plan All Active Problems (This Medical Record has been edited. Action required.) Severe sepsis (Acute) HCAP (healthcare-associated pneumonia) (Acute) Acute renal failure (Acute) Dehydration (Acute) Hypoxemia (Acute) Fall with injury (Acute) Right acetabular fracture (Acute) 1. Acute kidney injury on chronic kidney disease stage 3. Baseline SCr is 1.4- 1.5 mg/dL. Cause of CKD is unknown. NAYAN is most likely prerenal or from ischemic ATN related to sepsis and volume depletion. Pt has also been on ARB and diuretic prior to admit. Another possible cause would be obstructive uropathy from urinary retention. Low suspicion for other causes of NAYAN at this point. cr better. phillips draining clear yellow urine. 2. Metabolic acidosis. Likely due to NAYAN and diarrhea. Pt was also on metformin prior to admit.dc fluids. 3. Hyperkalemia. better. K is now low. repletion as per primary 4. Staphylococcus aureus bacteremia. HCAP. on vancomycin now.
[2018-10-02 17:00] LABS: Bedside Glucose 242 mg/dL (70-110)
--- NOTE | 2018-10-02 19:15 | NURSING ---
Patient's sister, Nicole Alegria, called PCU and talked to Marco A Kurtz RN and this nurse prabha. Updated Nicole on pt. condition and obtained verbal consent via phone for PICC line placement prabha. Consent verified by Marco A MENDIETA and Thelma MENDIETA.
--- NOTE | 2018-10-02 20:29 | NURSING ---
Did not put in order for potassium IV at this time per pharmacy instructions due to patient has no IV access and PICC line is to be placed tonight. Will put in order once PICC is actually in place. Central line concentration IV potassium is different from peripheral line potassium.
[2018-10-03] VITALS (15 sets, daily range): BP systolic 136–186; BP diastolic 64–95; PULSE 81–104; RESP 20–27; TEMP 37.2–38.1; O2SAT 91–96
[2018-10-03] MEDS: Menthol/Lanolin/Calamine/Znox 113 GM Tube 1 APPLIC TOPICAL ×5 (00:09→20:51)
[2018-10-03] MEDS: Insulin Lispro 100 UNIT/ML INSULN.PEN SC ×6 (00:09→22:36)
[2018-10-03] MEDS: Nystatin Powder 15gm Bottle 1 APPLIC TOPICAL ×4 (00:11→20:51)
[2018-10-03] MEDS: Heparin Injection (Vial) 5,000 UNIT/ML VIAL 5000 UNIT SC ×3 (00:22→22:36)
[2018-10-03 00:46] LABS: Bedside Glucose 243 mg/dL (70-110)
--- NOTE | 2018-10-03 03:55 | NURSING ---
Dr. Power notified of pt. BP 186/94 and 163/87. Pt. NPO.
[2018-10-03] MEDS: 0.9% NaCl Peripheral Flush Adult/Peds IV ×3 (06:25→10:42)
[2018-10-03 06:40] LABS: Hematocrit 31.5 % (40-54); Hemoglobin 10.1 g/dL (13.0-16.5); Mean Corp Hgb Conc 32.1 g/dL (32-36); Mean Corpuscular Hgb 29.2 pg (27.0-32.0); Mean Platelet Vol. 8.9 fl (6.2-12.0); Platelet Count 371 K/mm3 (150-450); RBC Distribution Width CV 14.7 % (11.6-14.6); RBC Distribution Width SD 48.6 fl (35.1-43.9); Red Blood Count 3.46 M/mm3 (4.6-6.2); White Blood Count 13.7 K/mm3 (4.4-11.0)
[2018-10-03 07:01] LABS: Bedside Glucose 217 mg/dL (70-110)
[2018-10-03 07:05] LABS: Anion Gap 7 (5-15); BUN 37 mg/dL (7-18); BUN/Creat Ratio 17.5 RATIO (10-20); Calcium,Total 7.9 mg/dL (8.5-10.1); Chloride 116 mmol/L (98-107); Creatinine, Serum 2.12 mg/dL (0.70-1.30); EST Glomerular Filtration Rate 33 mL/min (>60); Est Glom Filt Rate - Afr Amer 40 mL/min (>60); Estimated Creatinine Clearance 29.26 ml/min; Glucose 231 mg/dL (74-106); Potassium 3.4 mmol/L (3.5-5.1); Sodium Level 154 mmol/L (136-145)
[2018-10-03 07:20] LABS: Bedside Glucose 232 mg/dL (70-110)
--- NOTE | 2018-10-03 08:21 | PN_ITS ---
Patient Problems: Active and Suspected Problems (This Medical Record has been edited. Action required.) Severe sepsis (Acute) HCAP (healthcare-associated pneumonia) (Acute) Acute renal failure (Acute) Dehydration (Acute) Hypoxemia (Acute) Subjective: Patient did well hemodynamically overnight. No acute issues were reported outsi de of some confusion. Patient reportedly had some issues with confusion overnight and was pulling out his IVs. Patient had a PICC line placed and has been doing well. Objective: Patient had a swallow study yesterday showing aspiration with all consistencies. - Physical Exam General: Alert, Cooperative, No apparent distress, Disoriented, - - Speaking in full sentences. HEENT: Atraumatic, PERRLA, EOMI, - - No scleral icterus or injection noted. Oral: Moist Mucosa, No Gingival or Mucosal Lesions/ Ulcerations Neck: Supple, No JVD, No Nodes, Trachea Midline Lungs: No wheeze, No rales, Diminished, Rhonchi - Scattered Cardiovascular: Regular rate, Regular Rhythm, Normal S1, Normal S2, No rub noted, No Gallop Abdomen: Bowel Sounds Present, Soft, Non Tender, Non-Distended Extremities: No clubbing, No cyanosis, Capillary Refill Less than 3 Seconds, Edema Skin: - - No significant change compared to previous Musculoskeletal: No Tenderness to Palpation of Joints or Extremities Lymphatic: No Cervical, Supraclavicular, or Inguinal Adenopathy Neurological: Cranial nerves II-XII grossly intact, Neuro grossly intact Psych/Mental Status: Flat Affect, Restless Vital Signs Temp Pulse Resp BP Pulse Ox 37.5 C H 91 24 H 178/94 H 96 10/03/18 05:52 10/03/18 07:10 10/03/18 05:52 10/03/18 05:52 10/03/18 07:48 Oxygen Flow Rate (L/min) 3 Oxygen Delivery Method Room Air Weight: 95.4 kg Body Mass Index (BMI) 34.6 Intake and Output for Last 24 Hours 10/01/18 10/02/18 10/03/18 23:59 23:59 23:59 Intake Total 2076 / 2680 1454 / 1454 110 / 110 Output Total 2450 / 3100 3200 / 3200 1100 / 1100 Balance -374 / -420 -1746 / -1746 -990 / -990 Microbiology Past 72 Hours 09/30/18 13:50 Blood Culture - Final Blood Culture (Wb) - Right Wrist Meth. resistant Staph. aureus 09/29/18 12:50 Blood Culture - Final Blood Culture (Wb) - Line Draw Meth. resistant Staph. aureus 09/29/18 08:45 Blood Culture - Final Blood Culture (Wb) - Other Meth. resistant Staph. aureus 10/01/18 18:05 Stool Occult Blood (YARA) - Final Stool Occult Blood Positive 09/28/18 07:05 Gram Stain - Final Sputum, Induced/Lukens Respiratory Culture - Final Presumptive C albicans Meth. resistant Staph. aureus 09/28/18 02:40 Urine Culture - Final Urine, Clean Catch Meth. resistant Staph. aureus 09/28/18 01:50 Blood Culture - Final Blood Culture (Wb) - Right Wrist Meth. resistant Staph. aureus 09/28/18 02:03 Bacteria Detection (PCR) - Final Blood Culture (Wb) - Right Forearm Staphylococcus aureus mecA Resistance Marker Blood Culture - Final Meth. resistant Staph. aureus Laboratory Tests Past 24 Hrs 10/03/18 10/03/18 06:20 06:20 WBC 13.7 H RBC 3.46 L Hgb 10.1 L Hct 31.5 L MCV 91.0 MCH 29.2 MCHC 32.1 RDW Std Deviation 48.6 H RDW Coeff of Willam 14.7 H Plt Count 371 MPV 8.9 Sodium 154 H Potassium 3.4 L Chloride 116 H Carbon Dioxide 31.0 Anion Gap 7 BUN 37 H Creatinine 2.12 H Estim Creat Clear Calc 29.26 Est GFR (MDRD) Af Amer 40 L Est GFR (MDRD) Non-Af 33 L BUN/Creatinine Ratio 17.5 Glucose 231 H Calcium 7.9 L POC Glucose 10/03/18 10/03/18 10/02/18 07:08 03:06 23:58 POC Glucose 232 H 217 H 243 H 10/02/18 10/02/18 16:32 12:33 POC Glucose 242 H 259 H Clinical Impression(s) from Imaging Studies Chest X-Ray 10/02/18 05:55 IMPRESSION: Patchy infiltrate in the right lung and left lung base suggesting infection Electronically Signed: Yadiel Leblanc DO at 15:34 EDT Tel , Service support , Videofluoroscopic Swallow 10/02/18 14:00 IMPRESSION: Side aspiration with ingestion of thin liquids as well as nectar thickened and honey thickened liquids. The swallow study findings were discussed with the patient by the speech pathologist at the conclusion of the examination. Please see speech pathology report for more information and recommendations. Electronically Signed: Liam Phylicia, at 15:17 EDT , Service support , Medical Necessity - Tobacco Use Smoking Status: Never smoker Assessment/Plan All Active Problems (This Medical Record has been edited. Action required.) Severe sepsis (Acute) HCAP (healthcare-associated pneumonia) (Acute) Acute renal failure (Acute) Dehydration (Acute) Hypoxemia (Acute) Fall with injury (Acute) Right acetabular fracture (Acute) RECOMMENDATIONS: 1. Consider increase in basal insulin 2. Appreciate ID and nephrology consultations. 3. Maintain patient n.p.o., pending further work-up/recommendations by speech therapy. Possible need for G-tube if aggressive 4. Continue gentle IV fluid hydration. 5. Wean oxygen as tolerated 6. Consider MINE 7. We will dynamically stable on room air. Will sign off from a critical care/pulmonary perspective IMPRESSIONS: 1. Severe sepsis Secondary to MRSA bacteremia with concerns for potential pulmonary and urinary sources of infection as well. Clinical concern for potential aspiration event leading to the development of pneumonia. Appreciate infectious disease evaluation. MRIs are not suggestive of source. Patient's leukocytosis persists. Fever curve is slightly improved. Transthoracic echocardiogram did not show vegetations. However giving him persistent blood cultures, evaluation with MINE is likely indicated. 2. Acute hypoxemic respiratory insufficiency secondary to MRSA pneumonia Patient is currently on room air and doing well. Patient should have a walking oximetry prior to discharge. Likely secondary to underlying pulmonary infectious process, which may have been precipitated by an acute aspiration event. Encourage incentive spirometer use. Patient would benefit from being out of bed as tolerated, compliant with incentive spirometer and Acapella therapy 3. Acute kidney injury Continues to improve slowly. Likely prerenal in etiology and related to #1. Patient is tolerating well off of bicarbonate drip. Continue to monitor urine output. 4. Anemia/hypertension/hyperlipidemia/diabetes mellitus/cerebral palsy/epilepsy Complicates care, management, recovery and prognosis. While the patient does have baseline anemia, it appears to be worse at this time. Continue to monitor blood counts daily. Transfuse if hemoglobin drops below 7 g/dL. Continue PPI therapy as ordered. Patient would benefit from increased basal insulin given persistent hyperglycemia. Code Visit Inpatient E&M: 15416 Subs Hosp L2
--- NOTE | 2018-10-03 10:32 | PCM.PN.ID ---
Patient Problems: Active and Suspected Problems (This Medical Record has been edited. Action required.) Severe sepsis (Acute) HCAP (healthcare-associated pneumonia) (Acute) Acute renal failure (Acute) Dehydration (Acute) Hypoxemia (Acute) Subjective: Failed swallow study. No fever, family visiting. - Physical Exam General: No apparent distress Lungs: Clear to auscultation, Normal air movement Cardiovascular: Regular rate, Regular Rhythm Abdomen: Soft, Non Tender, Non-Distended Skin: No rashes Vital Signs Temp Pulse Resp BP Pulse Ox 99.5 F H 91 24 H 178/94 H 96 10/03/18 05:52 10/03/18 07:10 10/03/18 05:52 10/03/18 05:52 10/03/18 07:48 Oxygen Flow Rate (L/min) 3 Oxygen Delivery Method Room Air Weight: 95.4 kg Body Mass Index (BMI) 34.6 Intake and Output for Last 24 Hours 10/01/18 10/02/18 10/03/18 23:59 23:59 23:59 Intake Total 2076 / 2680 1454 / 1454 110 / 110 Output Total 2450 / 3100 3200 / 3200 1100 / 1100 Balance -374 / -420 -1746 / -1746 -990 / -990 Microbiology Past 72 Hours 09/30/18 13:50 Blood Culture - Final Blood Culture (Wb) - Right Wrist Meth. resistant Staph. aureus 09/29/18 12:50 Blood Culture - Final Blood Culture (Wb) - Line Draw Meth. resistant Staph. aureus 09/29/18 08:45 Blood Culture - Final Blood Culture (Wb) - Other Meth. resistant Staph. aureus 10/01/18 18:05 Stool Occult Blood (YARA) - Final Stool Occult Blood Positive 09/28/18 07:05 Gram Stain - Final Sputum, Induced/Lukens Respiratory Culture - Final Presumptive C albicans Meth. resistant Staph. aureus 09/28/18 02:40 Urine Culture - Final Urine, Clean Catch Meth. resistant Staph. aureus 09/28/18 01:50 Blood Culture - Final Blood Culture (Wb) - Right Wrist Meth. resistant Staph. aureus 09/28/18 02:03 Bacteria Detection (PCR) - Final Blood Culture (Wb) - Right Forearm Staphylococcus aureus mecA Resistance Marker Blood Culture - Final Meth. resistant Staph. aureus Laboratory Tests Past 24 Hrs 10/03/18 10/03/18 06:20 06:20 WBC 13.7 H RBC 3.46 L Hgb 10.1 L Hct 31.5 L MCV 91.0 MCH 29.2 MCHC 32.1 RDW Std Deviation 48.6 H RDW Coeff of Willam 14.7 H Plt Count 371 MPV 8.9 Sodium 154 H Potassium 3.4 L Chloride 116 H Carbon Dioxide 31.0 Anion Gap 7 BUN 37 H Creatinine 2.12 H Estim Creat Clear Calc 29.26 Est GFR (MDRD) Af Amer 40 L Est GFR (MDRD) Non-Af 33 L BUN/Creatinine Ratio 17.5 Glucose 231 H Calcium 7.9 L POC Glucose 10/03/18 10/03/18 10/02/18 07:08 03:06 23:58 POC Glucose 232 H 217 H 243 H 10/02/18 10/02/18 16:32 12:33 POC Glucose 242 H 259 H Medical Necessity - Tobacco Use Smoking Status: Never smoker Route of nutrition/ use of supplements: [] Nutritional Intake: [] IV Site: [] Christopher Catheter: [] - Assessment/Plan Antibiotics: [] Assessment/Plan: [] Active and Suspected Problems (This Medical Record has been edited. Action required.) Severe sepsis (Acute) HCAP (healthcare-associated pneumonia) (Acute) Acute renal failure (Acute) Dehydration (Acute) Hypoxemia (Acute) MRSA bacteremia with NAYAN, severe sepsis. Seems likely respiratory source with hematogenous spread to the urine. TTE showed no veg. Continue vanc. Repeat bcx today. No infection seen on T and L spine mri. Discussed goals of care with family. Agree with plan for palliative eval. Will follow
--- NOTE | 2018-10-03 10:34 | CASEMGMT ---
In rounds physician indicated he spoke with patient's guardians and they are interested in Palliative/Hospice care for patient. LEEANN called patient's sister Nicole who is one of his guardians and verified they want to talk with Palliative/Hospice and that [facility] was okay. She said this is fine. LEEANN told her SW will make the referral and they will call her to set up a time to meet to explain services. LEEANN called [facility] and spoke with Lesly regarding referral. She will call family and set up appt. LEEANN updated RN. Tess LAYTON MSW
[2018-10-03 11:46] LABS: Vancomycin, Trough Level 17.7 ug/mL (5.0-15.0)
--- NOTE | 2018-10-03 12:11 | PN.RENAL_ITS ---
Patient Problems: Active and Suspected Problems (This Medical Record has been edited. Action required.) Severe sepsis (Acute) HCAP (healthcare-associated pneumonia) (Acute) Acute renal failure (Acute) Dehydration (Acute) Hypoxemia (Acute) Subjective: no new events - Physical Exam General: Alert, Oriented x3, Cooperative HEENT: Atraumatic, PERRLA, EOMI, Normocephalic Neck: Supple, No JVD, Negative Carotid Bruits Lungs: Clear to auscultation, Normal air movement Cardiovascular: Regular rate, No murmurs Abdomen: Bowel Sounds Present, Soft, Non Tender Extremities: No edema, Capillary Refill Less than 3 Seconds Skin: No rashes, No breakdown Musculoskeletal: No Tenderness to Palpation of Joints or Extremities Neurological: Cranial nerves II-XII grossly intact Psych/Mental Status: Normal Affect, Appropriate Vital Signs Temp Pulse Resp BP Pulse Ox 100.2 F H 103 H 22 H 158/90 H 91 10/03/18 10:48 10/03/18 10:48 10/03/18 10:48 10/03/18 10:48 10/03/18 10:48 Oxygen Flow Rate (L/min) 3 Oxygen Delivery Method Room Air Weight: 95.4 kg Body Mass Index (BMI) 34.6 Intake and Output for Last 24 Hours 10/01/18 10/02/18 10/03/18 23:59 23:59 23:59 Intake Total 2076 / 2680 1454 / 1454 110 / 110 Output Total 2450 / 3100 3200 / 3200 1100 / 1100 Balance -374 / -420 -1746 / -1746 -990 / -990 Microbiology Past 72 Hours 09/30/18 13:50 Blood Culture - Final Blood Culture (Wb) - Right Wrist Meth. resistant Staph. aureus 09/29/18 12:50 Blood Culture - Final Blood Culture (Wb) - Line Draw Meth. resistant Staph. aureus 09/29/18 08:45 Blood Culture - Final Blood Culture (Wb) - Other Meth. resistant Staph. aureus 10/01/18 18:05 Stool Occult Blood (YARA) - Final Stool Occult Blood Positive 09/28/18 07:05 Gram Stain - Final Sputum, Induced/Lukens Respiratory Culture - Final Presumptive C albicans Meth. resistant Staph. aureus 09/28/18 02:40 Urine Culture - Final Urine, Clean Catch Meth. resistant Staph. aureus Laboratory Tests Past 24 Hrs 10/03/18 10/03/18 10/03/18 06:20 06:20 11:10 WBC 13.7 H RBC 3.46 L Hgb 10.1 L Hct 31.5 L MCV 91.0 MCH 29.2 MCHC 32.1 RDW Std Deviation 48.6 H RDW Coeff of Willam 14.7 H Plt Count 371 MPV 8.9 Sodium 154 H Potassium 3.4 L Chloride 116 H Carbon Dioxide 31.0 Anion Gap 7 BUN 37 H Creatinine 2.12 H Estim Creat Clear Calc 29.26 Est GFR (MDRD) Af Amer 40 L Est GFR (MDRD) Non-Af 33 L BUN/Creatinine Ratio 17.5 Glucose 231 H Calcium 7.9 L Vancomycin Trough 17.7 H POC Glucose 10/03/18 10/03/18 10/02/18 07:08 03:06 23:58 POC Glucose 232 H 217 H 243 H 10/02/18 10/02/18 16:32 12:33 POC Glucose 242 H 259 H Medical Necessity - Tobacco Use Smoking Status: Never smoker Assessment/Plan All Active Problems (This Medical Record has been edited. Action required.) Severe sepsis (Acute) HCAP (healthcare-associated pneumonia) (Acute) Acute renal failure (Acute) Dehydration (Acute) Hypoxemia (Acute) Fall with injury (Acute) Right acetabular fracture (Acute) 1. Acute kidney injury on chronic kidney disease stage 3. Baseline SCr is 1.4-1. 5 mg/dL. Cause of CKD is unknown. NAYAN is most likely prerenal or from ischemic ATN related to sepsis and volume depletion. Pt has also been on ARB and diuretic prior to admit. Another possible cause would be obstructive uropathy from urinary retention. Low suspicion for other causes of NAYAN at this point. cr better. phillips draining clear yellow urine. 2. Metabolic acidosis. Likely due to NAYAN and diarrhea. Pt was also on metformin prior to admit.dc fluids. 3. Hyperkalemia. better. K is now low. repletion as per primary 4. Hypernatremia. due to poor oral intake. sugars are already high. speech therapy eval today. hold off D5W for now ok to phenobarbital
--- NOTE | 2018-10-03 12:40 | PCM.RX.CS ---
Consult Pharmacy has been consulted to manage selected antiobiotic: Vancomycin Type of Consult: Follow-up Suspected Infection: Sepsis Labs: Sodium 154 mmol/L (136-145) H 10/03/18 06:20 Potassium 3.4 mmol/L (3.5-5.1) L 10/03/18 06:20 Chloride 116 mmol/L (98-107) H 10/03/18 06:20 Carbon Dioxide 31.0 mmol/L (21.0-32.0) 10/03/18 06:20 7 (5-15) 10/03/18 06:20 BUN 37 mg/dL (7-18) H 10/03/18 06:20 2.12 mg/dL (0.70-1.30) H 10/03/18 06:20 Est GFR (MDRD) Af Amer 40 mL/min (>60) L 10/03/18 06:20 Est GFR (MDRD) Non-Af 33 mL/min (>60) L 10/03/18 06:20 17.5 RATIO (10-20) 10/03/18 06:20 Glucose 231 mg/dL (74-106) H 10/03/18 06:20 Vancomycin Trough 17.7 ug/mL (5.0-15.0) H 10/03/18 11:10 Random Vancomycin 19.4 ug/mL (0.0-15.0) H 10/02/18 05:35 Microbiology: Microbiology 09/30/18 13:50 Blood Culture (Wb) - Right Wrist Blood Culture - Final Meth. resistant Staph. aureus 09/29/18 12:50 Blood Culture (Wb) - Line Draw Blood Culture - Final Meth. resistant Staph. aureus 09/29/18 08:45 Blood Culture (Wb) - Other Blood Culture - Final Meth. resistant Staph. aureus 10/01/18 18:05 Stool Stool Occult Blood (YARA) - Final Occult Blood Positive 09/28/18 07:05 Sputum, Induced/Lukens Gram Stain - Final 09/28/18 07:05 Sputum, Induced/Lukens Respiratory Culture - Final Presumptive C albicans Meth. resistant Staph. aureus 09/28/18 02:40 Urine, Clean Catch Urine Culture - Final Meth. resistant Staph. aureus 09/28/18 01:50 Blood Culture (Wb) - Right Wrist Blood Culture - Final Meth. resistant Staph. aureus 09/28/18 02:03 Blood Culture (Wb) - Right Forearm Bacteria Detection (PCR) - Final Staphylococcus aureus mecA Resistance Marker 09/28/18 02:03 Blood Culture (Wb) - Right Forearm Blood Culture - Final Meth. resistant Staph. aureus 09/28/18 05:30 Mucosa - Nasopharyngeal Respiratory Panel (PCR) - Final 09/28/18 06:55 Stool C. difficile DNA Amplification - Final 09/28/18 02:40 Urine Catheter - Catheter Legionella Antigen - Final 09/28/18 02:40 Urine Catheter - Catheter Streptococcus pneumoniae Antigen (M - Final Weight used for dosin kg Goal Trough: 15-20 mcg/mL Pharmacy Plan for Drug Dosing: Pt's random level results came back at 17.7. Will dose at Vancomycin 1500mg IV x1 and check another random level 10/04/18 at 1130. Pharmacy will continue to dose off of random levels due to pt's renal function. Pharmacy Service will continue to monitor and adjust dosing as required. Follow-Up Labs: Trough Vancomycin - random 10/04/18 @ 1130
--- NOTE | 2018-10-03 12:48 | PCM.PROGNOTE ---
<Dennis Hall - Last Filed: 10/03/18 12:48> Patient Problems: Active and Suspected Problems (This Medical Record has been edited. Action required.) Severe sepsis (Acute) HCAP (healthcare-associated pneumonia) (Acute) Acute renal failure (Acute) Dehydration (Acute) Hypoxemia (Acute) Subjective: Pt c/o pain in his sacrum. He also complains of ongoing SOB at rest and non productive cough. He has no fevers/chills. He is very weak and contracted. Discussed the severity of his condition with his guardians. He has not eaten in 4 days, he aspirates, and is persistently bacteremic with MRSA, with ongoing kidney failure, and decubitus ulcers, and will continue to decline with his poor functional status. They feel palliative is appropriate. - Physical Exam General: Alert, Oriented x3, Cooperative HEENT: Atraumatic, PERRLA, EOMI, Normocephalic Neck: Supple, No JVD, Negative Carotid Bruits Lungs: Diminished, Rales - BL Lower lobes Cardiovascular: Regular rate, No murmurs Abdomen: Bowel Sounds Present, Soft, Non Tender Extremities: Capillary Refill Less than 3 Seconds, Edema - BL pedal edema Skin: - - contracted upper and lower ext Musculoskeletal: No Tenderness to Palpation of Joints or Extremities Neurological: Cranial nerves II-XII grossly intact Psych/Mental Status: Normal Affect, Appropriate, Alert and oriented to time, place, person, mood and affect Vital Signs Temp Pulse Resp BP Pulse Ox 100.2 F H 103 H 22 H 158/90 H 91 10/03/18 10:48 10/03/18 10:48 10/03/18 10:48 10/03/18 10:48 10/03/18 10:48 Oxygen Flow Rate (L/min) 3 Oxygen Delivery Method Room Air Weight: 210 lb 5.136 oz Body Mass Index (BMI) 34.6 Intake and Output for Last 24 Hours 10/01/18 10/02/18 10/03/18 23:59 23:59 23:59 Intake Total 2076 / 2680 1454 / 1454 110 / 110 Output Total 2450 / 3100 3200 / 3200 1100 / 1100 Balance -374 / -420 -1746 / -1746 -990 / -990 Microbiology Past 72 Hours 09/30/18 13:50 Blood Culture - Final Blood Culture (Wb) - Right Wrist Meth. resistant Staph. aureus 09/29/18 12:50 Blood Culture - Final Blood Culture (Wb) - Line Draw Meth. resistant Staph. aureus 09/29/18 08:45 Blood Culture - Final Blood Culture (Wb) - Other Meth. resistant Staph. aureus 10/01/18 18:05 Stool Occult Blood (YARA) - Final Stool Occult Blood Positive Laboratory Tests Past 24 Hrs 10/03/18 10/03/18 10/03/18 06:20 06:20 11:10 WBC 13.7 H RBC 3.46 L Hgb 10.1 L Hct 31.5 L MCV 91.0 MCH 29.2 MCHC 32.1 RDW Std Deviation 48.6 H RDW Coeff of Willam 14.7 H Plt Count 371 MPV 8.9 Sodium 154 H Potassium 3.4 L Chloride 116 H Carbon Dioxide 31.0 Anion Gap 7 BUN 37 H Creatinine 2.12 H Estim Creat Clear Calc 29.26 Est GFR (MDRD) Af Amer 40 L Est GFR (MDRD) Non-Af 33 L BUN/Creatinine Ratio 17.5 Glucose 231 H Calcium 7.9 L Vancomycin Trough 17.7 H POC Glucose 10/03/18 10/03/18 10/02/18 07:08 03:06 23:58 POC Glucose 232 H 217 H 243 H 10/02/18 16:32 POC Glucose 242 H Medical Necessity - Tobacco Use Smoking Status: Never smoker Assessment/Plan All Active Problems (This Medical Record has been edited. Action required.) Severe sepsis (Acute) HCAP (healthcare-associated pneumonia) (Acute) Acute renal failure (Acute) Dehydration (Acute) Hypoxemia (Acute) Fall with injury (Acute) Right acetabular fracture (Acute) 1. Severe sepsis secondary to MRSA bacteremia, healthcare associated pneumonia and acute UTI, probably Continue IV vancomycin. He has a PICC line given his pulling out his IVs, however this is not ideal with the ongoing bacteremia. Repeat cultures pending, several repeats positive already. Urine culture positive for Staphylococcus aureus. Sputum culture with Staphylococcus species. ID following. TTE done, no valvular involvement. 2. Acute hypoxic respiratory failure secondary to healthcare associated pneumonia-continue supplement oxygen to maintain O2 at or above 90%. Pulmonary medicine following. Albuterol and DuoNeb aerosols. 3. Acute kidney injury with hyperkalemia on chronic kidney disease stage III-Nephro following. Renal ultrasound demonstrates limited visualization of the right kidney, mild degree of right hydronephrosis suspected. Also urinary retention - phillips in place. Continue Flomax. Renal function improving. 4. Metabolic acidosis-resolved 5. Chronic coccyx decubitus ulcer-present on admission. Wound care following. 6. Hypertension- NPO. 7. Hyperlipidemia-continue statin regimen. 8. Type 2 diabetes mellitus-hold oral regimen. Accu-Cheks ACHS with sliding scale insulin. Continue home long-acting regimen. 9. Cerebral palsy- PT/OT. Resides at SNF. Contracted. Does not walk. Wheelchair bound. 10. History of epilepsy-seizure precautions. Continue home phenobarbital regimen. 11. Acute on Chronic normocytic anemia/iron deficiency anemia-hemoglobin has steadily decreased during admission. S/P 2 units PRBC, this seems to have stabilized. Defer aggressive workup if stable. 12. Dysphagia- ST following. Day 4 NPO, needs either TPN, possibly PEG tube if guardians want to be aggressive, or can eat if the hospice route is pursued. 13. Right upper extremity SVT - superficial, not deep. Conservative care only. DVT prophylaxis-heparin subcu CODE STATUS: DNR CCA Discharge planning: Palliative/Hospice appropriate. Follow blood cultures for now. This patient was seen by Dennis Hall PA-C under the supervision of Dr. Urias. <Gus Urias - Last Filed: 10/03/18 15:43> Subjective: Patient is very physically incapacitated. Lower extremity contracture with positional edema. Patient has shortness of breath at rest with cough. 2 days more awake. Patient is persistently MRSA bacteremia even on vancomycin with kidney failure. - Physical Exam General: Alert, Oriented x3, Cooperative, Lethargic Neck: Supple, No JVD, Negative Carotid Bruits Lungs: Diminished, Rales, Rhonchi, Short of Breath Cardiovascular: Regular rate, Normal S1, Normal S2, No murmurs Abdomen: Bowel Sounds Present, Soft, Non Tender, Non-Distended Extremities: Capillary Refill Less than 3 Seconds, Edema Skin: - - contracted upper and lower ext As per documentation of wound nurse. Stage II 0.5 x 1.2 x 0.1 cm's decubitus ulcer on right upper buttock. Musculoskeletal: Arthritic Changes, Muscle Wasting Vital Signs Temp Pulse Resp BP Pulse Ox 100 F H 86 20 H 158/92 H 92 10/03/18 12:57 10/03/18 13:06 10/03/18 12:57 10/03/18 12:57 10/03/18 12:57 Oxygen Flow Rate (L/min) 3 Oxygen Delivery Method Room Air Weight: 210 lb 5.136 oz Body Mass Index (BMI) 34.6 Intake and Output for Last 24 Hours 10/01/18 10/02/18 10/03/18 23:59 23:59 23:59 Intake Total 2076 / 2680 1454 / 1454 210 / 210 Output Total 2450 / 3100 3200 / 3200 2500 / 2500 Balance -374 / -420 -1746 / -1746 -2290 / -2290 Microbiology Past 72 Hours 10/01/18 14:50 Blood Culture - Preliminary Blood Culture (Wb) - Right Hand No growth in 48 hours. 09/30/18 13:50 Blood Culture - Final Blood Culture (Wb) - Right Wrist Meth. resistant Staph. aureus 09/29/18 12:50 Blood Culture - Final Blood Culture (Wb) - Line Draw Meth. resistant Staph. aureus 09/29/18 08:45 Blood Culture - Final Blood Culture (Wb) - Other Meth. resistant Staph. aureus 10/01/18 18:05 Stool Occult Blood (YARA) - Final Stool Occult Blood Positive Laboratory Tests Past 24 Hrs 10/03/18 10/03/18 10/03/18 06:20 06:20 11:10 WBC 13.7 H RBC 3.46 L Hgb 10.1 L Hct 31.5 L MCV 91.0 MCH 29.2 MCHC 32.1 RDW Std Deviation 48.6 H RDW Coeff of Willam 14.7 H Plt Count 371 MPV 8.9 Sodium 154 H Potassium 3.4 L Chloride 116 H Carbon Dioxide 31.0 Anion Gap 7 BUN 37 H Creatinine 2.12 H Estim Creat Clear Calc 29.26 Est GFR (MDRD) Af Amer 40 L Est GFR (MDRD) Non-Af 33 L BUN/Creatinine Ratio 17.5 Glucose 231 H Calcium 7.9 L Vancomycin Trough 17.7 H POC Glucose 10/03/18 10/03/18 10/03/18 12:40 07:08 03:06 POC Glucose 241 H 232 H 217 H 10/02/18 10/02/18 23:58 16:32 POC Glucose 243 H 242 H Assessment/Plan This patient was seen in conjunction with Dennis FINNEY. I have independently interviewed and examined the patient and reviewed pertinent history, examination findings, laboratory and plan of management. I have reviewed the note and agree with the documented findings with the few additional points. In brief,the patient is a 68 year old M who is skilled nursing resident was sent to ER from [facility] for progressive worsening of shortness of breath, respiratory distress and hypoxia. Patient also has difficulty in swallowing and has noted change in his voice recently. EMS found 88% on room air and 92% on 4 L of oxygen. Patient was found tachypneic, RR 28-30/min with labored breathing. He was found to Severe sepsis secondary to MRSA bacteremia, healthcare associated pneumonia with acute hypoxic respiratory failure and acute UTI, concern for aspiration and chest x-ray on admission with right perihilar and basilar opacities concerning for pneumonia. Repeated blood culture, last 09/30/2018 reported as MRSA even on vancomycin. Sputum culture and urine culture positive of MRSA. Patient has multiple active medical issues going on. Acute kidney injury on CKD stage III. Compressor Operator Adjuster is following. Patient has concern of right hydronephrosis and has Phillips catheter. Kidney function is improving. Improvement of kidney function from 58/2 0.9-30 7/2.12. Sodium went up to 154. K3.4. Patient also has chronic decubitus ulcer and right upper buttock mainly from fecal and urine incontinence. Had metabolic acidosis and was treated with bicarb drip. Metabolic acidosis resolved. Acute on chronic normocytic normochromic anemia/iron deficiency anemia: Had 2 units of PRBC transfusion. Stool for occult blood positive. Dysphagia. On modified barium swallow. Today, admission, hospital course and medications was discussed with patient brother and sister, Ms. Susana Alegria. Further treatment opportunities were also explored but it seems patient general condition, and multiple comorbidities including persistent MRSA, kidney failure and aspiration does not allow further aggressive treatment. They agreed for palliative care. Palliative care consulted. I have discussed my assessment with Dennis FINNEY and orders have been reviewed. Code Visit Inpatient E&M: 00065 Subs Hosp L3
[2018-10-03] MEDS: amLODIPine 10 MG Tablet PO (12:51)
[2018-10-03] MEDS: Propranolol 40 MG Tablet PO ×2 (12:51→22:41)
[2018-10-03] MEDS: guaiFENesin 1,200 MG Tablet 1200 MG PO ×2 (12:51→22:41)
[2018-10-03 13:06] LABS: Bedside Glucose 241 mg/dL (70-110)
--- NOTE | 2018-10-03 13:13 | CASEMGMT ---
LEEANN spoke with Lesly at Hospice and she spoke with patient's sister Nicole and the appt was set up for tomorrow (Sunday at 11am) as long as patient's brother can make it also. LEEANN called [facility] and spoke with Juan who was covering for Francia. LEEANN let her know about appt tomorrow with [facility] and that he will possibly return tomorrow. Tess LAYTON MSW
[2018-10-03 17:26] LABS: Bedside Glucose 235 mg/dL (70-110)
[2018-10-03] MEDS: Atorvastatin Calcium 10 MG Tablet PO (22:41)
[2018-10-03 23:05] LABS: Bedside Glucose 219 mg/dL (70-110)
[2018-10-04] VITALS (18 sets, daily range): BP systolic 140–180; BP diastolic 66–92; PULSE 58–128; RESP 17–28; TEMP 36.8–38.1; O2SAT 92–96
[2018-10-04] MEDS: Albuterol 2.5 MG/3 ML VIAL.NEB. INHALATION (03:04)
[2018-10-04] MEDS: Insulin Lispro 100 UNIT/ML INSULN.PEN SC ×5 (03:56→21:10)
[2018-10-04] MEDS: 0.9% NaCl Midline IV Flush IV ×2 (04:14→18:24)
[2018-10-04 04:26] LABS: Absolute Lymphocyte Count 1.41 X10^3/uL (0.83-4.51); Absolute Neutrophil Count 11.8 X10^3/uL (2.0-7.7); Basophil# 0.04 X10^3/uL; Basophil% 0.3 % (0-1); Eosinophils% 1.4 % (0-5); Hemoglobin 11.2 g/dL (13.0-16.5); Lymphocyte # 1.41 X10^3/ul (4.0); Lymphocyte % 9.8 % (19-41); Mean Corpuscular Hgb 29.6 pg (27.0-32.0); Mean Corpuscular Volume 92.6 fL (80-94); Mean Platelet Vol. 8.9 fl (6.2-12.0); Monocyte# 0.69 X10^3/uL; Monocyte% 4.8 % (0-10); NRBC Flagged by Analyzer 0 % (0-5); Neutrophil # 11.75 X10^3/uL (2.7-7.7); Neutrophil % 81.8 % (47-70); Platelet Count 324 K/mm3 (150-450); RBC Distribution Width CV 14.8 % (11.6-14.6); RBC Distribution Width SD 49.7 fl (35.1-43.9); Red Blood Count 3.78 M/mm3 (4.6-6.2); White Blood Count 14.4 K/mm3 (4.4-11.0)
[2018-10-04 04:38] LABS: Anion Gap 7 (5-15); BUN 35 mg/dL (7-18); BUN/Creat Ratio 17.2 RATIO (10-20); Calcium,Total 7.9 mg/dL (8.5-10.1); Chloride 118 mmol/L (98-107); Creatinine, Serum 2.04 mg/dL (0.70-1.30); EST Glomerular Filtration Rate 34 mL/min (>60); Est Glom Filt Rate - Afr Amer 42 mL/min (>60); Estimated Creatinine Clearance 30.41 ml/min; Glucose 197 mg/dL (74-106); Potassium 3.2 mmol/L (3.5-5.1); Sodium Level 157 mmol/L (136-145)
--- NOTE | 2018-10-04 06:53 | PCA ---
10/04/18 0654 Discussed weight change with Ramila MENDIETA
[2018-10-04 06:56] LABS: Bedside Glucose 192 mg/dL (70-110)
[2018-10-04] MEDS: 0.9% NaCl Peripheral Flush Adult/Peds IV ×4 (07:03→18:06)
[2018-10-04] MEDS: Nystatin Powder 15gm Bottle 1 APPLIC TOPICAL ×3 (07:21→21:12)
[2018-10-04 07:30] LABS: Bedside Glucose 172 mg/dL (70-110)
[2018-10-04] MEDS: Menthol/Lanolin/Calamine/Znox 113 GM Tube 1 APPLIC TOPICAL ×4 (08:57→21:10)
[2018-10-04] MEDS: Heparin Injection (Vial) 5,000 UNIT/ML VIAL 5000 UNIT SC ×2 (11:35→21:10)
[2018-10-04] MEDS: guaiFENesin 1,200 MG Tablet 1200 MG PO ×2 (11:36→21:11)
[2018-10-04] MEDS: Propranolol 40 MG Tablet PO ×2 (11:36→21:11)
[2018-10-04] MEDS: amLODIPine 10 MG Tablet PO (11:36)
[2018-10-04 12:10] LABS: Anion Gap 7 (5-15); BUN 35 mg/dL (7-18); BUN/Creat Ratio 17.6 RATIO (10-20); Calcium,Total 7.7 mg/dL (8.5-10.1); Chloride 121 mmol/L (98-107); Creatinine, Serum 1.99 mg/dL (0.70-1.30); EST Glomerular Filtration Rate 35 mL/min (>60); Est Glom Filt Rate - Afr Amer 43 mL/min (>60); Estimated Creatinine Clearance 31.17 ml/min; Glucose 173 mg/dL (74-106); Potassium 3.5 mmol/L (3.5-5.1); Sodium Level 157 mmol/L (136-145)
[2018-10-04 12:10] LABS: Bedside Glucose 156 mg/dL (70-110)
[2018-10-04 12:40] LABS: Vancomycin, Random Level 20.9 ug/mL (0.0-15.0)
--- NOTE | 2018-10-04 13:20 | CASEMGMT ---
Addendum entered by Nataliya Ramachandran 10/04/18 15:50: REG Hall called pt's guardian Nicole to discuss hospice. Nicole is to call PCU back to speak w/Dennis about what they decide. Ana from [facility] then called, she states family called her also to review the plan, they are still undecided. As per Ana, they did sign hospice papers--however it seems that family may want to continue IV antibiotics, and may consider TPN as mentioned by REG. SW remains available, SW did place a green sheet on the chart in the event family decides they would like pt to return to [facility] on the weekend on hospice. LEEANN called [facility], let Francia know family is deciding what they would like to do. They can do TPN, but pt would need to stay until Sunday for it to be set up. DONN Rae Addendum entered by Nataliya Ramachandran 10/04/18 14:58: SW spoke w/Brother Srinivas outside of room. He states he needs to speak w/his sister who is pt's guardian, but at this time they want to continue to treat the infection. SW spoke w/REG Collins, he called pt's sister Nicole who is one of the two guardians listed on the form from the court(pt's brother Marcel is the other guardian). Family is working on making a decision and is to call PCU back with their decision. DONN Rae Original Note: Pt's brother and sister in law are here, they met w/hospice this morning at the hospice office. They asked about pt's infection. SW spoke w/REG Collins, he spoke w/family. They would like to speak w/Dr. Domínguez as well, he is going to speak w/them. SW will continue to follow. DONN Rae
--- NOTE | 2018-10-04 14:16 | PCM.PN.ID ---
Patient Problems: Active and Suspected Problems (This Medical Record has been edited. Action required.) Severe sepsis (Acute) HCAP (healthcare-associated pneumonia) (Acute) Acute renal failure (Acute) Dehydration (Acute) Hypoxemia (Acute) Subjective: C/o hunger. Family at bedside. Still low grade fever. - Physical Exam General: No apparent distress Lungs: Diminished Cardiovascular: Regular rate, Regular Rhythm Abdomen: Soft, Non Tender, Non-Distended Skin: No rashes Vital Signs Temp Pulse Resp BP Pulse Ox 98.7 F 76 17 152/88 H 92 10/04/18 08:14 10/04/18 08:14 10/04/18 08:14 10/04/18 08:14 10/04/18 08:14 Oxygen Flow Rate (L/min) 2 Oxygen Delivery Method Nasal Cannula Weight: 93.2 kg Body Mass Index (BMI) 34.6 Intake and Output for Last 24 Hours 10/02/18 10/03/18 10/04/18 23:59 23:59 23:59 Intake Total 1454 / 1454 210 / 210 381.7 / 381.7 Output Total 3200 / 3200 3050 / 3050 1275 / 1275 Balance -1746 / -1746 -2840 / -2840 -893.3 / -893.3 Microbiology Past 72 Hours 10/01/18 14:50 Blood Culture - Preliminary Blood Culture (Wb) - Right Hand No growth in 48 hours. 09/30/18 13:50 Blood Culture - Final Blood Culture (Wb) - Right Wrist Meth. resistant Staph. aureus 09/29/18 12:50 Blood Culture - Final Blood Culture (Wb) - Line Draw Meth. resistant Staph. aureus 09/29/18 08:45 Blood Culture - Final Blood Culture (Wb) - Other Meth. resistant Staph. aureus 10/01/18 18:05 Stool Occult Blood (YARA) - Final Stool Occult Blood Positive Laboratory Tests Past 24 Hrs 10/04/18 10/04/18 10/04/18 04:10 04:10 11:30 WBC 14.4 H RBC 3.78 L Hgb 11.2 L Hct 35.0 L MCV 92.6 MCH 29.6 MCHC 32.0 RDW Std Deviation 49.7 H RDW Coeff of Willam 14.8 H Plt Count 324 MPV 8.9 Immature Gran % (Auto) 1.900 H Neut % (Auto) 81.8 H Lymph % (Auto) 9.8 L Millard % (Auto) 4.8 Eos % (Auto) 1.4 Baso % (Auto) 0.3 Absolute Neuts (auto) 11.8 H Absolute Lymphs (auto) 1.41 Nucleated RBC % 0 Sodium 157 H Potassium 3.2 L Chloride 118 H Carbon Dioxide 32.0 Anion Gap 7 BUN 35 H Creatinine 2.04 H Estim Creat Clear Calc 30.41 Est GFR (MDRD) Af Amer 42 L Est GFR (MDRD) Non-Af 34 L BUN/Creatinine Ratio 17.2 Glucose 197 H Calcium 7.9 L Random Vancomycin 20.9 H 10/04/18 11:30 WBC RBC Hgb Hct MCV MCH MCHC RDW Std Deviation RDW Coeff of Willam Plt Count MPV Immature Gran % (Auto) Neut % (Auto) Lymph % (Auto) Millard % (Auto) Eos % (Auto) Baso % (Auto) Absolute Neuts (auto) Absolute Lymphs (auto) Nucleated RBC % Sodium 157 H Potassium 3.5 Chloride 121 H Carbon Dioxide 29.0 Anion Gap 7 BUN 35 H Creatinine 1.99 H Estim Creat Clear Calc 31.17 Est GFR (MDRD) Af Amer 43 L Est GFR (MDRD) Non-Af 35 L BUN/Creatinine Ratio 17.6 Glucose 173 H Calcium 7.7 L Random Vancomycin POC Glucose 10/04/18 10/04/18 10/04/18 11:33 07:18 03:53 POC Glucose 156 H 172 H 192 H 10/03/18 10/03/18 22:24 16:57 POC Glucose 219 H 235 H Medical Necessity - Tobacco Use Smoking Status: Never smoker Route of nutrition/ use of supplements: [] Nutritional Intake: [] IV Site: [] Christopher Catheter: [] - Assessment/Plan Antibiotics: [] Assessment/Plan: [] Active and Suspected Problems (This Medical Record has been edited. Action required.) Severe sepsis (Acute) HCAP (healthcare-associated pneumonia) (Acute) Acute renal failure (Acute) Dehydration (Acute) Hypoxemia (Acute) MRSA bacteremia with NAYAN, severe sepsis. Seems likely respiratory source with hematogenous spread to the urine. TTE showed no veg. Continue vanc. Repeat bcx neg for past 48h. No infection seen on T and L spine mri. Discussed goals of care with family. Given the patient's desire to eat and poor half-way prognosis, I think hospice is appropriate. Will follow, d/w primary team.
--- NOTE | 2018-10-04 15:16 | PCM.RX.CS ---
Consult Pharmacy has been consulted to manage selected antiobiotic: Vancomycin Type of Consult: Follow-up Suspected Infection: Sepsis, Pneumonia Prior Doses of Antibiotics Received/Current Regimen: Received 1500mg IV x1 yesterday at 14:02 Labs: Sodium 157 mmol/L (136-145) H 10/04/18 11:30 Potassium 3.5 mmol/L (3.5-5.1) 10/04/18 11:30 Chloride 121 mmol/L (98-107) H 10/04/18 11:30 Carbon Dioxide 29.0 mmol/L (21.0-32.0) 10/04/18 11:30 7 (5-15) 10/04/18 11:30 BUN 35 mg/dL (7-18) H 10/04/18 11:30 1.99 mg/dL (0.70-1.30) H 10/04/18 11:30 Est GFR (MDRD) Af Amer 43 mL/min (>60) L 10/04/18 11:30 Est GFR (MDRD) Non-Af 35 mL/min (>60) L 10/04/18 11:30 17.6 RATIO (10-20) 10/04/18 11:30 Glucose 173 mg/dL (74-106) H 10/04/18 11:30 Vancomycin Trough 17.7 ug/mL (5.0-15.0) H 10/03/18 11:10 Random Vancomycin 20.9 ug/mL (0.0-15.0) H 10/04/18 11:30 Microbiology: Microbiology 10/01/18 14:50 Blood Culture (Wb) - Right Hand Blood Culture - Preliminary No growth in 48 hours. 09/30/18 13:50 Blood Culture (Wb) - Right Wrist Blood Culture - Final Meth. resistant Staph. aureus 09/29/18 12:50 Blood Culture (Wb) - Line Draw Blood Culture - Final Meth. resistant Staph. aureus 09/29/18 08:45 Blood Culture (Wb) - Other Blood Culture - Final Meth. resistant Staph. aureus 10/01/18 18:05 Stool Stool Occult Blood (YARA) - Final Occult Blood Positive 09/28/18 07:05 Sputum, Induced/Lukens Gram Stain - Final 09/28/18 07:05 Sputum, Induced/Lukens Respiratory Culture - Final Presumptive C albicans Meth. resistant Staph. aureus 09/28/18 02:40 Urine, Clean Catch Urine Culture - Final Meth. resistant Staph. aureus 09/28/18 01:50 Blood Culture (Wb) - Right Wrist Blood Culture - Final Meth. resistant Staph. aureus 09/28/18 02:03 Blood Culture (Wb) - Right Forearm Bacteria Detection (PCR) - Final Staphylococcus aureus mecA Resistance Marker 09/28/18 02:03 Blood Culture (Wb) - Right Forearm Blood Culture - Final Meth. resistant Staph. aureus 09/28/18 05:30 Mucosa - Nasopharyngeal Respiratory Panel (PCR) - Final 09/28/18 06:55 Stool C. difficile DNA Amplification - Final 09/28/18 02:40 Urine Catheter - Catheter Legionella Antigen - Final 09/28/18 02:40 Urine Catheter - Catheter Streptococcus pneumoniae Antigen (M - Final Weight used for dosin.2 kg Estimated Creatinine Clearance: 31 ml/min Goal Trough: 15-20 mcg/mL Pharmacy Plan for Drug Dosing: The patient's random level results came back at 20.9. Since this is above goal range, we will not give a dose today but will again check another random level 10/05/18 at 1130. Pharmacy will continue to dose off of random levels due to pt's renal function. Pharmacy Service will continue to monitor and adjust dosing as required. Follow-Up Labs: Trough Vancomycin - random Labs to be done on [date and time ordered]: 10/05/09 11:30
--- NOTE | 2018-10-04 15:35 | PCM.PROGNOTE ---
<Dennis Hall - Last Filed: 10/04/18 15:35> Patient Problems: Active and Suspected Problems (This Medical Record has been edited. Action required.) Severe sepsis (Acute) HCAP (healthcare-associated pneumonia) (Acute) Acute renal failure (Acute) Dehydration (Acute) Hypoxemia (Acute) Subjective: This morning the patient was more lethargic, coughing more, and more SOB. He complains of throat pain. He remains NPO. I had an extended conversation with family today about the goals of care. They initially expressed interest in hospice, but later stated they wanted the MRSA cleared before sending him back to the SNF and having hospice get involved after he returns to the SNF. I explained that if they wanted to continue treatment of the underlying process (aspiration pneumonia) then we need to establish a nutrition plan, eg TPN vs Feeding tube. They want him to be able to eat with hospice, however they want the aspiration pneumonia treated. I explained that you cannot treat the aspiration pneumonia with antibiotics alone, and that the aspiration issue must be addressed to expect any treatment success. They are unsure what they want to do at this point. The patient is MRDD and his family are guardians. I did attempt to talk to him about a PEG tube and he did not want it, however it is unclear whether he really understands what this means. He has pulled out peripheral IVs, so far he has not pulled out his PEG tube. - Physical Exam General: Alert, Cooperative, Confused, Lethargic HEENT: Atraumatic, PERRLA, EOMI, Normocephalic Neck: Supple, No JVD, Negative Carotid Bruits Lungs: No rales, Diminished Cardiovascular: Regular rate, No murmurs Abdomen: Bowel Sounds Present, Soft, Non Tender Extremities: Capillary Refill Less than 3 Seconds, Edema Skin: No rashes, No breakdown Musculoskeletal: No Tenderness to Palpation of Joints or Extremities Neurological: Cranial nerves II-XII grossly intact Psych/Mental Status: Normal Affect, Appropriate Vital Signs Temp Pulse Resp BP Pulse Ox 98.2 F 69 20 H 140/66 H 94 10/04/18 14:14 10/04/18 14:14 10/04/18 14:14 10/04/18 14:14 10/04/18 14:14 Oxygen Flow Rate (L/min) 2 Oxygen Delivery Method Nasal Cannula Weight: 205 lb 7.533 oz Body Mass Index (BMI) 34.6 Intake and Output for Last 24 Hours 10/02/18 10/03/18 10/04/18 23:59 23:59 23:59 Intake Total 1454 / 1454 210 / 210 381.7 / 381.7 Output Total 3200 / 3200 3050 / 3050 1275 / 1275 Balance -1746 / -1746 -2840 / -2840 -893.3 / -893.3 Microbiology Past 72 Hours 10/01/18 14:50 Blood Culture - Preliminary Blood Culture (Wb) - Right Hand No growth in 48 hours. 09/30/18 13:50 Blood Culture - Final Blood Culture (Wb) - Right Wrist Meth. resistant Staph. aureus 09/29/18 12:50 Blood Culture - Final Blood Culture (Wb) - Line Draw Meth. resistant Staph. aureus 09/29/18 08:45 Blood Culture - Final Blood Culture (Wb) - Other Meth. resistant Staph. aureus 10/01/18 18:05 Stool Occult Blood (YARA) - Final Stool Occult Blood Positive Laboratory Tests Past 24 Hrs 10/04/18 10/04/18 10/04/18 04:10 04:10 11:30 WBC 14.4 H RBC 3.78 L Hgb 11.2 L Hct 35.0 L MCV 92.6 MCH 29.6 MCHC 32.0 RDW Std Deviation 49.7 H RDW Coeff of Willam 14.8 H Plt Count 324 MPV 8.9 Immature Gran % (Auto) 1.900 H Neut % (Auto) 81.8 H Lymph % (Auto) 9.8 L [place] % (Auto) 4.8 Eos % (Auto) 1.4 Baso % (Auto) 0.3 Absolute Neuts (auto) 11.8 H Absolute Lymphs (auto) 1.41 Nucleated RBC % 0 Sodium 157 H Potassium 3.2 L Chloride 118 H Carbon Dioxide 32.0 Anion Gap 7 BUN 35 H Creatinine 2.04 H Estim Creat Clear Calc 30.41 Est GFR (MDRD) Af Amer 42 L Est GFR (MDRD) Non-Af 34 L BUN/Creatinine Ratio 17.2 Glucose 197 H Calcium 7.9 L Random Vancomycin 20.9 H 10/04/18 11:30 WBC RBC Hgb Hct MCV MCH MCHC RDW Std Deviation RDW Coeff of Willam Plt Count MPV Immature Gran % (Auto) Neut % (Auto) Lymph % (Auto) [place] % (Auto) Eos % (Auto) Baso % (Auto) Absolute Neuts (auto) Absolute Lymphs (auto) Nucleated RBC % Sodium 157 H Potassium 3.5 Chloride 121 H Carbon Dioxide 29.0 Anion Gap 7 BUN 35 H Creatinine 1.99 H Estim Creat Clear Calc 31.17 Est GFR (MDRD) Af Amer 43 L Est GFR (MDRD) Non-Af 35 L BUN/Creatinine Ratio 17.6 Glucose 173 H Calcium 7.7 L Random Vancomycin POC Glucose 10/04/18 10/04/18 10/04/18 11:33 07:18 03:53 POC Glucose 156 H 172 H 192 H 10/03/18 10/03/18 22:24 16:57 POC Glucose 219 H 235 H Medical Necessity - Tobacco Use Smoking Status: Never smoker Assessment/Plan All Active Problems (This Medical Record has been edited. Action required.) Severe sepsis (Acute) HCAP (healthcare-associated pneumonia) (Acute) Acute renal failure (Acute) Dehydration (Acute) Hypoxemia (Acute) Fall with injury (Acute) Right acetabular fracture (Acute) 1. Severe sepsis secondary to MRSA bacteremia, healthcare associated pneumonia, aspiration pneumonia, and acute UTI (likely spread from pneumonia), Continue IV vancomycin. He has a PICC line given his pulling out his IVs, however this is not ideal with the ongoing bacteremia. Urine culture positive for Staphylococcus aureus. Sputum culture with Staphylococcus species. ID following. TTE done, no valvular involvement. -Family is deciding whether they want hospice or to treat the aspiration and pneumonia. Continue Vanc / NPO status until then. -I am waiting for the family to call back with regards to his nutrition plan. The patient can eat if they want hospice. If they want the pneumonia and aspiration treated we need to begin TPN or PEG feedings. As he has pulled out peripheral IVs, has MRDD, and very poor functional status, these are difficult options. I have also explained that while it is beneficial to be NPO and have alternative feeding methods with regards to severe dysphagia, it is still possible to aspirate GI secretions regardless of NPO status. -His WBCs have increased again, he is back on o2, and he was more SOB today. Fevers are persistent. -Fortunately he does have a negative blood culture now. -Half NS with K being given for electrolyte imbalances. 2. Acute hypoxic respiratory failure secondary to healthcare associated pneumonia-continue supplement oxygen to maintain O2 at or above 90%. Pulmonary medicine following. Albuterol and DuoNeb aerosols. 3. Acute kidney injury with hyperkalemia on chronic kidney disease stage III-Nephro following. Renal ultrasound demonstrates limited visualization of the right kidney, mild degree of right hydronephrosis suspected. Also urinary retention - phillips in place. Continue Flomax. Renal function stabilized. 4. Metabolic acidosis-resolved 5. Chronic coccyx decubitus ulcer-present on admission. Wound care following. 6. Hypertension- NPO. 7. Hyperlipidemia-continue statin regimen. 8. Type 2 diabetes mellitus-hold oral regimen. Accu-Cheks ACHS with sliding scale insulin. Continue home long-acting regimen. 9. Cerebral palsy- PT/OT. Resides at SNF. Contracted. Does not walk. Wheelchair bound. Associated MRDD. 10. History of epilepsy-seizure precautions. Continue home phenobarbital regimen. 11. Acute on Chronic normocytic anemia/iron deficiency anemia-hemoglobin has steadily decreased during admission. S/P 2 units PRBC, this seems to have stabilized. Defer aggressive workup if stable. 12. Dysphagia- ST following. Day 4 NPO, needs either TPN, possibly PEG tube if guardians want to be aggressive, or can eat if the hospice route is pursued. 13. Right upper extremity SVT - superficial, not deep. Conservative care only. DVT prophylaxis-heparin subcu Discharge planning: Guardians are undecided about next steps of care. Hospice vs aggressive treatment. This patient was seen by Dennis Hall PA-C under the supervision of Dr. Urias. <Gus Urias - Last Filed: 10/04/18 16:22> Subjective: Patient is lethargic and wakes up on voice command. Patient is bedbound and contractures of lower extremity. Patient hospice meeting is scheduled at 11 AM. - Physical Exam General: Cooperative, Confused, Disoriented, Lethargic HEENT: Atraumatic, PERRLA, EOMI, Normocephalic Neck: Supple, No JVD, Negative Carotid Bruits Lungs: No rales, Diminished, Rhonchi, Short of Breath Cardiovascular: Regular rate, Normal S1, Normal S2, No murmurs Abdomen: Bowel Sounds Present, Soft, Non Tender, Non-Distended Extremities: Capillary Refill Less than 3 Seconds, Edema Musculoskeletal: Arthritic Changes, Muscle Wasting Neurological: Cranial nerves II-XII grossly intact Psych/Mental Status: Flat Affect Vital Signs Temp Pulse Resp BP Pulse Ox 98.2 F 69 20 H 140/66 H 94 10/04/18 14:14 10/04/18 14:14 10/04/18 14:14 10/04/18 14:14 10/04/18 14:14 Oxygen Flow Rate (L/min) 2 Oxygen Delivery Method Nasal Cannula Weight: 205 lb 7.533 oz Body Mass Index (BMI) 34.6 Intake and Output for Last 24 Hours 10/02/18 10/03/18 10/04/18 23:59 23:59 23:59 Intake Total 1454 / 1454 210 / 210 381.7 / 381.7 Output Total 3200 / 3200 3050 / 3050 1275 / 1275 Balance -1746 / -1746 -2840 / -2840 -893.3 / -893.3 Microbiology Past 72 Hours 10/01/18 14:50 Blood Culture - Preliminary Blood Culture (Wb) - Right Hand No growth in 48 hours. 09/30/18 13:50 Blood Culture - Final Blood Culture (Wb) - Right Wrist Meth. resistant Staph. aureus 09/29/18 12:50 Blood Culture - Final Blood Culture (Wb) - Line Draw Meth. resistant Staph. aureus 09/29/18 08:45 Blood Culture - Final Blood Culture (Wb) - Other Meth. resistant Staph. aureus 10/01/18 18:05 Stool Occult Blood (YARA) - Final Stool Occult Blood Positive Laboratory Tests Past 24 Hrs 10/04/18 10/04/18 10/04/18 04:10 04:10 11:30 WBC 14.4 H RBC 3.78 L Hgb 11.2 L Hct 35.0 L MCV 92.6 MCH 29.6 MCHC 32.0 RDW Std Deviation 49.7 H RDW Coeff of Willam 14.8 H Plt Count 324 MPV 8.9 Immature Gran % (Auto) 1.900 H Neut % (Auto) 81.8 H Lymph % (Auto) 9.8 L [place] % (Auto) 4.8 Eos % (Auto) 1.4 Baso % (Auto) 0.3 Absolute Neuts (auto) 11.8 H Absolute Lymphs (auto) 1.41 Nucleated RBC % 0 Sodium 157 H Potassium 3.2 L Chloride 118 H Carbon Dioxide 32.0 Anion Gap 7 BUN 35 H Creatinine 2.04 H Estim Creat Clear Calc 30.41 Est GFR (MDRD) Af Amer 42 L Est GFR (MDRD) Non-Af 34 L BUN/Creatinine Ratio 17.2 Glucose 197 H Calcium 7.9 L Random Vancomycin 20.9 H 10/04/18 11:30 WBC RBC Hgb Hct MCV MCH MCHC RDW Std Deviation RDW Coeff of Willam Plt Count MPV Immature Gran % (Auto) Neut % (Auto) Lymph % (Auto) [place] % (Auto) Eos % (Auto) Baso % (Auto) Absolute Neuts (auto) Absolute Lymphs (auto) Nucleated RBC % Sodium 157 H Potassium 3.5 Chloride 121 H Carbon Dioxide 29.0 Anion Gap 7 BUN 35 H Creatinine 1.99 H Estim Creat Clear Calc 31.17 Est GFR (MDRD) Af Amer 43 L Est GFR (MDRD) Non-Af 35 L BUN/Creatinine Ratio 17.6 Glucose 173 H Calcium 7.7 L Random Vancomycin POC Glucose 10/04/18 10/04/18 10/04/18 11:33 07:18 03:53 POC Glucose 156 H 172 H 192 H 10/03/18 10/03/18 22:24 16:57 POC Glucose 219 H 235 H Assessment/Plan This patient was seen in conjunction with Dennis FINNEY. I have independently interviewed and examined the patient and reviewed pertinent history, examination findings, laboratory and plan of management. I have reviewed the note and agree with the documented findings with the few additional points. In brief,the patient is a 68 year old M who is intermediate resident was sent to ER from [facility] for progressive worsening of shortness of breath, respiratory distress and hypoxia. Patient also has difficulty in swallowing and has noted change in his voice recently. EMS found 88% on room air and 92% on 4 L of oxygen. Patient was found tachypneic, RR 28-30/min with labored breathing. He was found to Severe sepsis secondary to MRSA bacteremia, healthcare associated pneumonia with acute hypoxic respiratory failure and acute UTI, concern for aspiration and chest x-ray on admission with right perihilar and basilar opacities concerning for pneumonia. Repeated blood culture, last 09/30/2018 reported as MRSA even on vancomycin. Repeat blood culture on 10/01 shows no growth for 48 hours. Sputum culture and urine culture positive of MRSA. Patient has multiple active medical issues going on. Acute kidney injury on CKD stage III. Biomedical Engineering Supervisor is following. Patient has concern of right hydronephrosis and has Phillips catheter. Kidney function is improving. Improvement of kidney function from 58/2 0.9-30 7/2.12. Sodium went up to 154. K3.4. Had metabolic acidosis and was treated with bicarb drip. Metabolic acidosis resolved. Patient also has chronic decubitus ulcer and right upper buttock mainly from fecal and urine incontinence. Acute on chronic normocytic normochromic anemia/iron deficiency anemia: Had 2 units of PRBC transfusion. Stool for occult blood positive. Dysphagia. On modified barium swallow. On 10/03, hospital course and medications was discussed with patient brother and sister, Ms. Susana Alegria. Further treatment opportunities were also explored but it seems patient general condition, and multiple comorbidities including persistent MRSA, kidney failure and aspiration does not allow further aggressive treatment. Palliative care was consulted. Hospice meeting at 11 AM on 10/04. I have discussed my assessment with Dennis FINNEY and orders have been reviewed. Code Visit Inpatient E&M: 53393 Subs Hosp L3
[2018-10-04] MEDS: Tamsulosin HCl 0.4 MG Capsule PO (18:25)
[2018-10-04 18:51] LABS: Bedside Glucose 150 mg/dL (70-110)
[2018-10-04] MEDS: Atorvastatin Calcium 10 MG Tablet PO (21:11)
[2018-10-04 21:26] LABS: Bedside Glucose 237 mg/dL (70-110)
[2018-10-05] VITALS (13 sets, daily range): BP systolic 124–187; BP diastolic 78–107; PULSE 82–109; RESP 20–24; TEMP 36.1–37.3; O2SAT 94–97
[2018-10-05] MEDS: Insulin Lispro 100 UNIT/ML INSULN.PEN SC ×5 (03:17→21:34)
[2018-10-05] MEDS: 0.9% NaCl Peripheral Flush Adult/Peds IV ×3 (03:19→21:44)
[2018-10-05 03:25] LABS: Bedside Glucose 317 mg/dL (70-110)
[2018-10-05] MEDS: Nystatin Powder 15gm Bottle 1 APPLIC TOPICAL ×3 (06:31→21:35)
[2018-10-05 06:40] LABS: Bedside Glucose 291 mg/dL (70-110)
[2018-10-05 07:06] LABS: Absolute Lymphocyte Count 1.12 X10^3/uL (0.83-4.51); Absolute Neutrophil Count 10.2 X10^3/uL (2.0-7.7); Basophil# 0.05 X10^3/uL; Basophil% 0.4 % (0-1); Eosinophil# 0.14 X10^3/uL; Eosinophils% 1.1 % (0-5); Hematocrit 35.7 % (40-54); Hemoglobin 11.3 g/dL (13.0-16.5); Lymphocyte # 1.12 X10^3/ul (4.0); Lymphocyte % 9.2 % (19-41); Mean Corp Hgb Conc 31.7 g/dL (32-36); Mean Corpuscular Hgb 30.1 pg (27.0-32.0); Mean Corpuscular Volume 95.2 fL (80-94); Mean Platelet Vol. 9.4 fl (6.2-12.0); Monocyte# 0.52 X10^3/uL; Monocyte% 4.2 % (0-10); NRBC Flagged by Analyzer 0 % (0-5); Neutrophil # 10.24 X10^3/uL (2.7-7.7); Neutrophil % 83.7 % (47-70); Platelet Count 304 K/mm3 (150-450); RBC Distribution Width SD 52.1 fl (35.1-43.9); Red Blood Count 3.75 M/mm3 (4.6-6.2); White Blood Count 12.2 K/mm3 (4.4-11.0)
[2018-10-05 07:31] LABS: Anion Gap 9 (5-15); BUN 39 mg/dL (7-18); BUN/Creat Ratio 20.2 RATIO (10-20); Calcium,Total 7.9 mg/dL (8.5-10.1); Chloride 120 mmol/L (98-107); Creatinine, Serum 1.93 mg/dL (0.70-1.30); EST Glomerular Filtration Rate 37 mL/min (>60); Est Glom Filt Rate - Afr Amer 44 mL/min (>60); Estimated Creatinine Clearance 32.14 ml/min; Glucose 323 mg/dL (74-106); Potassium 3.4 mmol/L (3.5-5.1); Sodium Level 156 mmol/L (136-145)
[2018-10-05 07:43] LABS: Vancomycin, Random Level 14.2 ug/mL (0.0-15.0)
[2018-10-05] MEDS: Menthol/Lanolin/Calamine/Znox 113 GM Tube 1 APPLIC TOPICAL ×2 (08:09→13:47)
[2018-10-05] MEDS: Heparin Injection (Vial) 5,000 UNIT/ML VIAL 5000 UNIT SC ×2 (08:10→21:34)
[2018-10-05] MEDS: amLODIPine 10 MG Tablet PO (08:10)
[2018-10-05] MEDS: Propranolol 40 MG Tablet PO (08:10)
--- NOTE | 2018-10-05 08:17 | NS ---
Ideally, pt would receive enteral nutrition support via NG or PEG to maintain GI integrity- consult RD for recommendations as needed. If TPN desired, recommend 2L 5% AA/ 20% dextrose at 84mL/hour to provide 1760 calories, 100g AA per day. Recommend 500mL 20% lipid solution 3x/week to provide an additional 1000 calories per infusion or an average of ~2188 calories/day. Would continue daily weights. Recommend daily monitoring of labs, including calcium, magnesium, and phosphorus. Recommend measurement of baseline triglycerides. Please call clinical RD at [phone] w/ further questions. Luis M Jerry MS, RDN, LD
[2018-10-05] MEDS: Potassium Chloride 10mEq/100mL 10 MEQ/100 ML IV.SOLN. 100 MEQ IV BOLUS ×4 (09:43→15:15)
[2018-10-05 11:40] LABS: Bedside Glucose 353 mg/dL (70-110)
--- NOTE | 2018-10-05 12:57 | PCM.PROGNOTE ---
<Dennis Hall - Last Filed: 10/05/18 12:57> Patient Problems: Active and Suspected Problems (This Medical Record has been edited. Action required.) Severe sepsis (Acute) HCAP (healthcare-associated pneumonia) (Acute) Acute renal failure (Acute) Dehydration (Acute) Hypoxemia (Acute) Subjective: No complaints. In bed partially on right side NAD. Lethargic this AM. Family is considering hospice vs aggressive therapy. Tolerating TPN. - Physical Exam General: Alert, Cooperative HEENT: Atraumatic, PERRLA, EOMI, Normocephalic Neck: Supple, No JVD, Negative Carotid Bruits Lungs: Diminished, Rhonchi Cardiovascular: Regular rate, No murmurs Abdomen: Bowel Sounds Present, Soft, Non Tender Extremities: No edema, Capillary Refill Less than 3 Seconds Skin: No rashes, No breakdown Musculoskeletal: No Tenderness to Palpation of Joints or Extremities Neurological: Cranial nerves II-XII grossly intact Psych/Mental Status: Normal Affect, Appropriate, Alert and oriented to time, place, person, mood and affect Vital Signs Temp Pulse Resp BP Pulse Ox 97 F L 89 24 H 187/88 H 97 10/05/18 08:00 10/05/18 08:00 10/05/18 08:00 10/05/18 08:00 10/05/18 08:00 Oxygen Flow Rate (L/min) 2 Oxygen Delivery Method Nasal Cannula Weight: 192 lb 14.472 oz Body Mass Index (BMI) 34.6 Intake and Output for Last 24 Hours 10/03/18 10/04/18 10/05/18 23:59 23:59 23:59 Intake Total 210 / 210 1701.7 / 1701.7 1058.7 / 1058.7 Output Total 3050 / 3050 2375 / 2375 1675 / 1675 Balance -2840 / -2840 -673.3 / -673.3 -616.3 / -616.3 Microbiology Past 72 Hours 10/03/18 08:35 Blood Culture - Preliminary Blood Culture (Wb) - Right Hand No growth in 48 hours. 10/01/18 14:50 Blood Culture - Preliminary Blood Culture (Wb) - Right Hand No growth in 48 hours. 09/30/18 13:50 Blood Culture - Final Blood Culture (Wb) - Right Wrist Meth. resistant Staph. aureus 09/29/18 12:50 Blood Culture - Final Blood Culture (Wb) - Line Draw Meth. resistant Staph. aureus 09/29/18 08:45 Blood Culture - Final Blood Culture (Wb) - Other Meth. resistant Staph. aureus Laboratory Tests Past 24 Hrs 10/05/18 10/05/18 10/05/18 05:38 05:38 05:38 WBC 12.2 H RBC 3.75 L Hgb 11.3 L Hct 35.7 L MCV 95.2 H MCH 30.1 MCHC 31.7 L RDW Std Deviation 52.1 H RDW Coeff of Willam 15.0 H Plt Count 304 MPV 9.4 Immature Gran % (Auto) 1.400 H Neut % (Auto) 83.7 H Lymph % (Auto) 9.2 L Coles % (Auto) 4.2 Eos % (Auto) 1.1 Baso % (Auto) 0.4 Absolute Neuts (auto) 10.2 H Absolute Lymphs (auto) 1.12 Nucleated RBC % 0 Sodium 156 H Potassium 3.4 L Chloride 120 H Carbon Dioxide 27.0 Anion Gap 9 BUN 39 H Creatinine 1.93 H Estim Creat Clear Calc 32.14 Est GFR (MDRD) Af Amer 44 L Est GFR (MDRD) Non-Af 37 L BUN/Creatinine Ratio 20.2 H Glucose 323 H Calcium 7.9 L Random Vancomycin 14.2 POC Glucose 10/05/18 10/05/18 10/05/18 11:15 06:29 03:09 POC Glucose 353 H 291 H 317 H 10/04/18 10/04/18 21:04 17:58 POC Glucose 237 H 150 H Medical Necessity - Tobacco Use Smoking Status: Never smoker Assessment/Plan All Active Problems (This Medical Record has been edited. Action required.) Severe sepsis (Acute) HCAP (healthcare-associated pneumonia) (Acute) Acute renal failure (Acute) Dehydration (Acute) Hypoxemia (Acute) Fall with injury (Acute) Right acetabular fracture (Acute) 1. Severe sepsis secondary to MRSA bacteremia, healthcare associated pneumonia, aspiration pneumonia, and acute UTI (likely spread from pneumonia), Continue IV vancomycin. He has a PICC line given his pulling out his IVs, however this is not ideal with the ongoing bacteremia. Urine culture positive for Staphylococcus aureus. Sputum culture with Staphylococcus species. ID following. TTE done, no valvular involvement. -Family is deciding whether they want hospice or to treat the aspiration and pneumonia. Continue Vanc / NPO status until then. -WBCs improved. -he is now >24 hours without fever. -Latest blood cultures negative. -Half NS with K being given for electrolyte imbalances. 2. Acute hypoxic respiratory failure secondary to healthcare associated pneumonia-continue supplement oxygen to maintain O2 at or above 90%. Pulmonary medicine following. Albuterol and DuoNeb aerosols. 3. Acute kidney injury with hyperkalemia on chronic kidney disease stage III-Nephro following. Renal ultrasound demonstrates limited visualization of the right kidney, mild degree of right hydronephrosis suspected. Also urinary retention - phillips in place. Continue Flomax. Renal function stabilized. 4. Metabolic acidosis-resolved 5. Chronic coccyx decubitus ulcer-present on admission. Wound care following. 6. Hypertension- NPO. 7. Hyperlipidemia-continue statin regimen. 8. Type 2 diabetes mellitus-hold oral regimen. Accu-Cheks ACHS with sliding scale insulin. Continue home long-acting regimen. 9. Cerebral palsy- PT/OT. Resides at SNF. Contracted. Does not walk. Wheelchair bound. Associated MRDD. 10. History of epilepsy-seizure precautions. Continue home phenobarbital regimen. 11. Acute on Chronic normocytic anemia/iron deficiency anemia-hemoglobin has steadily decreased during admission. S/P 2 units PRBC, this seems to have stabilized. Defer aggressive workup if stable. 12. Dysphagia- ST following. TPN initiated. Consult to overhead crane inspector for nutritional needs. 13. Right upper extremity SVT - superficial, not deep. Conservative care only. DVT prophylaxis-heparin subcu Discharge planning: Guardians are undecided about next steps of care. Hospice vs aggressive treatment. This patient was seen by Dennis Hall PA-C under the supervision of Dr. Urias. <Gus Urias - Last Filed: 10/05/18 14:39> Subjective: Patient was seen and examined. Patient is still lethargic. Patient's family still not clear on hospice and is indecisive regarding further aggressive treatment. TPN is started yesterday. Pressure also elevated. Blood pressure 187/88. On IV hydralazine as needed. - Physical Exam General: Cooperative, Confused, Disoriented, Lethargic HEENT: Atraumatic, PERRLA, EOMI, Normocephalic Neck: Supple, No JVD, Negative Carotid Bruits Lungs: Diminished, Rhonchi, Short of Breath Cardiovascular: Regular rate, Regular Rhythm, Normal S1, No murmurs Abdomen: Bowel Sounds Present, Soft, Non Tender, Non-Distended, No Hepato-splenomegaly Extremities: Capillary Refill Less than 3 Seconds, Edema Skin: No rashes, Ulcer/ Wound - Ulcer present on the coccygeal region Musculoskeletal: Arthritic Changes Neurological: Deep Tendon Reflexes 2+/4 and Symmetrical, - - Bilateral lower extremity contracture. Vital Signs Temp Pulse Resp BP Pulse Ox 98.9 F 88 24 H 150/90 H 96 10/05/18 13:48 10/05/18 13:48 10/05/18 13:48 10/05/18 13:48 10/05/18 13:48 Oxygen Flow Rate (L/min) 2 Oxygen Delivery Method Nasal Cannula Weight: 192 lb 14.472 oz Body Mass Index (BMI) 34.6 Intake and Output for Last 24 Hours 10/03/18 10/04/18 10/05/18 23:59 23:59 23:59 Intake Total 210 / 210 1701.7 / 1701.7 1058.7 / 1058.7 Output Total 3050 / 3050 2375 / 2375 1675 / 1675 Balance -2840 / -2840 -673.3 / -673.3 -616.3 / -616.3 Microbiology Past 72 Hours 10/03/18 08:35 Blood Culture - Preliminary Blood Culture (Wb) - Right Hand No growth in 48 hours. 10/01/18 14:50 Blood Culture - Preliminary Blood Culture (Wb) - Right Hand No growth in 48 hours. 09/30/18 13:50 Blood Culture - Final Blood Culture (Wb) - Right Wrist Meth. resistant Staph. aureus Laboratory Tests Past 24 Hrs 10/05/18 10/05/18 10/05/18 05:38 05:38 05:38 WBC 12.2 H RBC 3.75 L Hgb 11.3 L Hct 35.7 L MCV 95.2 H MCH 30.1 MCHC 31.7 L RDW Std Deviation 52.1 H RDW Coeff of Willam 15.0 H Plt Count 304 MPV 9.4 Immature Gran % (Auto) 1.400 H Neut % (Auto) 83.7 H Lymph % (Auto) 9.2 L Coles % (Auto) 4.2 Eos % (Auto) 1.1 Baso % (Auto) 0.4 Absolute Neuts (auto) 10.2 H Absolute Lymphs (auto) 1.12 Nucleated RBC % 0 Sodium 156 H Potassium 3.4 L Chloride 120 H Carbon Dioxide 27.0 Anion Gap 9 BUN 39 H Creatinine 1.93 H Estim Creat Clear Calc 32.14 Est GFR (MDRD) Af Amer 44 L Est GFR (MDRD) Non-Af 37 L BUN/Creatinine Ratio 20.2 H Glucose 323 H Calcium 7.9 L Random Vancomycin 14.2 POC Glucose 10/05/18 10/05/18 10/05/18 11:15 06:29 03:09 POC Glucose 353 H 291 H 317 H 10/04/18 10/04/18 21:04 17:58 POC Glucose 237 H 150 H Assessment/Plan This patient was seen in conjunction with Dennis FINNEY. I have independently interviewed and examined the patient and reviewed pertinent history, examination findings, laboratory and plan of management. I have reviewed the note and agree with the documented findings with the few additional points. In brief,the patient is a 68 year old M who is [facility] resident was sent to ER from [facility] for progressive worsening of shortness of breath, respiratory distress and hypoxia. Patient also has difficulty in swallowing and has noted change in his voice recently. EMS found 88% on room air and 92% on 4 L of oxygen. Patient was found tachypneic, RR 28-30/min with labored breathing. He was found to Severe sepsis secondary to MRSA bacteremia, healthcare associated pneumonia with acute hypoxic respiratory failure and acute UTI, concern for aspiration and chest x-ray on admission with right perihilar and basilar opacities concerning for pneumonia. Repeated blood culture, last 09/30/2018 reported as MRSA even on vancomycin. Repeat blood culture on 10/01 and 10/03 shows no growth more than 48 hours. Sputum culture and urine culture positive of MRSA. Patient has multiple active medical issues going on. Acute kidney injury on CKD stage III. Supervisor [facility] is following. Patient has concern of right hydronephrosis and has Phillips catheter. Kidney function is improving. Improvement of kidney function from 58/2 0.9-30 7/2.12. Patient has hyponatremia, 156, K3.4 Had metabolic acidosis and was treated with bicarb drip. Metabolic acidosis resolved. Patient also has chronic decubitus ulcer over right upper buttock mainly from fecal and urine incontinence. Acute on chronic normocytic normochromic anemia/iron deficiency anemia: Had 2 units of PRBC transfusion. Stool for occult blood positive. Dysphagia. On modified barium swallow. On 10/03, hospital course and medications was discussed with patient brother and sister, Ms. Susana Alegria. Further treatment opportunities were also explored but it seems patient general condition, and multiple comorbidities including persistent MRSA, kidney failure and aspiration does not allow further aggressive treatment. Palliative care was consulted. Hospice meeting was done on 01/04 family still indecisive about hospice care. I have discussed my assessment with Dennis FINNEY and orders have been reviewed. Code Visit Inpatient E&M: 00303 Subs Hosp L3
[2018-10-05] MEDS: hydrALAZINE 20 MG/ML Vial 10 MG IV ×2 (17:29→21:44)
--- NOTE | 2018-10-05 17:38 | PCM.RX.CS ---
Consult Pharmacy has been consulted to manage selected antiobiotic: Vancomycin Type of Consult: Follow-up Suspected Infection: Pneumonia Prior Doses of Antibiotics Received/Current Regimen: Trough level of 10.05.18 was 14.2 (prior dose was on 10.03.18 1500mg). Ordered 1250mg iv x 1 on 10.05.18. Labs: Sodium 156 mmol/L (136-145) H 10/05/18 05:38 Potassium 3.4 mmol/L (3.5-5.1) L 10/05/18 05:38 Chloride 120 mmol/L (98-107) H 10/05/18 05:38 Carbon Dioxide 27.0 mmol/L (21.0-32.0) 10/05/18 05:38 9 (5-15) 10/05/18 05:38 BUN 39 mg/dL (7-18) H 10/05/18 05:38 1.93 mg/dL (0.70-1.30) H 10/05/18 05:38 Est GFR (MDRD) Af Amer 44 mL/min (>60) L 10/05/18 05:38 Est GFR (MDRD) Non-Af 37 mL/min (>60) L 10/05/18 05:38 20.2 RATIO (10-20) H 10/05/18 05:38 Glucose 323 mg/dL (74-106) H 10/05/18 05:38 Vancomycin Trough 17.7 ug/mL (5.0-15.0) H 10/03/18 11:10 Random Vancomycin 14.2 ug/mL (0.0-15.0) 10/05/18 05:38 Microbiology: Microbiology 10/03/18 08:35 Blood Culture (Wb) - Right Hand Blood Culture - Preliminary No growth in 48 hours. 10/01/18 14:50 Blood Culture (Wb) - Right Hand Blood Culture - Preliminary No growth in 48 hours. 09/30/18 13:50 Blood Culture (Wb) - Right Wrist Blood Culture - Final Meth. resistant Staph. aureus 09/29/18 12:50 Blood Culture (Wb) - Line Draw Blood Culture - Final Meth. resistant Staph. aureus 09/29/18 08:45 Blood Culture (Wb) - Other Blood Culture - Final Meth. resistant Staph. aureus 10/01/18 18:05 Stool Stool Occult Blood (YARA) - Final Occult Blood Positive 09/28/18 07:05 Sputum, Induced/Lukens Gram Stain - Final 09/28/18 07:05 Sputum, Induced/Lukens Respiratory Culture - Final Presumptive C albicans Meth. resistant Staph. aureus 09/28/18 02:40 Urine, Clean Catch Urine Culture - Final Meth. resistant Staph. aureus 09/28/18 01:50 Blood Culture (Wb) - Right Wrist Blood Culture - Final Meth. resistant Staph. aureus 09/28/18 02:03 Blood Culture (Wb) - Right Forearm Bacteria Detection (PCR) - Final Staphylococcus aureus mecA Resistance Marker 09/28/18 02:03 Blood Culture (Wb) - Right Forearm Blood Culture - Final Meth. resistant Staph. aureus 09/28/18 05:30 Mucosa - Nasopharyngeal Respiratory Panel (PCR) - Final 09/28/18 06:55 Stool C. difficile DNA Amplification - Final 09/28/18 02:40 Urine Catheter - Catheter Legionella Antigen - Final 09/28/18 02:40 Urine Catheter - Catheter Streptococcus pneumoniae Antigen (M - Final Weight used for dosin.5 kg Estimated Creatinine Clearance: ~32 ml/min Goal Trough: 15-20 mcg/mL Pharmacy Plan for Drug Dosing: Ordered 1250mg iv x 1 on 10.05.18 and given at 1655. Will get random level on 10.06.18 ~24hrs after dose given. Pharmacy Service will continue to monitor and adjust dosing as required. Follow-Up Labs: Trough Vancomycin - 10.06.18 @1630
[2018-10-05 17:40] LABS: Bedside Glucose 325 mg/dL (70-110)
[2018-10-05 21:51] LABS: Bedside Glucose 361 mg/dL (70-110)
[2018-10-06] VITALS (12 sets, daily range): BP systolic 145–165; BP diastolic 79–112; PULSE 95–120; RESP 20; TEMP 36.8–37.6; O2SAT 94–98
[2018-10-06] MEDS: 0.9% NaCl Peripheral Flush Adult/Peds IV ×2 (02:37→21:06)
[2018-10-06] MEDS: Insulin Lispro 100 UNIT/ML INSULN.PEN SC ×6 (02:38→21:05)
[2018-10-06 02:46] LABS: Bedside Glucose 364 mg/dL (70-110)
[2018-10-06] MEDS: Nystatin Powder 15gm Bottle 1 APPLIC TOPICAL ×3 (05:56→21:07)
[2018-10-06 06:46] LABS: Bedside Glucose 388 mg/dL (70-110)
[2018-10-06] MEDS: Menthol/Lanolin/Calamine/Znox 113 GM Tube 1 APPLIC TOPICAL ×3 (09:12→16:46)
[2018-10-06] MEDS: Heparin Injection (Vial) 5,000 UNIT/ML VIAL 5000 UNIT SC ×2 (09:28→21:05)
[2018-10-06 10:29] LABS: Absolute Lymphocyte Count 1.01 X10^3/uL (0.83-4.51); Absolute Neutrophil Count 9.3 X10^3/uL (2.0-7.7); Basophil# 0.03 X10^3/uL; Basophil% 0.3 % (0-1); Eosinophil# 0.11 X10^3/uL; Hematocrit 36.1 % (40-54); Lymphocyte # 1.01 X10^3/ul (4.0); Lymphocyte % 9.1 % (19-41); Mean Corp Hgb Conc 30.5 g/dL (32-36); Mean Corpuscular Hgb 28.9 pg (27.0-32.0); Mean Platelet Vol. 9.6 fl (6.2-12.0); Monocyte# 0.57 X10^3/uL; Monocyte% 5.1 % (0-10); NRBC Flagged by Analyzer 0 % (0-5); Neutrophil # 9.33 X10^3/uL (2.7-7.7); Neutrophil % 83.8 % (47-70); Platelet Count 247 K/mm3 (150-450); RBC Distribution Width CV 15.1 % (11.6-14.6); RBC Distribution Width SD 51.5 fl (35.1-43.9); White Blood Count 11.1 K/mm3 (4.4-11.0)
[2018-10-06 10:36] LABS: Bedside Glucose 376 mg/dL (70-110)
[2018-10-06 10:50] LABS: Bacteria 0 SEEN /hpf (None Seen); Mucous, Urine 0 SEEN /hpf (<or=2+); Squamous Epithelial Cells - UA 0 SEEN /hpf (0-5)
[2018-10-06 10:54] LABS: Color, Urine Yellow (Yellow); Glucose, Dipstick 1000 mg/dl (Normal); Ketone-Dipstick Negative (Negative); Leukocyte Esterase-Dipstick 500 /ul (Negative); Nitrite-Dipstick Negative (Negative); Occult Blood-Urine 250 /ul (Negative); Protein-Dipstick 100 mg/dl (Negative); Urine Bilirubin Dipstick Negative (Negative); Urine Clarity Sl. Cloudy (Clear); Urine Urobilinogen Normal (Normal)
[2018-10-06 11:03] LABS: Red Blood Cells-Urine 10-25 SEEN /hpf (0-5); White Blood Cells >100 SEEN /hpf (0-5)
[2018-10-06 11:07] LABS: Anion Gap 5 (5-15); BUN 42 mg/dL (7-18); BUN/Creat Ratio 20.7 RATIO (10-20); Calcium,Total 7.9 mg/dL (8.5-10.1); Chloride 119 mmol/L (98-107); Creatinine, Serum 2.03 mg/dL (0.70-1.30); EST Glomerular Filtration Rate 35 mL/min (>60); Est Glom Filt Rate - Afr Amer 42 mL/min (>60); Estimated Creatinine Clearance 30.56 ml/min; Glucose 411 mg/dL (74-106); Potassium 3.9 mmol/L (3.5-5.1); Sodium Level 151 mmol/L (136-145)
[2018-10-06 11:46] LABS: Bedside Glucose 389 mg/dL (70-110)
--- NOTE | 2018-10-06 13:52 | PCM.PROGNOTE ---
<Dennis Hall - Last Filed: 10/06/18 13:52> Patient Problems: Active and Suspected Problems (This Medical Record has been edited. Action required.) Severe sepsis (Acute) HCAP (healthcare-associated pneumonia) (Acute) Acute renal failure (Acute) Dehydration (Acute) Hypoxemia (Acute) Subjective: Pt more lethargic today, voice is very week. Discussion with family indicates that they are still unsure about what they would like to do. They state they will have a decision about hospice tomorrow. - Physical Exam General: Alert, Cooperative, Confused, Lethargic HEENT: Atraumatic, PERRLA, EOMI, Normocephalic Neck: Supple, No JVD, Negative Carotid Bruits Lungs: No rales, Diminished Cardiovascular: Regular rate, No murmurs Abdomen: Bowel Sounds Present, Soft, Non Tender Extremities: Capillary Refill Less than 3 Seconds, Edema - BL pedal edema, none at ankle or above. Skin: No rashes, No breakdown Musculoskeletal: No Tenderness to Palpation of Joints or Extremities Neurological: Cranial nerves II-XII grossly intact Psych/Mental Status: Normal Affect, Appropriate Vital Signs Temp Pulse Resp BP Pulse Ox 98.6 F 98 20 H 149/79 H 98 10/06/18 09:09 10/06/18 09:09 10/06/18 09:09 10/06/18 09:09 10/06/18 09:09 Oxygen Flow Rate (L/min) 2 Oxygen Delivery Method Nasal Cannula Weight: 194 lb 0.108 oz Body Mass Index (BMI) 34.6 Intake and Output for Last 24 Hours 10/04/18 10/05/18 10/06/18 23:59 23:59 23:59 Intake Total 1701.7 / 1701.7 2096.7 / 2096.7 950 / 950 Output Total 2375 / 2375 3175 / 3175 700 / 700 Balance -673.3 / -673.3 -1078.3 / -1078.3 250 / 250 Microbiology Past 72 Hours 10/03/18 08:35 Blood Culture - Preliminary Blood Culture (Wb) - Right Hand No growth in 48 hours. 10/01/18 14:50 Blood Culture - Preliminary Blood Culture (Wb) - Right Hand No growth in 48 hours. Laboratory Tests Past 24 Hrs 10/06/18 10/06/18 10/06/18 10:19 10:19 10:25 WBC 11.1 H RBC 3.80 L Hgb 11.0 L Hct 36.1 L MCV 95.0 H MCH 28.9 MCHC 30.5 L RDW Std Deviation 51.5 H RDW Coeff of Willam 15.1 H Plt Count 247 MPV 9.6 Immature Gran % (Auto) 0.700 Neut % (Auto) 83.8 H Lymph % (Auto) 9.1 L [place] % (Auto) 5.1 Eos % (Auto) 1.0 Baso % (Auto) 0.3 Absolute Neuts (auto) 9.3 H Absolute Lymphs (auto) 1.01 Nucleated RBC % 0 Sodium 151 H Potassium 3.9 Chloride 119 H Carbon Dioxide 27.0 Anion Gap 5 BUN 42 H Creatinine 2.03 H Estim Creat Clear Calc 30.56 Est GFR (MDRD) Af Amer 42 L Est GFR (MDRD) Non-Af 35 L BUN/Creatinine Ratio 20.7 H Glucose 411 H Calcium 7.9 L Urine Color Yellow Urine Clarity Sl. Cloudy Urine pH 6.0 Ur Specific [place] 1.010 Urine Protein 100 H Urine Glucose (UA) 1000 H Urine Ketones Negative Urine Occult Blood 250 H Urine Nitrite Negative Urine Bilirubin Negative Urine Urobilinogen Normal Ur Leukocyte Esterase 500 H Urine RBC 10-25 SEEN Urine WBC >100 SEEN Ur Squamous Epith Cells 0 SEEN Urine Bacteria 0 SEEN Urine Mucus 0 SEEN POC Glucose 10/06/18 10/06/18 10/06/18 11:21 09:56 06:39 POC Glucose 389 H 376 H 388 H 10/06/18 10/05/18 10/05/18 02:35 21:26 17:15 POC Glucose 364 H 361 H 325 H Medical Necessity - Tobacco Use Smoking Status: Never smoker Assessment/Plan All Active Problems (This Medical Record has been edited. Action required.) Severe sepsis (Acute) HCAP (healthcare-associated pneumonia) (Acute) Acute renal failure (Acute) Dehydration (Acute) Hypoxemia (Acute) Fall with injury (Acute) Right acetabular fracture (Acute) 1. Severe sepsis secondary to MRSA bacteremia, healthcare associated pneumonia, aspiration pneumonia, and acute UTI (likely spread from pneumonia), Continue IV vancomycin. He has a PICC line given his pulling out his IVs, however this is not ideal with the ongoing bacteremia. Urine culture positive for Staphylococcus aureus. Sputum culture with Staphylococcus species. ID following. TTE done, no valvular involvement. -Family is deciding whether they want hospice or to treat the aspiration and pneumonia. Continue Vanc / NPO status until then. -WBCs continue to improve. -he is now >24 hours without fever. -Latest blood cultures negative. -Half NS with K being given for electrolyte imbalances. -if he is to go back to SNF with treatment, he will need ID recommendation for duration of IV vanco. -repeat urine without bactermia. still leukocytosis, rbcs, and 500 LeukEst 2. Acute hypoxic respiratory failure secondary to healthcare associated pneumonia-continue supplement oxygen to maintain O2 at or above 90%. Pulmonary medicine following. Albuterol and DuoNeb aerosols. 3. Acute kidney injury with hyperkalemia on chronic kidney disease stage III-Nephro following. Renal ultrasound demonstrates limited visualization of the right kidney, mild degree of right hydronephrosis suspected. Also urinary retention - phillips in place. Continue Flomax. Renal function stabilized. 4. Metabolic acidosis-resolved 5. Chronic coccyx decubitus ulcer-present on admission. Wound care following. 6. Hypertension- NPO. 7. Hyperlipidemia-continue statin regimen. 8. Type 2 diabetes mellitus-hold oral regimen. Adjusted his long acting and sliding scale as his glucose is going up since starting TPN. 9. Cerebral palsy- PT/OT. Resides at SNF. Contracted. Does not walk. Wheelchair bound. Associated MRDD. 10. History of epilepsy-seizure precautions. He has been off phenobarb as he is NPO. 11. Acute on Chronic normocytic anemia/iron deficiency anemia-hemoglobin has steadily decreased during admission. S/P 2 units PRBC, this seems to have stabilized. Defer aggressive workup if stable. 12. Dysphagia- ST following. TPN initiated. Consult to manufacture specialist for nutritional needs. 13. Right upper extremity SVT - superficial, not deep. Conservative care only. DVT prophylaxis-heparin subcu Discharge planning: Guardians are undecided about next steps of care. Hospice vs aggressive treatment. -We again discussed with his guardians the options for treatment. They state they will have a decision about treatment versus hospice tomorrow. They are leaning towards hospice care but seem to want IV antibiotics to be given. They are pushing for a specific amount of time until . We have re iterated would be very difficulty to predict, especially as they are unsure what treatment they want him to receive. This patient was seen by Dennis Hall PA-C under the supervision of Dr. Urias. <Gus Urias - Last Filed: 10/06/18 14:17> Subjective: Seen and examined. Patient is more lethargic, minimally responsive and at best nurses had. Discussed with the nursing staff. Patient also has increased respiratory effort. Discussed with the family members including sister and [id number] regarding discussion about the hospice meeting. - Physical Exam General: Confused, Disoriented, Lethargic HEENT: Atraumatic, PERRLA, EOMI, Normocephalic, - - Pupils are very sluggish reacting Neck: Supple, No JVD, Negative Carotid Bruits Lungs: No rales, Diminished - Air entry is severely diminished., Short of Breath, Wheezes - Bilateral rhonchi and wheezing present Cardiovascular: Regular rate, Regular Rhythm, Normal S1, Normal S2, No murmurs, Tachycardic - Intermittent, gets tachycardic Abdomen: Bowel Sounds Present, Soft, Non Tender Extremities: Capillary Refill Less than 3 Seconds, Edema, - - Bilateral contractures of lower extremities Skin: Ulcer/ Wound - Stage II decubitus ulcer on right upper buttock. Musculoskeletal: No Tenderness to Palpation of Joints or Extremities, Arthritic Changes, Muscle Wasting Neurological: Cranial nerves II-XII grossly intact, - - Decreased mentation. Decreased to minimal responsiveness Vital Signs Temp Pulse Resp BP Pulse Ox 98.6 F 98 20 H 149/79 H 98 10/06/18 09:09 10/06/18 09:09 10/06/18 09:09 10/06/18 09:09 10/06/18 09:09 Oxygen Flow Rate (L/min) 2 Oxygen Delivery Method Nasal Cannula Weight: 194 lb 0.108 oz Body Mass Index (BMI) 34.6 Intake and Output for Last 24 Hours 10/04/18 10/05/18 10/06/18 23:59 23:59 23:59 Intake Total 1701.7 / 1701.7 2096.7 / 2096.7 950 / 950 Output Total 2375 / 2375 3175 / 3175 700 / 700 Balance -673.3 / -673.3 -1078.3 / -1078.3 250 / 250 Microbiology Past 72 Hours 10/03/18 08:35 Blood Culture - Preliminary Blood Culture (Wb) - Right Hand No growth in 48 hours. 10/01/18 14:50 Blood Culture - Preliminary Blood Culture (Wb) - Right Hand No growth in 48 hours. Laboratory Tests Past 24 Hrs 10/06/18 10/06/18 10/06/18 10:19 10:19 10:25 WBC 11.1 H RBC 3.80 L Hgb 11.0 L Hct 36.1 L MCV 95.0 H MCH 28.9 MCHC 30.5 L RDW Std Deviation 51.5 H RDW Coeff of Willam 15.1 H Plt Count 247 MPV 9.6 Immature Gran % (Auto) 0.700 Neut % (Auto) 83.8 H Lymph % (Auto) 9.1 L [place] % (Auto) 5.1 Eos % (Auto) 1.0 Baso % (Auto) 0.3 Absolute Neuts (auto) 9.3 H Absolute Lymphs (auto) 1.01 Nucleated RBC % 0 Sodium 151 H Potassium 3.9 Chloride 119 H Carbon Dioxide 27.0 Anion Gap 5 BUN 42 H Creatinine 2.03 H Estim Creat Clear Calc 30.56 Est GFR (MDRD) Af Amer 42 L Est GFR (MDRD) Non-Af 35 L BUN/Creatinine Ratio 20.7 H Glucose 411 H Calcium 7.9 L Urine Color Yellow Urine Clarity Sl. Cloudy Urine pH 6.0 Ur Specific [place] 1.010 Urine Protein 100 H Urine Glucose (UA) 1000 H Urine Ketones Negative Urine Occult Blood 250 H Urine Nitrite Negative Urine Bilirubin Negative Urine Urobilinogen Normal Ur Leukocyte Esterase 500 H Urine RBC 10-25 SEEN Urine WBC >100 SEEN Ur Squamous Epith Cells 0 SEEN Urine Bacteria 0 SEEN Urine Mucus 0 SEEN POC Glucose 10/06/18 10/06/18 10/06/18 11:21 09:56 06:39 POC Glucose 389 H 376 H 388 H 10/06/18 10/05/18 10/05/18 02:35 21:26 17:15 POC Glucose 364 H 361 H 325 H Assessment/Plan This patient was seen in conjunction with Dennis FINNEY. I have independently interviewed and examined the patient and reviewed pertinent history, examination findings, laboratory and plan of management. I have reviewed the note and agree with the documented findings with the few additional points. In brief,the patient is a 68 year old M who is [facility] was sent to ER from [facility] for progressive worsening of shortness of breath, respiratory distress and hypoxia. Patient also has difficulty in swallowing and has noted change in his voice recently. EMS found 88% on room air and 92% on 4 L of oxygen. Patient was found tachypneic, RR 28-30/min with labored breathing. He was found to Severe sepsis secondary to MRSA bacteremia, healthcare associated pneumonia with acute hypoxic respiratory failure and acute UTI, concern for aspiration and chest x-ray on admission with right perihilar and basilar opacities concerning for pneumonia. Repeated blood culture, last 09/30/2018 reported as MRSA even on vancomycin. Repeat blood culture on 10/01 and 10/03 shows no growth more than 48 hours. Sputum culture and urine culture positive of MRSA. Patient has multiple active medical issues going on. Acute kidney injury on CKD stage III. Vault Worker is following. Patient has concern of right hydronephrosis and has Phillips catheter. Kidney function is improving. Improvement of kidney function from 58/2 0.9-37/2.12, 42/2.03. Patient has hypernatremia, Na 151, K 3.9 Had metabolic acidosis and was treated with bicarb drip. Metabolic acidosis resolved. Patient also has chronic decubitus ulcer over right upper buttock mainly from fecal and urine incontinence. Acute on chronic normocytic normochromic anemia/iron deficiency anemia: Had 2 units of PRBC transfusion. Stool for occult blood positive. Dysphagia. On modified barium swallow. Patient also has intermittent sinus tachycardia and elevated blood pressure, 186/99, 150/85: On amlodipine, labetalol IV as needed and hydralazine 10 mg IV. On 10/03, hospital course and medications was discussed with patient brother and sister, Ms. Susana Alegria. Further treatment opportunities were also explored but it seems patient general condition, and multiple comorbidities including persistent MRSA, kidney failure and aspiration does not allow further aggressive treatment. Palliative care was consulted. Hospice meeting was done on 01/04 family still indecisive about hospice care. Family meeting was done with patient's sister, [id number], brother and [id number]. Clinical updates were given right from the beginning, date of admission until now including sepsis, UTI, respiratory failure, decreased functional ability, aspiration, IV antibiotics, TPN and decreased mental function unresponsiveness. Overall it seems patient is going downhill. Repeat blood culture from 10/01 2018 are negative. They are inclined towards hospice care but will give final decision tomorrow on 10/07/2018. Total more than 20 minutes was spent in discussion with the family member. I have discussed my assessment with Dennis FINNEY and orders have been reviewed. Code Visit Inpatient E&M: 93046 Subs Hosp L3
[2018-10-06 17:20] LABS: Bedside Glucose 283 mg/dL (70-110)
[2018-10-06 17:37] LABS: Vancomycin, Trough Level 16.9 ug/mL (5.0-15.0)
--- NOTE | 2018-10-06 18:32 | PCM.RX.CS ---
Consult Pharmacy has been consulted to manage selected antiobiotic: Vancomycin Type of Consult: Follow-up Suspected Infection: Pneumonia Prior Doses of Antibiotics Received/Current Regimen: 1250mg iv x 1 on 10.05.18 @1655 Labs: Sodium 151 mmol/L (136-145) H 10/06/18 10:19 Potassium 3.9 mmol/L (3.5-5.1) 10/06/18 10:19 Chloride 119 mmol/L (98-107) H 10/06/18 10:19 Carbon Dioxide 27.0 mmol/L (21.0-32.0) 10/06/18 10:19 5 (5-15) 10/06/18 10:19 BUN 42 mg/dL (7-18) H 10/06/18 10:19 2.03 mg/dL (0.70-1.30) H 10/06/18 10:19 Est GFR (MDRD) Af Amer 42 mL/min (>60) L 10/06/18 10:19 Est GFR (MDRD) Non-Af 35 mL/min (>60) L 10/06/18 10:19 20.7 RATIO (10-20) H 10/06/18 10:19 Glucose 411 mg/dL (74-106) H 10/06/18 10:19 Vancomycin Trough 16.9 ug/mL (5.0-15.0) H 10/06/18 16:38 Random Vancomycin 14.2 ug/mL (0.0-15.0) 10/05/18 05:38 Microbiology: Microbiology 10/03/18 08:35 Blood Culture (Wb) - Right Hand Blood Culture - Preliminary No growth in 48 hours. 10/01/18 14:50 Blood Culture (Wb) - Right Hand Blood Culture - Preliminary No growth in 48 hours. 09/30/18 13:50 Blood Culture (Wb) - Right Wrist Blood Culture - Final Meth. resistant Staph. aureus 09/29/18 12:50 Blood Culture (Wb) - Line Draw Blood Culture - Final Meth. resistant Staph. aureus 09/29/18 08:45 Blood Culture (Wb) - Other Blood Culture - Final Meth. resistant Staph. aureus 10/01/18 18:05 Stool Stool Occult Blood (YARA) - Final Occult Blood Positive 09/28/18 07:05 Sputum, Induced/Lukens Gram Stain - Final 09/28/18 07:05 Sputum, Induced/Lukens Respiratory Culture - Final Presumptive C albicans Meth. resistant Staph. aureus 09/28/18 02:40 Urine, Clean Catch Urine Culture - Final Meth. resistant Staph. aureus 09/28/18 01:50 Blood Culture (Wb) - Right Wrist Blood Culture - Final Meth. resistant Staph. aureus 09/28/18 02:03 Blood Culture (Wb) - Right Forearm Bacteria Detection (PCR) - Final Staphylococcus aureus mecA Resistance Marker 09/28/18 02:03 Blood Culture (Wb) - Right Forearm Blood Culture - Final Meth. resistant Staph. aureus 09/28/18 05:30 Mucosa - Nasopharyngeal Respiratory Panel (PCR) - Final 09/28/18 06:55 Stool C. difficile DNA Amplification - Final 09/28/18 02:40 Urine Catheter - Catheter Legionella Antigen - Final 09/28/18 02:40 Urine Catheter - Catheter Streptococcus pneumoniae Antigen (M - Final Weight used for dosin kg Estimated Creatinine Clearance: ~31 ml/min Goal Trough: 15-20 mcg/mL Pharmacy Plan for Drug Dosing: Random level on 10.06.18 was 16.9 (goal 15-20 mcg/ml). Will redose with 1250mg iv x 1 today and get random level on 10.07.18. Pharmacy Service will continue to monitor and adjust dosing as required. Follow-Up Labs: Trough Vancomycin - random level on 10.07.18 @1832
[2018-10-06 21:16] LABS: Bedside Glucose 279 mg/dL (70-110)
[2018-10-07] VITALS (7 sets, daily range): BP systolic 146–180; BP diastolic 68–95; PULSE 89–111; RESP 18–20; TEMP 37.3–37.7; O2SAT 93–96
[2018-10-07] MEDS: Insulin Lispro 100 UNIT/ML INSULN.PEN SC ×3 (03:05→11:46)
[2018-10-07 03:16] LABS: Bedside Glucose 358 mg/dL (70-110)
[2018-10-07 06:09] LABS: Absolute Lymphocyte Count 0.83 X10^3/uL (0.83-4.51); Basophil# 0.02 X10^3/uL; Basophil% 0.2 % (0-1); Eosinophil# 0.11 X10^3/uL; Eosinophils% 1.1 % (0-5); Hemoglobin 9.4 g/dL (13.0-16.5); Lymphocyte # 0.83 X10^3/ul (4.0); Lymphocyte % 8.6 % (19-41); Mean Corp Hgb Conc 30.3 g/dL (32-36); Mean Corpuscular Volume 95.7 fL (80-94); Mean Platelet Vol. 9.9 fl (6.2-12.0); Monocyte# 0.58 X10^3/uL; NRBC Flagged by Analyzer 0 % (0-5); Neutrophil # 8.04 X10^3/uL (2.7-7.7); Neutrophil % 83.5 % (47-70); Platelet Count 241 K/mm3 (150-450); RBC Distribution Width CV 14.9 % (11.6-14.6); RBC Distribution Width SD 51.8 fl (35.1-43.9); Red Blood Count 3.24 M/mm3 (4.6-6.2); White Blood Count 9.6 K/mm3 (4.4-11.0)
[2018-10-07 06:33] LABS: Anion Gap 6 (5-15); BUN 43 mg/dL (7-18); BUN/Creat Ratio 21.8 RATIO (10-20); Chloride 122 mmol/L (98-107); Creatinine, Serum 1.97 mg/dL (0.70-1.30); EST Glomerular Filtration Rate 36 mL/min (>60); Est Glom Filt Rate - Afr Amer 43 mL/min (>60); Estimated Creatinine Clearance 31.49 ml/min; Glucose 378 mg/dL (74-106); Potassium 4.1 mmol/L (3.5-5.1); Sodium Level 154 mmol/L (136-145)
[2018-10-07] MEDS: Nystatin Powder 15gm Bottle 1 APPLIC TOPICAL (06:38)
[2018-10-07 06:46] LABS: Bedside Glucose 341 mg/dL (70-110)
[2018-10-07] MEDS: Menthol/Lanolin/Calamine/Znox 113 GM Tube 1 APPLIC TOPICAL (08:50)
[2018-10-07] MEDS: Heparin Injection (Vial) 5,000 UNIT/ML VIAL 5000 UNIT SC (11:25)
--- NOTE | 2018-10-07 11:43 | PN.RENAL_ITS ---
Patient Problems: Active and Suspected Problems (This Medical Record has been edited. Action required.) Severe sepsis (Acute) HCAP (healthcare-associated pneumonia) (Acute) Acute renal failure (Acute) Dehydration (Acute) Hypoxemia (Acute) Subjective: Patient is awake not oriented. does not answer my question appropriately Cannot do ROS - Physical Exam General: No apparent distress, Confused HEENT: Atraumatic Oral: Dry Mucosa Neck: Supple, No JVD Lungs: Clear to auscultation, Normal air movement Cardiovascular: Regular rate, Regular Rhythm, Normal S1, Normal S2 Abdomen: Bowel Sounds Present, Soft, Non Tender, Non-Distended Extremities: No clubbing, No cyanosis, Edema - +1 edema of bth feet. wearing compressive stocking Psych/Mental Status: Flat Affect Vital Signs Temp Pulse Resp BP Pulse Ox 99.8 F H 97 18 180/77 H 93 10/07/18 09:00 10/07/18 09:00 10/07/18 09:00 10/07/18 09:00 10/07/18 09:00 Oxygen Flow Rate (L/min) 2 Oxygen Delivery Method Room Air Weight: 88.1 kg Body Mass Index (BMI) 34.6 Intake and Output for Last 24 Hours 10/05/18 10/06/18 10/07/18 23:59 23:59 23:59 Intake Total 2096.7 / 2096.7 2456 / 2456 505 / 505 Output Total 3175 / 3175 1999 / 1999 500 / 500 Balance -1078.3 / -1078.3 456 / 456 5 / 5 Microbiology Past 72 Hours 10/01/18 14:50 Blood Culture - Final Blood Culture (Wb) - Right Hand No growth in 5 days. 10/03/18 08:35 Blood Culture - Preliminary Blood Culture (Wb) - Right Hand No growth in 48 hours. Laboratory Tests Past 24 Hrs 10/06/18 10/07/18 10/07/18 16:38 05:50 05:50 WBC 9.6 RBC 3.24 L Hgb 9.4 L Hct 31.0 L MCV 95.7 H MCH 29.0 MCHC 30.3 L RDW Std Deviation 51.8 H RDW Coeff of Willam 14.9 H Plt Count 241 MPV 9.9 Immature Gran % (Auto) 0.600 Neut % (Auto) 83.5 H Lymph % (Auto) 8.6 L [place] % (Auto) 6.0 Eos % (Auto) 1.1 Baso % (Auto) 0.2 Absolute Neuts (auto) 8.0 H Absolute Lymphs (auto) 0.83 Nucleated RBC % 0 Sodium 154 H Potassium 4.1 Chloride 122 H Carbon Dioxide 26.0 Anion Gap 6 BUN 43 H Creatinine 1.97 H Estim Creat Clear Calc 31.49 Est GFR (MDRD) Af Amer 43 L Est GFR (MDRD) Non-Af 36 L BUN/Creatinine Ratio 21.8 H Glucose 378 H Calcium 8.0 L Vancomycin Trough 16.9 H POC Glucose 10/07/18 10/07/18 10/06/18 06:36 03:00 20:56 POC Glucose 341 H 358 H 279 H 10/06/18 10/06/18 16:23 11:21 POC Glucose 283 H 389 H Medical Necessity - Tobacco Use Smoking Status: Never smoker Assessment/Plan All Active Problems (This Medical Record has been edited. Action required.) Severe sepsis (Acute) HCAP (healthcare-associated pneumonia) (Acute) Acute renal failure (Acute) Dehydration (Acute) Hypoxemia (Acute) Fall with injury (Acute) Right acetabular fracture (Acute) 1. Acute kidney injury on chronic kidney disease stage 3. Baseline SCr is 1.4- 1.5 mg/dL. Cause of CKD is unknown. NAYAN is most likely prerenal or from ischemic ATN related to sepsis and volume depletion. Pt has also been on ARB and diuretic prior to admit. renal US showed right atrophic kidney with mild right hydronephrosis UA showed protein 100, WBC > 100, RBC 12-25 . Cr is stable around 1.9-20 mg/dL Avoid ACEI/ARB 2. Metabolic acidosis. Likely due to NAYAN and diarrhea. Pt was also on metformin prior to admit. resolved. off NaHC03 drip 3. Hyperkalemia. resolved. K 4.5 n 10/07 lab 4. Hypernatremia. due to poor oral intake. sugars are already high. Na increased 151->154 Pt is not candidate for PEG tube placement since he might go for hospice care. Pt cannot get free water via mouth due t high aspiration risk. Pt is not candidate to D5W with high glucose 5- Hypertension. BP is elevated. Will increase hydralazine to 50 BID 6- MRSA bacteremia with pneumonia with UTI. Abx as per the primary service Renal team will continue to follow Please call if any question at [phone] Plan of care was discussed with CORINNE Cormier MD
--- NOTE | 2018-10-07 11:43 | PCM.EXTCARCO ---
- Diet 10/01/18 13:42 NPO [Diet: Nothing Per Oral] Is pt able to select menu?: No Diet Comments: FREQUENT ORAL CARE, meds crushed in puree/honey liq via 1/2 size teaspoon - Routine Orders/Code Status Suppository Type: Dulcolax 10mg Suppository Frequency: Daily PRN O2 Frequency: PRN Keep PO Greater than or Equal to (%): 90 Routine Lab Work: CBC - 1 week, BMP - 1 week Code Status: DNC-A - Wound(s) BUTTOCK Wound Type: Pressure Injury LEFT BUTTOCK Wound Type: RAISED NODULES right upper buttock Wound Type: Pressure Injury - Therapies Physical Therapy: Eval and Treat Occupational Therapy: Eval and Treat Speech Therapy: Eval and Treat - Problem/Diagnosis (1) Aspiration pneumonia Status: Acute Current Visit: Yes (2) Dysphagia Status: Acute Current Visit: Yes (3) Acute renal failure Status: Acute Current Visit: Yes (4) HCAP (healthcare-associated pneumonia) Status: Acute Current Visit: Yes (5) Severe sepsis Status: Acute Current Visit: Yes (6) Sacral decubitus ulcer Status: Chronic Current Visit: Yes (7) Cerebral palsy Status: Chronic Current Visit: No (8) Hypertension Status: Chronic Current Visit: No (9) Type 2 diabetes mellitus Status: Chronic Current Visit: No - Allergies/Procedures Done in Hospital Allergies/Adverse Reactions: Allergies mold Allergy (Verified 09/28/18 01:49) Other Procedures: 2-D Echocardiogram, PICC line placement - Type of Care/Length of Stay Estimated LOS: Convalescent Care Less Than 30 days Type of Care Needed: Skilled - Skilled with hospice. Rehab Potential: Poor Prognosis: Poor - Additional Orders/Day of Discharge Day of Discharge: 10/07/18 - Dietary and Speech Recommendations Dietitian Recommendations/Changes: Ideally, pt would receive enteral nutrition support via NG or PEG to maintain GI integrity. Consult RDN for enteral recommendations as indicated. If TPN desired, recommend 2L 5% AA/ 20% dextrose at 84mL/hour to provide 1760 calories, 100g AA per day. Recommend 500mL 20% lipid solution 3x/week to provide an additional 1000 calories per infusion or an average of ~2188 calories/day. Recommend continue daily wts. Recommend daily monitoring of labs, including calcium, magnesium, and phosphorus. Recommend baseline triglycerides. - Follow Up Care Primary Care Physician: Brayan Brown MD [Primary Care Provider] - Please follow up with your Primary Care Physician in: as directed Please Follow Up With: Hospice When: Today
[2018-10-07 12:11] LABS: Bedside Glucose 356 mg/dL (70-110)
--- NOTE | 2018-10-07 12:31 | CASEMGMT ---
Social Work Pt ready for d/c today. SW met with pt and guardian Nicole. They are agreeable to return to [facility] today and are stating they have signed papers with Hospice. No preference on transportation company used. Transportation arranged with [facility] with 2pm hot die picker. Phone call to Ana at [facility] and notified of d/c. Hospice with meet with pt at the [facility] at 3pm. Phone call to Francia at the [facility] and above time schedule given. Orders faxed. Nursing notified and LEEANN met again with pt and sister and informed of times. Plan: [facility], with hospice IVY Benavides
--- NOTE | 2018-10-07 14:47 | PCM.DC.SUM ---
<Dennis Hall - Last Filed: 10/07/18 15:05> Discharge Date and Diagnosis Date of Admission: 09/28/18 Date of Discharge: 10/07/18 - Primary Discharge Diagnosis Acute hypoxic respiratory failure 2/2 Aspiration pneumonia, MRSA pneumonia Severe sepsis and Bacteremia 2/2 MRSA UTI 2/2 MRSA Severe dysphagia NAYAN on CKDIII Metabolic acidosis 2/2 above Acute on chronic anemia 2/2 unspecified GI bleeding, with iron deficiency Right upper extremity superficial venous thrombosis Chronic coccyx decubitus ulcer T2DM Hx Cerebral Palsy MRDD Wheelchair bound Contracted Hx Seizures - Secondary Discharge Diagnosis Chronic Problems (This Medical Record has been edited. Action required.) Sacral decubitus ulcer (Chronic) Cerebral palsy (Chronic) Hypertension (Chronic) Type 2 diabetes mellitus (Chronic) Hospital Course and Treatment Imaging Results: IMAGING: RAD/Chest 1 View (Portable) IMPRESSION: Right perihilar and basilar opacities concerning for pneumonia. Bibasilar linear subsegmental atelectasis versus scarring. Echo: Interpretation Summary The study was technically difficult. Contrast injection was performed. Based upon the 2D echocardiographic and contrast enhanced images obtained there appears to be grossly normal left ventricular size, wall motion, and systolic function. The estimated ejection fraction is 70 %. Trivial mitral valve insufficiency. Trivial tricuspid valve insufficiency. Mild focal aortic valve calcification. Trivial pulmonic valve insufficiency. Unable to estimate RV systolic pressure/pulmonary artery pressure due to technically difficult study. No evidence for diastolic dysfunction. US/Kidney and Bladder IMPRESSION: Limited visualization of the right kidney. I suspect a mild degree of right hydronephrosis. MRI/Spine Lumbar (Routine) IMPRESSION: No evidence of an abscess visualized on the study L1-2 mild canal stenosis posterior osteophytes most marked centrally L2-3 grade 1 retrolisthesis. The canal is mildly to moderately narrowed with flattening of the thecal sac measures 7.7 mm. Minimal effacement of bilateral L2 nerve roots as they exit the foramen greater on the right L4-5 minimal effacement of the left L4 nerve root is exits the foramen L5-S1 mild subarticular recess narrowing. Thecal sac is diminished at this level with prominent surrounding fat compatible with lipomatosis. Minimal effac MRI/Spine Thoracic (Routine) IMPRESSION: Dextroscoliosis No evidence of abscess Right posterior lung consolidation Right renal cyst Posterior osteophytes at T12-L1 Right central disc protrusion at T11-12 with posterior osteophytes but no evidence of canal stenosis Venous US Interpretation Summary Deep veins of the right upper extremity are patent and compressible segmentally. There is no evidence of deep vein thrombosis. Acute superficial thrombophlebitis is noted in the proximal right cephalic vein, extending to the antecubital space. The median cubital vein was not visualized due to the presence of an IV. The right basilic vein is patent and compressible. RAD/Chest PA and Lateral IMPRESSION: Patchy infiltrate in the right lung and left lung base suggesting infection RAD/Swallowing Function w/Video IMPRESSION: Side aspiration with ingestion of thin liquids as well as nectar thickened and honey thickened liquids. 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 He was brought to the ER and required 4lpm o2 to maintain good sats, significant leukocytosis tachypnea and lactic acidosis, acute kidney injury, and elevated anion gap metabolic acidosis. He had a CXR showing pna, and urine suggested UTI. He was admitted to the PCU on tele for acute severe sepsis 2/2 pna, UTI. He was placed on Vanc and Zosyn. Pulmonology and nephro were consulted. He developed MRSA in his blood cultures. ID was consulted. His sputum and urine grew MRSA. Blood cultures repeatedly showed MRSA. He underwent MRI of the spine which was negative for abscess. He had a TTE which did not suggest vegetation. He was taken off zosyn. He had a speech eval that demonstrated severe aspiration and dysphagia. He was felt to have developed MRSA pna from aspiration. He was made NPO. He was incontinent of urine and a phillips was placed. He had a prolonged hospital course with minimal improvement. He eventually was able to clear his blood cultures. He could not have his diet advanced. He was placed on TPN. A PICC line was placed for IV administration of abx and TPN as he was pulling out his peripheral IVs. He had worsening anemia and stool occult blood was positive. He was transfused 2 units PRBC. Fortunately his blood counts stabilized. Aggressive workup for this was deferred. His guardians directed his care. With his minimal improvement, inability to eat, poor functional status, and multiple medical issues, hospice was recommended. After extensive discussion with the family and the family communicating with hospice over several days, the decision was made to discontinue IV abx and TPN, to return him to the SNF with PO abx and pleasure feeding under the care of hospice. ID recommended 14 days of Doxy. He was discharged to SNF with hospice in stable condition. Further care as directed by hospice. This patient was seen by Dennis Hall PA-C under the supervision of Dr. Lawrence. [] - Physical Exam General: Alert, Cooperative, Confused HEENT: Atraumatic, PERRLA, EOMI, Normocephalic Neck: Supple, No JVD, Negative Carotid Bruits Lungs: No rales, Diminished, Rhonchi Cardiovascular: Regular rate, No murmurs Abdomen: Bowel Sounds Present, Soft, Non Tender Extremities: Capillary Refill Less than 3 Seconds, Edema - pedal edema Skin: No rashes, No breakdown Musculoskeletal: No Tenderness to Palpation of Joints or Extremities Neurological: Cranial nerves II-XII grossly intact Psych/Mental Status: Normal Affect, Appropriate Vital Signs Temp Pulse Resp BP Pulse Ox 99.1 F 89 18 154/68 H 94 10/07/18 13:45 10/07/18 13:45 10/07/18 13:45 10/07/18 13:45 10/07/18 13:45 Oxygen Flow Rate (L/min) 2 Oxygen Delivery Method Room Air Weight: 194 lb 3.636 oz Body Mass Index (BMI) 34.6 Intake and Output for Last 24 Hours 10/05/18 10/06/18 10/07/18 23:59 23:59 23:59 Intake Total 2096.7 / 2096.7 2456 / 2456 1016 / 1016 Output Total 3175 / 3175 1999 850 / 850 Balance -1078.3 / -1078.3 456 / 456 166 / 166 Microbiology Past 72 Hours 10/01/18 14:50 Blood Culture - Final Blood Culture (Wb) - Right Hand No growth in 5 days. 10/03/18 08:35 Blood Culture - Preliminary Blood Culture (Wb) - Right Hand No growth in 48 hours. Laboratory Tests Past 24 Hrs 10/06/18 10/07/18 10/07/18 16:38 05:50 05:50 WBC 9.6 RBC 3.24 L Hgb 9.4 L Hct 31.0 L MCV 95.7 H MCH 29.0 MCHC 30.3 L RDW Std Deviation 51.8 H RDW Coeff of Willam 14.9 H Plt Count 241 MPV 9.9 Immature Gran % (Auto) 0.600 Neut % (Auto) 83.5 H Lymph % (Auto) 8.6 L [place] % (Auto) 6.0 Eos % (Auto) 1.1 Baso % (Auto) 0.2 Absolute Neuts (auto) 8.0 H Absolute Lymphs (auto) 0.83 Nucleated RBC % 0 Sodium 154 H Potassium 4.1 Chloride 122 H Carbon Dioxide 26.0 Anion Gap 6 BUN 43 H Creatinine 1.97 H Estim Creat Clear Calc 31.49 Est GFR (MDRD) Af Amer 43 L Est GFR (MDRD) Non-Af 36 L BUN/Creatinine Ratio 21.8 H Glucose 378 H Calcium 8.0 L Vancomycin Trough 16.9 H POC Glucose 10/07/18 10/07/18 10/07/18 11:44 06:36 03:00 POC Glucose 356 H 341 H 358 H 10/06/18 10/06/18 20:56 16:23 POC Glucose 279 H 283 H Discharge Diet: No Restrictions Discharge Activity: Return to Normal Activity Home Medications: Medications to take at Discharge Atorvastatin Calcium [Lipitor] 10 mg PO DAILY 03/18/15 Propranolol HCl [Inderal (Beta Ahsan)] 40 mg PO BID 03/18/15 Amlodipine [Norvasc] 5 mg PO DAILY tablet 08/31/17 Phenobarbital 64.8 mg PO BID 10 Days #40 tab 08/31/17 Loratadine [Claritin] 10 mg PO DAILY 09/28/18 Acetaminophen [Tylenol Tablet] 650 mg PO Q6H PRN PRN tab 10/07/18 Albuterol Aerosols [Ventolin Aerosols] 2.5 mg INHALATION Q2H PRN PRN vial.neb. 10/07/18 Doxycycline 100 mg PO BID 14 Days #28 cap 10/07/18 Guaifenesin [Mucinex] 1,200 mg PO BID tab 10/07/18 Insulin Glargine [Lantus SoloStar Pen] 24 units SUBCUT QHS pen 10/07/18 Insulin Lispro [Humalog KwikPen] See Protocol SUBCUT ACHS & 3AM insuln.pen 10/07/18 Menthol/Lanolin/Calamine/Znox [Calmoseptine Ointment] 1 applic TOPICAL 4X/DAY tube 10/07/18 Nystatin Powder [Mycostatin Powder] 1 applic TOPICAL TID bottle 10/07/18 Oxycodone [Oxyir] 5 mg PO Q4H PRN PRN 3 Days #18 tab 10/07/18 Polyethylene Glycol 3350 [Miralax] 17 gm PO DAILY packet 10/07/18 Senna/Docusate Sodium [Senokot-S] 2 tab PO BID PRN PRN tab 10/07/18 Tamsulosin HCl [Flomax] 0.4 mg PO DAILY@1730 cap 10/07/18 Following Prescrptions Were Given to Patient: Doxycycline 100 mg PO BID 14 Days #28 cap Oxycodone [Oxyir] 5 mg PO Q4H PRN PRN 3 Days #18 tab PRN Reason: Moderate Pain (4-6/10) Primary Care Physician: Brayan Brown MD [Primary Care Provider] - Please follow up with your Primary Care Physician in: as directed Please Follow Up With: Hospice When: Today Disposition: Long-Term facility - with hospice Minutes spent on discharge:: 40 Patient Condition:: Poor Medical Necessity - Tobacco Use Smoking Status: Never smoker Meaningful Use Info Meaningful Use Diagnoses (Choose all that apply): None applicable <Stan Lawrence - Last Filed: 10/07/18 15:29> Discharge Date and Diagnosis - Secondary Discharge Diagnosis Chronic Problems (This Medical Record has been edited. 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 I have independently interviewed and examined the patient and reviewed pertinent historical, laboratory, and other data. Please refer to Dennis Hall PA-C note for details of this patient's presentation, findings, and recommendations. I have reviewed Dennis Hall PA-C note and concur with documented findings. In brief, patient is patient is a 68-year-old gentleman with history of cerebral palsy with severe MRDD admitted with severe sepsis. Patient had a protracted stay in the hospital with urine cultures and repeat blood cultures showing MRSA. Patient's family requested not to pursue aggressive treatment they recommended for patient to be discharged to a fdc facility with hospice Hospital course: As documented above by Dennis Hall NP?C - Physical Exam Vital Signs Temp Pulse Resp BP Pulse Ox 99.1 F 89 18 154/68 H 94 10/07/18 13:45 10/07/18 13:45 10/07/18 13:45 10/07/18 13:45 10/07/18 13:45 Oxygen Flow Rate (L/min) 2 Oxygen Delivery Method Room Air Weight: 88.1 kg Body Mass Index (BMI) 34.6 Intake and Output for Last 24 Hours 10/05/18 10/06/18 10/07/18 23:59 23:59 23:59 Intake Total 2096.7 / 2096.7 2456 / 2456 1016 / 1016 Output Total 3175 / 3175 1999 / 1999 850 / 850 Balance -1078.3 / -1078.3 456 / 456 166 / 166 Microbiology Past 72 Hours 10/01/18 14:50 Blood Culture - Final Blood Culture (Wb) - Right Hand No growth in 5 days. 10/03/18 08:35 Blood Culture - Preliminary Blood Culture (Wb) - Right Hand No growth in 48 hours. Laboratory Tests Past 24 Hrs 10/06/18 10/07/18 10/07/18 16:38 05:50 05:50 WBC 9.6 RBC 3.24 L Hgb 9.4 L Hct 31.0 L MCV 95.7 H MCH 29.0 MCHC 30.3 L RDW Std Deviation 51.8 H RDW Coeff of Willam 14.9 H Plt Count 241 MPV 9.9 Immature Gran % (Auto) 0.600 Neut % (Auto) 83.5 H Lymph % (Auto) 8.6 L [place] % (Auto) 6.0 Eos % (Auto) 1.1 Baso % (Auto) 0.2 Absolute Neuts (auto) 8.0 H Absolute Lymphs (auto) 0.83 Nucleated RBC % 0 Sodium 154 H Potassium 4.1 Chloride 122 H Carbon Dioxide 26.0 Anion Gap 6 BUN 43 H Creatinine 1.97 H Estim Creat Clear Calc 31.49 Est GFR (MDRD) Af Amer 43 L Est GFR (MDRD) Non-Af 36 L BUN/Creatinine Ratio 21.8 H Glucose 378 H Calcium 8.0 L Vancomycin Trough 16.9 H POC Glucose 10/07/18 10/07/18 10/07/18 11:44 06:36 03:00 POC Glucose 356 H 341 H 358 H 10/06/18 10/06/18 20:56 16:23 POC Glucose 279 H 283 H Code Visit Inpatient E&M: [id number] Disch Hosp
== END 2018-10-07 14:10 | disposition hospice, inpatient (51) | DRG 871 ==
LOC: ED 02:45 → PCU 03:22
PROVIDERS: Hospitalist; Internal Medicine; Internal Medicine Infectious Disease; Internal Medicine Nephrology; Nurse Practitioner Family; Physician Assistant; Admitting Provider Internal Medicine; Emergency Provider Emergency Medicine; Family Provider Family Medicine; PCP Family Medicine; Referring Provider Internal Medicine; Visit Provider Internal Medicine
DX: A41.02 Sepsis due to Methicillin resistant Staphylococcus aureus (principal); J96.01 Acute respiratory failure with hypoxia; J69.0 Pneumonitis due to inhalation of food and vomit; J15.212 Pneumonia due to Methicillin resistant Staphylococcus aureus; E87.1 Hypo-osmolality and hyponatremia; E87.2 Acidosis; I47.2 Ventricular tachycardia; E87.0 Hyperosmolality and hypernatremia; N39.0 Urinary tract infection, site not specified; R65.20 Severe sepsis without septic shock; G80.9 Cerebral palsy, unspecified; E83.42 Hypomagnesemia; G40.909 Epilepsy, unspecified, not intractable, without status epilepticus; Z66 Do not resuscitate; R32 Unspecified urinary incontinence; E87.5 Hyperkalemia; Z79.4 Long term (current) use of insulin; E78.5 Hyperlipidemia, unspecified; E11.22 Type 2 diabetes mellitus with diabetic chronic kidney disease; N18.3 Chronic kidney disease, stage 3 (moderate); I10 Essential (primary) hypertension; D50.9 Iron deficiency anemia, unspecified; L89.312 Pressure ulcer of right buttock, stage 2; Z51.5 Encounter for palliative care; Z99.3 Dependence on wheelchair; B95.62 Methicillin resistant Staphylococcus aureus infection as the cause of diseases classified elsewhere; R13.12 Dysphagia, oropharyngeal phase
CPT/HCPCS: 36415; 36569; 71045; 71046; 72146; 72148; 74230; 76770; 80048; 80053; 80202; 81001; 82274; 82570; 82607; 82728; 82746; 82962; 83540; 83550; 83605; 83735; 84100; 84156; 84300; 84443; 84484; 85025; 85027; 85610; 85730; 86850; 86900; 86920; 87040; 87070; 87077; 87086; 87088; 87149; 87186; 87205; 87449; 87493; 87633; 87641; 92526; 92610; 92611; 93005; 93306; 93971; 94640; 94667; 94668; 97162; 97166; 97802; 97803; 99285; J1756; J7030; J7040; J7050; J7120; P9016; P9612; Q9957; A4216; C8929; J0610